=== PATIENT | female | born 1990 | race Caucasian/White ===

== ENCOUNTER 2021-02-25 18:24 | Emergency (ER) | payer SELFPAY ==
[2021-02-25 18:25] VITALS: BP 121/81; PULSE 97; RESP 16; TEMP 36.6; O2SAT 100; BMI 20.5
[2021-02-25 18:26] VITALS: BP 121/81; PULSE 97; RESP 16; TEMP 36.6; O2SAT 100
--- NOTE | 2021-02-25 18:31 | EX.ED.VIS.UR ---
HPI HPI - URI History of Present Illness Chief Complaint: Chest Other Detail of Chief Complaint: Left pleuritic chest pain. Informant: patient Onset/Context/Timing Onset: Days Context: Gradual Onset Timing: Intermittent Current Severity: Mild Maximum Severity: Mild Associated Symptoms Associated Symptoms: Positive for Chest Pain; Negative for Nasal Congestion, Headache, Sinus Pressure, Myalgias, Nausea, Vomiting, Diarrhea, Shortness of Breath, Nonproductive cough, Hemoptysis and Productive Cough Narrative Narrative: 21-year-old female with 1 to 2-day history of pleuritic chest pain with deep breathing. She is had pneumonia twice this year. States it feels like when she had pneumonia. Went to be evaluated. She denies fever or chills. She denies shortness of breath. She is never had a DVT or PE. No hemoptysis. She does not feel short of breath. No recent travel, surgery or immobilization. Her last hospitalization was in September for her pneumonia. She denies any leg pain or swelling. Prior similar symptoms: Yes Recent Illness/Hospitalization: No ROS ROS ED ROS Narrative Or a lot of chest breathing. Review of Systems ROS Unobtainable: Denies due to encephalopathy Constitutional Constitutional ED: Denies chills or fever(s) Eyes Eyes: Denies change in vision ENT ENT ED: Denies ear pain or sore throat Cardiovascular Cardiovascular: Reports chest pain; Denies palpitations or racing heartbeat Respiratory/Chest Respiratory/Chest: Denies cough, dyspnea or sputum Gastrointestinal Gastrointestinal: Denies abdominal pain, constipation, diarrhea, nausea or vomiting Genitourinary Genitourinary ED: Denies dysuria Musculoskeletal Musculoskeletal: Denies myalgias Integumentary Denies rash Neurologic Neurologic: Denies headache(s) Psychiatric Psychiatric: Denies depression Endocrine Endocrinology: Denies polyuria Hematologic/Lymphatic Hematologic/Lymphatic: Denies easy bruising Allergic/Immunologic Allergic/Immunologic ED: Denies urticaria PFSH PFSH Medical History no medical history Home Medications NK 02/25/21 [History Last Taken Unknown] Allergy/AdvReac Type Severity Reaction Status Date / Time cefazolin Allergy Rash Verified 02/25/21 18:26 cephalexin monohydrate Allergy Rash Verified 02/25/21 18:26 [From Keflex] Penicillins [PCN] Allergy Rash Verified 02/25/21 18:26 Family History no significant family his Surgical History no surgical history no surgical history Social History Smoking Status: Current every day smoker tobacco type: cigarettes EXAM Physical Exam Narrative Exam Narrative: Well-appearing young female no acute distress. Vital signs stable afebrile. Pulse ox 9% room air no signs hypoxia. HEENT exam normal. Neck nontender no JVD. Lungs clear to auscultation. Heart regular rate and rhythm no murmur. Chest wall nontender. There is no ecchymosis or bruising no subcu air crepitance. No reproducible chest wall pain. Abdomen soft nontender. Moving all 4 extremities. Calves are nontender no edema or cords. Equal symmetrical radial pulses. Back exam normal nontender. Neurologic exam normal. Const Vital Signs: 02/25/21 18:25 02/25/21 18:26 02/25/21 18:35 Temperature 98 F 98 F Temperature Source Temporal Temporal Pulse Rate 97 97 Respiratory Rate 16 16 Respiratory Effort Normal Blood Pressure 121/81 H 121/81 H Blood Pressure Mean 94 94 Pulse Ox 100 100 General Appearance ED: Negative for pallor HEENT Reports moist mucous membranes normocephalic and atraumatic Face and Sinus: Negative for sinus tenderness External Ear: external ears normal Eyes PERRL and EOMs intact bilaterally Neck no lymphadenopathy, supple, no meningeal signs and no JVD General: Negative for anterior neck swelling Resp normal respiratory effort and clear to auscultation bilaterally Effort and Inspection: Negative for retractions or pain with movement Auscultation: Negative for rales, rhonchi, wheezes or diminished lung sounds Cardio S1 normal heart sound, S2 normal heart sound and no murmurs Rate: regular rate; Negative for tachycardic Rhythm: regular rhythm GI non-tender, non-distended and no masses Inspection: Negative for abdominal distention Auscultation: normoactive bowel sounds Palpation: soft; Negative for tender or guarding Back/Spine no CVA tenderness Extremity normal to inspection and full ROM General Extremety ED: Negative for cyanosis or tenderness General Extremity: Negative for cyanosis Neuro oriented x3 Sensorium / Orientation: alert, oriented to person, oriented to place and oriented to time Motor Exam: strength 5/5 throughout Psych mental status grossly normal Skin General Skin Exam: Negative for jaundice or pallor Lesions: no lesions Rashes: no rashes MDM MDM MDM Narrative Medical decision making narrative: Young female left-sided pleuritic chest pain. No history of DVT or PE or any significant risk factors. Chest x-ray being obtained due to her history of prior pneumonias. Repeat exam patient doing well at 6:58 PM and will be discharged home. Motrin for pain. Radiography Diagnostic Testing: Chest x-ray portable 1 view interpreted by myself shows no acute abnormality. Normal cardiac silhouette. Normal lung rosenbreg. No infiltrate. No pneumonia. No pneumothorax. I did go over the film with the patient. Discharge Plan Triage Chief Complaint: Chest Other ED Provider: Samuel Singer Dx/Rx/DC Orders Clinical Impression: Pleurisy Instructions: ED Pleurisy Prescriptions: No Action NK RF: 0 Primary Care Provider: Care Physician,No Primary Referrals: Nabor Sanchez MD [STAFF PHYSICIAN] - 1 Week if not improving Care Physician,No Primary [Primary Care Provider] - Activity Restrictions/Additional Instructions: Motrin for pain and inflammation. Follow-up if not improving. Your chest x-ray was normal today. If you are feeling a lot worse, increasing pain, fever or shortness of breath or coughing up blood return to be reevaluated. Disposition Disposition: Home, Self Care
--- NOTE | 2021-02-25 18:40 | RAD_ITS ---
HISTORY: cough EXAMINATION/TECHNIQUE: XR Chest 1 View: Portable upright AP chest x-ray COMPARISON: 02/01/16 FINDINGS: LINES/DEVICES: None. LUNGS: No consolidation, edema or effusion. No pneumothorax. MEDIASTINUM AND CARDIOVASCULAR STRUCTURES: Cardiac silhouette not enlarged. Central airways and mediastinal contour are unremarkable. BONES AND SOFT TISSUES: No acute bony abnormalities. RAD/Chest 1 View (Portable) IMPRESSION: No radiographic evidence of acute cardiopulmonary disease. at 1934 Reported and signed by: Shine Ortiz MD Electronically Signed: Shine Ortiz MD at 19:33 EDT Tel , Service support ,
[2021-02-25 19:10] VITALS: RESP 16
== END 2021-02-25 19:11 | disposition home or self-care (01) ==
LOC: ED 19:09
PROVIDERS: Emergency Provider Emergency Medicine
DX: R09.1 Pleurisy (principal); F17.210 Nicotine dependence, cigarettes, uncomplicated
CPT/HCPCS: 71045; 99282

== ENCOUNTER 2022-06-02 12:13 | Emergency (ER) | payer MEDICAID, SELFPAY ==
[2022-06-02 12:16] VITALS: BP 151/89; PULSE 110; RESP 18; TEMP 36.1; O2SAT 98; BMI 19.5
--- NOTE | 2022-06-02 12:47 | EX.ED.DYSGE1 ---
HPI History of Present Illness Chief Complaint: Anxiety Narrative Narrative: 31-year-old female presenting with anxiety and panic attack. She states this started this morning. She has been under a lot of stress at work. She recently ran out of her anxiety medication, hydroxyzine. She denies suicidal thoughts or plan. History of previous panic attack. She states she has palpitations and bilateral hand tingling. Denies other complaints. Prior similar symptoms: Yes Recent Illness/Hospitalization: No PFSH PFSH Medical History (Updated 06/02/22 @ 13:[address] Mariaelena Gaytan MD) Anxiety IBS (irritable bowel syndrome) Home Medications hydroxyzine pamoate 25 mg capsule (Vistaril) 25 mg PO BID PRN anxiety 10 days #20 caps 06/02/22 [Rx Last Taken Unknown] Allergy/AdvReac Type Severity Reaction Status Date / Time cefazolin Allergy Rash Verified 06/02/22 12:18 cephalexin monohydrate Allergy Rash Verified 06/02/22 12:18 [From Keflex] Penicillins [PCN] Allergy Rash Verified 06/02/22 12:18 Social History Smoking Status: Current every day smoker tobacco type: cigarettes ROS ROS ED Constitutional Constitutional ED: Denies fever(s) Eyes Eyes: Denies change in vision ENT ENT ED: Denies rhinorrhea or sore throat Cardiovascular Cardiovascular: Reports palpitations; Denies chest pain Respiratory/Chest Respiratory/Chest: Denies cough or dyspnea Gastrointestinal Gastrointestinal: Denies abdominal pain, diarrhea, nausea or vomiting Genitourinary Genitourinary ED: Denies dysuria Musculoskeletal Musculoskeletal: Denies myalgias Integumentary Denies rash Neurologic Neurologic: Denies headache(s) Psychiatric Psychiatric: Reports anxiety; Denies suicidal thoughts EXAM Physical Exam Const Vital Signs: 06/02/22 12:16 Temperature 96.9 F L Temperature Source Temporal Pulse Rate 110 H Respiratory Rate 18 Blood Pressure 151/89 H Blood Pressure Mean 109 Pulse Ox 98 Oxygen Delivery Method Room Air Positive well nourished and well developed General Appearance ED: well developed HEENT Reports normocephalic and head/scalp atraumatic Eyes PERRL and EOMs intact bilaterally Neck supple General: Negative for tenderness Chest Wall inspection of chest normal Resp normal respiratory effort and clear to auscultation bilaterally Cardio regular rate and regular rhythm GI non-tender and non-distended Palpation: soft; Negative for guarding or rebound tenderness present no CVA tenderness Extremity normal to inspection Neuro oriented x3 Sensorium / Orientation: alert Psych mental status grossly normal Psych Narrative: Denies suicidal thoughts or plan Mood & Affect: anxious MDM MDM MDM Narrative Medical decision making narrative: Patient was given Ativan p.o. On reevaluation she is feeling improved. She continues to deny suicidal ideation. She is given a referral to the counseling center. She is given prescription for Vistaril. Advised return to ED for worsening complaints. Discharge Plan Triage Chief Complaint: Anxiety ED Provider: Mariaelena Gaytan Dx/Rx/DC Orders Clinical Impression: Anxiety Instructions: ED Anxiety Reaction Prescriptions: New hydroxyzine pamoate [Vistaril] 25 mg capsule 25 mg PO BID PRN (Reason: anxiety) 10 Days Qty: 20 0RF Primary Care Provider: Care Physician,No Primary Referrals: Counseling,Center [Group of Physicians] - Care Physician,No Primary [Primary Care Provider] - Disposition Disposition: Home, Self Care
[2022-06-02] MEDS: LORazepam 1 MG Tablet PO (12:52)
== END 2022-06-02 13:33 | disposition home or self-care (01) ==
PROVIDERS: Emergency Provider Emergency Medicine; Visit Provider Emergency Medicine
DX: F41.9 Anxiety disorder, unspecified (principal); F17.210 Nicotine dependence, cigarettes, uncomplicated
CPT/HCPCS: 99284

== ENCOUNTER 2022-08-09 12:09 | Emergency (ER) | payer MEDICAID, SELFPAY ==
[2022-08-09 12:10] VITALS: BP 125/72; PULSE 74; RESP 14; TEMP 36.8; O2SAT 100; BMI 19.8
--- NOTE | 2022-08-09 12:32 | EDS_ITS ---
HPI <SEEMA Yang - Last Filed: 08/09/22 15:27> History of Present Illness Chief Complaint: Chest Other Narrative Narrative: 31-year-old female presents with right-sided chest pain that started yesterday. 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 She started to feel seconds of sharp pain in her right lower rib cage. Today when starting her shift about the first half an hour the pain worsened and became more constant. It has improved now that she is resting in the ED. It hurts with taking a deep breath she does not feel short of breath. No nausea, vomiting, or diaphoresis. No back or abdominal pain. She has had similar pain every couple months and states she has been seen before and told she had pneumonia or costochondritis. She has had a cough recently but no fever or chills. She smokes. She has no history of DVT/PE, leg pain or swelling, recent surgery or travel, hemoptysis, or hormone use. PFSH <SEEMA Yang - Last Filed: 08/09/22 15:27> [facility] Medical History (Updated 08/09/22 @ 13:12 by SEEMA Yang) Anxiety IBS (irritable bowel syndrome) Home Medications hydroxyzine pamoate 25 mg capsule (Vistaril) 25 mg PO BID PRN anxiety 10 days #20 caps 06/02/22 [Rx Last Taken Unknown] Allergy/AdvReac Type Severity Reaction Status Date / Time cefazolin Allergy Rash Verified 08/09/22 12:10 cephalexin monohydrate Allergy Rash Verified 08/09/22 12:10 [From Keflex] Penicillins [PCN] Allergy Rash Verified 08/09/22 12:10 Social History Smoking Status: Current every day smoker tobacco type: cigarettes ROS <SEEMA Yang - Last Filed: 08/09/22 15:27> ROS ED ROS Narrative Constitutional: Negative for fever, chills, malaise. CVS: Positive for chest pain. Negative for palpitations, syncope. Respiratory: Positive for cough. Negative for shortness of breath. GI: Negative for abdominal pain, nausea, vomiting. : Negative for dysuria. Skin: Negative for rash, abscess, or wound. Musc: Negative for joint pain, swelling, trauma. EXAM <SEEMA Yang - Last Filed: 08/09/22 15:27> Physical Exam Narrative Exam Narrative: CONST: Patient sitting in no acute distress. EYES: Normal inspection. NECK: Normal inspection. RESP: No respiratory distress, CTAB. No reproducible tenderness of the right rib cage but movement does exacerbate the pain. CVS: Regular rate and rhythm, no murmur, no gallop. ABD: Soft and nontender, no guarding or rebound, nondistended, no hepatosplenomegaly. SKIN: Color normal, no rash, warm, dry, intact. EXTREMITIES: Normal appearance, no pedal edema. NEURO: Oriented x4. PSYCH: Normal affect. Const Vital Signs: 08/09/22 12:10 08/09/22 12:31 08/09/22 13:30 Temperature 98.2 F Temperature Source Temporal Pulse Rate 74 66 Respiratory Rate 14 Respiratory Pattern Normal Blood Pressure 125/72 H 122/80 H Blood Pressure Mean 89 Pulse Ox 100 100 Oxygen Delivery Method Room Air <Dr. 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 It worsened today at work. It hurts with movement or taking a deep breath. She is not short of breath or having any other associated symptoms. She appears well and nontoxic with normal vital signs. Heart is regular rate and rhythm with no murmurs. Lungs clear. She has no tenderness when I push on her right rib cage but it does hurt with twisting motions. No abdominal tenderness. Chest x-ray and EKG were obtained. CXR shows no acute process and EKG is normal sinus rhythm with no acute ischemic changes. She is PERC negative so I do not think she needs a D-dimer. I considered lab work and troponin but pain seems more consistent with a muscular strain especially with how labor-intensive her job is. She had improvement after Toradol and I recommended taking Tylenol and Motrin [id number]. She is scheduled to be off for the next 2 days. She was given return precautions and discharged in stable condition. Radiography Diagnostic Testing: Clinical Impression(s) from Imaging Studies Chest X-Ray 08/09/22 12:38 IMPRESSION: Hyperinflation. The lungs are clear. Electronically Signed: Kar Soto MD at 12:52 EST , ED attending interpretation of 2 view chest x-ray shows normal heart size, no acute infiltrate or effusion, no evidence of displaced rib fracture or pneumothorax. EKG Initial EKG: Attestation: I personally reviewed and interpreted this EKG as follows: Interpretation: Sinus Rhythm Comments: ED attending interpretation EKG is normal sinus rhythm at 76 bpm, RBBB but no acute ischemic changes Prior EKG tracings: available for review Prior: Unchanged <Dr. 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 It worsened today at work. It hurts with movement or taking a deep breath. She is not short of breath or having any other associated symptoms. She appears well and nontoxic with normal vital signs. Heart is regular rate and rhythm with no murmurs. Lungs clear. She has no tenderness when I push on her right rib cage but it does hurt with twisting motions. No abdominal tenderness. Chest x-ray and EKG were obtained. CXR shows no acute process and EKG is normal sinus rhythm with no acute ischemic changes. She is PERC negative so I do not think she needs a D-dimer. I considered lab work and troponin but pain seems more consistent with a muscular strain especially with how labor-intensive her job is. She had improvement after Toradol and I recommended taking Tylenol and Motrin [id number]. She is scheduled to be off for the next 2 days. She was given return precautions and discharged in stable condition. Interventions / MDM: Differential diagnosis: Musculoskeletal strain Diagnosis considered but do not suspect: Acute coronary syndrome, however EKG with no ischemia. 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 I perform my own [id number] evaluation. I agree with the plan of work-up. Increasing right lower rib pain while at work yesterday. 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 No direct injuries. Her boss was aware yesterday decrease her duties, today while working increasing pain therefore left work and came here. She has been there for months. Patient status post Toradol before my evaluation. Discussed she states improving symptoms. Pain reproducible right lower anterior ribs there is no crepitus. No rash or ecchymosis. EKG chest x- ray negative she is reassured. She is declining work related injury processing at this time. She is given a work note for today she is off for the weekend she will see how she does on Friday. She will continue ibuprofen 600 mg every 6 hours. All questions were answered. Re-evaluation: stable Disposition discussed with patient/family/significant other: Case discussed with consulting clinician: N/A Radiography Diagnostic Testing: Clinical Impression(s) from Imaging Studies Chest X-Ray 08/09/22 12:38 IMPRESSION: Hyperinflation. The lungs are clear. Electronically Signed: Kar Soto MD at 12:52 EST , Discharge Plan Triage Chief Complaint: Chest Other ED Midlevel Provider: Pura Crowe ED Provider: Aries Camacho Dx/Rx/DC Orders Clinical Impression: Chest pain, Muscle strain of chest wall Instructions: ED Chest Wall Strain Prescriptions: No Action hydroxyzine pamoate [Vistaril] 25 mg capsule 25 mg PO BID PRN (Reason: anxiety) 10 Days Qty: 20 0RF Primary Care Provider: Care Physician,No Primary Referrals: Care Physician,No Primary [Primary Care Provider] - Activity Restrictions/Additional Instructions: Your chest x-ray and EKG look normal. I would treat this as a muscle strain with ibuprofen 600 mg every 6 hours. You can also add Tylenol 1000 mg every 6 hours for additional pain relief. Use heat or ice and rest. Return to ER if symptoms worsen or change. Disposition Disposition: Home, Self Care Discharge Date/Time: 08/09/22 13:33
--- NOTE | 2022-08-09 12:38 | RAD_ITS ---
STUDY: X-RAY CHEST REASON FOR EXAM: Female, 31 years old. Chest pain. TECHNIQUE: PA and lateral views of the chest. COMPARISON: Comparison is made with prior study dated February 25, 2021. FINDINGS: Hyperinflation. The lungs are clear. There is no demonstrated pleural abnormality. Normal size heart. Normal mediastinum and cele. Normal visualized pulmonary arteries. Normal visualized aortic arch and descending thoracic aorta. Normal visualized thoracic spine. Normal visualized ribs, clavicles, and shoulders. There is no demonstrated abnormality of the visualized soft tissue structures of the upper abdomen. RAD/Chest PA and Lateral IMPRESSION: Hyperinflation. The lungs are clear. Electronically Signed: Kar Soto MD at 12:52 EST ,
[2022-08-09] MEDS: Ketorolac 15 MG/ML Vial IM (12:57)
[2022-08-09 13:30] VITALS: BP 122/80; PULSE 66; O2SAT 100
== END 2022-08-09 13:33 | disposition home or self-care (01) ==
PROVIDERS: Emergency Provider Emergency Medicine; Visit Provider Emergency Medicine
DX: R07.9 Chest pain, unspecified (principal); S29.011A Strain of muscle and tendon of front wall of thorax, initial encounter; F17.210 Nicotine dependence, cigarettes, uncomplicated; F41.9 Anxiety disorder, unspecified; K58.9 Irritable bowel syndrome, unspecified; X50.0XXA Overexertion from strenuous movement or load, initial encounter
CPT/HCPCS: 71046; 93005; 99282

== ENCOUNTER 2022-11-14 16:45 | Emergency (ER) | payer MEDICAID, SELFPAY ==
[2022-11-14 16:45] VITALS: BP 137/77; PULSE 80; RESP 14; TEMP 37.2; O2SAT 98; BMI 17.6
--- NOTE | 2022-11-14 17:15 | EX.ED.VIS.HA ---
HPI History of Present Illness Chief Complaint: Headache Informant: patient Narrative Narrative: 32-year-old female states she has been having a headache that was gradual in onset progressive for the past 6 days or so, coexisting with worsening nasal congestion and sinus pressure, that she states is more in the bifrontal sinuses area than the ethmoids were maxillary. She has been having a chest cold that then started involving these sinus symptoms all of which started about 3 weeks ago, she was seen at urgent care and prescribed doxycycline which she started 4 days ago and when she went back because of the persistent headache, she was sent here for a CT of her head. [facility] Medical History Anxiety IBS (irritable bowel syndrome) Home Medications hydroxyzine pamoate 25 mg capsule (Vistaril) 25 mg PO BID PRN anxiety 10 days #20 caps 06/02/22 [Rx Last Taken Unknown] Allergy/AdvReac Type Severity Reaction Status Date / Time cefazolin Allergy Rash Verified 11/14/22 16:45 cephalexin monohydrate Allergy Rash Verified 11/14/22 16:45 [From Keflex] Penicillins [PCN] Allergy Rash Verified 11/14/22 16:45 Social History Smoking Status: Current every day smoker tobacco type: cigarettes ROS ROS ED Constitutional Constitutional ED: Denies chills or fever(s) ENT ENT ED: Reports nasal congestion, rhinorrhea, sinus pain and sinus pressure; Denies ear pain or sore throat Cardiovascular Cardiovascular: Denies chest pain or palpitations Respiratory/Chest Respiratory/Chest: Reports cough; Denies dyspnea Gastrointestinal Gastrointestinal: Denies abdominal pain, diarrhea, nausea or vomiting Genitourinary Genitourinary ED: Denies dysuria or hematuria Musculoskeletal Musculoskeletal: Reports neck pain and other Details: Neck pain is chronic and unchanged since she was 6 years old ; Denies myalgias Integumentary Denies abscess or rash Neurologic Neurologic: Reports headache(s); Denies paresthesias or weakness Psychiatric Psychiatric: Denies depression or suicidal thoughts Endocrine Endocrinology: Denies polydipsia or polyuria EXAM Physical Exam Const Vital Signs: 11/14/22 16:45 Temperature 99 F Temperature Source Temporal Pulse Rate 80 Respiratory Rate 14 Blood Pressure 137/77 H Blood Pressure Mean 97 Pulse Ox 98 Oxygen Delivery Method Room Air Positive well nourished and well developed General Appearance ED: well developed and NAD HEENT Reports moist mucous membranes HEENT Narrative: No frontal, ethmoid, maxillary sinus tenderness. Nasal turbinate edema bilaterally without purulent discharge. No erythema or abnormal swollen areas of the face. No mastoiditis/tenderness. Normal voice no stridor. normocephalic and atraumatic Throat: Negative for posterior oropharynx abnormal Eyes PERRL and EOMs intact bilaterally Eyes Narrative: Mild photophobia Neck no lymphadenopathy, supple and no meningeal signs Resp normal respiratory effort and clear to auscultation bilaterally Cardio no murmurs Rate: regular rate Rhythm: regular rhythm Neuro oriented x3, CN's II-XII intact bilaterally and no sensory deficits noted Sensorium / Orientation: alert Motor Exam: strength 5/5 throughout Psych mental status grossly normal Skin Lesions: no lesions Rashes: no rashes MDM MDM MDM Narrative Medical decision making narrative: I do not think this patient needs a CT of the head, and she states she is in agreement and thinks she is having a headache due to her sinuses which I tend to agree with. Differential does include sphenoid sinusitis but she is on an appropriate antibiotic to cover that, and she may or may not have bacterial sinusitis, she is not examining like it but she has also been on antibiotics for the past 4 days, and she states that the congestion seems to be improving since then but the headache is persistent. She is okay with symptomatic treatment with nasal congestions, I will give her a Reglan dose and Toradol here and follow-up advised, we discussed reasons to return she is comfortable with that plan. Discharge Plan Triage Chief Complaint: Headache ED Provider: Gaston Mccann Dx/Rx/DC Orders Clinical Impression: Sinus headache Instructions: ED Sinus Headache Prescriptions: No Action hydroxyzine pamoate [Vistaril] 25 mg capsule 25 mg PO BID PRN (Reason: anxiety) 10 Days Qty: 20 0RF Primary Care Provider: Corinne Jones NP Referrals: Corinne Jones NP, [employer]ER-[facility] [Primary Care Provider] - 3-5 Days if not improving Activity Restrictions/Additional Instructions: Look for [id number] decongestant nasal spray that contains oxymetazoline, use 2 sprays of each nostril up to every 12 hours for 3 days at a time, make sure you give your self time without the spray in between, so you do not get used to it. After sprain into your nostrils, 10 minutes later hold your nose and blow gently into you feel your ears gently pop without blowing too hard, and hold this for 1 breath as long as you can, sometimes this will pop your sinuses open to give you temporary or permanent relief of your sinus headache. Disposition Disposition: Home, Self Care
[2022-11-14] MEDS: Ketorolac 30 MG/ML Syringe IM (17:27)
[2022-11-14] MEDS: Metoclopramide 10 MG Tablet PO (17:43)
== END 2022-11-14 17:47 | disposition home or self-care (01) ==
PROVIDERS: Emergency Provider Emergency Medicine; PCP Nurse Practitioner Primary Care; Visit Provider Emergency Medicine
DX: R51.9 Headache, unspecified (principal); F17.210 Nicotine dependence, cigarettes, uncomplicated; F41.9 Anxiety disorder, unspecified; Z79.899 Other long term (current) drug therapy
CPT/HCPCS: 99283

== ENCOUNTER 2023-05-12 20:35 | Emergency (ER) | payer BC, MEDICAID, SELFPAY ==
--- NOTE | 2023-05-12 20:30 | EKG12_ITS ---
Test Reason : CP Blood Pressure : / mmHG Vent. Rate : 090 BPM Atrial Rate : 090 BPM P-R Int : 134 ms QRS Dur : 140 ms QT Int : 394 ms P-R-T Axes : 051 050 025 degrees QTc Int : 481 ms Normal sinus rhythm Right bundle branch block Abnormal ECG Confirmed by GOLDY CLARK, ИВАН ([id number]), editor house organ BENJAMIN REEVES ([id number]) on 05/19/2023 6:58:19 AM Referred By: Esa Greenberg Confirmed By:TORI WINSLOW MD
[2023-05-12 20:36] VITALS: BP 128/85; PULSE 81; RESP 16; TEMP 36.3; O2SAT 100; BMI 19.7
--- NOTE | 2023-05-12 22:00 | ED.VIS.CHEST ---
HPI History of Present Illness Chief Complaint: Chest Pain Narrative Narrative: 32-year-old female who denies significant past medical history presents with left-sided chest pain that began yesterday. Is very sharp and fleeting. There is no particular predictability when she gets this pain. It causes her to jump almost when it catches her. She states it is on the left side of her chest, and radiates into her breast. She denies any fever or chills, no cough. No recent trauma. No swelling of her legs. No DVT or PE risk factors. No exacerbating or alleviating factors. [facility] Medical History Anxiety IBS (irritable bowel syndrome) Home Medications hydroxyzine pamoate 25 mg capsule (Vistaril) 25 mg PO BID PRN anxiety 10 days #20 caps 06/02/22 [Rx Last Taken Unknown] Allergy/AdvReac Type Severity Reaction Status Date / Time cefazolin Allergy Rash Verified 11/14/22 16:45 cephalexin monohydrate Allergy Rash Verified 11/14/22 16:45 [From Keflex] Penicillins [PCN] Allergy Rash Verified 11/14/22 16:45 Social History Smoking Status: Current every day smoker tobacco type: cigarettes ROS ROS ED ROS Narrative Constitutional: No fever, no chills. HEENT: No sore throat. No neck pain. No loss of vision. No rhinorrhea. Cardiovascular: Positive left-sided chest pain sharp, fleeting. No palpitations. No pedal edema. Respiratory: No cough, no shortness of breath. Abdominal: No abdominal pain. No nausea. No vomiting. Genitourinary: No dysuria. No hematuria. Musculoskeletal: No myalgias. No arthralgias. Neurologic: No headaches. No dizziness. No lightheadedness. Skin: No rash. No change in color. Psychiatric: No depression. Positive anxiety. EXAM Physical Exam Narrative Exam Narrative: Afebrile. Vital signs noted. HEENT: Normocephalic. Atraumatic. PERRL, EOMI. Neck soft and supple. No point tenderness or step off. Cardiovascular: Regular rate and rhythm. No murmurs, rubs, or gallops appreciated. No tenderness to chest wall. No crepitance. Respiratory: No tachypnea. Lungs clear to auscultation bilaterally. Gastrointestinal: Abdomen soft, nontender, with normoactive bowel sounds. No rebound or guarding. Neurological: Awake. Alert. Nonfocal, nonlateralizing. Skin: No rash. Normal color. No pallor. Musculoskeletal: No pedal edema. Full range of motion extremities. Const Vital Signs: 05/12/23 20:36 05/12/23 21:37 05/12/23 21:59 Temperature 97.4 F L Temperature Source Temporal Pulse Rate 81 Respiratory Rate 16 Respiratory Effort Normal Respiratory Pattern Normal Blood Pressure 128/85 H Blood Pressure Mean 99 Pulse Ox 100 Oxygen Delivery Method Room Air Room Air 05/12/23 23:29 Temperature Temperature Source Pulse Rate 80 Respiratory Rate 13 Respiratory Effort Respiratory Pattern Blood Pressure 124/82 H Blood Pressure Mean 96 Pulse Ox 98 Oxygen Delivery Method MDM MDM MDM Narrative Medical decision making narrative: In the differential diagnosis is acute coronary syndrome versus pneumothorax versus pneumonia versus intercostal pain. The history and physical does not really support these emergency diagnosis especially pneumothorax or pneumonia. Her pulse ox is 100% on room air without evidence of hypoxia. She is not tachycardic. In the differential is also coronary artery vasospasm, but it seems to be more chest wall than internally. Comprehensive workup was pursued. I do not feel she requires serial enzymes as she has been getting this intermittent pain since yesterday. EKG was obtained and interpreted by myself independently as normal sinus rhythm at 90 bpm without ectopy or acute ST changes. No STEMI. No significant change from EKG dated August 09, 2022. I reviewed her laboratory work and she has normal white count of 8.2, hemoglobin normal at 12.5, hematocrit 39.1, platelet count normal at 389. Her initial D-dimer was hemolyzed but the repeat is normal at less than 0.27. Review of her BMP shows chloride 108 and slightly elevated which I think is nonspecific, glucose normal at 94 with a normal anion gap/low at 4. Her high-sensitivity troponin is 6. I feel she may have more of a neuropathic type of pain. She has not had it at all since her stay in the emergency department. At this point in time, as she has a chest x-ray that was interpreted by myself and 1 view as no acute process, I reviewed the radiology report which confirms my independent interpretation, I feel she be discharged to follow-up with her primary care provider. She was offered analgesics here but declined. Disposition is discharged home in stable condition. History & Record Review Discussion w/independent historian: Patient Additional record(s) reviewed:: Prior ED visit Lab Data Attestation: I reviewed the patient's lab results. Labs: Laboratory Results - last 24 hr 05/12/23 05/12/23 22:08 22:40 WBC 8.2 RBC 4.30 Hgb 12.5 Hct 39.1 MCV 90.9 MCH 29.1 MCHC 32.0 RDW Std Deviation 43.5 RDW Coeff of Jordan 13.2 Plt Count 389 MPV 10.3 Immature Gran % (Auto) 0.400 Neut % (Auto) 59.7 Lymph % (Auto) 31.3 Dolores % (Auto) 7.1 Eos % (Auto) 1.0 Baso % (Auto) 0.5 Absolute Neuts (auto) 4.9 Absolute Lymphs (auto) 2.56 Nucleated RBC % 0 D-Dimer Quant (PE/DVT) Cancelled < 0.27 L Sodium 140 Potassium 4.1 Chloride 108 H Carbon Dioxide 28.0 Anion Gap 4 L BUN 14 Creatinine 0.76 Estim Creat Clear Calc 88.32 Est GFR (MDRD) Af Amer 113 Est GFR (MDRD) Non-Af 93 BUN/Creatinine Ratio 18.3 Glucose 94 Calcium 9.1 Troponin I High Sens 6 Radiography Diagnostic Testing: Clinical Impression(s) from Imaging Studies Chest X-Ray 05/12/23 22:10 IMPRESSION: No radiographic evidence of acute cardiopulmonary disease. Electronically Signed: Shine Ortiz MD at 22:37 EST Reading Location ID and State: [facility] / [place] Tel , Service support , Discharge Plan Triage Chief Complaint: Chest Pain ED Provider: Esa Greenberg Dx/Rx/DC Orders Clinical Impression: Chest pain Instructions: ED Chest Pain, Uncertain Cause Prescriptions: No Action hydroxyzine pamoate [Vistaril] 25 mg capsule 25 mg PO BID PRN (Reason: anxiety) 10 Days Qty: 20 0RF Stand Alone Forms: Work / School Excuse Primary Care Provider: Corinne Jones NP Referrals: Corinne Jones NP, [employer] PROGRAM DIRECTOR-C [Primary Care Provider] - 3-5 Days if not improving Disposition Disposition: Home, Self Care
--- NOTE | 2023-05-12 22:10 | RAD_ITS ---
INDICATION: chest pain EXAMINATION/TECHNIQUE: X-RAY - portable upright AP chest x-ray COMPARISON: 08/09/2022 FINDINGS: LINES/DEVICES: None. LUNGS: No consolidation, edema or effusion. No pneumothorax. MEDIASTINUM AND CARDIOVASCULAR STRUCTURES: Cardiac silhouette not enlarged. Central airways and mediastinal contour are unremarkable. BONES AND SOFT TISSUES: Unremarkable. RAD/Chest 1 View (Portable) IMPRESSION: No radiographic evidence of acute cardiopulmonary disease. Electronically Signed: Shine Ortiz MD at 22:37 EST ,
[2023-05-12 22:16] LABS: Absolute Lymphocyte Count 2.56 X10^3/uL (0.83-4.51); Absolute Neutrophil Count 4.9 X10^3/uL (2.0-7.7); Basophil# 0.04 X10^3/uL; Basophil% 0.5 % (0-1); Eosinophil# 0.08 X10^3/uL; Hematocrit 39.1 % (37-47); Hemoglobin 12.5 g/dL (12.0-15.0); Lymphocyte # 2.56 X10^3/ul (0.83-4.51); Lymphocyte % 31.3 % (19-41); Mean Corpuscular Hgb 29.1 pg (27.0-32.0); Mean Corpuscular Volume 90.9 fL (81-99); Mean Platelet Vol. 10.3 fl (6.2-12.0); Monocyte# 0.58 X10^3/uL; Monocyte% 7.1 % (0-10); NRBC Flagged by Analyzer 0 % (0-5); Neutrophil # 4.88 X10^3/uL (2.7-7.7); Neutrophil % 59.7 % (47-70); Platelet Count 389 K/mm3 (150-450); RBC Distribution Width CV 13.2 % (11.6-14.6); RBC Distribution Width SD 43.5 fl (35.1-43.9); White Blood Count 8.2 K/mm3 (4.4-11.0)
[2023-05-12 22:37] LABS: Anion Gap 4 (5-15); BUN 14 mg/dL (7-18); BUN/Creat Ratio 18.3 RATIO (10-20); Calcium,Total 9.1 mg/dL (8.5-10.1); Chloride 108 mmol/L (98-107); Creatinine, Serum 0.76 mg/dL (0.55-1.02); EST Glomerular Filtration Rate 93 mL/min (>60); Est Glom Filt Rate - Afr Amer 113 mL/min (>60); Estimated Creatinine Clearance 88.32 ml/min; Glucose 94 mg/dL (74-106); Potassium 4.1 mmol/L (3.5-5.1); Sodium Level 140 mmol/L (136-145); Troponin-I HS 6 pg/mL (3.0-54.0)
[2023-05-12] MEDS: 0.9% Normal Saline (1000mL) 1,000 ML 1000 ML IV (22:39)
[2023-05-12 23:22] LABS: D-Dimer Quantitative (DVT/PE) < 0.27 FEU/ug/m (0.27-0.49)
[2023-05-12 23:29] VITALS: BP 124/82; PULSE 80; RESP 13; O2SAT 98
== END 2023-05-12 23:42 | disposition home or self-care (01) ==
PROVIDERS: Emergency Provider Emergency Medicine; PCP Nurse Practitioner Primary Care; Referring Provider Emergency Medicine; Visit Provider Emergency Medicine
DX: R07.9 Chest pain, unspecified (principal); F17.210 Nicotine dependence, cigarettes, uncomplicated; F41.9 Anxiety disorder, unspecified; Z79.899 Other long term (current) drug therapy
CPT/HCPCS: 71045; 80048; 84484; 85025; 85379; 93005; 96360; 99284; J7030; A4216

== ENCOUNTER → 2023-11-28 | Outpatient (CLI) | payer MEDICAID, SELFPAY ==
--- NOTE | 2023-11-28 09:56 | STE_ITS ---
Reason For Study: Chest Pain Stress Results Protocol: Nic Protocol Maximum Predicted HR: 188 bpm Target HR: 160 bpm % Maximum Predicted HR: 85 % DurationHeart Rate Stage (mm:ss) (bpm) BP Comment Baseline 86 108/70No Chest Pain Nic Protocol Stage I 3:00 105 112/64No Chest Pain Nic Protocol Stage II 3:00 122 120/68No Chest Pain Nic Protocol Stage III 3:00 139 142/60Mild Dull Chest Ache; Mild Dyspnea Nic Protocol Stage IV 1:15 160 / Mild Dull Chest Ache; Mod Dyspnea Recovery 86 104/66No Chest Pain Stress Duration: 10:15 mm:ss Maximum Stress HR: 160 bpm METS: 13 Baseline Echocardiogram Findings Stress Echo Wall motion Data Resting WM Intermediate WM Stress WM ECHO/Stress Test Echo w/o Contrast Interpretation Summary Exercise stress echo. 33-year-old lady with a history of right bundle branch block and chest pain. Stress EKG. Resting EKG demonstrates sinus rhythm with a rate of 68 bpm, right bundle branc h block and a blood pressure of 108/70 mmHg. The patient exercised according to regular Nic clemente col for 10 minutes and 15 seconds. Patient completed 1 minute and 15 seconds to stage IV of the Br uce protocol the maximum heart rate attained was 171 bpm which was 90% of max impacted heart rat e the maximum workload was 13.4 metabolic equivalents. At rest there were no ST or T wave angely nges noted suggest ischemia at peak exercise upsloping ST changes were noted which did not meet th e criteria for ischemia. No clinical angina was noted the test was terminated due to the targe t heart rate being achieved. Stress echocardiogram. The resting echocardiographic images demonstrated preserved left ventricular sy stolic function estimated EF was 55%. No wall motion abnormalities were noted. The patient exer cised according to the Nic protocol and there was thickening of all hidalgo and reduction of left ventricular cavity size with peaking of ejection fraction of 70%. No new wall motion abnormalities were noted. Conclusion: Stress echo with no EKG or echocardiographic criteria for ischemia at a high wo rkload. Preserved ejection fraction. Ordering Physician: Arturo Bush Referring Physician: Arturo Bush Performed By: Maru Brush RCS
== END | disposition home or self-care (01) ==
LOC: CVS 09:55
PROVIDERS: PCP Nurse Practitioner Primary Care; Referring Provider Internal Medicine Cardiovascular Disease; Visit Provider Internal Medicine Cardiovascular Disease
DX: R07.9 Chest pain, unspecified (principal)
CPT/HCPCS: 93017; 93350

== ENCOUNTER 2024-01-10 11:28 | Emergency (ER) | payer MEDICAID, SELFPAY ==
[2024-01-10 11:28] VITALS: BP 117/84; PULSE 95; RESP 16; TEMP 36.5; O2SAT 100; BMI 19.3
[2024-01-10 11:31] VITALS: BP 122/76; PULSE 86; RESP 16; TEMP 36.9; O2SAT 100
--- NOTE | 2024-01-10 12:12 | EDS_ITS ---
HPI History of Present Illness Chief Complaint: Cough Informant: patient Narrative Narrative: Patient is a 33-year-old female with history of anxiety, IBS, depression and PTSD presenting with cough and generalized malaise. Patient states she started feel bad couple days ago but attributed to starting her menstrual cycle. She felt overheated and just had bodyaches all over. Initially she had nausea the first day but that is since resolved. No vomiting reported. However she has developed a cough that is productive and she will intermittently get some lung pains. Denies any urinary symptoms. 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. States a couple years ago she had pneumonia and had to be hospitalized for it. She was to make sure she does not have pneumonia again. Notes some mild sinus drainage and associated sore throat. Has not had an objective fever. Denies any urinary symptoms. No other complaints or concerns at this time [facility] Medical History PTSD (post-traumatic stress disorder) Depression Abnormal EKG IBS (irritable bowel syndrome) Anxiety Home Medications ?Medication ?Instructions ?Recorded ?Last Taken ?Type escitalopram oxalate 10 mg tablet 10 mg PO QDAY 10/14/23 Unknown History lorazepam 0.5 mg tablet 0.5 mg PO QDAY 10/14/23 Unknown History Allergy/AdvReac Type Severity Reaction Status Date / Time cefazolin Allergy Rash Verified 01/10/24 11:28 cephalexin monohydrate (From Allergy Rash Verified 01/10/24 11:28 Keflex) Penicillins (PCN) Allergy Rash Verified 01/10/24 11:28 sertraline (From Zoloft) AdvReac Other Verified 01/10/24 11:28 Family History Father COPD (chronic obstructive pulmonary disease) Drug abuse Alcohol abuse Pancreatitis Grandmother Colon cancer Cancer Grandfather Asthma COPD (chronic obstructive pulmonary disease) Social History Smoking Status: Current every day smoker tobacco type: cigarettes alcohol intake: current alcohol intake frequency: holidays/special occasions only substance use type: former 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, has been sober for 10 years caffeine: Yes ROS ROS ED Constitutional Constitutional ED: Reports other Details: Feels hot ; Denies chills ENT ENT ED: Reports sore throat and other Details: Mild sinus drainage, denies significant congestion ; Denies ear pain Cardiovascular Cardiovascular: Denies chest pain Respiratory/Chest Respiratory/Chest: Reports cough and sputum; Denies dyspnea Gastrointestinal Gastrointestinal: Reports nausea; Denies abdominal pain or vomiting Genitourinary Genitourinary ED: Denies dysuria or hematuria Musculoskeletal Musculoskeletal: Reports myalgias Integumentary Denies rash Neurologic Neurologic: Denies headache(s) EXAM Physical Exam Const Vital Signs: 01/10/24 11:28 01/10/24 11:31 01/10/24 11:33 Temperature 97.7 F L 98.4 F Temperature Source Temporal Oral Pulse Rate 95 86 Respiratory Rate 16 16 Respiratory Effort Normal Respiratory Depth Normal Respiratory Pattern Normal Blood Pressure 117/84 H 122/76 H Blood Pressure Mean 95 91 Pulse Ox 100 100 Oxygen Delivery Method Room Air Room Air Room Air Positive well nourished and well developed General Appearance ED: well developed and NAD HEENT Reports TM's clear and moist mucous membranes HEENT Narrative: Boggy nasal mucosa with drainage appreciated. Normal oropharynx. Normal tonsils. Tympanic Membrane ED: Yes TM's clear Eyes PERRL and EOMs intact bilaterally Neck no lymphadenopathy and supple Chest Wall inspection of chest normal Resp normal respiratory effort and clear to auscultation bilaterally Cardio regular rate and regular rhythm GI non-distended Extremity normal to inspection General Extremety ED: Negative for edema General Extremity: Negative for edema Neuro oriented x3 Sensorium / Orientation: alert Motor Exam: Negative for general weakness Psych mental status grossly normal Skin no rashes or lesions noted MDM MDM MDM Narrative Medical decision making narrative: Patient is evaluated for 3 to 4 days of cough. Is well-appearing. Vital signs are normal. She is afebrile. She is concerned for pneumonia because of history of similar symptoms with pneumonia. Will obtain a chest x-ray. Did discuss vir al testing for COVID-19 however given that we would not do anything with the information if she is positive versus negative she is comfortable with deferring for testing. 2 view chest x-ray reviewed by myself and radiology does not show any acute infiltrate. We discharged home with symptomatic treatment including [id number] ibuprofen, Tylenol and Tylenol Cold and flu. She also take Mucinex. Counseled return precautions as well as signs of developing pneumonia. Counseled this is a viral illness the cough can last 2 to 3 weeks. Is given a work note for discussion. Discharged home in stable condition Radiography Diagnostic Testing: Clinical Impression(s) from Imaging Studies Chest X-Ray 01/10/24 12:20 IMPRESSION: No acute findings in the chest and unchanged when compared to 05/12/2023. Electronically Signed: Esa Andres MD at 13:02 EDT , Discharge Plan Triage Chief Complaint: Cough ED Provider: Edwige Salter Dx/Rx/DC Orders Clinical Impression: Acute viral syndrome, Cough Instructions: ED URI, Viral, No Abx (Adult) Prescriptions: No Action escitalopram oxalate 10 mg tablet 10 mg PO QDAY lorazepam 0.5 mg tablet 0.5 mg PO QDAY Stand Alone Forms: ED Work / School Excuse Primary Care Provider: Corinne Jones NP Referrals: Corinne Jones NP, [employer] FOREMAN-C [Primary Care Provider] - Activity Restrictions/Additional Instructions: Your chest x-ray definitively does not show any pneumonia. As we discussed please take [id number] medication such as Tylenol Cold and flu, ibuprofen and or Mucinex to help with your symptoms. Return if you have impression worsening of your symptoms. I suspect this is a viral syndrome Print Language: Yoruba
--- NOTE | 2024-01-10 12:20 | RAD_ITS ---
EXAM: XR CHEST, 2 VIEWS CLINICAL INDICATION: cough TECHNIQUE: Frontal and lateral views of the chest. COMPARISON: 05/12/2023. FINDINGS: LUNGS AND PLEURAL SPACES: Mild pulmonary hyperinflation. The lungs are clear. No pneumothorax. No effusion. HEART: Unremarkable. Cardiac silhouette not enlarged. MEDIASTINUM: Central airways and mediastinal contour are unremarkable. BONES/JOINTS: Unremarkable. No acute fracture. SOFT TISSUES: Metallic nipple bars are unchanged. RAD/Chest PA and Lateral IMPRESSION: No acute findings in the chest and unchanged when compared to 05/12/2023. Electronically Signed: Esa Andres MD at 13:02 EDT ,
[2024-01-10 13:05] VITALS: BP 114/76; PULSE 86; RESP 16; TEMP 36.5; O2SAT 100
== END 2024-01-10 13:14 | disposition home or self-care (01) ==
PROVIDERS: Emergency Provider Emergency Medicine; PCP Nurse Practitioner Primary Care; Visit Provider Emergency Medicine
DX: B34.9 Viral infection, unspecified (principal); F41.9 Anxiety disorder, unspecified; F17.210 Nicotine dependence, cigarettes, uncomplicated; R05.9 Cough, unspecified
CPT/HCPCS: 71046; 99282

== ENCOUNTER 2024-01-21 14:24 | Emergency (ER) | payer MEDICAID, SELFPAY ==
[2024-01-21 14:25] VITALS: BP 121/85; PULSE 100; RESP 18; TEMP 36.6; O2SAT 100; BMI 17.5
[2024-01-21] MEDS: Lidocaine/Epi/Tetracaine 50 ML 1 APPLIC TOPICAL (15:15)
--- NOTE | 2024-01-21 16:48 | EDS_ITS ---
HPI History of Present Illness Chief Complaint: Abscess Informant: patient Narrative Narrative: Facial abscess with dental infection worsening over 6 days similar symptoms 6 months ago improved with antibiotics. She follow-up with a dentist states cost was too high due to wanting multiple extractions. [facility] 2 days. On clindamycin states feels facial swelling is improving however gum swelling is increased. No fevers or chills. She is on clindamycin due to allergy to penicillin. Prior similar symptoms: Yes PFSH PFSH Medical History PTSD (post-traumatic stress disorder) Depression Abnormal EKG IBS (irritable bowel syndrome) Anxiety Home Medications ?Medication ?Instructions ?Recorded ?Last Taken ?Type escitalopram oxalate 10 mg tablet 10 mg PO QDAY 10/14/23 Unknown History lorazepam 0.5 mg tablet 0.5 mg PO QDAY 10/14/23 Unknown History Allergy/AdvReac Type Severity Reaction Status Date / Time cefazolin Allergy Rash Verified 01/21/24 14:25 cephalexin monohydrate (From Allergy Rash Verified 01/21/24 14:25 Keflex) Penicillins (PCN) Allergy Rash Verified 01/21/24 14:25 sertraline (From Zoloft) AdvReac Other Verified 01/21/24 14:25 Family History Father COPD (chronic obstructive pulmonary disease) Drug abuse Alcohol abuse Pancreatitis Grandmother Colon cancer Cancer Grandfather Asthma COPD (chronic obstructive pulmonary disease) Social History Smoking Status: Current every day smoker tobacco type: cigarettes alcohol intake: current alcohol intake frequency: holidays/special occasions only substance use type: former 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, has been sober for 10 years caffeine: Yes ROS ROS ED Constitutional Constitutional ED: Denies chills, fever(s) or sweats Eyes Eyes: Denies change in vision ENT ENT ED: Reports other Details: Dental infection ; Denies dysphagia or sore throat Cardiovascular Cardiovascular: Denies chest pain, leg edema, palpitations or racing heartbeat Respiratory/Chest Respiratory/Chest: Denies cough, dyspnea or dyspnea on exertion Gastrointestinal Gastrointestinal: Denies abdominal pain, diarrhea, nausea or vomiting Genitourinary Genitourinary ED: Denies dysuria, hematuria or urinary frequency Musculoskeletal Musculoskeletal: Denies back pain, extremity pain or neck pain Integumentary Denies rash or wounds Neurologic Neurologic: Denies headache(s), paresthesias or weakness EXAM Physical Exam Const Vital Signs: 01/21/24 14:25 Temperature 97.8 F Temperature Source Temporal Pulse Rate 100 Respiratory Rate 18 Blood Pressure 121/85 H Blood Pressure Mean 97 Pulse Ox 100 Oxygen Delivery Method Room Air Positive well nourished and well developed General Appearance ED: well developed and NAD HEENT Reports moist mucous membranes HEENT Narrative: Generalized dental decay, focal decay tooth #19 with gum fluctuance and tenderness. No active drainage. There is mild swelling at the mandibular region. No sublingual edema. Airway patent. No trismus. normocephalic and atraumatic Eyes EOMs intact bilaterally and conjunctivae normal General Eye ED: Yes normal appearance of both eyes Neck no lymphadenopathy and supple General: Negative for tenderness Chest Wall Chest: Negative for tenderness Resp normal respiratory effort and normal air movement Effort and Inspection: symmetric chest movement; Negative for respiratory distress Cardio regular rate, regular rhythm and no murmurs Peripheral Pulses: pulses 2+ throughout GI normal to inspection, nondistended, normoactive bowel sounds and non-tender Palpation: Negative for guarding or rebound tenderness present Back/Spine no CVA tenderness and no thoracic nor lumbar tenderness Extremity normal to inspection General Extremety ED: Negative for edema or tenderness General Extremity: Negative for edema Neuro oriented x3 and no sensory deficits noted Sensorium / Orientation: awake and alert Skin no rashes or lesions noted and no wounds MDM MDM MDM Narrative Medical decision making narrative: Interventions / MDM: Differential diagnosis: Dental abscess, dental caries Diagnosis considered but do not suspect: No clinical Martin angina My EKG interpretation: N/A Imaging independently reviewed and interpreted by myself: N/A External documents reviewed: N/A Test considered but not ordered:N/A ED course: Patient with a dental abscess on exam. She is on 2 days of antibiotics reporting slight improvement however it still there. Discussed I&D would be the treatment in the ER. She was hesitant at first. She agreed with topical analgesia none with needles. Therefore let cream was placed, 11 blade incised with copious exudative drainage noted. Discussed to finish her antibiotics and use Tylenol or Motrin as needed. Discussed still follow-up with dental list as definitive treatment is likely extraction of the tooth. She understands this. Procedure note: Verbal consent. Normal sterile conditions. Initial let cream was placed to the abscess region x 2. 4 x 4 gauze to assist with visualization of the buccal mucosa. 11 blade used straight dario incision and immediate copious drainage. Patient allowed to rinse with water, 4 x 4 gauze sent with the patient. Patient tolerated procedure well. Re-evaluation: stable Disposition discussed with patient/family/significant other: Patient Case discussed with consulting clinician: N/A This note was generated with [employer] dictation software. It may contain incorrect words, spelling, and punctuation that were not noted in checking the note before signing. Discharge Plan Triage Chief Complaint: Abscess ED Provider: Aries Camacho Dx/Rx/DC Orders Clinical Impression: Abscess, dental, Dental caries Instructions: ED Abscess Incision And Drainage, ED Dental Abscess Prescriptions: No Action escitalopram oxalate 10 mg tablet 10 mg PO QDAY lorazepam 0.5 mg tablet 0.5 mg PO QDAY Primary Care Provider: Corinne Jones NP Referrals: Corinne Jones NP, TOP INSTALLER-C [Primary Care Provider] - Activity Restrictions/Additional Instructions: Your abscess was drained in the emergency department. Finish your antibiotic that was written for you. Following up with dental clinic for definitive treatment otherwise symptoms can return. Tylenol or ibuprofen every 6 hours as needed. Print Language: Maltese Disposition Disposition: Home, Self Care
[2024-01-21 16:50] VITALS: BP 121/88; PULSE 78; RESP 19; TEMP 36.6; O2SAT 97
== END 2024-01-21 16:52 | disposition home or self-care (01) ==
PROVIDERS: Emergency Provider Emergency Medicine; PCP Nurse Practitioner Primary Care; Visit Provider Emergency Medicine
DX: K04.7 Periapical abscess without sinus (principal); K02.9 Dental caries, unspecified; F17.200 Nicotine dependence, unspecified, uncomplicated
CPT/HCPCS: 41800; 99282

== ENCOUNTER 2024-01-30 13:49 | Emergency (ER) | payer MEDICAID, SELFPAY ==
[2024-01-30 13:50] VITALS: BP 112/79; PULSE 86; RESP 18; TEMP 36.6; O2SAT 98; BMI 17.6
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
--- NOTE | 2024-01-30 14:33 | EDS_ITS ---
HPI History of Present Illness
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
== END 2024-01-30 15:33 | disposition home or self-care (01) ==
PROVIDERS: Emergency Provider Emergency Medicine; PCP Nurse Practitioner Primary Care; Visit Provider Emergency Medicine
DX: S16.1XXA Strain of muscle, fascia and tendon at neck level, initial encounter (principal); S63.502A Unspecified sprain of left wrist, initial encounter; V49.40XA Driver injured in collision with unspecified motor vehicles in traffic accident, initial encounter; Y93.89 Activity, other specified; Y99.8 Other external cause status; Y92.481 Parking lot as the place of occurrence of the external cause; F17.210 Nicotine dependence, cigarettes, uncomplicated
CPT/HCPCS: 72040; 73110; 99282

== ENCOUNTER 2024-04-15 12:48 | Emergency (ER) | payer MEDICAID, SELFPAY ==
[2024-04-15 12:50] VITALS: BP 124/83; PULSE 86; RESP 16; TEMP 36.4; O2SAT 100; BMI 19.2
== END 2024-04-15 16:16 | disposition left against medical advice (07) ==
LOC: ED 16:23
PROVIDERS: PCP Nurse Practitioner Primary Care
DX: Z53.21 Procedure and treatment not carried out due to patient leaving prior to being seen by health care provider (principal)

== ENCOUNTER 2024-04-21 10:18 | Emergency (ER) | payer MEDICAID, SELFPAY ==
[2024-04-21 10:19] VITALS: BP 125/91; PULSE 125; RESP 16; TEMP 36.3; O2SAT 100; BMI 18.3
--- NOTE | 2024-04-21 10:38 | EKG12_ITS ---
Test Reason : Blood Pressure : */* mmHG Vent. Rate : 87 BPM Atrial Rate : 87 BPM P-R Int : 124 ms QRS Dur : 136 ms QT Int : 396 ms P-R-T Axes : 65 68 35 degrees QTcB Int : 476 ms Normal sinus rhythm Right bundle branch block Abnormal ECG Confirmed by COBY ORTIZ ([id number]), supervising editor trailer BENJAMIN REEVES ([id number]) on 04/23/2024 12:03:41 PM Referred By: Confirmed By: COBY ORTIZ
--- NOTE | 2024-04-21 11:03 | EX.ED.UPPERE ---
HPI History of Present Illness Chief Complaint: Upper Extremity Injury Informant: patient Narrative Narrative: 33-year-old female presenting to the emergency room with left arm pain. Patient states that yesterday she had pain in her right lateral forearm musculature. Today it is in the left. She notes tender to palpation. She states she was recently on antibiotics (clindamycin) due to dental infection. She states she completed the medication but still believes that there is infection as it still painful and swollen. She states at 1 point there was a abscess that was draining. She notes subjective fever. She is worried that the infection has spread to her heart and that is why her arm is hurting. She is currently unemployed. She states she does not have a way to see a dentist due to monetary reasons. She is a smoker. [facility] Medical History PTSD (post-traumatic stress disorder) Depression Abnormal EKG IBS (irritable bowel syndrome) Anxiety Home Medications ?Medication ?Instructions ?Recorded ?Last Taken ?Type escitalopram oxalate 10 mg tablet 10 mg PO QDAY 10/14/23 Unknown History lorazepam 0.5 mg tablet 0.5 mg PO QDAY 10/14/23 Unknown History chlorhexidine gluconate 0.12 % 15 ml buccal BID 10 days #300 mL 04/21/24 Unknown Rx mouthwash clindamycin HCl 300 mg capsule 300 mg PO Q6H #28 CAPSULES 04/21/24 Unknown Rx (Cleocin HCl) Allergy/AdvReac Type Severity Reaction Status Date / Time cefazolin Allergy Rash Verified 04/21/24 10:19 cephalexin monohydrate (From Allergy Rash Verified 04/21/24 10:19 Keflex) Penicillins (PCN) Allergy Rash Verified 04/21/24 10:19 sertraline (From Zoloft) AdvReac Other Verified 04/21/24 10:19 Family History Father COPD (chronic obstructive pulmonary disease) Drug abuse Alcohol abuse Pancreatitis Grandmother Colon cancer Cancer Grandfather Asthma COPD (chronic obstructive pulmonary disease) Social History Smoking Status: Current every day smoker tobacco type: cigarettes alcohol intake: current alcohol intake frequency: holidays/special occasions only substance use type: former 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, has been sober for 10 years caffeine: Yes ROS ROS ED Constitutional Constitutional ED: Reports subjective; Denies chills or weight loss Eyes Eyes: Denies change in vision or diplopia ENT ENT ED: Reports other Details: Dental pain gum swelling ; Denies ear pain, rhinorrhea or sore throat Cardiovascular Cardiovascular: Denies chest pain, orthopnea, palpitations or racing heartbeat Respiratory/Chest Respiratory/Chest: Denies cough, dyspnea or orthopnea Gastrointestinal Gastrointestinal: Denies abdominal pain, diarrhea, nausea or vomiting Genitourinary Genitourinary ED: Denies dysuria, hematuria or urinary frequency Musculoskeletal Musculoskeletal: Reports other Details: Bilateral forearm pain ; Denies arthralgias or myalgias Integumentary Denies abscess or rash Neurologic Neurologic: Denies headache(s) or weakness Psychiatric Psychiatric: Denies anxiety, depression, suicidal ideation or suicidal thoughts Endocrine Endocrinology: Denies polydipsia, polyphagia or polyuria Allergic/Immunologic Allergic/Immunologic ED: Denies mouth swelling, tongue swelling or urticaria EXAM Physical Exam Const Vital Signs: 04/21/24 10:19 Temperature 97.3 F L Temperature Source Temporal Pulse Rate 125 H Respiratory Rate 16 Blood Pressure 125/91 H Blood Pressure Mean 102 Pulse Ox 100 Oxygen Delivery Method Room Air Positive well nourished and well developed General Appearance ED: well developed and NAD HEENT Reports normocephalic, head/scalp atraumatic and moist mucous membranes HEENT Narrative: Widespread dental decay. There is some mild gum erythema and swelling on the left lower posterior teeth. Small amount of what appears to be blood along the gumline of the posterior left molar these teeth are decayed down to the gumline. There is no trismus. Floor the mouth is soft. There is no significant overlying facial swelling or erythema. Eyes PERRL and EOMs intact bilaterally Neck full ROM, no lymphadenopathy, supple and no JVD Resp normal respiratory effort and clear to auscultation bilaterally Cardio regular rate, regular rhythm and no murmurs GI normal to inspection, nondistended, normoactive bowel sounds and non-tender Palpation: soft Back/Spine no CVA tenderness and normal ROM Extremity Extremity Narrative: Patient reports some tenderness to palpation over the left forearm musculature laterally. I do not appreciate any swelling or erythema. There is no splinter hemorrhages Jan[place]ay lesions. General Extremety ED: Negative for edema General Extremity: Negative for edema Neuro oriented x3 and CN's II-XII intact bilaterally Sensorium / Orientation: alert Motor Exam: strength 5/5 throughout Psych mental status grossly normal Mood & Affect: anxious; Negative for depressed or tearful Skin no rashes or lesions noted and no wounds MDM MDM MDM Narrative Medical decision making narrative: Differential diagnosis includes golf/tennis elbow muscular strain myocarditis pericarditis endocarditis dental abscess dental infection anxiety about health care Patient's EKG is in normal sinus rhythm. She is without fever. I do not see any other symptomology/sequela of cardiac infection. Given that the left forearm lateral musculature is tender think is most likely a primary muscle issue. She does have significant anxiety about this. She has a penicillin allergy. I can write for some chlorhexidine mouth rinse. Dental resources will be given. I can write for some additional clindamycin. History & Record Review Discussion w/independent historian: Patient EKG Initial EKG: Attestation: I personally reviewed and interpreted this EKG as follows: Comments: Normal sinus rhythm ventricular rate of 87 bpm. Right bundle branch block noted. No concerning features of pericarditis or myocarditis. Discharge Plan Triage Chief Complaint: Upper Extremity Injury ED Provider: Derek Gold Dx/Rx/DC Orders Clinical Impression: Muscle strain of forearm, Dental infection, Gingivitis Instructions: Understanding Gingivitis, ED Dental Pain, ED Muscle Strain, Extremity Prescriptions: New chlorhexidine gluconate 0.12 % mouthwash 15 ml buccal BID 10 Days Qty: 300 0RF clindamycin HCl [Cleocin HCl] 300 mg capsule 300 mg PO Q6H Qty: 28 0RF No Action escitalopram oxalate 10 mg tablet 10 mg PO QDAY lorazepam 0.5 mg tablet 0.5 mg PO QDAY Primary Care Provider: GiannilogCorinne dean NP Referrals: Cornine Jones NP, LEAD SECURITY OFFICER-C [Primary Care Provider] - As Needed Activity Restrictions/Additional Instructions: You need to see a dentist as soon as possible for definitive care Print Language: Uzbek Disposition Disposition: Home, Self Care
[2024-04-21 11:17] VITALS: BP 125/70; PULSE 89; RESP 18; TEMP 36.6; O2SAT 97
== END 2024-04-21 11:18 | disposition home or self-care (01) ==
PROVIDERS: Emergency Provider Emergency Medicine; PCP Nurse Practitioner Primary Care; Visit Provider Emergency Medicine
DX: S56.912A Strain of unspecified muscles, fascia and tendons at forearm level, left arm, initial encounter (principal); X58.XXXA Exposure to other specified factors, initial encounter; K04.7 Periapical abscess without sinus; K05.10 Chronic gingivitis, plaque induced; F17.210 Nicotine dependence, cigarettes, uncomplicated
CPT/HCPCS: 93005; 99282

== ENCOUNTER 2024-07-09 14:09 | Emergency (ER) | payer MEDICAID, SELFPAY ==
[2024-07-09] VITALS (7 sets, daily range): BP systolic 112–117; BP diastolic 74–81; PULSE 72–94; RESP 14–18; TEMP 37.2; O2SAT 96–99; BMI 18.8
--- NOTE | 2024-07-09 15:57 | CT_ITS ---
PROCEDURE: SOFT TISSUE NECK WITH CONTRAST REASON FOR EXAM: Recent antibiotics; facial swelling. TECHNIQUE: CT of the soft tissues of the neck from the orbits to the upper mediastinum with intravenous contrast. COMPARISON: None. FINDINGS: Airway: Midline and patent. Salivary glands: Unremarkable. Lymph nodes: No cervical lymphadenopathy. Thyroid: Unremarkable. Vasculature: Carotid arteries and internal jugular veins are unremarkable. Orbits: Unremarkable at visualized levels. Paranasal sinuses and mastoids: Grossly clear at visualized levels. Lung apices: Mild paraseptal emphysema. Upper mediastinum: Visualized mediastinum is unremarkable. Bones: Unremarkable. Teeth: Scattered periapical lucency of the submandibular and maxillary teeth. Hypodense region superficial to the left body of the mandible which measures 23 x 7 mm and suspicious for a soft tissue abscess. CT/Soft Tissue Neck WITH Contrast IMPRESSION: Small hypodense region superficial to the left mandibular body which may repres ent an abscess. Consider confirmation with ultrasound. Scattered periapical lucency of the submandibular and maxillary teeth. One or more dose reduction techniques were used (e.g., Automated exposure contr ol, adjustment of the mA and/or kV according to patient size, use of iterative reconstruction technique). Reading Location: [id number]
--- NOTE | 2024-07-09 15:58 | EX.ED.DYSGE1 ---
HPI History of Present Illness Chief Complaint: Dental Narrative Narrative: Patient is a 33-year-old female with a past medical history of PTSD, depression, IBS, anxiety who presented to the emergency department the chief complaint of concern for dental infection. Patient states that she had developed pain and swelling along the left lower jawline. States that on Friday this all started she started taking clindamycin 150 mg 3 times a day which she normally takes as she had some leftover at home from a previous dental infection that normally works for her. States that she has had progressively worsening swelling and pain prompting her to come here for further evaluation management. [facility] Medical History PTSD (post-traumatic stress disorder) Depression Abnormal EKG IBS (irritable bowel syndrome) Anxiety Home Medications ?Medication ?Instructions ?Recorded ?Last Taken ?Type escitalopram oxalate 10 mg tablet 10 mg PO QDAY 10/14/23 Unknown History lorazepam 0.5 mg tablet 0.5 mg PO QDAY 10/14/23 Unknown History chlorhexidine gluconate 0.12 % 15 ml buccal BID 10 days #300 mL 04/21/24 Unknown Rx mouthwash clindamycin HCl 300 mg capsule 300 mg PO Q6H #28 CAPSULES 04/21/24 Unknown Rx (Cleocin HCl) ondansetron 4 mg disintegrating 4 mg PO Q6H PRN nausea and 07/09/24 Unknown Rx tablet vomiting #20 tabs oxycodone-acetaminophen 5 mg-325 1 tab PO Q6H PRN pain 2 days #8 07/09/24 Unknown Rx mg tablet (Endocet) tabs Allergy/AdvReac Type Severity Reaction Status Date / Time cefazolin Allergy Rash Verified 04/21/24 10:19 cephalexin monohydrate (From Allergy Rash Verified 04/21/24 10:19 Keflex) Penicillins (PCN) Allergy Rash Verified 04/21/24 10:19 sertraline (From Zoloft) AdvReac Other Verified 04/21/24 10:19 Family History Father COPD (chronic obstructive pulmonary disease) Drug abuse Alcohol abuse Pancreatitis Grandmother Colon cancer Cancer Grandfather Asthma COPD (chronic obstructive pulmonary disease) Social History Smoking Status: Current every day smoker tobacco type: cigarettes alcohol intake: current alcohol intake frequency: holidays/special occasions only substance use type: former 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, has been sober for 10 years caffeine: Yes ROS ROS ED ROS Narrative Constitutional: Denies fevers, chills Eyes, ears, nose, throat: Complains of left lower jaw swelling denies difficulty swallowing Respiratory: Denies shortness of breath Neurological: Denies numbness, weakness, tingling EXAM Physical Exam Narrative Exam Narrative: General: Patient lying in bed rest comfortably did not appear to be acute distress Head: Atraumatic, normocephalic Eyes ears, nose, throat: No sublingual swelling noted, patient does have area of swelling along the left lower jawline that is fluctuant in nature patient has poor dentition noted Neck: Soft, supple, trachea midline no concern for Martin's angina Cardiovascular: Regular rate and rhythm Respiratory: Clear to auscultation bilaterally Neurological: Patient follow commands and that she was at [facility] year is 2024 Skin: Warm, dry, tact Const Vital Signs: 07/09/24 14:09 07/09/24 14:12 07/09/24 16:09 Temperature 99 F 99 F Temperature Source Temporal Temporal Pulse Rate 89 88 75 Respiratory Rate 18 16 16 Blood Pressure 115/81 H 117/76 116/74 Blood Pressure Mean 92 89 88 Pulse Ox 99 99 98 Oxygen Delivery Method Room Air Room Air Room Air 07/09/24 18:00 07/09/24 20:00 Temperature Temperature Source Pulse Rate 72 94 Respiratory Rate 16 18 Blood Pressure 112/74 Blood Pressure Mean 86 Pulse Ox 98 96 Oxygen Delivery Method Room Air Room Air MDM MDM MDM Narrative Medical decision making narrative: Patient is a 33-year-old female who presented to the emergency department chief complaint of concern for dental infection despite being on clindamycin which normally works for her. On the differential diagnose includes but not limited to periapical abscess, deep space abscess. Once workup is obtained reviewed she will be reevaluated. Patient is requesting Tylenol for pain and nothing stronger. Patient's BMP reviewed showed sodium 139, potassium was 3.8, creatinine normal at 0.70. Patient glucose normal at 88. Patient's CT soft tissue neck was reviewed and showed small hypodense region superficial to the left ventricular body which may represent an abscess. Consider confirmation with ultrasound. Scattered periapical lucency of the submandibular and maxillary teeth. Called and discussed the case with ears nose and throat physician Dr. Bergman who states that he would recommend transferring to oral maxillofacial surgeon where they can remove the tooth however states that if she is refusing transfer he would open this up and make sure she is on antibiotics. Patient was given dose of Unasyn here in the emergency department tolerated this well I discussed with the patient on reevaluation and she noted that she is taking three 150 mg tablets 3 times a day. I told her at this point in time she technically failed outpatient therapy and she should to be transferred to a facility with oral maxillofacial surgery however the patient is refusing. I told her that she will need to leave AGAINST MEDICAL ADVICE as there is likely chance that she worsens despite being on oral clindamycin already. I told her that she could have worsening abscess that could lead to causing issues with her airway such as Martin's angina and leading to . She states that she understands this however she does not want to be transferred she wants to go home at this point time. I did a incision and drainage at bedside and purulent material was expressed she tolerated the procedure well without complications. Patient states that she has plenty of clindamycin at home and once again she was advised to take the three 150 mg tablets. She is encouraged return with worsening symptoms or concerns. She is agreeable this plan she will leave AGAINST MEDICAL ADVICE. Procedure note Timeout protocol was performed prior to initiating procedure. The area was prepped and draped in the usual, sterile manner. The site was anesthetized with topical 2% percent lidocaine without epinephrine as she did not want any needles to numb her up. A linear incision along the local skin lines were made and the purulent material expressed. The abscess was explored thoroughly and sequestered pockets were opened. Bleeding was minimal. Packing none Follow-up: The patient tolerated procedure well without complications. Standard postprocedure care is explained and return precautions were given. Lab Data Labs: Laboratory Results - last 24 hr 07/09/24 16:10 Sodium 139 Potassium 3.8 Chloride 108 H Carbon Dioxide 25.0 Anion Gap 6 BUN 8 Creatinine 0.70 Estim Creat Clear Calc 87.91 Est GFR (MDRD) Af Amer 124 Est GFR (MDRD) Non-Af 102 BUN/Creatinine Ratio 11.4 Glucose 88 Calcium 9.1 Radiography Diagnostic Testing: Clinical Impression(s) from Imaging Studies Soft Tissue Neck CT 07/09/24 15:57 IMPRESSION: Small hypodense region superficial to the left mandibular body which may represent an abscess. Consider confirmation with ultrasound. Scattered periapical lucency of the submandibular and maxillary teeth. One or more dose reduction techniques were used (e.g., Automated exposure control, adjustment of the mA and/or kV according to patient size, use of iterative reconstruction technique). Reading Location: [facility] Discharge Plan Triage Chief Complaint: Dental ED Provider: Malcolm Thompson Dx/Rx/DC Orders Clinical Impression: Abscess, dental Prescriptions: New oxycodone-acetaminophen [Endocet] 5-325 mg tablet 1 tab PO Q6H PRN (Reason: pain) 2 Days Qty: 8 0RF ondansetron 4 mg tablet,disintegrating 4 mg PO Q6H PRN (Reason: nausea and vomiting) Qty: 20 0RF No Action escitalopram oxalate 10 mg tablet 10 mg PO QDAY lorazepam 0.5 mg tablet 0.5 mg PO QDAY chlorhexidine gluconate 0.12 % mouthwash 15 ml buccal BID 10 Days Qty: 300 0RF clindamycin HCl [Cleocin HCl] 300 mg capsule 300 mg PO Q6H Qty: 28 0RF Primary Care Provider: Corinne Jones NP Referrals: Corinne Jones NP, [employer] [Primary Care Provider] - Activity Restrictions/Additional Instructions: Continue take your clindamycin that you already taking three 150 mg tablets 3 times a day. Follow-up with a dentist. Return with worsening symptoms or any concerns. Use the Percocet Zofran for severe pain. Otherwise use Tylenol and ibuprofen [id number] when you do this you can take something every 3 hours do not operate anything under the influence of the Percocet. Print Language: [place] Disposition Disposition: Against Medical Advice
[2024-07-09] MEDS: Acetaminophen 500 MG Tablet 1000 MG PO (16:03)
[2024-07-09 16:34] LABS: Anion Gap 6 (5-15); BUN 8 mg/dL (7-18); BUN/Creat Ratio 11.4 RATIO (10-20); Calcium,Total 9.1 mg/dL (8.5-10.1); Chloride 108 mmol/L (98-107); EST Glomerular Filtration Rate 102 mL/min (>60); Est Glom Filt Rate - Afr Amer 124 mL/min (>60); Estimated Creatinine Clearance 87.91 ml/min; Glucose 88 mg/dL (74-106); Potassium 3.8 mmol/L (3.5-5.1); Sodium Level 139 mmol/L (136-145)
[2024-07-09] MEDS: Lidocaine 2% Jelly 1 APPLIC Tube 12 APPLIC TOPICAL (19:59)
[2024-07-09] MEDS: Ampicillin/Sulbactam 3 GM in 0.9% Normal Saline (100mL MB+) 100 ML IV (21:25)
== END 2024-07-09 22:15 | disposition left against medical advice (07) ==
PROVIDERS: Emergency Provider Emergency Medicine; PCP Nurse Practitioner Primary Care; Visit Provider Emergency Medicine
DX: K04.7 Periapical abscess without sinus (principal); F17.210 Nicotine dependence, cigarettes, uncomplicated; Z53.29 Procedure and treatment not carried out because of patient's decision for other reasons
CPT/HCPCS: 41800; 70491; 80048; 96365; 99283; Q9967; A4216; J0295

== ENCOUNTER 2024-07-19 09:12 | Emergency (ER) | payer MEDICAID, SELFPAY ==
[2024-07-19 09:13] VITALS: BP 109/79; PULSE 65; RESP 16; TEMP 36.2; O2SAT 100; BMI 18.5
[2024-07-19 09:27] VITALS: BP 109/79; PULSE 65; RESP 16; TEMP 36.2; O2SAT 100
--- NOTE | 2024-07-19 09:37 | EX.ED.DYSGE1 ---
HPI History of Present Illness Chief Complaint: Abscess Narrative Narrative: Patient is a 33-year-old female with past medical history of PTSD, depression, IBS, anxiety who presented to the Emergency Department with concern for returning of her dental abscess. Patient states that she was taking clindamycin and towards the end of the week developed a rash all of her body. She stopped taking this and saw her primary care physician today and they sent her here as concerned that the abscess is returning again. Patient states that she had fevers last week and was not feeling well. [facility] Medical History PTSD (post-traumatic stress disorder) Depression Abnormal EKG IBS (irritable bowel syndrome) Anxiety Home Medications ?Medication ?Instructions ?Recorded ?Last Taken ?Type lorazepam 0.5 mg tablet 1 mg PO QDAY 10/14/23 Unknown History chlorhexidine gluconate 0.12 % 15 ml buccal BID 10 days #300 mL 04/21/24 Unknown Rx mouthwash oxycodone-acetaminophen 5 mg-325 1 tab PO Q6H PRN pain 2 days #8 07/09/24 Unknown Rx mg tablet (Endocet) tabs amoxicillin 500 mg-potassium 1 tab PO BID 10 days #20 tabs 07/19/24 Unknown Rx clavulanate 125 mg tablet (Augmentin) venlafaxine 37.5 mg 37.5 mg PO DAILY 07/19/24 Unknown History capsule,extended release 24 hr Allergy/AdvReac Type Severity Reaction Status Date / Time cefazolin Allergy Rash Verified 07/19/24 09:13 cephalexin monohydrate (From Allergy Rash Verified 07/19/24 09:13 Keflex) Penicillins (PCN) Allergy Rash Verified 07/19/24 09:13 clindamycin AdvReac Intermediate Rash Verified 07/19/24 09:13 sertraline (From Zoloft) AdvReac Other Verified 07/19/24 09:13 Family History Father COPD (chronic obstructive pulmonary disease) Drug abuse Alcohol abuse Pancreatitis Grandmother Colon cancer Cancer Grandfather Asthma COPD (chronic obstructive pulmonary disease) Social History Smoking Status: Current every day smoker tobacco type: cigarettes alcohol intake: current alcohol intake frequency: holidays/special occasions only substance use type: former 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, has been sober for 10 years caffeine: Yes ROS ROS ED ROS Narrative Constitutional: Denies any fevers currently but complains of fever as noted above Eyes, ears, nose, throat: Denies difficulty swallowing complains of left lower jaw pain and concern for dental abscess returning Cardiovascular: Denies chest pain or palpitations Respiratory: Denies shortness of breath Neurological: Denies numbness, weakness, tingling Skin: Complains of rash from the clindamycin as noted above EXAM Physical Exam Narrative Exam Narrative: General: Patient was lying in bed rest comfortably did not appear to be in acute distress Head: Atraumatic, normocephalic Eyes, ears, nose, throat: Patient has tenderness palpation along the left lower jawline and the back of her mouth by her back teeth, no fluctuance noted at this point time, no sublingual swelling Neck: Soft, supple, trachea midline, no concern for Martin's angina Cardiovascular: Regular rate and rhythm Extremities: +5/5 strength noted in the bilateral upper and lower extremities Neurological: Patient following commands knew that she was at [facility] years 2024 Skin: Warm, dry, intact, patient has blanching rash noted over her anterior torso no petechia no purpura no sloughing of skin noted Const Vital Signs: 07/19/24 09:13 07/19/24 09:27 07/19/24 10:48 Temperature 97.2 F L 97.2 F L 98.3 F Temperature Source Temporal Temporal Oral Pulse Rate 65 65 63 Respiratory Rate 16 16 16 Blood Pressure 109/79 109/79 99/69 Blood Pressure Mean 89 89 79 Pulse Ox 100 100 99 Oxygen Delivery Method Room Air Room Air Room Air MDM MDM MDM Narrative Medical decision making narrative: Patient is a 33-year-old female who presented to the emergency department with concern for returning of a dental abscess. On the differential diagnose includes but not limited to dental pain, dental abscess, cavity. Once workup is obtained reviewed she will be reevaluated. Last time I saw this patient on 07/09/2024 I offered transfer to a facility that had oral maxillofacial to remove the teeth per recommendation of ears nose and throat physician here at [place] patient ultimately declined. I open the abscess drained and placed on clindamycin. Patient CBC was reviewed showed no evidence of leukocytosis white blood count was 6.5, hemoglobin 12.4, plate count was noted to be normal at 264. Patient sodium normal 142, potassium normal at 3.8, creatinine normal at 0.66. Patient AST and ALT were 19 and [address] soft tissue neck reviewed and showed stable examination stable 2.3 mm x 7 mm focal area of decreased attenuation of the masseter muscle overlying the left body of the mandible. Scattered periapical lucency of the submandibular maxillary teeth. I called and spoke with on-call oral surgeon Dr. Fontanez who recommends placing the patient back on antibiotics and doing Peridex mouthwash and have her call his office for an appointment coming up in the near future. I discussed this plan with the patient and she is agreeable with this plan. Patient given prescription for Augmentin. Last time the emergency department she was given Unasyn and tolerated this well without difficulty she states that she has not had any penicillins or anything like this since being a child. Patient states that she already has Peridex mouthwash at home she does not need this she was advised to continue to use this. She was encouraged return for worsening symptoms or concerns. All question concerns answered she was discharged home in stable condition. Lab Data Labs: Laboratory Results - last 24 hr 07/19/24 09:45 WBC 6.5 RBC 4.36 Hgb 12.4 Hct 39.7 MCV 91.1 MCH 28.4 MCHC 31.2 L RDW Std Deviation 44.6 H RDW Coeff of [place] 13.2 Plt Count 264 MPV 10.1 Immature Gran % (Auto) 0.300 Neut % (Auto) 58.5 Lymph % (Auto) 35.6 [place] % (Auto) 3.7 Eos % (Auto) 1.7 Baso % (Auto) 0.2 Absolute Neuts (auto) 3.8 Absolute Lymphs (auto) 2.30 Nucleated RBC % 0 Sodium 142 Potassium 3.8 Chloride 107 Carbon Dioxide 27.0 Anion Gap 8 BUN 11 Creatinine 0.66 Estim Creat Clear Calc 91.66 Est GFR (MDRD) Af Amer 134 Est GFR (MDRD) Non-Af 111 BUN/Creatinine Ratio 16.8 Glucose 92 Calcium 9.0 Total Bilirubin 0.10 L AST 19 ALT 15 Alkaline Phosphatase 62 Total Protein 7.4 Albumin 3.5 Globulin 3.9 Albumin/Globulin Ratio 0.9 Radiography Diagnostic Testing: Clinical Impression(s) from Imaging Studies Soft Tissue Neck CT 07/19/24 10:05 IMPRESSION: Stable examination. Scattered periapical lucency of the submandibular and maxillary teeth. One or more dose reduction techniques were used (e.g., Automated exposure control, adjustment of the mA and/or kV according to patient size, use of iterative reconstruction technique). Reading Location: [id number] Discharge Plan Triage Chief Complaint: Abscess ED Provider: Malcolm Thompson Dx/Rx/DC Orders Clinical Impression: Pain, dental, Dental infection Prescriptions: New amoxicillin-pot clavulanate [Augmentin] 500-125 mg tablet 1 tab PO BID 10 Days Qty: 20 0RF No Action lorazepam 0.5 mg tablet 1 mg PO QDAY Rx Instructions: 1mg in the morning 0.5 afternoon and 0.5 evening oxycodone-acetaminophen [Endocet] 5-325 mg tablet 1 tab PO Q6H PRN (Reason: pain) 2 Days Qty: 8 0RF venlafaxine 37.5 mg capsule,extended release 24hr 37.5 mg PO DAILY chlorhexidine gluconate 0.12 % mouthwash 15 ml buccal BID 10 Days Qty: 300 0RF Primary Care Provider: Corinne Jones NP Referrals: Corinne Jones NP, [employer] [Primary Care Provider] - Activity Restrictions/Additional Instructions: Take antibiotics as prescribed. Use Peridex mouthwash daily. Follow-up with Dr. Fontanez oral surgeon [phone]. Give them a call as soon as possible for an appointment. Return with worsening symptoms or concerns. Print Language: [place] Island[place] Disposition Disposition: Home, Self Care
[2024-07-19 10:00] LABS: Absolute Neutrophil Count 3.8 X10^3/uL (2.0-7.7); Basophil# 0.01 X10^3/uL; Basophil% 0.2 % (0-1); Eosinophil# 0.11 X10^3/uL; Eosinophils% 1.7 % (0-5); Hematocrit 39.7 % (37-47); Hemoglobin 12.4 g/dL (12.0-15.0); Lymphocyte % 35.6 % (19-41); Mean Corp Hgb Conc 31.2 g/dL (32-36); Mean Corpuscular Hgb 28.4 pg (27.0-32.0); Mean Corpuscular Volume 91.1 fL (81-99); Mean Platelet Vol. 10.1 fl (6.2-12.0); Monocyte# 0.24 X10^3/uL; Monocyte% 3.7 % (0-10); NRBC Flagged by Analyzer 0 % (0-5); Neutrophil # 3.78 X10^3/uL (2.7-7.7); Neutrophil % 58.5 % (47-70); Platelet Count 264 K/mm3 (150-450); RBC Distribution Width CV 13.2 % (11.6-14.6); RBC Distribution Width SD 44.6 fl (35.1-43.9); Red Blood Count 4.36 M/mm3 (4.2-5.4); White Blood Count 6.5 K/mm3 (4.4-11.0)
--- NOTE | 2024-07-19 10:05 | CT_ITS ---
PROCEDURE: SOFT TISSUE NECK WITH CONTRAST REASON FOR EXAM: Dental abscess. TECHNIQUE: CT of the soft tissues of the neck from the orbits to the upper mediastinum with intravenous contrast. CONTRAST: 100 cc of Isovue-300. COMPARISON: Comparison is made with prior study dated July 09, 2024. FINDINGS: Stable 2.3 mm x 7 mm focal area of decreased attenuation in the masseter muscle overlying the left body of the mandible. Airway: Midline and patent. Pharyngeal mucosal space: Unremarkable. Hypopharynx and larynx: Unremarkable. Parapharyngeal and retropharyngeal spaces: Unremarkable. [employer] and buccal spaces: Unremarkable. Salivary glands: Unremarkable. Lymph nodes: No cervical lymphadenopathy. Thyroid: Unremarkable. Vasculature: Carotid arteries and internal jugular veins are unremarkable. Orbits: Unremarkable at visualized levels. Paranasal sinuses and mastoids: Grossly clear at visualized levels. Lung apices: Clear. Upper mediastinum: Visualized mediastinum is unremarkable. Bones: Unremarkable. CT/Soft Tissue Neck WITH Contrast IMPRESSION: Stable examination. Scattered periapical lucency of the submandibular and maxillary teeth. One or more dose reduction techniques were used (e.g., Automated exposure contr ol, adjustment of the mA and/or kV according to patient size, use of iterative reconstruction technique). Reading Location: [facility]
[2024-07-19 10:18] LABS: ALB/GLOB Ratio 0.9 RATIO (0.9-2.4); AST(SGOT) 19 U/L (15-37); Alanine Aminotransfer ALT/SGPT 15 U/L (13-56); Albumin, Serum 3.5 g/dL (3.2-5.0); Alkaline Phosphatase 62 U/L (45-117); Anion Gap 8 (5-15); BUN 11 mg/dL (7-18); BUN/Creat Ratio 16.8 RATIO (10-20); Chloride 107 mmol/L (98-107); Creatinine, Serum 0.66 mg/dL (0.55-1.02); EST Glomerular Filtration Rate 111 mL/min (>60); Est Glom Filt Rate - Afr Amer 134 mL/min (>60); Estimated Creatinine Clearance 91.66 ml/min; Globulin 3.9 g/dL (2.2-4.2); Glucose 92 mg/dL (74-106); Potassium 3.8 mmol/L (3.5-5.1); Protein, Total 7.4 g/dL (6.4-8.2); Sodium Level 142 mmol/L (136-145)
[2024-07-19 10:48] VITALS: BP 99/69; PULSE 63; RESP 16; TEMP 36.8; O2SAT 99
[2024-07-19 11:26] VITALS: BP 99/69; PULSE 63; RESP 16; TEMP 36.8; O2SAT 99
== END 2024-07-19 11:29 | disposition home or self-care (01) ==
PROVIDERS: Emergency Provider Emergency Medicine; PCP Nurse Practitioner Primary Care; Visit Provider Emergency Medicine
DX: K04.7 Periapical abscess without sinus (principal); F17.210 Nicotine dependence, cigarettes, uncomplicated
CPT/HCPCS: 70491; 80053; 85025; 99283; Q9967; A4216

== ENCOUNTER 2024-08-25 13:11 | Emergency (ER) | payer MEDICAID, SELFPAY ==
[2024-08-25 13:12] VITALS: BP 121/77; PULSE 67; RESP 14; TEMP 36.6; O2SAT 98; BMI 17.8
--- NOTE | 2024-08-25 13:34 | EDS_ITS ---
HPI History of Present Illness Chief Complaint: Anxiety Informant: patient Narrative Narrative: 33-year-old female presenting to the emergency room chief complaint anxiety. Patient has been taking lorazepam prescribed through [facility] for the past year. She states that she is prescribed 1 mg tablets twice daily and is allowed to take it as needed once during the day. She last filled her prescription on 03 August. 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 She discussed this with her psychiatrist plan was to start her on BuSpar and have her taper off of lorazepam. Unfortunately the BuSpar prescription did not reportedly go through and she does not have enough Ativan to get her to Friday when her psychiatrist returns. She has instructions on how they want her to taper off the bed but is worried about going through withdrawal. She states that she tried to make appoint with her primary care doctor but they called and canceled it stating there is nothing that they could do for that. She presents here out of frustration and lack of options. She does openly note that she has had a history of opiate abuse in the past. [facility] Medical History PTSD (post-traumatic stress disorder) Depression Abnormal EKG IBS (irritable bowel syndrome) Anxiety Home Medications ?Medication ?Instructions ?Recorded ?Last Taken ?Type lorazepam 0.5 mg tablet 1 mg PO QDAY 10/14/23 Unknow n History chlorhexidine gluconate 0.12 % 15 ml buccal BID 10 day s #300 mL 04/21/24 Unknown Rx mouthwash oxycodone-acetaminophen 5 mg-325 1 tab PO Q6H PRN pain 2 days #8 07/09/24 Unk nown Rx mg tablet (Endocet) tabs amoxicillin 500 mg-potassium 1 tab PO BID 10 days #20 tabs 07/19/24 Unknown Rx clavulanate 125 mg tablet (Augmentin) venlafaxine 37.5 mg 37.5 mg PO DAILY 07/19/24 Un known History capsule,extended release 24 hr buspirone 5 mg tablet 5 mg PO BID #60 tabs 5 Unknown Rx lorazepam 0.5 mg tablet See Rx Instructions .Route 0 3/26/25 Unknown Rx .COMPLEX #42 tabs Allergy/AdvReac Type Severity Reaction Status Date / Time cefazolin Allergy Rash Verified 07/19/24 09:13 cephalexin monohydrate (From Allergy Rash Verified 07/19/24 09:13 Keflex) Penicillins (PCN) Allergy Rash Verified 07/19/24 09:13 clindamycin AdvReac Intermediate Rash Verified 07/19/24 09:13 sertraline (From Zoloft) AdvReac Other Verified 07/19/24 09:13 Family History Father COPD (chronic obstructive pulmonary disease) Drug abuse Alcohol abuse Pancreatitis Grandmother Colon cancer Cancer Grandfather Asthma COPD (chronic obstructive pulmonary disease) Social History Smoking Status: Current every day smoker tobacco type: cigarettes alcohol intake: current alcohol intake frequency: holidays/special occasions only substance use type: former 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, has been sober for 10 years caffeine: Yes ROS ROS ED Constitutional Constitutional ED: Denies chills or weight loss Eyes Eyes: Denies change in vision or diplopia ENT ENT ED: Denies ear pain, rhinorrhea or sore throat Cardiovascular Cardiovascular: Denies chest pain, orthopnea, palpitations or racing heartbeat Respiratory/Chest Respiratory/Chest: Denies cough, dyspnea or orthopnea Gastrointestinal Gastrointestinal: Denies abdominal pain, diarrhea, nausea or vomiting Genitourinary Genitourinary ED: Denies dysuria, hematuria or urinary frequency Musculoskeletal Musculoskeletal: Denies arthralgias or myalgias Integumentary Denies abscess or rash Neurologic Neurologic: Denies headache(s) or weakness Psychiatric Psychiatric: Reports anxiety; Denies depression, suicidal ideation or suicidal thoughts Endocrine Endocrinology: Denies polydipsia, polyphagia or polyuria Allergic/Immunologic Allergic/Immunologic ED: Denies mouth swelling, tongue swelling or urticaria EXAM Physical Exam Const Vital Signs: 08/25/24 13:12 08/25/24 13:44 Temperature 98 F Temperature Source Temporal Pulse Rate 67 Respiratory Rate 14 16 Blood Pressure 121/77 H Blood Pressure Mean 91 Pulse Ox 98 Oxygen Delivery Method Room Air Positive well nourished and well developed General Appearance ED: well developed HEENT Reports normocephalic, head/scalp atraumatic and moist mucous membranes Eyes PERRL and EOMs intact bilaterally Neck no lymphadenopathy, supple and no JVD Resp normal respiratory effort and clear to auscultation bilaterally Cardio regular rate, regular rhythm and no murmurs GI normal to inspection, nondistended, normoactive bowel sounds and non-tender Palpation: soft Back/Spine no CVA tenderness and normal ROM Extremity normal to inspection General Extremety ED: Negative for edema General Extremity: Negative for edema Neuro oriented x3 and CN's II-XII intact bilaterally Sensorium / Orientation: alert Motor Exam: strength 5/5 throughout Psych mental status grossly normal Mood & Affect: anxious and tearful; Negative for depressed Skin no rashes or lesions noted and no wounds MDM MDM MDM Narrative Medical decision making narrative: I spoke with Silvia from the counseling center and reviewed her chart together. There is documentation that the patient is to begin tapering dose but the psychiatrist is out of the office until next week. I spoke with the patient's pharmacist at [facility] who states the patient has not been getting lorazepam filled in the [facility] system however her [facility] report shows that she has been picking them up there at the [facility] here in [facility] [address]. I spoke with the patient uncomfortable writing tapering doses of lorazepam as well as some BuSpar to get her to psychiatry next week without having withdrawal. I spoke with the pharmacist here in the outpatient pharmacy and let them know that the patient will be coming to the [facility] pharmacy to tile picker the prescription and what the situation was. Patient was updated and is appreciative of care. History & Record Review Discussion w/independent historian: Patient Management Discussion w/another healthcare provider: Pharmacist Discharge Plan Triage Chief Complaint: Anxiety Other Complaint: Meds Only ED Provider: Derek Gold Dx/Rx/DC Orders Clinical Impression: Anxiety, Encounter for medication refill Prescriptions: New buspirone 5 mg tablet 5 mg PO BID Qty: 60 0RF lorazepam 0.5 mg tablet See Rx Instructions .ROUTE .COMPLEX Qty: 42 0RF Rx Instructions: 0.75 mg BID x7 Days; 0.5 mg BID x7 Days; 0.25 mg BID x7 Days No Action lorazepam 0.5 mg tablet 1 mg PO QDAY Rx Instructions: 1mg in the morning 0.5 afternoon and 0.5 evening oxycodone-acetaminophen [Endocet] 5-325 mg tablet 1 tab PO Q6H PRN (Reason: pain) 2 Days Qty: 8 0RF venlafaxine 37.5 mg capsule,extended release 24hr 37.5 mg PO DAILY amoxicillin-pot clavulanate [Augmentin] 500-125 mg tablet 1 tab PO BID 10 Days Qty: 20 0RF chlorhexidine gluconate 0.12 % mouthwash 15 ml buccal BID 10 Days Qty: 300 0RF Primary Care Provider: PodlogarCorinne NP Referrals: Counseling,Center [Group of Physicians] - As soon as possible PodCorinne mari NP, [employer]PERATOR-[facility] [Primary Care Provider] - As Needed Print Language: Syriac Disposition Disposition: Home, Self Care
[2024-08-25 13:44] VITALS: RESP 16
== END 2024-08-25 14:41 | disposition home or self-care (01) ==
PROVIDERS: Emergency Provider Emergency Medicine; PCP Nurse Practitioner Primary Care; Visit Provider Emergency Medicine
DX: Z76.0 Encounter for issue of repeat prescription (principal); F41.9 Anxiety disorder, unspecified; F17.210 Nicotine dependence, cigarettes, uncomplicated; Z79.899 Other long term (current) drug therapy
CPT/HCPCS: 99283

== ENCOUNTER 2024-11-10 21:15 | Emergency (ER) | payer MEDICAID, SELFPAY ==
[2024-11-10] VITALS (7 sets, daily range): BP systolic 120–133; BP diastolic 74–98; PULSE 78–91; RESP 12–18; TEMP 36.1; O2SAT 100; BMI 19.6
--- NOTE | 2024-11-10 21:20 | EKG12_ITS ---
Test Reason : CP Blood Pressure : */* mmHG Vent. Rate : 84 BPM Atrial Rate : 84 BPM P-R Int : 126 ms QRS Dur : 146 ms QT Int : 398 ms P-R-T Axes : 61 52 22 degrees QTcB Int : 470 ms Normal sinus rhythm with sinus arrhythmia Right bundle branch block Abnormal ECG Confirmed by Arturo Bush ([id number]), news editor SARAH HERNANDES ([id number]) on 11/11/2024 10:18:48 AM Referred By: Nabor Whitman Confirmed By: Arturo Bush
[2024-11-10 21:43] LABS: Absolute Neutrophil Count 5.8 X10^3/uL (2.0-7.7); Basophil# 0.05 X10^3/uL; Basophil% 0.5 % (0-1); Eosinophil# 0.05 X10^3/uL; Eosinophils% 0.5 % (0-5); Hematocrit 39.7 % (37-47); Lymphocyte % 33.3 % (19-41); Mean Corp Hgb Conc 32.7 g/dL (32-36); Mean Corpuscular Hgb 29.1 pg (27.0-32.0); Mean Corpuscular Volume 88.8 fL (81-99); Mean Platelet Vol. 9.4 fl (6.2-12.0); Monocyte# 0.67 X10^3/uL; Monocyte% 6.8 % (0-10); NRBC Flagged by Analyzer 0 % (0-5); Neutrophil % 58.6 % (47-70); Platelet Count 358 K/mm3 (150-450); RBC Distribution Width SD 42.4 fl (35.1-43.9); Red Blood Count 4.47 M/mm3 (4.2-5.4); White Blood Count 9.9 K/mm3 (4.4-11.0)
--- NOTE | 2024-11-10 21:55 | RAD_ITS ---
PROCEDURE: CHEST 1 VIEW (PORTABLE) 11/10/2024 REASON FOR EXAM: CHEST PAIN TECHNIQUE: Frontal view of the chest. COMPARISON: 01/10/2024. FINDINGS: The heart is normal in size. The lungs are clear. No acute osseous abnormalities. RAD/Chest 1 View (Portable) IMPRESSION: No Acute Findings. Reading Location: [place] [id number]
[2024-11-10 22:06] LABS: Anion Gap 12 (5-15); BUN 9 mg/dL (4-19); BUN/Creat Ratio 11.8 RATIO (10-20); Calcium,Total 9.3 mg/dL (7.6-11.0); Carbon Dioxide 21.4 mmol/L (21.0-32.0); Chloride 105 mmol/L (98-108); Creatinine, Serum 0.76 mg/dL (0.70-1.20); EST Glomerular Filtration Rate 106 (>60); Estimated Creatinine Clearance 85.04 ml/min (50-250); Glucose 83 mg/dL (70-99); Potassium 3.8 mmol/L (3.3-5.1); Sodium Level 138 mmol/L (133-145); Troponin T High Sensitivity < 6 ng/L (<=14)
--- NOTE | 2024-11-10 22:35 | EDS_ITS ---
HPI History of Present Illness Chief Complaint: Chest Pain Informant: patient Onset/Context/Timing Onset: Today Activity at onset: light activity Timing: Intermittent Quality: Positive for Sharp Location: Right Chest Worsened By: Nothing Relieved By: Nothing Associated Symptoms: Positive for Nausea, Cough, Fever, Lightheadedness and Palpitations; Negative for Vomiting, Diaphoresis, Dyspnea or Acid Reflux Narrative Narrative: Patient presents with chest pain that began today. Patient states it began rather suddenly. Patient states this occurred while she was at work. 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 Patient states it has been intermittent. Patient states it is mainly over the right side of her chest. Patient describes it as sharp. Patient states nothing makes it worse and nothing makes it better. Patient admits to some nausea but denies any vomiting. Patient admits to a mild cough. Patient also admits to some palpitations. Patient denies any fevers or chills. Patient denies any shortness of breath or diaphoresis. Patient states she has a history of anxiety and this is making it worse. Patient does admit to recent travel to [place]. Patient denies any history of PE or DVT. CVD Risk Factors: Positive for Smoking; Negative for Hypertension, Diabetes, Hypercholesterolemia or Family History 1' </=55 PE Risk Factors: Positive for Recent Travel/Surgery; Negative for Recent Immobilization, Prior DVT or PE or Cancer [facility] Medical History PTSD (post-traumatic stress disorder) Depression Abnormal EKG IBS (irritable bowel syndrome) Anxiety Home Medications ?Medication ?Instructions ?Recorded ?Last Taken ?Type lorazepam 0.5 mg tablet 1 mg PO QDAY 10/14/23 Unknow n History chlorhexidine gluconate 0.12 % 15 ml buccal BID 10 day s #300 mL 04/21/24 Unknown Rx mouthwash oxycodone-acetaminophen 5 mg-325 1 tab PO Q6H PRN pain 2 days #8 07/09/24 Unknown Rx mg tablet (Endocet) tabs amoxicillin 500 mg-potassium 1 tab PO BID 10 days #20 tabs 07/19/24 Unknown Rx clavulanate 125 mg tablet (Augmentin) venlafaxine 37.5 mg 37.5 mg PO DAILY 07/19/24 Un known History capsule,extended release 24 hr buspirone 5 mg tablet 5 mg PO BID #60 tabs 5 Unknown Rx lorazepam 0.5 mg tablet See Rx Instructions .Route 0 08/25/24 Unknown Rx .COMPLEX #42 tabs Allergy/AdvReac Type Severity Reaction Status Date / Time cefazolin Allergy Rash Verified 07/19/24 09:13 cephalexin monohydrate (From Allergy Rash Verified 07/19/24 09:13 Keflex) clindamycin AdvReac Intermediate Rash Verified 07/19/24 09:13 sertraline (From Zoloft) AdvReac Other Verified 07/19/24 09:13 Family History Father COPD (chronic obstructive pulmonary disease) Drug abuse Alcohol abuse Pancreatitis Grandmother Colon cancer Cancer Grandfather Asthma COPD (chronic obstructive pulmonary disease) Surgical History no surgical history no surgical history Social History Smoking Status: Current every day smoker tobacco type: cigarettes alcohol intake: current alcohol intake frequency: holidays/special occasions only substance use type: former 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, has been sober for 10 years caffeine: Yes ROS ROS ED Constitutional Constitutional ED: Denies chills or fever(s) Eyes Eyes: Denies blurry vision or change in vision ENT ENT ED: Reports rhinorrhea; Denies sore throat Cardiovascular Cardiovascular: Reports chest pain and palpitations Respiratory/Chest Respiratory/Chest: Reports cough; Denies dyspnea Gastrointestinal Gastrointestinal: Reports nausea; Denies vomiting Genitourinary Genitourinary ED: Denies dysuria or hematuria Musculoskeletal Musculoskeletal: Reports neck pain; Denies back pain Integumentary Denies abscess or rash Neurologic Neurologic: Denies headache(s) or weakness Psychiatric Psychiatric: Reports anxiety Allergic/Immunologic Allergic/Immunologic ED: Denies mouth swelling or urticaria EXAM Physical Exam Const Vital Signs: 11/10/24 21:17 11/10/24 22:20 11/10/24 22:20 Temperature 97 F L Temperature Source Temporal Pulse Rate 91 Respiratory Rate 18 Respiratory Effort Normal Non-Labored Blood Pressure 131/98 H Blood Pressure Mean 109 Pulse Ox 100 Oxygen Delivery Method Room Air Room Air Positive well nourished and well developed General Appearance ED: well developed and NAD HEENT Reports moist mucous membranes Neck supple and no JVD Chest Wall palpation of chest normal Resp normal respiratory effort and clear to auscultation bilaterally Cardio regular rate and regular rhythm GI soft to palpation, non-tender and non-distended Extremity normal to inspection General Extremety ED: Negative for edema or tenderness General Extremity: Negative for edema Neuro oriented x3, CN's II-XII intact bilaterally and no sensory deficits noted Sensorium / Orientation: awake and alert Motor Exam: strength 5/5 throughout Psych mental status grossly normal Heart Score History: Slightly/Non-Suspicious ECG: Nonspecific Repolarization Age: </= 45 years Risk Factors: 1 or 2 Risk Factors Troponin: </= Normal Limit Score: 2 MDM MDM MDM Narrative Medical decision making narrative: Differential diagnosis includes cardiac dysrhythmia, cardiac ischemia, pneumonia, pneumothorax, pulmonary embolism, musculoskeletal pain, and anxiety. EKG will be obtained to assess for cardiac dysrhythmia and cardiac ischemia. Chest x-ray will be obtained to assess for pneumonia or bronchitis. CBC will be obtained to assess for leukocytosis and anemia. Basic metabolic profile will be obtained to assess for electrolyte abnormality renal function. High-sensitivity troponin will be obtained to assess for cardiac ischemia. D-dimer will be obtained to assess for pulmonary embolism. Lab Data Attestation: I reviewed the patient's lab results. Lab results narrative: CBC was reviewed and was within normal limits. Basic metabolic profile was reviewed and was within normal limits. High-sensitivity troponin was reviewed and was less than 6. D-dimer was reviewed and was normal at 0.27. Labs: Laboratory Results - last 24 hr 11/10/24 21:32 WBC 9.9 RBC 4.47 Hgb 13.0 Hct 39.7 MCV 88.8 MCH 29.1 MCHC 32.7 RDW Std Deviation 42.4 RDW Coeff of Jordan 13.0 Plt Count 358 MPV 9.4 Immature Gran % (Auto) 0.300 Neut % (Auto) 58.6 Lymph % (Auto) 33.3 Bremer % (Auto) 6.8 Eos % (Auto) 0.5 Baso % (Auto) 0.5 Absolute Neuts (auto) 5.8 Absolute Lymphs (auto) 3.30 Nucleated RBC % 0 Sodium 138 Potassium 3.8 Chloride 105 Carbon Dioxide 21.4 Anion Gap 12 BUN 9 Creatinine 0.76 Estim Creat Clear Calc 85.04 Est GFR (MDRD) Non-Af 106 BUN/Creatinine Ratio 11.8 Glucose 83 Calcium 9.3 Troponin T High Sens < 6 Radiography Chest X-Ray - ED: 1 View, Read by ED Physician, Read by Radiologist and No Acute Disease Diagnostic Testing: Portable 1 view chest x-ray was obtained. On my independent interpretation, lung rosenberg are clear. There is normal cardiac silhouette. Bony thorax is normal. There is no acute process noted. Radiologist also interpreted the x- ray and agrees. EKG Initial EKG: Attestation: I personally reviewed and interpreted this EKG as follows: Interpretation: Sinus Rhythm (84), RBBB and Non-Specific ST Changes Comments: EKG was obtained. On my independent interpretation, it shows normal sinus rhythm with a rate of 84. NV interval was normal at 126 ms. QRS interval was slightly prolonged at 146 ms. TC intervals, was 170 ms. Rumsey was normal. There is a right bundle branch block pattern noted. There are nonspecific ST-T wave changes noted. Prior EKG tracings: available for review Prior: Unchanged (04/21/2024) Treatment and Re-Evaluation :: Patient was advised of her findings. Patient has a HEART score of 2. Patient was advised that this is low risk for acute cardiac event. Patient was instructed to follow-up with her primary care physician in 5 to 7 days. Patient was instructed to return if worse in any way. Patient understood and was agreeable with the plan. All questions were answered. Discharge Plan Triage Chief Complaint: Chest Pain ED Provider: Nabor Whitman Dx/Rx/DC Orders Clinical Impression: Chest pain, Anxiety Instructions: ED Chest Pain, Uncertain Cause Prescriptions: No Action lorazepam 0.5 mg tablet 1 mg PO QDAY Rx Instructions: 1mg in the morning 0.5 afternoon and 0.5 evening oxycodone-acetaminophen [Endocet] 5-325 mg tablet 1 tab PO Q6H PRN (Reason: pain) 2 Days Qty: 8 0RF venlafaxine 37.5 mg capsule,extended release 24hr 37.5 mg PO DAILY amoxicillin-pot clavulanate [Augmentin] 500-125 mg tablet 1 tab PO BID 10 Days Qty: 20 0RF buspirone 5 mg tablet 5 mg PO BID Qty: 60 0RF lorazepam 0.5 mg tablet See Rx Instructions .ROUTE .COMPLEX Qty: 42 0RF Rx Instructions: 0.75 mg BID x7 Days; 0.5 mg BID x7 Days; 0.25 mg BID x7 Days chlorhexidine gluconate 0.12 % mouthwash 15 ml buccal BID 10 Days Qty: 300 0RF Primary Care Provider: Corinne Jones NP Referrals: Corinne Jones NP, [employer]IGHT INSTRUCTOR-[facility] [Primary Care Provider] - 5-7 Days Print Language: Afghan Disposition Disposition: Home, Self Care
--- OUTSIDE RECORDS SUMMARY | 2024-11-10 22:47 | XMS RPT_ITS | CCD ---
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 Malcolm Thompson DO Attending Provider Dr. Malcolm Thompson DO Emergency Provider Dr. Derek Gold DO Emergency Provider [phone] [employer] DEGREASING WHEEL OPERATOR, Corinne Primary Care Unavailable Aries Camacho Attending Unavailable [employer]logar DEGREASING WHEEL OPERATOR, Corinne Primary Care Unavailable Shahana Singh Attending Unavailable Podlogar DEGREASING WHEEL OPERATOR, Corinne Primary Care Unavailable Derek Gold Attending Unavailable Podlogar DEGREASING WHEEL OPERATOR, Corinne Primary Care Unavailable Malcolm Thompson Attending Unavailable Adam Bush Attending Unavailable Adam Bush Referring Unavailable [employer]logar DEGREASING WHEEL OPERATOR, Corinne Primary Care Unavailable [employer]ar DEGREASING WHEEL OPERATOR, Corinne Primary Care Unavailable Malcolm Thompson Attending Unavailable Provider, Ed Physician Attending Unavailab le [employer]logar DEGREASING WHEEL OPERATOR, Corinne Primary Care Unavailable Adam Bush Attending Unavailable [employer] DEGREASING WHEEL OPERATOR, Corinne Referring Unavailable [employer] DEGREASING WHEEL OPERATOR, Corinne Primary Care Unavailable Seth Tian Attending Unavailable [employer] DEGREASING WHEEL OPERATOR, Corinne Primary Care Unavailable [employer] DEGREASING WHEEL OPERATOR, Corinne Primary Care Unavailable Derek Gold Attending Unavailable [employer] DEGREASING WHEEL OPERATOR, Corinne Primary Care Unavailable Edwige Salter Attending Unavailable PODLOGAR, CORINNE Attending Unavailable EMILY, ROLANDOER B Primary Care Unavailab le BURSLEY, CHRISTOPHER B Primary Care Unavailab le BURSLEY, CHRISTOPHER B Primary Care Unavailab PEGGY Rush Attending Unavailable BURSLEY, CHRISTOPHER B Primary Care Unavailab le BURSLEY, CHRISTOPHER B Primary Care Unavailab MELVIN Mcclain Attending Unavailable SELF Referring Unavailable BURSLEY, CHRISTOPHER B Primary Care Unavailab le BURSLEY, CHRISTOPHER B Primary Care Unavailab ROGE Umanzor Attending Unavailable RODYLEY, CHRISTOPHER B Primary Care Unavailab YAEL Wagoner Attending Unavailable SELF Referring Unavailable BURSLEY, CHRISTOPHER B Primary Care Unavailab le BURSLEY, CHRISTOPHER B Primary Care Unavailab le BURSLEY, CHRISTOPHER B Primary Care Unavailab LORAINE Winters Referring Unavailable BURSLEY, CHRISTOPHER B Primary Care Unavailab le BURSLEY, CHRISTOPHER B Primary Care Unavailab le Allergies Allergy Classification Reported Allergen(s) Allergy Type Date of Onset Reaction(s) Facility (20 sources) Amoxicillin; Translations: [AMOXICILLIN] Drug Allergy 1 Rash, Weal (disorder) [facility] (20 sources) cefprozil; Translations: [CEFPROZIL] Drug Allergy 6 Rash, Weal (disorder) [facility] (20 sources) Cephalexin; Translations: [CEPHALEXIN] Drug Allergy 6 Rash, Weal (disorder) [facility] (6 sources) Penicillins; Translations: [PENICILLINS] Drug Allergy 6 Rash [facility] (3 sources) Penicillin; Translations: [penicillin] Drug Allergy Weal (disorder) [facility] (5 sources) ceFAZolin Drug Allergy 3 [facility] (6 sources) Cephalexin; Translations: [cephalexin monohydrate] Drug Allergy 3 [facility] (5 sources) Penicillins Allergy to substance 3 [facility] (20 sources) Penicillins Drug Allergy 6 [facility] (20 sources) Sertraline; Translations: [sertraline] Drug Allergy 3 Intolerance [facility] Work Phone: Comment on above: increased anxiety (12 sources) Clindamycin; Translations: [CLINDAMYCIN] Drug Allergy 5 [facility] (1 source) ceFAZolin Drug Allergy 5 [facility] (1 source) Clindamycin Drug Allergy 5 [facility] (1 source) Penicillins Drug allergy (disorder) 5 [facility] (1 source) Sertraline Drug Allergy 5 [facility] (6 sources) Penicillins Drug Allergy 6 [facility] Medications Current Medications Medication Drug Class(es) Dates Sig (Normalized) Sig (Original) acetaminophen 325 mg / oxyCODONE hydrochloride 5 mg oral tablet (1 source) Opioid Agonist Start: 07-09-2024 take 1 tablet by mouth every six hours as needed for pain Oxycodone-Acetamin ophen (Endocet) 5-325 mg tablet Active 1 {tbl} PO EVERY 6 HOURS as needed for pain 8 2 July 09, 2024 amoxicillin 500 mg / clavulanate 125 mg oral tablet (1 source) Penicillin-class Antibacterial Start: 07-19-2024 Amoxicillin-Pot Clavulanate (Augmentin) 500-125 mg tablet Active 1 {tbl} PO TWICE A DAY 20 July 19, 2024 1:00am chlorhexidine gluconate 1.2 mg/ml mouthwash (2 sources) Start: 04-21-2024 Chlorhexidine Gluconate 0.12 % mouthwash Active 15 mL BUCCAL TWICE A DAY 300 10 April 21, 2024 1:00am Start: 01-20-2024 End: 01-27-2024 Chlorhexidine Gluconate (PER IDEX) 0.12 % solution Use 15 mL as instructed two times a day for 7 days. SWISH AND SPIT 240 mL 01/20/2024 01/27/2024 Active clindamycin 150 mg oral capsule (6 sources) Lincosamide Antibacterial Start: 07-14-2024 End: 07-17-2024 take 3 capsules by mouth three times daily clindamycin (CLEOCIN) 150 mg capsule Take 3 capsules by mouth three times a day for 3 days. 27 capsule 07/14/2024 07/17/2024 Active Start: 04-21-2024 End: 07-19-2024 take 1 capsule by mouth every six hours Clindamycin Hcl (Cleocin Hcl) 300 mg capsule Discontinued 300 mg PO EVERY 6 HOURS April 21, 2024 1:00am July 19, 2024 10:22am Start: 04-14-2024 End: 04-19-2024 take 3 capsules by mouth three times daily clindamycin (CLEOCIN) 150 mg capsule Indications: Dental infection Take 3 capsules by mouth three times a day for 5 days. 45 capsule 04/14/2024 04/19/2024 Active Start: 01-20-2024 End: 01-25-2024 take 3 capsules by mouth three times daily clindamycin (CLEOCIN) 150 mg capsule Take 3 capsules by mouth three times a day for 5 days. 45 capsule 01/20/2024 01/25/2024 Active Start: 10-06-2023 End: 10-13-2023 Cleocin HCl 150 mg oral caps ule Dose : 300 mg = 2 cap(s), PO, q6hr, X 7 day(s), # 56 cap(s), 0 Refill(s), 10/13/23 10:09:00 AM EDT, 47.9 Start Date: 10/06/23 Stop Date: 10/13/23 Status: Ordered Start: 10-01-2023 End: 10-11-2023 take 1 capsule by mouth three times daily clindamycin (CLEOCIN) 300 mg capsule Indications: Dental infection Take 1 capsule by mouth three times a day for 10 days. 30 capsule 0 10/01/2023 10/11/2023 Active doxycycline hyclate 100 mg oral tablet (3 sources) Tetracycline-class Drug Start: 05-06-2024 End: 05-13-2024 take 1 tablet by mouth twice daily doxycycline (VIBRA-TABS) 100 mg tablet Take 1 tablet by mouth two times a day for 7 days. 14 tablet 05/06/2024 05/13/2024 Active Start: 11-11-2022 End: 11-18-2022 take 1 tablet by mouth twice daily doxycycline monohydrate 100 mg tablet Indications: Bacterial sinusitis Take 1 tablet by mouth twice daily for 7 days. 14 tablet 0 11/11/2022 11/18/2022 Active Comment on above: Take 1 tablet by donavan th twice daily for 7 days. ibuprofen 600 mg oral tablet (13 sources) Nonsteroidal Anti-inflammatory Drug Start: 11-05-2020 ibuprofen 600 mg oral tablet Dose : 600 mg = 1 tab(s), Oral, TID, PRN as needed for pain, # 30 tab(s), 0 Refill(s), Chest wall pain Start Date: 11/05/20 Status: Ordered Start: 07-02-2020 End: 09-30-2022 take 1 tablet by mouth every six hours as needed ibuprofen (MOTRIN) 600 mg tablet Take 1 tablet by mouth every 6 hours as needed. 15 tablet 0 07/02/2020 09/30/2022 Discontinued End: 05-06-2024 take 3 tablets by mouth every six hours as needed ibuprofen (MOTRIN) 200 mg tablet Take 600 mg by mouth every 6 hours as needed for pain. 05/06/2024 Discontinued (Course of therapy completed) Comment on above: Take 1 tablet by donavan th every 6 hours as needed. Take 1 tablet by donavan th every 12 hours as needed for pain. LORazepam 0.5 mg oral tablet (20 sources) Benzodiazepine Start: 08-25-2024 take 0.5 mg by mouth three times daily, then take 0.5 mg by mouth three times daily, then take 0.5 mg by mouth twice daily, then take 0.5 mg by mouth once daily LORazepam (ATIVAN) 0.5 mg Take 0.5 mg by mouth three times a day. Currently on taper off medication. 0.5mg TID x7 days then 0.5mg BID x7 days then 0.5mg daily. 08/25/2024 Active Start: 08-25-2024 Lorazepam 0.5 mg tablet Active 0 .ROUTE .COMPLEX August 25, 2024 12:00am 0.75 mg BID x7 Days; 0.5 mg BID x7 Days; 0.25 mg BID x7 Days Start: 04-28-2024 End: 08-31-2024 take 1 tablet by mouth every twelve hours as needed LORazepam (ATIVAN) 1 mg tablet Take 1 mg by mouth two times a day as needed for anxiety. 04/28/2024 08/31/2024 Discontinued Start: 10-14-2023 Lorazepam 0.5 mg tablet Active 1 mg PO daily October 14, 2023 12:00am 1mg in the morning 0.5 afternoon and 0.5 evening Start: 06-10-2023 End: 05-06-2024 take 0.5 mg by mouth once daily as needed LORazepam (ATIVAN) 0.5 mg Take 0.5 mg by mouth once daily as needed. 06/10/2023 05/06/2024 Discontinued (Course of therapy completed) Start: 01-09-2023 End: 01-14-2023 take 1 tablet by mouth every six hours as needed for anxiety LORazepam (ATIVAN) 1 mg tablet Indications: Anxiety and depression Take 1 tablet by mouth every 6 hours as needed for anxiety for up to 5 days. 5 tablet 0 01/09/2023 01/14/2023 Start: 11-08-2022 End: 12-08-2022 take 1 tablet by mouth twice daily as needed for anxiety LORazepam (ATIVAN) 1 mg tablet Indications: Anxiety and depression Take 1 tablet by mouth twice daily as needed for anxiety for up to 30 days. 20 tablet 0 11/08/2022 12/08/2022 Active Start: 09-30-2022 End: 10-30-2022 take 1 tablet by mouth twice daily as needed for anxiety LORazepam (ATIVAN) 1 mg tablet Indications: Anxiety and depression Take 1 tablet by mouth twice daily as needed for anxiety for up to 30 days. 20 tablet 0 09/30/2022 10/30/2022 Active Comment on above: Take 1 tablet by donavan th twice daily as needed for anxiety for up to 30 days. Take 1 tablet by donavan th every 6 hours as needed for anxiety for up to 5 days. Take 0.5 mg by mouth once daily as needed. naproxen 500 mg oral tablet (1 source) Nonsteroidal Anti-inflammatory Drug Start: take 1 tablet by mouth twice daily at mealtime naproxen (NAPROSYN) 500 mg tablet Indications: Acute right-sided low back pain without sciatica Take 1 tablet by mouth two times a day with meals. Take with food. 28 tablet 10/11/2024 Active predniSONE 20 mg oral tablet (6 sources) Start: End: take 2 tablets by mouth once daily predniSONE (DELTASONE) 20 mg tablet Take 2 tablets by mouth once daily for 5 days. 10 tablet 08/16/2024 08/21/2024 Active Start: 05-06-2024 End: 08-16-2024 predniSONE (DELTASONE) 10 mg tablet Take 4 tabs daily for 3 days, then 2 tabs daily for 3 days, then 1 tab daily for 3 days with food. 21 tablet 05/06/2024 08/16/2024 Discontinued vortioxetine 10 mg oral tablet (1 source) take 1 tablet by donavan th once daily vortioxetine (TRINTELLIX) 10 mg tablet Take 10 mg by mouth once daily. Active Completed/Discontinued Medications Medication Drug Class(es) Dates Sig (Normalized) Sig (Original) acetaminophen 325 mg / HYDROcodone bitartrate 5 mg oral tablet (3 sources) Opioid Agonist Start: 11-13-2015 End: 09-30-2022 take 1 tablet by mouth every six hours as needed HYDROcodone-acetam inophen (NORCO) 5-325 mg per tablet Take 1 tablet by mouth every 6 hours as needed. 12 tablet 0 11/13/2015 09/30/2022 Discontinued Comment on above: Take 1 tablet by donavan th every 6 hours as needed. [id number] 200 actuat albuterol 0.09 mg/actuat metered dose inhaler (5 sources) beta2-Adrenergic Agonist Start: 07-09-2021 take 2 puff(s) by inhalation every four hours as needed for wheezing albuterol HFA (PROVENTIL HFA, VENTOLIN HFA) 90 mcg/actuation inhaler Inhale 2 Puffs as instructed every 4 hours as needed for wheezing/shortness of breath. 1 Inhaler 0 07/09/2021 Active Comment on above: Inhale 2 Puffs as in structed every 4 hours as needed for wheezing/shortness of breath. azithromycin 250 mg oral tablet (3 sources) Macrolide Antimicrobial Start: 02-08-2020 End: 09-30-2022 take 2 tablets by mouth once daily, then take 1 tablet by mouth once daily azithromycin (ZITHROMAX Z-BRANDY) 250 mg tablet TAKE TWO (2) PILLS BY MOUTH THE FIRST DAY AND THEN ONE (1) PILL BY MOUTH DAILY FOR FOUR (4) DAYS 6 tablet 0 02/08/2020 09/30/2022 Discontinued Comment on above: TAKE TWO (2) PILLS B Y MOUTH THE FIRST DAY AND THEN ONE (1) PILL BY MOUTH DAILY FOR FOUR (4) DAYS benoxinate hydrochloride 4 mg/ml / fluorescein sodium 2.5 mg/ml ophthalmic solution (2 sources) Diagnostic Dye Start: 02-26-2024 End: 02-26-2024 fluorescein-benoxi elba 0.25-0.4 % 1 Drop (FLURESS) Start: 02-26-2024 End: 02-26-2024 1 Drop, BOTH EYES, ONCE, 1 d ose, On Diana 02/26/24 at 1530, FOR THE EYE benzonatate 100 mg oral capsule (13 sources) Non-narcotic Antitussive Start: 08-16-2024 End: 08-31-2024 take 2 capsules by mouth every eight hours as needed benzonatate (TESSALON PERLE) 100 mg capsule Take 2 capsules by mouth three times a day as needed. 30 capsule 08/16/2024 08/31/2024 Discontinued Start: 04-10-2023 End: 02-19-2024 take 2 capsules by mouth every eight hours as needed benzonatate (TESSALON PERLES) 100 mg capsule Take 2 capsules by mouth three times a day as needed. 30 capsule 04/10/2023 02/19/2024 Discontinued Start: 07-01-2016 End: 09-30-2022 take 1 capsule by mouth three times daily as needed benzonatate (TESSALON PERLE) 100 mg capsule Indications: Viral URI with cough Take 1 capsule by mouth three times daily as needed. 60 capsule 0 07/01/2016 09/30/2022 Discontinued Comment on above: Take 1 capsule by mo uth three times daily as needed. Take 2 capsules by m out three times a day as needed. busPIRone hydrochloride 5 mg oral tablet (2 sources) Start: 08-26-19 End: 09-01-19 take 1 tablet by mouth twice daily busPIRone (BUSPAR) 5 mg tablet Take 5 mg by mouth two times a day. 08/25/2024 08/31/2024 Discontinued DULoxetine 20 mg delayed release oral capsule (3 sources) Serotonin and Norepinephrine Reuptake Inhibitor Start: 09-03-19 End: 10-12-19 take 1 capsule by mouth once daily DULoxetine (CYMBALTA) 20 mg capsule Indications: Anxiety and depression Take 1 capsule by mouth once daily. 60 capsule 09/02/2024 10/11/2024 Discontinued (Course of therapy completed) escitalopram 5 mg oral tablet (20 sources) Serotonin Reuptake Inhibitor Start: 10-24-19 End: 02-19-20 take 1 tablet by mouth once daily Escitalopram Oxalate 5 mg tablet Discontinued 5 mg PO daily October 14, 2023 12:00am November 04, 2023 1:08pm Start: 10-03-2022 End: 07-19-2024 take 1 tablet by mouth once daily Escitalopram Oxalate 10 mg tablet Discontinued 10 mg PO daily October 14, 2023 12:00am July 19, 2024 10:23am Comment on above: Take 1 tablet by [facility] once daily. 12 hr guaiFENesin 600 mg extended release oral tablet (3 sources) Start: 07-01-19 End: 10-01-19 take 2 tablets by mouth twice daily guaiFENesin (MUCINEX) 600 mg 12 hr tablet Indications: Viral URI with cough Take 2 tablets by mouth twice daily. 30 tablet 0 07/01/2016 09/30/2022 Discontinued Comment on above: Take 2 tablets by mo [facility] twice daily. hydrOXYzine hydrochloride 25 mg oral tablet (20 sources) Antihistamine Start: 09-07-19 End: 10-12-19 take 0.5 tablet by mouth three times daily as needed hydrOXYzine HCl (ATARAX) 25 mg tablet Indications: Anxiety and depression Take 0.5 tablets by mouth three times a day as needed. 60 tablet 09/06/2024 10/11/2024 Discontinued (Course of therapy completed) Start: 12-30-2022 End: 02-19-2024 hydrOXYzine pamoate (VISTARI L) 25 mg capsule Indications: Anxiety and depression Take 1-2 capsules three times a day as needed for anxiety 90 capsule 01/09/2023 02/19/2024 Discontinued Start: 06-02-2022 End: 11-04-2023 take 1 capsule by mouth twice daily as needed for anxiety Hydroxyzine Pamoate (Vistaril) 25 mg capsule Discontinued 25 mg PO TWICE A DAY as needed for anxiety 21 03June 02, 2022 1:00am November 04, 2023 1:08pm Start: 02-04-2022 End: 02-10-2022 take 1 tablet by mouth every six hours hydrOXYzine hydrochloride 50 mg oral tablet ; 1 tab(s) orally every 6 hours x 7 days as needed for anxiety. Please do not take this when you are planning on driving. Quantity: 28 Refills: 0 Ordered: 04-Feb-2022 Constantino Jones Start: 04-Feb-2022 End: 10-Feb-2022 Generic Substitution Allowed Comments: May cause drowsiness. Alcohol may intensify this effect. Use care when operating dangerous machinery.Obtain medical advice before taking any non-prescription drugs as some may affect the action of this medication. Comment on above: May cause drowsiness . Alcohol may intensify this effect. Use care when operating dangerous machinery.Obtain medical advice before taking any non-prescription drugs as some may affect the action of this medication. Take 1-2 capsules th ree times a day as needed for anxiety ondansetron 4 mg disintegrating oral tablet (4 sources) Serotonin-3 Receptor Antagonist Start: End: take 1 tablet by mouth every six hours as needed for nausea and vomiting Ondansetron 4 mg tablet,disintegrati ng Discontinued 4 mg PO EVERY 6 HOURS as needed for nausea and vomiting July 09, 2024 1:00am July 19, 2024 10:24am Start: 09-23-2015 End: 09-30-2022 take 1 tablet by mouth every four hours as needed ondansetron (ZOFRAN) 4 mg tablet Take 1 tablet by mouth every 4 hours as needed for Nausea/Vomiting. 20 tablet 0 09/23/2015 09/30/2022 Discontinued Comment on above: Take 1 tablet by donavan th every 4 hours as needed for Nausea/Vomiting. sertraline 50 mg oral tablet (3 sources) Serotonin Reuptake Inhibitor Start: 10-01-19 End: 10-04-19 take 1 tablet by mouth once daily sertraline (ZOLOFT) 50 mg tablet Indications: Anxiety and depression Take 1 tablet by mouth once daily. 30 tablet 0 09/30/2022 10/03/2022 Discontinued Comment on above: Take 1 tablet by donavan th once daily. tropicamide 10 mg/ml ophthalmic solution (2 sources) Anticholinergic Start: 02-26-20 End: 02-26-20 tropicamide 1 % 1 Drop (MYDRIACYL) Start: 02-26-2024 End: 02-26-2024 1 Drop, BOTH EYES, ONCE, 1 d ose, On Diana 02/26/24 at 1530, FOR THE EYE 24 hr venlafaxine 37.5 mg extended release oral tablet (13 sources) Serotonin and Norepinephrine Reuptake Inhibitor Start: 07-19-2024 take 1 capsule by mouth once daily Venlafaxine 37.5 mg capsule,extended release 24hr Active 37.5 mg PO DAILY July 19, 2024 1:00am Start: 04-30-2024 End: 09-02-2024 take 1 tablet by mouth once daily venlafaxine XR (EFFEXOR XR) 37.5 mg tr24 Indications: Anxiety and depression Take 1 tablet by mouth once daily. Increase to 75 mg in 2 weeks 60 tablet 08/31/2024 09/02/2024 Discontinued Problems Active Problems Problem Classification Problem Date Documented Da te Episodic/Chronic Administrative/social admission (2 sources) Repeated prescription; Translations: [Encounter for issue of repeat prescription] Onset: 08-30-2024 08-25-2024 Episodic Allergic reactions (2 sources) Allergy status to penicillin; Translations: [Eruption due to drug] Onset: 02-04-2022 07-19-2024 Episodic Anxiety disorders (20 sources) Anxiety; Translations: [Anxiety attack ] Onset: 03-09-2021 02-04-2022 Chronic Comment on above: ANXIETY Blindness and vision defects (2 sources) Bilateral myopia of eyes; Translations: [Myopia, 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-2024 Episodic Cardiac dysrhythmias (3 sources) Palpitations; Translations: [Palpitations] Onset: 02-04-2022 02-04-2022 Episodic Diseases of white blood cells (3 sources) Leukocytosis; Translations: [Leukocytosis, unspecified] Onset: 02-04-2022 02-04-2022 Chronic Disorders of teeth and jaw (1 source) Gingivitis; Translations: [Chronic gingivitis, plaque induced] 04-29-2024 Chronic Disorders of teeth and jaw (15 sources) Infection of tooth; Translations: [Periapical abscess without sinus] Onset: 10-06-2023 10-01-2023 Episodic Essential hypertension (1 source) Essential (primary) hypertension; Translations: [Primary hypertension] Onset: 09-18-2021 Chronic Fluid and electrolyte disorders (3 sources) Hypokalemia; Translations: [Hypopotassemia] Onset: 02-04-2022 02-04-2022 Episodic Headache; including migraine (4 sources) Sinus headache; Translations: [Sinus headache] 11-14-2022 Episodic Mood disorders (1 source) Depressive disorder; Translations: [Depression] 11-04-2023 Chronic Mood disorders (1 source) Mood disorders; Translations: [Anxiety and depression] Onset: 08-31-2024 Nonmalignant breast conditions (1 source) Fibrocystic change of right breast; Translations: [Diffuse cystic mastopathy of right breast] 02-19-2024 Chronic Nutritional deficiencies (20 sources) Vitamin D deficiency; Translations: [Vitamin D deficiency, unspecified] Onset: 10-24-2022 10-24-2022 Chronic Other aftercare (2 sources) Patient encounter status; Translations: [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] Episodic Other eye disorders (1 source) Optic cupping; Translations: [Glaucomatous optic atrophy, 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-2024 Chronic Other gastrointestinal disorders (1 source) Irritable bowel syndrome; Translations: [Irritable bowel syndrome without diarrhea] 10-14-2023 Chronic Other lower respiratory disease (2 sources) Dyspnea; Translations: [Shortness of breath] 02-04-2022 Episodic Other lower respiratory disease (3 sources) Cough; Translations: [Acute cough] Onset: 07-09-2021 04-10-2023 Episodic Other lower respiratory disease (2 sources) Cough; Translations: [Acute cough] 05-06-2024 Episodic Other nervous system disorders (1 source) Anesthesia of skin; Translations: [Anesthesia of skin] Onset: 02-04-2022 Episodic Other upper respiratory infections (2 sources) Bacterial sinusitis; Translations: [Chronic sinusitis, unspecified] Chronic Other upper respiratory infections (1 source) Acute upper respiratory infection; Translations: [Acute upper respiratory infection, unspecified] 04-14-2024 Episodic Pleurisy; pneumothorax; pulmonary collapse (5 sources) Pleurisy; Translations: [Pleurisy] 03-05-2021 Episodic Residual codes; unclassified (1 source) Tobacco user; Translations: [Tobacco use] 05-06-2024 Episodic Residual codes; unclassified (1 source) Viral syndrome; Translations: [Other general symptoms and signs] 08-16-2024 Episodic Spondylosis; intervertebral disc disorders; other back problems (2 sources) Neck pain; Translations: [Cervicalgia] Episodic Sprains and strains (7 sources) Strain of muscle of chest wall; Translations: [Strain of muscle and tendon of front wall of thorax, initial encounter] 08-09-2022 Episodic Substance-related disorders (1 source) Nicotine dependence, unspecified, uncomplicated; Translations: [Smoker] Onset: 07-09-2021 Chronic Superficial injury; contusion (7 sources) Contusion of unspecified front wall of thorax, subsequent encounter; Translations: [Contusion of knee] Onset: 09-18-2021 05-01-2015 Episodic Unclassified (1 source) Suspected COVID-19 virus infection; Translations: [Suspected COVID-19 virus infection] Onset: 04-02-2021 Unclassified (1 source) Contact with and (suspected) exposure to COVID-19; Translations: [Contact with and (suspected) exposure to COVID-19] Onset: 02-04-2022 Unclassified (1 source) Cough, unspecified; Translations: [Cough, unspecified] Onset: 01-23-2024 Unclassified (1 source) Acute right-sided low back pain without sciatica; Translations: [Acute right-sided low back pain without sciatica] Onset: 10-11-2024 Unclassified (1 source) Acute cough; Translations: [Acute cough] Onset: 05-06-2024 Urinary tract infections (5 sources) Pyelonephritis; Translations: [Tubulo-interstiti al nephritis, not specified as acute or chronic] 04-26-2016 Episodic Viral infection (4 sources) Viral disease; Translations: [Viral infection,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 cigarettes alcohol intake: current alcohol intake frequency: holidays/special occasions only substance use type: former 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, has been sober for 10 years caffeine: Yes ROS ROS ED Constitutional Constitutional ED: Denies chills or weight loss Eyes Eyes: Denies change in vision or diplopia ENT ENT ED: Denies ear pain, rhinorrhea or sore throat Cardiovascular Cardiovascular: Denies chest pain, orthopnea, palpitations or racing heartbeat Respiratory/Chest Respiratory/Chest: Denies cough, dyspnea or orthopnea Gastrointestinal Gastrointestinal: Denies abdominal pain, diarrhea, nausea or vomiting Genitourinary Genitourinary ED: Denies dysuria, hematuria or urinary frequency Musculoskeletal Musculoskeletal: Denies arthralgias or myalgias Integumentary Denies abscess or rash Neurologic Neurologic: Denies headache(s) or weakness Psychiatric Psychiatric: Reports anxiety; Denies depression, suicidal ideation or suicidal thoughts Endocrine Endocrinology: Denies polydipsia, polyphagia or polyuria Allergic/Immunologic Allergic/Immunologic ED: Denies mouth swelling, tongue swelling or urticaria EXAM Physical Exam Const Vital Signs: 08/25/24 13:12 08/25/24 13:44 Temperature 98 F Temperature Source Temporal Pulse Rate 67 Respiratory Rate 14 16 Blood Pressure 121/77 H Blood Pressure Mean 91 Pulse Ox 98 Oxygen Delivery Method Room Air Positive well nourished and well developed General Appearance ED: well de (more content not included)... Normal [facility] CNOVon 08-16-2024 [facility] Office Visit (UCWSTR ) JAROD ALDRIDGE ([id number]) 1990 F Date Time Provider Department 08/16/24 7:15 AM ARANZA GOINS WSTR During your visit today, we recorded the following information about you: Temperature Pulse Respiration Blood pressure 98.5 degrees 114/minute 16/minute 106/68 Weight 47.6 kg Aranza Goins APRN.WAITER/WAITRESS FIRST CLASS 08/16/2024 8:14 AM Signed [facility] Subjective Jarod Aldridge is a 33 year old female. HPI Jarod Aldridge is a 33 year old female who presents today for CC of fever, chills, body aches, cough since Friday, she states it feels like her lungs are burning. She denies any known exposure to flu. She is also having diarrhea. She has used ibuprofen. BP 106/68 Pulse 114 Temp 36.9 ?C (98.5 ?F) Resp 16 Wt 47.6 kg (104 lb 15 oz) LMP 07/01/2024 (Within Days) SpO2 97% BMI 18.07 kg/m? 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 No washroom operator was used. Review of Systems Constitutional: Positive for chills and fever. Negative for fatigue. HENT: Negative for congestion, ear pain, rhinorrhea and sore throat. Respiratory: Negative for cough. Gastrointestinal: Positive for diarrhea. Musculoskeletal: Positive for arthralgias. Objective BP 106/68 Pulse 114 Temp 36.9 ?C (98.5 ?F) Resp 16 Wt 47.6 kg (104 lb 15 oz) LMP 07/01/2024 (Within Days) SpO2 97% BMI 18.07 kg/m? Physical Exam Vitals and nursing note reviewed. Constitutional: General: She is not in acute distress. HENT: Head: Normocephalic and atraumatic. Right Ear: Tympanic membrane, ear canal and external ear normal. Left Ear: Tympanic membrane, ear canal and external ear normal. Nose: Rhinorrhea present. No mucosal edema or congestion. Mouth/Throat: Mouth: Mucous membranes are moist. Pharynx: No posterior oropharyngeal erythema. Eyes: Conjunctiva/sclera: Conjunctivae normal. Pupils: Pupils are equal, round, and reactive to light. Pulmonary: Effort: Pulmonary effort is normal. Musculoskeletal: Cervical back: Normal range of motion and neck supple. Skin: General: Skin is warm and dry. Neurological: Mental Status: She is alert and oriented to person, place, and time. {ASSESSMENT/PLAN: 1. Flu-like symptoms - ICD9: 780.99, ICD10: R68.89 (primary diagnosis) Rapid flu - - INFLUENZA AANDB MOLECULAR (POC) 2. Viral illness - ICD9: 079.99, ICD10: B34.9 - Discussed viral etiology and rationale for treatment. - Symptomatic treatment with prn analgesia - Supportive care with fluids and rest - The patient may also use OTC cough and cold meds as needed. - Follow up in one week if symptoms persist or sooner if worsening of symptoms - Prednisone 40 mg (2-20mg tablets) po QD for 5 days - Kelly Padgett History and Record Review External record(s) reviewed: prior outpatient record. Systemic symptoms present included: Management Management of the patient was discussed with:other (see comment) Discussion with other healthcare resource(s) included: medications ordered Disposition The patient was discharged. Diagnosis and treatment plan were discussed and questions were answered to the patient's satisfaction. Pt acknowledged understanding of concepts and follow up plan. Specific signs and symptoms that would indicate the need for higher level of care were discussed in detail warranting prompt ER evaluation. EJ Goodman Tonya, APRN.CNP 08/16/2024 8:08 AM Signed Influenza A and B are negative Probable other viral illness Rest, increase water intake Tylenol as needed for fever or pain. Salt water gargles, chloraseptic spray or lozenges as needed for sore throat. Warm beverages, honey. Nasal saline spray as needed Cool mist humidifier at night A cold normally lasts 7-10 days. If your symptoms are lasting longer, develop fever, or worsening by that time instead of improving then return to clinic or follow up with PCP for re-evaluation. * Prednisone 40 mg (2 tablets) per day for 5 days, take in morning or early in day * Do not NSAIDs during this 5 day course (ibuprofen, naproxen, Motrin, Aleve, Advil) Tylenol only during prednisone use * Follow up with primary care provider if no improvem (more content not included)... Normal [facility] INFLUENZA A&B MOLECULAR (POC )on 08-16-2024 Flu A (POCT) Negative Negative [facility] Flu B (POCT) Negative Negative [facility] Procedural Control Valid [facility] Location:[facility], [address] [place] [address], [place], [place], [id number] [place] [address] POINT OF CARE [facility] CNOVon 07-29-2024 CNOV Office Visit (UCTR ) JAROD ALDRIDGE ([id number]) 1990 F Date Time Provider Department 07/29/24 3:15 PM GREGORIO VILLARREAL UCWSTR During your visit today, we recorded the following information about you: Temperature Pulse Respiration Blood pressure 98.8 degrees 77/minute 20/minute 145/79 Weight Last Period 49 kg 07/01/24 Gregorio Villarreal APRN.CNP 07/29/2024 3:35 PM Signed Subjective HPI Nontoxic-appearing 33-year-old female presents urgent care chief plaint nausea vomiting loose stools. Duration of symptoms today. Associated symptoms listed above. Presents for evaluation. No episodes of loose stools or vomiting recently. Earlier this morning she had a few episodes of loose stool. Went to work and was unable to finish her shift. OTC medications none. No current abdominal pain. No blood in vomit or stool. Denies chance of . Son sick earlier this week similar signs symptoms. Denies any fevers. Past medical history prescription medications allergies reviewed. .Patient presents with: Nausea AND Vomiting: Diarrhea x this am, PAST MEDICAL HISTORY Diagnosis Date IBS (irritable bowel syndrome) Panic anxiety syndrome Pneumonia x2 in 2020 Vitamin D insufficiency No past surgical history on file. ALLERGIES Amoxicillin, Cefzil [Cefprozil], Clindamycin, Keflex [Cephalexin], Penicillins, and Zoloft [Sertraline] MEDICATIONS LORazepam (ATIVAN) 1 mg tablet Take 1 mg by mouth two times a day as needed for anxiety. venlafaxine XR (EFFEXOR XR) 37.5 mg tr24 Take 37.5 mg by mouth once daily. Increase to 75 mg in 2 weeks predniSONE (DELTASONE) 10 mg tablet Take 4 tabs daily for 3 days, then 2 tabs daily for 3 days, then 1 tab daily for 3 days with food. (Patient not taking: Reported on 07/14/2024) FAMILY HISTORY Problem Relation Age of Onset Alcohol/Drug Father Pancreatitis Father COPD Father Lung Cancer Maternal Grandmother Colon Cancer Maternal Grandmother Asthma Maternal Grandfather COPD Paternal Grandfather Human Immunodeficiency Virus Half-brother Accidental Half-sister Breast Cancer Maternal Aunt 42 Social History Tobacco Use Smoking status: Every Day Current packs/day: 0.50 Average packs/day: 0.5 packs/day for 9.0 years (4.5 ttl pk-yrs) Types: Cigarettes Smokeless tobacco: Never Vaping Use Vaping status: Never Used Substance Use Topics Alcohol use: Not Currently Drug use: Not Currently Types: Marijuana, 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 Review of Systems Constitutional: Negative for chills, fever and malaise/fatigue. HENT: Negative for congestion, ear discharge, ear pain, sinus pain and sore throat. Eyes: Negative for blurred vision, pain, discharge and redness. Respiratory: Negative for cough, hemoptysis, sputum production, shortness of breath, wheezing and stridor. Cardiovascular: Negative for chest pain. Gastrointestinal: Positive for abdominal pain, diarrhea, nausea and vomiting. Musculoskeletal: Negative for myalgias. Skin: Negative for itching and rash. Neurological: Negative for dizziness and headaches. Objective Physical Exam Constitutional: General: She is not in acute distress. Appearance: She is not diaphoretic. HENT: Head: Normocephalic. Jaw: No trismus, tenderness, swelling or pain on movement. Mouth/Throat: Mouth: Mucous membranes are moist. Pharynx: Oropharynx is clear. Uvula midline. No pharyngeal swelling, oropharyngeal exudate, posterior oropharyngeal erythema or uvula swelling. Eyes: Conjunctiva/sclera: Conjunctivae normal. Pupils: Pupils are equal, round, and reactive to light. Cardiovascular: Rate and Rhythm: Normal rate and regular rhythm. Heart sounds: Normal heart sounds. Pulmonary: Effort: Pulmonary effort is normal. No tachypnea, accessory muscle usage or respiratory distress. Breath sounds: Normal breath sounds. No stridor. No wheezing, rhonchi or rales. Abdominal: General: There is no distension. Palpations: Abdomen is soft. Tenderness: There is no abdominal tenderness. There is no guarding or rebound. Musculoskeletal: Cervical back: Normal range of motion and neck supple. No edema, erythema, rigidity or tenderness. No pain with movement. Normal range of motion. Lymphadenopathy: Cervical: No cervical adenopathy. Skin: General: Skin is warm and dry. Neurological: Mental Status: She is alert and oriented to person, place, and time. ASSESSMENT/PLAN: 1. Viral illness - ICD9: 079.99, ICD10: B34.9 No evidence of acute abdomen. Son sick similar signs symptoms. Treat as viral etiology Patient was educated on supportive therapies. Patient will follow up with primary care provider as needed. Patient was inst (more content not included)... Normal [facility] Absolute neutrophil countOrd ered By: Malcolm Jay on 07-19-2024 Neutrophils (Bld) [#/Vol] 3.8 10*3/uL 2.0-7.7 [facility] Albumin to globulin ratioOrd ered By: Malcolm Thompson on 07-19-2024 Albumin/Globulin [Mass ratio] 0.9 {ratio} 0.9-2.4 [facility] Automated blood erythrocyte countOrdered By: Malcolm Thompson on 07-19-2024 RBC (Bld) [#/Vol] 4.36 10*6/uL Normal 4.2-5.4 [facility] Comment on above: Performed By: #### L 100.0100, L500.4050 ####[facility] [address] [place], [address] Automated blood hematocrit ( percentage)Ordered By: Malcolm Thompson on 07-19-2024 Hematocrit (Bld) [Volume fraction] 39.7 % Normal 37-47 [facility] Comment on above: Performed By: #### L 100.0100, L500.4050 ####[facility] [address] [place], [address] Automated lymphocyte count a s percentage of total leukocytesOrdered By: Malcolm Thompson on 07-19-2024 Lymphocytes/100 WBC (Bld) 35.6 % Normal 19-41 [facility] Comment on above: Performed By: #### L 100.0100, L500.4050 ####[facility] [address] [place], [address] Basophil percentageOrdered B y: Malcolm Thompson on 07-19-2024 Basophils/100 WBC (Bld) 0.2 % Normal 0-1 [facility] Comment on above: Performed By: #### L 100.0100, L500.4050 ####[facility] [address] [place], [address] Bilirubin, totalOrdered By: Malcolm Thompson on 07-19-2024 Bilirubin [Mass/Vol] 0.10 mg/dL Low 0.20-1.00 [facility] Comment on above: For patients on eltr ombopag therapy, use of Dimension [place] TBIL is not recommended. Blood urea nitrogen (BUN)/cr eatinine ratioOrdered By: Malcolm Thompson on 07-19-2024 Urea nitrogen/Creatinine [Mass ratio] 16.8 mg/mg - [facility] CBC W/Diff, Automatedon 07-03 Absolute Lymph 2.30 X10 3/uL Normal 0.83-4.51 [facility] Comment on above: Performed By: #### L 100.0100, L500.4050 ####[facility] [address] [place], [address] Absolute Neut 3.8 X10 3/uL Normal 2.0-7.7 [facility] Comment on above: Performed By: #### L 100.0100, L500.4050 ####[facility] [address] [place], [address] IG% 0.300 Normal 0.0-0.9 [facility] Comment on above: Result Comment: IG% - Immature Granulocytes (promyelocytes, myelocytes and metamyelocytes) > 1% indicates that a LEFT SHIFT is Present. Performed By: #### L 100.0100, L500.4050 ####[facility] [address] [place], [address] Nucleated RBC (Bld) [#/Vol] 0 10*3/uL Normal 0-5 [facility] Comment on above: Performed By: #### L 100.0100, [id number] ####[facility] [address] [place], [address] RDW SD 44.6 fl High 35.1-43.9 [facility] Comment on above: Performed By: #### L 100.0100, L500.4050 ####[facility] [address] [place], [address] CNOVon 07-19-2024 CNOV Office Visit (LOREEWS ) JAROD ALDRIDGE ([id number]) 1990 F Date Time Provider Department 07/19/24 8:20 AM CORINNE JONES During your visit today, we recorded the following information about you: Temperature Pulse Respiration Blood pressure 98.4 degrees 73/minute 16/minute 106/74 Weight 47.2 kg Corinne Jones APRN.WAITER/WAITRESS FIRST CLASS 07/19/2024 8:53 AM Signed 07/19/2024 Patient presents with: Allergic Reaction: Started Clindamycin Jun 28 for tooth abscess. Stopped on 07/17 SUBJECTIVE: This is a 33 year old that is here today for Above Complaints.. Started on Clindamycin on June 28 for toot abscess. Noticed rash to arms then spread to abdomen and legs. Stopped Clindamycin when she noticed it. Has not taken anything OTC for rash. Did get IV antibiotic (Unasyn) last week in ER- did not develop any symptoms after completing. Patient reports still having pain where she had drainage of abscess last week in ER. Denies fever, tongue swelling, drooling, SOB or dyspnea. PAST MEDICAL HISTORY Diagnosis Date IBS (irritable bowel syndrome) Panic anxiety syndrome Pneumonia x2 in 2020 Vitamin D insufficiency ALLERGIES Amoxicillin, Cefzil [Cefprozil], Keflex [Cephalexin], Penicillins, and Zoloft [Sertraline] MEDICATIONS Current Outpatient Medications Medication Sig LORazepam (ATIVAN) 1 mg tablet Take 1 mg by mouth two times a day as needed for anxiety. venlafaxine XR (EFFEXOR XR) 37.5 mg tr24 Take 37.5 mg by mouth once daily. Increase to 75 mg in 2 weeks predniSONE (DELTASONE) 10 mg tablet Take 4 tabs daily for 3 days, then 2 tabs daily for 3 days, then 1 tab daily for 3 days with food. (Patient not taking: Reported on 07/14/2024) No current facility-administered medications for this visit. Medications and allergies reviewed by this provider. 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 OBJECTIVE: BP 106/74 Pulse 73 Temp 36.9 ?C (98.4 ?F) Resp 16 Wt 47.2 kg (104 lb 0.9 oz) LMP 04/22/2024 (Within Days) SpO2 97% BMI 17.92 kg/m? . Vital signs reviewed by this provider. PHYSICAL EXAMINATION: General appearance: Well appearing, alert, in no acute distress, well-hydrated, well nourished. Skin: Skin color, texture, turgor normal, no suspicious rashes or lesions Head: No facial swelling observed Eyes: Ears: Nose/Sinuses: Oropharynx: left lower back molars broke below gum line. TTP gum line with swelling observed to last molar. No active drainage. Multiple broken teeth below gum line back left along with various dental caries to other teeth Neck: Supple, no adenopathy Heart: regular rate and rhythm, without murmur Lungs: Lungs clear to auscultation, No wheezing, rales or rhonchi SKIN: fine maculopapular rash to abdomen/back, and legs Depression Screening Never done Anxiety Screening Never done DTaP,Tdap,Td Vaccine(1 - Tdap) Never done Pneumococcal Vaccine(1 of 2 - PCV) Never done Cervical Cancer Screening Never done Influenza Vaccine(1) Never done Covid-19 Vaccine() Never done Hepatitis C Screening Completed HIV Screening Completed Hepatitis B Vaccine Discontinued ASSESSMENT/PLAN: 1. Drug rash - ICD9: 693.0, ICD10: L27.0 (primary diagnosis) - continue to stay off of the Clindamycin - will add to medication allergy list - may take OTC benadryl as directed on packaging - no red flag symptoms or exam findings - red flag symptoms discussed 2. Dental abscess - ICD9: 522.5, ICD10: K04.7 - from reviewing her ER report from 07/09 it looks like they had wanted to transfer her for her abscess by she signed out AMA after and incision - with continued pain would recommend she go back to ER especially since I have limited antibiotics she can take for abscess. Patient agreeable to go to ER Corinne Podlogar, ELECTRONICS ASSEMBLER.WAITER/WAITRESS FIRST CLASS Prescription instructions reviewed with patient as applicable. Patient advised if symptoms do not improve or if symptoms worsen sooner, to contact their primary care physician. Potential red flag symptoms discussed with the patient. Reviewed appropriate action plan to take if red flag symptoms occur. Patient agreeable to treatment plan. I spent a total of 30 minutes on the date of the service which included preparing to see the patient, [id number] patient care, completing clinical documentation, obtaining and/or reviewing separately obtained history, performing a medically appropriate examination, and counseling and educatin (more content not included)... Normal [facility] Carbon dioxide measurementOr dered By: Malcolm Thompson on 07-19-2024 CO2 [Moles/Vol] 27.0 mmol/L 21.0-32.0 [facility] Chloride measurementOrdered By: Malcolm Thompson on 07-19-2024 Chloride [Moles/Vol] 107 mmol/L 98-107 [facility] Comprehensive Metabolic Prof ilon 07-19-2024 Albumin [Mass/Vol] 3.5 g/dL Normal 3.2-5.0 [facility] Comment on above: Performed By: #### L 100.0100, L500.4050 ####[facility] [address] [place], [place], [id number] Albumin/Globulin [Mass ratio] 0.9 {ratio} Normal 0.9-2.4 [facility] Comment on above: Performed By: #### L 100.0100, L500.4050 ####[facility] [address] [place], [address] ALK P 62 U/L Normal 45-117 [facility] Comment on above: Performed By: #### L 100.0100, L500.4050 ####[facility] [address] [place], [address] ALT [Catalytic activity/Vol] 15 U/L Normal 13-56 [facility] Comment on above: Performed By: #### L 100.0100, L500.4050 ####[facility] [address] [place], [address] AST [Catalytic activity/Vol] 19 U/L Normal 15-37 [facility] Comment on above: Performed By: #### L 100.0100, L500.4050 ####[facility] [address] [place], [address] Bilirubin [Mass/Vol] 0.10 mg/dL Low 0.20-1.00 [facility] Comment on above: Result Comment: For patients on eltrombopag therapy, use of Dimension [place] TBIL is not recommended. Performed By: #### L 100.0100, L500.4050 ####[facility] [address] [place], [address] BUN/CRE 16.8 RATIO Normal 10-20 [facility] Comment on above: Performed By: #### L 100.0100, L500.4050 ####[facility] [address] [place], [address] CA,Total 9.0 mg/dL Normal 8.5-10.1 [facility] Comment on above: Performed By: #### L 100.0100, L500.4050 ####[facility] [address] [place], [address] Chloride [Moles/Vol] 107 mmol/L Normal 98-107 [facility] Comment on above: Performed By: #### L 100.0100, L500.4050 ####[facility] [address] [place], [address] CO2 [Moles/Vol] 27.0 mmol/L Normal 21.0-32.0 [facility] Comment on above: Performed By: #### L 100.0100, L500.4050 ####[facility] [address] [place], [address] Creatinine [Mass/Vol] 0.66 mg/dL Normal 0.55-1.02 [facility] Comment on above: Result Comment: The validity of the calculated GFR GFRAA in patients over 70 years has not been determined. Clinical correlation is essential. Performed By: #### L 100.0100, L500.4050 ####[facility] [address] [place], [address] ECRCL 91.66 ml/min Normal [facility] Comment on above: Performed By: #### L 100.0100, L500.4050 ####[facility] [address] [place], [address] EST GFR - AA 134 mL/min Normal >60 [facility] Comment on above: Result Comment: Afri can [place] GFR Calc Performed By: #### L 100.0100, L500.4050 ####[facility] [address] [place], [address] GAP 8 Normal 5-15 [facility] Comment on above: Performed By: #### L 100.0100, L500.4050 ####[facility] [address] [place], [address] GFR/1.73 sq M.predicted among non-blacks MDRD (S/P/Bld) [Vol rate/Area] 111 mL/min/{1.73_m2} Normal >60 [facility] Comment on above: Result Comment: Non- GFR Calc Performed By: #### L 100.0100, L500.4050 ####[facility] [address] [place], [address] Globulin (S) [Mass/Vol] 3.9 g/dL Normal 2.2-4.2 [facility] Comment on above: Performed By: #### L 100.0100, L500.4050 ####[facility] [address] [place], [address] Glucose [Mass/Vol] 92 mg/dL Normal 74-106 [facility] Comment on above: Performed By: #### L 100.0100, L500.4050 ####[facility] [address] [place], [address] Potassium [Moles/Vol] 3.8 mmol/L Normal 3.5-5.1 [facility] Comment on above: Performed By: #### L 100.0100, L500.4050 ####[facility] [address] [place], [address] Sodium [Moles/Vol] 142 mmol/L Normal 136-145 [facility] Comment on above: Performed By: #### L 100.0100, L500.4050 ####[facility] [address] [place], [address] T PROT 7.4 g/dL Normal 6.4-8.2 [facility] Comment on above: Performed By: #### L 100.0100, L500.4050 ####[facility] [address] [place], [address] Urea nitrogen [Mass/Vol] 11 mg/dL Normal 7-18 [facility] Comment on above: Performed By: #### L 100.0100, L500.4050 ####[facility] [address] [place], [address] Emergency Department Summary on 07-19-2024 Emergency Department Summary [facility] Medical Records Department [address] [place] [address] Emergency Department Summary 07/19/24 MR#: [id number] Acct: [id number] Name: JAROD ALDRIDGE Rep #: [id number] : 1990 33 From: Malcolm Thompson DO PCP: Corinne Jones DEGREASING WHEEL OPERATOR-Roman Status:REG ER Location: ED HPI History of Present Illness Chief Complaint: Abscess Narrative Narrative: Patient is a 33-year-old female with past medical history of PTSD, depression, IBS, anxiety who presented to the Emergency Department with concern for returning of her dental abscess. Patient states that she was taking clindamycin and towards the end of the week developed a rash all of her body. She stopped taking this and saw her primary care physician today and they sent her here as concerned that the abscess is returning again. Patient states that she had fevers last week and was not feeling well. [facility] Medical History PTSD (post-traumatic stress disorder) Depression Abnormal EKG IBS (irritable bowel syndrome) Anxiety Home Medications ???Medication ???Instructions ???Recorded ???Last Taken ???Type lorazepam 0.5 mg tablet 1 mg PO QDAY 10/14/23 Unknown Hist ory chlorhexidine gluconate 0.12 % 15 ml buccal BID 10 days #300 mL 1 06/21/23 Unknown Rx mouthwash oxycodone-acetaminophen 5 mg-325 1 tab PO Q6H PRN pain 2 days #8 Unknown Rx mg tablet (Endocet) tabs amoxicillin 500 mg-potassium 1 tab PO BID 10 days #20 tabs 07/03 12/24 Unknown Rx clavulanate 125 mg tablet (Augmentin) venlafaxine 37.5 mg 37.5 mg PO DAILY 07/19/24 Unknown History capsule,extended release 24 hr Allergy/AdvReac Type Severity Reaction Status Date / Time cefazolin Allergy Rash Verified 07/19/24 09:13 cephalexin monohydrate (From Allergy Rash Verified 07/19/24 09:13 Keflex) Penicillins (PCN) Allergy Rash Verified 07/19/24 09:13 clindamycin AdvReac Intermediate Rash Verified 07/19/24 09:13 sertraline (From Zoloft) AdvReac Other Verified 07/19/24 09:13 Family History Father COPD (chronic obstructive pulmonary disease) Drug abuse Alcohol abuse Pancreatitis Grandmother Colon cancer Cancer Grandfather Asthma COPD (chronic obstructive pulmonary disease) Social History Smoking Status: Current every day smoker tobacco type: cigarettes alcohol intake: current alcohol intake frequency: holidays/special occasions only substance use type: former 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, has been sober for 10 years caffeine: Yes ROS ROS ED ROS Narrative Constitutional: Denies any fevers currently but complains of fever as noted above Eyes, ears, nose, throat: Denies difficulty swallowing complains of left lower jaw pain and concern for dental abscess returning Cardiovascular: Denies chest pain or palpitations Respiratory: Denies shortness of breath Neurological: Denies numbness, weakness, tingling Skin: Complains of rash from the clindamycin as noted above EXAM Physical Exam Narrative Exam Narrative: General: Patient was lying in bed rest comfortably did not appear to be in acute distress Head: Atraumatic, normocephalic Eyes, ears, nose, throat: Patient has tenderness palpation along the left lower jawline and the back of her mouth by her back teeth, no fluctuance noted at this point time, no sublingual swelling Neck: Soft, supple, trachea midline, no concern for Martin's angina Cardiovascular: Regular rate and rhythm Extremities: +5/5 strength noted in the bilateral upper and lower extremities Neurological: Patient following commands knew that she was at [facility] years 2024 Skin: Warm, dry, intact, patient has blanching rash noted over her anterior torso no petechia no purpura no sloughing of skin noted Const Vital Signs: 07/19/24 09:13 07/19/24 09:27 07/19/24 10:48 Temperature 97.2 F L 97.2 F L 98.3 F Temperature Source Temporal Temporal Oral Pulse Rate 65 65 63 Respiratory Rate 16 16 16 Blood Pressure 109/79 109/79 99/69 Blood Pressure Mean 89 89 79 Pulse Ox 100 100 99 Oxygen Delivery Method Room Air Room Air Room Air MDM MDM MDM Narrative Medical decision making narrative: Patient is a 33-year-old female who presented to the emergency department with concern for returning of a dental abscess. On the differential diagnose includes but not limited to dental pain, dental abscess, cavity. Once workup is obtained reviewed she will be reevaluated. Last time I saw this patient on 07/09/2024 I offered transfer to a facility that had oral maxillofacial to remove the teeth per recommendation of ears nose and throat physician here at [facility] (more content not included)... Normal [facility] Eosinophil percentageOrdered By: Malcolm Thompson on 07-19-2024 Eosinophils/100 WBC (Bld) 1.7 % Normal 0-5 [facility] Comment on above: Performed By: #### L 100.0100, L500.4050 ####[facility] [address] [place], [address] Erythrocyte distribution wid th ratioOrdered By: Malcolm Thompson on 07-19-2024 Erythrocyte distribution width (RBC) [Ratio] 13.2 % Normal 11.6-14.6 [facility] Comment on above: Performed By: #### L 100.0100, L500.4050 ####[facility] [address] [place], [address] Erythrocyte distribution wid th standard deviationOrdered By: Malcolm Thompson on 07-19-2024 Erythrocyte distribution width (RBC) [Entitic vol] 44.6 fL High 35.1-43.9 [facility] Estimated glomerular filtrat ion rate (GFR) AmericanOrdered By: Malcolm Thompson on 07-19-2024 Estimated GFR (MDRD) Amer 134 mL/min >60 [facility] Comment on above: GFR Calc Estimation of creatinine carmen aranceOrdered By: Malcolm Thompson on 07-19-2024 Estimated Creatinine Clearance Calc 91.66 ml/min [facility] Glomerular filtration rate ( GFR) estimationOrdered By: Malcolm Thompson on 07-19-2024 Estimated GFR (MDRD) Non-Af Amer 111 mL/min >60 [facility] Comment on above: Non- GFR Calc Glucose measurementOrdered B y: Malcolm Thompson on 07-19-2024 Glucose [Mass/Vol] 92 mg/dL 74-106 [facility] Hemoglobin measurementOrdere d By: Malcolm Thompson on 07-19-2024 Hemoglobin (Bld) [Mass/Vol] 12.4 g/dL Normal 12.0-15.0 [facility] Comment on above: Performed By: #### L 100.0100, L500.4050 ####[facility] [address] [place], [address] Immature granulocytes/100 WB C Auto (Bld)Ordered By: Malcolm Thompson on 07-19-2024 Immature granulocytes/100 WBC (Bld) 0.300 % 0.0-0.9 [facility] Comment on above: IG% - Immature Granu locytes (promyelocytes, myelocytes and metamyelocytes) > 1% indicates that a LEFT SHIFT is Present. Laboratory - Chemistry and C hemistry - challengeOrdered By: Malcolm Thompson on 07-19-2024 AST [Catalytic activity/Vol] 19 U/L 15-37 [facility] Lymphocytes Auto (Unsp spec) [#/Vol]Ordered By: Malcolm Thompson on 07-19-2024 Lymphocytes (Bld) [#/Vol] 2.30 10*3/uL 0.83-4.51 [facility] MCV (mean corpuscular volume ) determinationOrdered By: Malcolm Thompson on 07-19-2024 MCV (RBC) [Entitic vol] 91.1 fL Normal 81-99 [facility] Comment on above: Performed By: #### L 100.0100, L500.4050 ####[facility] [address] [place], [address] Mean corpuscular hemoglobin (MCH) determinationOrdered By: Malcolm Thompson on 07-19-2024 MCH (RBC) [Entitic mass] 28.4 pg Normal 27.0-32.0 [facility] Comment on above: Performed By: #### L 100.0100, L500.4050 ####[facility] [address] [place], [address] Mean corpuscular hemoglobin concentration (MCHC) determinationOrdered By: Malcolm Thompson on 07-19-2024 MCHC (RBC) [Mass/Vol] 31.2 g/dL Low 32-36 [facility] Comment on above: Performed By: #### L 100.0100, L500.4050 ####[facility] [address] [place], [address] Mean platelet volume determi nationOrdered By: Malcolm Thompson on 07-19-2024 Platelet mean volume (Bld) [Entitic vol] 10.1 fL Normal 6.2-12.0 [facility] Comment on above: Performed By: #### L 100.0100, L500.4050 ####[facility] [address] [place], [address] Monocyte percentageOrdered B y: Malcolm Thompson on 07-19-2024 Monocytes/100 WBC (Bld) 3.7 % Normal 0-10 [facility] Comment on above: Performed By: #### L 100.0100, L500.4050 ####[facility] [address] [place], [address] Neutrophil percentageOrdered By: Malcolm Thompson on 07-19-2024 Neutrophils/100 WBC (Bld) 58.5 % Normal 47-70 [facility] Comment on above: Performed By: #### L 100.0100, L500.4050 ####[facility] [address] [place], [address] Nucleated red blood cell per centageOrdered By: Malcolm Thompson on 07-19-2024 Nucleated RBC/100 WBC (Bld) [Ratio] 0 % 0-5 [facility] Platelet countOrdered By: Amari Thompson on 07-19-2024 Platelets (Bld) [#/Vol] 264 10*3/uL Normal 150-450 [facility] Comment on above: Performed By: #### L 100.0100, L500.4050 ####[facility] [address] [place], [address] Potassium measurementOrdered By: Malcolm Thompson on 07-19-2024 Potassium [Moles/Vol] 3.8 mmol/L 3.5-5.1 [facility] Serum anion gap measurementO rdered By: Malcolm Thompson on 07-19-2024 Anion gap [Moles/Vol] 8 mmol/L 5-15 [facility] Serum globulin measurementOr dered By: Malcolm Thompson on 07-19-2024 Globulin (S) [Mass/Vol] 3.9 g/dL 2.2-4.2 [facility] Serum or plasma alanine hardy otransferase (ALT) measurementOrdered By: Malcolm Thompson on 07-19-2024 ALT [Catalytic activity/Vol] 15 U/L 13-56 [facility] Serum or plasma albumin kelly urement (mass/volume)Ordered By: Malcolm Thompson on 07-19-2024 Albumin [Mass/Vol] 3.5 g/dL 3.2-5.0 [facility] Serum or plasma alkaline shanita sphatase measurementOrdered By: Malcolm Thompson on 07-19-2024 ALP [Catalytic activity/Vol] 62 U/L 45-117 [facility] Serum or plasma calcium kelly urement (mass/volume)Ordered By: Malcolm Thompson on 07-19-2024 Calcium [Mass/Vol] 9.0 mg/dL 8.5-10.1 [facility] Serum or plasma creatinine m easurement (mass/volume)Ordered By: Malcolm Thompson on 07-19-2024 Creatinine [Mass/Vol] 0.66 mg/dL 0.55-1.02 [facility] Comment on above: The validity of the calculated GFR & GFRAA in patients over 70 years has not been determined. Clinical correlation is essential. Serum or plasma urea nitroge n measurement (mass/volume)Ordered By: Malcolm Thompson on 07-19-2024 Urea nitrogen [Mass/Vol] 11 mg/dL 7-18 [facility] Sodium levelOrdered By: Earl Thompson on 07-19-2024 Sodium [Moles/Vol] 142 mmol/L 136-145 [facility] Soft Tissue Neck WITH Contra ston 07-19-2024 Soft Tissue Neck WITH Contrast [facility] Imaging Services [address] [place], [place] [address] Soft Tissue Neck WITH Contrast MR#: [id number] Acct: [id number] Name: JAROD ALDRIDGE Rep #: [id number] : 1990 F 33 From: Kar levine MD PCP: Corinne Jones, DEGREASING WHEEL OPERATOR-C Status: REG ER Study: Soft Tissue Neck WITH Contrast Date of Exam: 0 07/19/24 Exam# [id number] Ordering Dr: Malcolm Thompson DO PROCEDURE: SOFT TISSUE NECK WITH CONTRAST REASON FOR EXAM: Dental abscess. TECHNIQUE: CT of the soft tissues of the neck from the orbits to the upper mediastinum with intravenous contrast. CONTRAST: 100 cc of Isovue-300. COMPARISON: Comparison is made with prior study dated July 09, 2024. FINDINGS: Stable 2.3 mm x 7 mm focal area of decreased attenuation in the masseter muscle overlying the left body of the mandible. Airway: Midline and patent. Pharyngeal mucosal space: Unremarkable. Hypopharynx and larynx: Unremarkable. Parapharyngeal and retropharyngeal spaces: Unremarkable. Manager Latin and buccal spaces: Unremarkable. Salivary glands: Unremarkable. Lymph nodes: No cervical lymphadenopathy. Thyroid: Unremarkable. Vasculature: Carotid arteries and internal jugular veins are unremarkable. Orbits: Unremarkable at visualized levels. Paranasal sinuses and mastoids: Grossly clear at visualized levels. Lung apices: Clear. Upper mediastinum: Visualized mediastinum is unremarkable. Bones: Unremarkable. CT/Soft Tissue Neck WITH Contrast IMPRESSION: Stable examination. Scattered periapical lucency of the submandibular and maxillary teeth. One or more dose reduction techniques were used (e.g., Automated exposure control, adjustment of the mA and/or kV according to patient size, use of iterative reconstruction technique). Reading Location: [facility] CC: DEGREASING WHEEL OPERATOR-C Corinne Jones; Dr. Malcolm Thompson, DO [place]odeo Clown: Signed Normal [facility] Total proteinOrdered By: Hernan Thompson on 07-19-2024 Protein [Mass/Vol] 7.4 g/dL 6.4-8.2 [facility] White blood cell (WBC) count Ordered By: Malcolm Thompson on 07-19-2024 WBC (Bld) [#/Vol] 6.5 10*3/uL Normal 4.4-11.0 [facility] Comment on above: Performed By: #### L 100.0100, L500.4050 ####[facility] [address] [place], [address] CNOVon 07-14-2024 [facility] JAROD ALDRIDGE ([id number]) 1990 F Date Time Provider Department 07/14/24 5:00 PM CORNELIUS ODONNELL [facility] During your visit today, we recorded the following information about you: Temperature Pulse Respiration Blood pressure 98.3 degrees 83/minute 18/minute 110/72 Weight 47.6 kg Cornelius Odonnell PA 07/14/2024 5:32 PM Signed This note was created using Huddlerriter. Subjective Jarod Aldridge is a 33 year old female. HPI 33-year-old female presents for dental pain. Patient states she has had dental pain and abscess for the past 10 days. She was seen at the ER about a week ago and had the abscess cut open per patient. Patient states that she replaced on clindamycin. She is on her last dose of antibiotic today. She states she still has a small white area which is concerning her for an abscess. She denies any fevers. No difficulty swallowing or breathing. States that she is trying to find a dentist that is free or will take a payment plan because she does not have dental insurance. No other complaint PAST MEDICAL HISTORY Diagnosis Date IBS (irritable bowel syndrome) Panic anxiety syndrome Pneumonia x2 in 2020 Vitamin D insufficiency No past surgical history on file. ALLERGIES Amoxicillin, Cefzil [Cefprozil], Keflex [Cephalexin], Penicillins, and Zoloft [Sertraline] MEDICATIONS LORazepam (ATIVAN) 1 mg tablet Take 1 mg by mouth two times a day as needed for anxiety. venlafaxine XR (EFFEXOR XR) 37.5 mg tr24 Take 37.5 mg by mouth once daily. Increase to 75 mg in 2 weeks clindamycin (CLEOCIN) 150 mg capsule Take 3 capsules by mouth three times a day for 3 days. predniSONE (DELTASONE) 10 mg tablet Take 4 tabs daily for 3 days, then 2 tabs daily for 3 days, then 1 tab daily for 3 days with food. (Patient not taking: Reported on 07/14/2024) FAMILY HISTORY Problem Relation Age of Onset Alcohol/Drug Father Pancreatitis Father COPD Father Lung Cancer Maternal Grandmother Colon Cancer Maternal Grandmother Asthma Maternal Grandfather COPD Paternal Grandfather Human Immunodeficiency Virus Half-brother Accidental Half-sister Breast Cancer Maternal Aunt 42 Social History Tobacco Use Smoking status: Every Day Current packs/day: 0.50 Average packs/day: 0.5 packs/day for 9.0 years (4.5 ttl pk-yrs) Types: Cigarettes Smokeless tobacco: Never Vaping Use Vaping status: Never Used Substance Use Topics Alcohol use: Not Currently 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 HENT: Positive for dental problem. Negative for congestion, ear pain and sore throat. Respiratory: Negative for cough and shortness of breath. Cardiovascular: Negative for chest pain. Gastrointestinal: Negative for diarrhea and vomiting. Objective BP 110/72 Pulse 83 Temp 36.8 ?C (98.3 ?F) (Tympanic) Resp 18 Wt 47.6 kg (104 lb 15 oz) LMP 04/22/2024 (Within Days) SpO2 98% BMI 18.07 kg/m? Physical Exam Vitals and nursing note reviewed. Constitutional: General: She is not in acute distress. Appearance: Normal appearance. She is not toxic-appearing. HENT: Nose: Nose normal. Mouth/Throat: Mouth: Mucous membranes are moist. Dentition: Abnormal dentition. Dental tenderness, dental caries and dental abscesses present. Comments: Patient has dental decay noted. She has tenderness over left lower molars with diffuse dental decay down to the gumline. Mild swelling noted along the gumline with a small linear white area which may be from previous abscess incision.. No drainage fluctuance or large abscess. No tongue or floor mouth swelling. Handling secretions. Airway intact. Eyes: Conjunctiva/sclera: Conjunctivae normal. Cardiovascular: Rate and Rhythm: Normal rate and regular rhythm. Pulmonary: Effort: Pulmonary effort is normal. Breath sounds: Normal breath sounds. Skin: General: Skin is warm and dry. Neurological: Mental Status: She is alert. Assessment and Plan ASSESSMENT/PLAN: 1. Dental infection - ICD9: 522.4, ICD10: K04.7 -Currently on clindamycin, on last dose. Still has very small amount of gum swelling on the left side and tenderness. -Will extend antibiotic x 3 days. Did discuss with patient there is risk of C. difficile with this medication, so it is not ideal for her to continue getting clindamycin for her dental infections. She needs to follow-up with a dentist. -Patient given a list of free dental clinics to follow-up with. Diagnosis and treatment plan were discussed and questions were answered to the patient's satisfaction. Pt acknowledged understanding of concepts and follow up plan. Specific signs and symptoms that would indicate the need for higher level of care were discussed in detail warranting (more content not included)... Normal [facility] Basic Metabolic Profile (BMP )on 07-09-2024 BUN/CRE 11.4 RATIO Normal 10-20 [facility] Comment on above: Performed By: #### L 500.2500 ####[facility] [address] [place], [address] CA,Total 9.1 mg/dL Normal 8.5-10.1 [facility] Comment on above: Performed By: #### L 500.2500 ####[facility] [address] [place], [address] Chloride [Moles/Vol] 108 mmol/L High 98-107 [facility] Comment on above: Performed By: #### L 500.2500 ####[facility] [address] [place], [address] CO2 [Moles/Vol] 25.0 mmol/L Normal 21.0-32.0 [facility] Comment on above: Performed By: #### L 500.2500 ####[facility] [address] [place], [address] Creatinine [Mass/Vol] 0.70 mg/dL Normal 0.55-1.02 [facility] Comment on above: Result Comment: The validity of the calculated GFR GFRAA in patients over 70 years has not been determined. Clinical correlation is essential. Performed By: #### L 500.2500 ####[facility] [address] [place], [address] ECRCL 87.91 ml/min Normal [facility] Comment on above: Performed By: #### L 500.2500 ####[facility] [address] [place], [address] EST GFR - AA 124 mL/min Normal >60 [facility] Comment on above: Result Comment: Afri can [place] GFR Calc Performed By: #### L 500.2500 ####[facility] [address] [place], [address] GAP 6 Normal 5-15 [facility] Comment on above: Performed By: #### L 500.2500 ####[facility] [address] [place], [address] GFR/1.73 sq M.predicted among non-blacks MDRD (S/P/Bld) [Vol rate/Area] 102 mL/min/{1.73_m2} Normal >60 [facility] Comment on above: Result Comment: Non- GFR Calc Performed By: #### L 500.2500 ####[facility] [address] [place], [address] Glucose [Mass/Vol] 88 mg/dL Normal 74-106 [facility] Comment on above: Performed By: #### L 500.2500 ####[facility] [address] [place], [address] Potassium [Moles/Vol] 3.8 mmol/L Normal 3.5-5.1 [facility] Comment on above: Performed By: #### L 500.2500 ####[facility] [address] [place], [address] Sodium [Moles/Vol] 139 mmol/L Normal 136-145 [facility] Comment on above: Performed By: #### L 500.2500 ####[facility] [address] [place], [address] Urea nitrogen [Mass/Vol] 8 mg/dL Normal 7-18 [facility] Comment on above: Performed By: #### L 500.2500 ####[facility] [address] [place], [address] Blood urea nitrogen (BUN)/cr eatinine ratioOrdered By: Malcolm Thompson on 07-09-2024 Urea nitrogen/Creatinine [Mass ratio] 11.4 mg/mg 10-20 [facility] Carbon dioxide measurementOr dered By: Malcolm Thompson on 07-09-2024 CO2 [Moles/Vol] 25.0 mmol/L 21.0-32.0 [facility] Chloride measurementOrdered By: Malcolm Thompson on 07-09-2024 Chloride [Moles/Vol] 108 mmol/L High 98-107 [facility] Emergency Department Summary on 07-09-2024 Emergency Department Summary [facility] Medical Records Department [address] [place] [address] Emergency Department Summary 07/09/24 MR#: [id number] Acct: [id number] Name: JAROD ALDRIDGE Rep #: [id number] : 1990 33 From: Malcolm Thompson DO PCP: Corinne Jones DEGREASING WHEEL OPERATOR-C Status:REG ER Location: ED HPI History of Present Illness Chief Complaint: Dental Narrative Narrative: Patient is a 33-year-old female with a past medical history of PTSD, depression, IBS, anxiety who presented to the emergency department the chief complaint of concern for dental infection. Patient states that she had developed pain and swelling along the left lower jawline. States that on Friday this all started she started taking clindamycin 150 mg 3 times a day which she normally takes as she had some leftover at home from a previous dental infection that normally works for her. States that she has had progressively worsening swelling and pain prompting her to come here for further evaluation management. [facility] Medical History PTSD (post-traumatic stress disorder) Depression Abnormal EKG IBS (irritable bowel syndrome) Anxiety Home Medications ???Medication ???Instructions ???Recorded ???Last Taken ???Type escitalopram oxalate 10 mg tablet 10 mg PO QDAY 10/14/23 Unknown Hi story lorazepam 0.5 mg tablet 0.5 mg PO QDAY 10/14/23 Unknown Hi story chlorhexidine gluconate 0.12 % 15 ml buccal BID 10 days #300 mL 1 06/21/23 Unknown Rx mouthwash clindamycin HCl 300 mg capsule 300 mg PO Q6H #28 CAPSULES 4 Unknown Rx (Cleocin HCl) ondansetron 4 mg disintegrating 4 mg PO Q6H PRN nausea and 5 Unknown Rx tablet vomiting #20 tabs oxycodone-acetaminophen 5 mg-325 1 tab PO Q6H PRN pain 2 days #8 Unknown Rx mg tablet (Endocet) tabs Allergy/AdvReac Type Severity Reaction Status Date / Time cefazolin Allergy Rash Verified 04/21/24 10:19 cephalexin monohydrate (From Allergy Rash Verified 04/21/24 10:19 Keflex) Penicillins (PCN) Allergy Rash Verified 04/21/24 10:19 sertraline (From Zoloft) AdvReac Other Verified 04/21/24 10:19 Family History Father COPD (chronic obstructive pulmonary disease) Drug abuse Alcohol abuse Pancreatitis Grandmother Colon cancer Cancer Grandfather Asthma COPD (chronic obstructive pulmonary disease) Social History Smoking Status: Current every day smoker tobacco type: cigarettes alcohol intake: current alcohol intake frequency: holidays/special occasions only substance use type: former 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, has been sober for 10 years caffeine: Yes ROS ROS ED ROS Narrative Constitutional: Denies fevers, chills Eyes, ears, nose, throat: Complains of left lower jaw swelling denies difficulty swallowing Respiratory: Denies shortness of breath Neurological: Denies numbness, weakness, tingling EXAM Physical Exam Narrative Exam Narrative: General: Patient lying in bed rest comfortably did not appear to be acute distress Head: Atraumatic, normocephalic Eyes ears, nose, throat: No sublingual swelling noted, patient does have area of swelling along the left lower jawline that is fluctuant in nature patient has poor dentition noted Neck: Soft, supple, trachea midline no concern for Martin's angina Cardiovascular: Regular rate and rhythm Respiratory: Clear to auscultation bilaterally Neurological: Patient follow commands and that she was at [facility] year is 2024 Skin: Warm, dry, tact Const Vital Signs: 07/09/24 14:09 07/09/24 14:12 07/09/24 16:09 Temperature 99 F 99 F Temperature Source Temporal Temporal Pulse Rate 89 88 75 Respiratory Rate 18 16 16 Blood Pressure 115/81 H 117/76 116/74 Blood Pressure Mean 92 89 88 Pulse Ox 99 99 98 Oxygen Delivery Method Room Air Room Air Room Air 07/09/24 18:00 07/09/24 20:00 Temperature Temperature Source Pulse Rate 72 94 Respiratory Rate 16 18 Blood Pressure 112/74 Blood Pressure Mean 86 Pulse Ox 98 96 Oxygen Delivery Method Room Air Room Air MDM MDM MDM Narrative Medical decision making narrative: Patient is a 33-year-old female who presented to the emergency department chief complaint of concern for dental infection despite being on clindamycin which normally works for her. On the differential diagnose includes but not limited to periapical abscess, deep space abscess. Once workup is obtained reviewed she will be reevaluated. Patient is requesting Tylenol for pain and nothing stronger. Patient's BMP reviewed showed sodium 139, potassium was 3.8, creatinine normal at 0.70. Patient g (more content not included)... Normal [facility] Estimated glomerular filtrat ion rate (GFR) AmericanOrdered By: Malcolm Thompson on 07-09-2024 Estimated GFR (MDRD) Amer 124 mL/min >60 [facility] Comment on above: GFR Calc Estimation of creatinine carmen aranceOrdered By: Malcolm Thompson on 07-09-2024 Estimated Creatinine Clearance Calc 87.91 ml/min [facility] Glomerular filtration rate ( GFR) estimationOrdered By: Malcolm Thompson on 07-09-2024 Estimated GFR (MDRD) Non-Af Amer 102 mL/min >60 [facility] Comment on above: Non- GFR Calc Glucose measurementOrdered B y: Malcolm Thompson on 07-09-2024 Glucose [Mass/Vol] 88 mg/dL 74-106 [facility] Potassium measurementOrdered By: Malcolm Thompson on 07-09-2024 Potassium [Moles/Vol] 3.8 mmol/L 3.5-5.1 [facility] Serum anion gap measurementO rdered By: Malcolm Thompson on 07-09-2024 Anion gap [Moles/Vol] 6 mmol/L 5-15 [facility] Serum or plasma calcium kelly urement (mass/volume)Ordered By: Malcolm Thompson on 07-09-2024 Calcium [Mass/Vol] 9.1 mg/dL 8.5-10.1 [facility] Serum or plasma creatinine m easurement (mass/volume)Ordered By: Malcolm Thompson on 07-09-2024 Creatinine [Mass/Vol] 0.70 mg/dL 0.55-1.02 [facility] Comment on above: The validity of the calculated GFR & GFRAA in patients over 70 years has not been determined. Clinical correlation is essential. Serum or plasma urea nitroge n measurement (mass/volume)Ordered By: Malcolm Thompson on 07-09-2024 Urea nitrogen [Mass/Vol] 8 mg/dL 7-18 [facility] Sodium levelOrdered By: Earl Thompson on 07-09-2024 Sodium [Moles/Vol] 139 mmol/L 136-145 [facility] Soft Tissue Neck WITH Contra ston 02-07-2025 Soft Tissue Neck WITH Contrast [facility] Imaging Services [address] [place], [place] [id number] Soft Tissue Neck WITH Contrast MR#: [id number] Acct: [id number] Name: JAROD ALDRIDGE Rep #: [id number] : 1990 F 33 From: Nguyen Mcclendon MD PCP: MAYRA FranklinC Status: REG ER Study: Soft Tissue Neck WITH Contrast Date of Exam: 0 07/09/24 Exam# [id number] Ordering Dr: Malcolm Thompson DO PROCEDURE: SOFT TISSUE NECK WITH CONTRAST REASON FOR EXAM: Recent antibiotics; facial swelling. TECHNIQUE: CT of the soft tissues of the neck from the orbits to the upper mediastinum with intravenous contrast. COMPARISON: None. FINDINGS: Airway: Midline and patent. Salivary glands: Unremarkable. Lymph nodes: No cervical lymphadenopathy. Thyroid: Unremarkable. Vasculature: Carotid arteries and internal jugular veins are unremarkable. Orbits: Unremarkable at visualized levels. Paranasal sinuses and mastoids: Grossly clear at visualized levels. Lung apices: Mild paraseptal emphysema. Upper mediastinum: Visualized mediastinum is unremarkable. Bones: Unremarkable. Teeth: Scattered periapical lucency of the submandibular and maxillary teeth. Hypodense region superficial to the left body of the mandible which measures 23 x 7 mm and suspicious for a soft tissue abscess. CT/Soft Tissue Neck WITH Contrast IMPRESSION: Small hypodense region superficial to the left mandibular body which may represent an abscess. Consider confirmation with ultrasound. Scattered periapical lucency of the submandibular and maxillary teeth. One or more dose reduction techniques were used (e.g., Automated exposure control, adjustment of the mA and/or kV according to patient size, use of iterative reconstruction technique). Reading Location: [id number] CC: DEGREASING WHEEL OPERATORShaniqua Jones; Dr. Malcolm Thompson DO Rodeo Clown: Signed Normal [facility] CNOVon 05-06-2024 CNOV Office Visit ([facility] ) JAROD ALDRIDGE ([id number]) 1990 F Date Time Provider Department 05/06/24 10:00 AM LORAINE REED [facility] During your visit today, we recorded the following information about you: Temperature Pulse Respiration Blood pressure 99.1 degrees 82/minute 20/minute 116/76 Weight Last Period 48.9 kg 04/22/24 Loraine Reed, MELVA.WAITER/WAITRESS FIRST CLASS 05/06/2024 10:48 AM Signed This note was created using Huddlerriter. Subjective Jarod Aldridge is a 33 year old female. 33 year old female with PMH IBS Presents for illness. Acute onset 3 to 4 weeks ago +sinus pressure + cough +productive +chest congestion Lung pain Endorses feeling winded X 1 emesis yesterday evening with eating Denies CP Denies hemoptysis Denies dyspnea Denies abdominal pain Denies fever or chills Of note, seen on 04/18/24 for dental pain and placed on Clindamycin +tobacco usage, but has cut back The history is provided by the patient. No washroom operator was used. Cough This is a new problem. The current episode started more than 1 week ago. The problem occurs constantly. The problem has been gradually worsening. The cough is Productive of sputum. There has been no fever. Associated symptoms include ear congestion, headaches, rhinorrhea and shortness of breath. Pertinent negatives include no chest pain, no chills, no sweats, no weight loss, no ear pain, no sore throat, no myalgias, no wheezing and no eye redness. She has tried nothing for the symptoms. The treatment provided no relief. She is a smoker. Her past medical history does not include bronchitis, pneumonia, bronchiectasis, COPD, emphysema or asthma. PAST MEDICAL HISTORY Diagnosis Date IBS (irritable bowel syndrome) Panic anxiety syndrome Pneumonia x2 in 2020 Vitamin D insufficiency No past surgical history on file. ALLERGIES Amoxicillin, Cefzil [Cefprozil], Keflex [Cephalexin], Penicillins, and Zoloft [Sertraline] MEDICATIONS LORazepam (ATIVAN) 1 mg tablet Take 1 mg by mouth two times a day as needed for anxiety. venlafaxine XR (EFFEXOR XR) 37.5 mg tr24 Take 37.5 mg by mouth once daily. Increase to 75 mg in 2 weeks doxycycline (VIBRA-TABS) 100 mg tablet Take 1 tablet by mouth two times a day for 7 days. predniSONE (DELTASONE) 10 mg tablet Take 4 tabs daily for 3 days, then 2 tabs daily for 3 days, then 1 tab daily for 3 days with food. FAMILY HISTORY Problem Relation Age of Onset Alcohol/Drug Father Pancreatitis Father COPD Father Lung Cancer Maternal Grandmother Colon Cancer Maternal Grandmother Asthma Maternal Grandfather COPD Paternal Grandfather Human Immunodeficiency Virus Half-brother Accidental Half-sister Breast Cancer Maternal Aunt 42 Social History Tobacco Use Smoking status: Every Day Current packs/day: 0.50 Average packs/day: 0.5 packs/day for 9.0 years (4.5 ttl pk-yrs) Types: Cigarettes Smokeless tobacco: Never Vaping Use Vaping status: Never Used Substance Use Topics Alcohol use: Not Currently Drug use: Not Currently Types: Marijuana, 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 HENT: Positive for congestion, postnasal drip, rhinorrhea, sinus pressure and sinus pain. Negative for ear pain and sore throat. Eyes: Negative for pain, discharge, redness and itching. Respiratory: Positive for cough and shortness of breath. Negative for wheezing. Cardiovascular: Negative for chest pain. Gastrointestinal: Negative for abdominal pain, diarrhea, nausea and vomiting. Musculoskeletal: Negative for arthralgias, back pain and myalgias. Skin: Negative for color change, pallor, rash and wound. Allergic/Immunologic: Negative for environmental allergies, food allergies and immunocompromised state. Neurological: Positive for headaches. Negative for dizziness and facial asymmetry. Hematological: Negative for adenopathy. Does not bruise/bleed easily. Psychiatric/Behavioral: Negative for agitation and behavioral problems. Objective BP 116/76 Pulse 82 Temp 37.3 ?C (99.1 ?F) Resp 20 Wt 48.9 kg (107 lb 12.9 oz) LMP 04/22/2024 (Within Days) SpO2 100% BMI 18.56 kg/m? Physical Exam Vitals and nursing note reviewed. Constitutional: General: She is not in acute distress. Appearance: Normal appearance. She is normal weight. She is not ill-appearing, toxic-appearing or diaphoretic. HENT: Head: Normocephalic and atraumatic. Comments: +frontal sinus pressure +maxillary sinus pressure Right Ear: Ear canal and external ear normal. Left Ear: Ear canal and external ear normal. Nose: Congestion present. No rhinorrhea. Mouth/Throat: Mouth: Mucous membranes are moist. Pharynx: Posterior oropharyngeal erythema present. No oropharyngeal exudate. Eyes: General: Right eye: No discharge. Left ey (more content not included)... Normal [facility] XR CHEST 2V FRONTAL/LATon XR CHEST 2V FRONTAL/LAT * * *Final Repor t* * * DATE OF EXAM: May 06 2024 10:33AM WOX [id number] - XR CHEST 2V FRONTAL/LAT / PROCEDURE REASON: Acute cough * * * * Physician Interpretation * * * * EXAMINATION: CHEST RADIOGRAPH (2 VIEW FRONTAL and LATERAL) CLINICAL HISTORY: Acute cough MQ: XC2_6 EXAM DATE/TIME: 05/06/2024 10:33 AM COMPARISON: Chest x-ray on 04/10/2023 RESULT: Lines, tubes, and devices: None. Lungs and pleura: No consolidation. No lung mass. No pleural effusion. No pneumothorax. Cardiomediastinal silhouette: Normal cardiomediastinal silhouette. Bones and soft tissues: Unremarkable. IMPRESSION: No acute radiographic abnormality. Rodeo Clown: ABBEY Transcribe Date/Time: May 06 2024 10:33A Dictated by : ANGEL PRATER MD This examination was interpreted and the report reviewed and electronically signed by: ANGEL PRATER MD on May 06 2024 10:34AM EST [id number] Normal [facility] XR Chest PA and Lateralon IMPRESSION: No acute radiographic abnormality. Rodeo Clown: ABBEY Transcribe Date/Time: May 06 2024 10:33A Dictated by : ANGEL PRATER MD This examination was interpreted and the report reviewed and electronically signed by: ANGEL PRATER MD on May 06 2024 10:34AM EST DIVISION OF RADIOLOGY * * *Final Report* * * DATE OF EXAM: May 06 2024 10:33AM WOX [id number] - XR CHEST 2V FRONTAL/LAT / PROCEDURE REASON: Acute cough * * * * Physician Interpretation * * * * EXAMINATION: CHEST RADIOGRAPH (2 VIEW FRONTAL & LATERAL) CLINICAL HISTORY: Acute cough MQ: XC2_6 EXAM DATE/TIME: 05/06/2024 10:33 AM COMPARISON: Chest x-ray on 04/10/2023 RESULT: Lines, tubes, and devices: None. Lungs and pleura: No consolidation. No lung mass. No pleural effusion. No pneumothorax. Cardiomediastinal silhouette: Normal cardiomediastinal silhouette. Bones and soft tissues: Unremarkable. DIVISION OF RADIOLOGY Provider, [facility] - 05/06/2024 * * *Final Report* * * DATE OF EXAM: May 06 2024 10:33AM WOX [id number] - XR CHEST 2V FRONTAL/LAT / PROCEDURE REASON: Acute cough * * * * Physician Interpretation * * * * EXAMINATION: CHEST RADIOGRAPH (2 VIEW FRONTAL & LATERAL) CLINICAL HISTORY: Acute cough MQ: XC2_6 EXAM DATE/TIME: 05/06/2024 10:33 AM COMPARISON: Chest x-ray on 04/10/2023 RESULT: Lines, tubes, and devices: None. Lungs and pleura: No consolidation. No lung mass. No pleural effusion. No pneumothorax. Cardiomediastinal silhouette: Normal cardiomediastinal silhouette. Bones and soft tissues: Unremarkable. IMPRESSION IMPRESSION: No acute radiographic abnormality. Rodeo Clown: PSCB Transcribe Date/Time: May 06 2024 10:33A Dictated by : ANGEL PRATER MD This examination was interpreted and the report reviewed and electronically signed by: ANGEL PRATER MD on May 06 2024 10:34AM EST [facility] Radiology Study observation (narrative) [facility] XR Chest PA and LateralOrder ed By: Ccf Provider on 05-06-2024 [facility] 12 Lead EKGon 04-21-2024 12 Lead EKG [facility] Cardiovascular Services [address] [place] [address] 12 Lead EKG 04/21/24 1046 MR#: [id number] Acct: [id number] Name: JAROD ALDRIDGE Rep #: [id number] : 1990 33 From: Coby Horne MD Attending Dr: Status: DEP ER Ordering Dr: Derek Gold DO Date: 04/21/24 Location: ED Sex: F C Admitted: Test Reason : Blood Pressure : */* mmHG Vent. Rate : 87 BPM Atrial Rate : 87 BPM P-R Int : 124 ms QRS Dur : 136 ms QT Int : 396 ms P-R-T Axes : 65 68 35 degrees QTcB Int : 476 ms Normal sinus rhythm Right bundle branch block Abnormal ECG Confirmed by COBY HORNE ([id number]), newspaper managing editor BENJAMIN REEVES ([id number]) on 04/23/2024 12:03:41 PM Referred By: Confirmed By: COBY HORNE 04/23/24 1203 Date Coby Horne MD CC: DEGREASING WHEEL OPERATOR-C Corinne Jones; Dr. Derek Gold DO Signed Normal [facility] Emergency Department Summary on 04-21-2024 Emergency Department Summary [facility] Medical Records Department [address] [place] [id number] Emergency Department Summary 04/21/24 MR#: [id number] Acct: [id number] Name: JAROD ALDRIDGE Rep #: [id number] : 1990 33 From: Derek Gold DO PCP: MAGUE Franklin Status:DEP ER Location: ED HPI History of Present Illness Chief Complaint: Upper Extremity Injury Informant: patient Narrative Narrative: 33-year-old female presenting to the emergency room with left arm pain. Patient states that yesterday she had pain in her right lateral forearm musculature. Today it is in the left. She notes tender to palpation. She states she was recently on antibiotics (clindamycin) due to dental infection. She states she completed the medication but still believes that there is infection as it still painful and swollen. She states at 1 point there was a abscess that was draining. She notes subjective fever. She is worried that the infection has spread to her heart and that is why her arm is hurting. She is currently unemployed. She states she does not have a way to see a dentist due to monetary reasons. She is a smoker. [facility] Medical History PTSD (post-traumatic stress disorder) Depression Abnormal EKG IBS (irritable bowel syndrome) Anxiety Home Medications ???Medication ???Instructions ???Recorded ???Last Taken ???Type escitalopram oxalate 10 mg tablet 10 mg PO QDAY 10/14/23 Unknown History lorazepam 0.5 mg tablet 0.5 mg PO QDAY 10/14/23 Unknown History chlorhexidine gluconate 0.12 % 15 ml buccal BID 10 days #300 mL 04/21/24 Unknown Rx mouthwash clindamycin HCl 300 mg capsule 300 mg PO Q6H #28 CAPSULES 04/21/24 Unknown Rx (Cleocin HCl) Allergy/AdvReac Type Severity Reaction Status Date / Time cefazolin Allergy Rash Verified 04/21/24 10:19 cephalexin monohydrate (From Allergy Rash Verified 04/21/24 10:19 Keflex) Penicillins (PCN) Allergy Rash Verified 04/21/24 10:19 sertraline (From Zoloft) AdvReac Other Verified 04/21/24 10:19 Family History Father COPD (chronic obstructive pulmonary disease) Drug abuse Alcohol abuse Pancreatitis Grandmother Colon cancer Cancer Grandfather Asthma COPD (chronic obstructive pulmonary disease) Social History Smoking Status: Current every day smoker tobacco type: cigarettes alcohol intake: current alcohol intake frequency: holidays/special occasions only substance use type: former 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, has been sober for 10 years caffeine: Yes ROS ROS ED Constitutional Constitutional ED: Reports subjective; Denies chills or weight loss Eyes Eyes: Denies change in vision or diplopia ENT ENT ED: Reports other Details: Dental pain gum swelling ; Denies ear pain, rhinorrhea or sore throat Cardiovascular Cardiovascular: Denies chest pain, orthopnea, palpitations or racing heartbeat Respiratory/Chest Respiratory/Chest: Denies cough, dyspnea or orthopnea Gastrointestinal Gastrointestinal: Denies abdominal pain, diarrhea, nausea or vomiting Genitourinary Genitourinary ED: Denies dysuria, hematuria or urinary frequency Musculoskeletal Musculoskeletal: Reports other Details: Bilateral forearm pain ; Denies arthralgias or myalgias Integumentary Denies abscess or rash Neurologic Neurologic: Denies headache(s) or weakness Psychiatric Psychiatric: Denies anxiety, depression, suicidal ideation or suicidal thoughts Endocrine Endocrinology: Denies polydipsia, polyphagia or polyuria Allergic/Immunologic Allergic/Immunologic ED: Denies mouth swelling, tongue swelling or urticaria EXAM Physical Exam Const Vital Signs: 04/21/24 10:19 Temperature 97.3 F L Temperature Source Temporal Pulse Rate 125 H Respiratory Rate 16 Blood Pressure 125/91 H Blood Pressure Mean 102 Pulse Ox 100 Oxygen Delivery Method Room Air Positive well nourished and well developed General Appearance ED: well developed and NAD HEENT Reports normocephalic, head/scalp atraumatic and moist mucous membranes HEENT Narrative: Widespread dental decay. There is some mild gum erythema and swelling on the left lower posterior teeth. Small amount of what appears to be blood along the gumline of the posterior left molar these teeth are decayed down to the gumline. There is no trismus. Floor the mouth is soft. There is no significant overlying facial swelling or erythema. Eyes PERRL and EOMs intact bilaterally Neck full ROM, no lymphadenopathy, supple and no JVD Resp normal respiratory effort and clear to auscultation bilaterally Cardio regular rate, regular rhythm and no murmurs GI normal to ins (more content not included)... Normal [facility] CNOVon 04-14-2024 CN Office Visit ([facility] ) JAROD ALDRIDGE ([id number]) 1990 F Date Time Provider Department 04/14/24 11:30 AM SANYA SAAVEDRA [facility] During your visit today, we recorded the following information about you: Temperature Pulse Respiration Blood pressure 99.2 degrees 90/minute 16/minute 94/66 Weight 48.5 kg Sanya Saavedra MD 04/14/2024 12:00 PM Signed Patient presents with: Sinus Problem: sinus pressure, drainage x few days, left side bottom tooth abscess x 1 day HPI: Feeling sick for a few days with URI. Toothache and swelling in the left lower jaw started yesterday. Positive symptoms: Cough, Nasal Congestion, Rhinorrhea, Feverish, jaw swelling, Negative symptoms: Shortness of breath, Wheezing, Chest pain, Nausea, Vomiting, Diarrhea, OTC: none MEDICATIONS: Current Outpatient Medications Medication Sig ibuprofen (MOTRIN) 200 mg tablet Take 600 mg by mouth every 6 hours as needed for pain. LORazepam (ATIVAN) 0.5 mg Take 0.5 mg by mouth once daily as needed. escitalopram oxalate (LEXAPRO) 10 mg tablet Take 1 tablet by mouth once daily. No current facility-administered medications for this visit. ALLERGIES: ALLERGIES Allergen Reactions Amoxicillin Rash Cefzil [Cefprozil] Rash Keflex [Cephalexin] Rash Penicillins Rash Zoloft [Sertraline] Intolerance Increased anxiety and patient felt numb VITALS: BP 94/66 Pulse 90 Temp 37.3 ?C (99.2 ?F) Resp 16 Wt 48.5 kg (106 lb 14.8 oz) LMP 01/28/2024 (Within Days) SpO2 99% BMI 18.41 kg/m? PHYSICAL EXAM: GEN: mildly ill appearing HEENT: PERRL, EOMI, conjunctiva clear Ears: canals clear. TMs without erythema, bulge, or effusion Sinuses: non-tender frontal sinus, non-tender maxillary sinuses Throat: moist mucous membranes, no erythema, no exudate Mouth: Left lower molars are eroded near the gumline and tender, no visible oral abscess. Palpable tender swelling of the maxilla below the left molars. Neck: supple, no thyromegaly, no lymphadenopathy HEART: regular rate and rhythm, no murmurs LUNGS: clear to auscultation, no wheezes or crackles, no increased WOB; raspy cough ASSESSMENT/PLAN: 1. Dental infection - ICD9: 522.4, ICD10: K04.7 (primary diagnosis) - CLINDAMYCIN HCL 150 MG CAPSULE Dentist follow-up recommended. She does not intend to follow-up at this time due to cost and anxiety. 2. URI, acute - ICD9: 465.9, ICD10: J06.9 - Discussed viral etiology and rationale for treatment. - Symptomatic treatment with prn analgesia (avoids meds) - Supportive care with fluids and rest - Son has pneumonia. Follow up with persistent or worsening symptoms. Sanya Saavedra MD Allergies As of Date: 04/14/2024 Noted Allergy Reaction AMOXICILLIN 06/21/2020 2 - Rash CEFZIL (CEFPROZIL) 09/23/2015 2 - Rash KEFLEX (CEPHALEXIN) 09/23/2015 2 - Rash PENICILLINS 09/23/2015 2 - Rash ZOLOFT (SERTRALINE) 10/03/2022 5 - Intolerance Comments: Increased anxiety and patient felt numb Date Reviewed: 04/14/2024 Reviewed by: Rebecca Taylor MA - Fully Assessed Reason for Visit: Sinus Problem [99] Cmt: sinus pressure, drainage x few days, left side bottom tooth abscess x 1 day Primary Visit Diagnosis:Dental infection [K04.7] Other Visit Diagnosis:URI, acute [J06.9] Order(s):clindamycin (CLEOCIN) 150 mg capsuleTake 3 capsules by mouth three times a day for 5 days.Disp: 45 capsuleRfl: 0 Prescriptions as of 04/14/2024 - clindamycin (CLEOCIN) 150 mg capsule Take 3 capsules by mouth three times a day for 5 days. - ibuprofen (MOTRIN) 200 mg tablet Take 600 mg by mouth every 6 hours as needed for pain. - LORazepam (ATIVAN) 0.5 mg Take 0.5 mg by mouth once daily as needed. - escitalopram oxalate (LEXAPRO) 10 mg tablet Take 1 tablet by mouth once daily. Problem List As Of Date 04/14/2024 Noted Resolved Vitamin D insufficiency [E55.9] 10/24/2022 Prescriptions ordered this encounter Disp Refills Start End CLINDAMYCIN HCL 150 MG CAPSULE 45 c* 0 04/14/2024 04/19/2024 Route: ORAL Sig: Take 3 capsules by mouth three times a day for 5 days. Level of Service: OFFICE/OUTPATIENT ESTABLISHED MOD MDM 30 MIN [38254] Encounter Status:Closed by SANYA SAAVEDRA on 04/14/24 Normal [facility] OCT OPTIC NERVE CIRRUS OU (B OTH EYES)on 02-26-2024 [facility] Radiology Study observation (narrative) [facility] CNOVon 02-19-2024 CNOV Office Visit (OBGYWM ) JAROD ALDRIDGE ([id number]) 1990 F Date Time Provider Department 02/19/24 9:30 AM ROGE RAMIREZ OBGYWM During your visit today, we recorded the following information about you: Pulse Respiration Blood pressure Weight 86/minute 12/minute 104/78 47.2 kg Roge Ramirez APRN.WAITER/WAITRESS FIRST CLASS 02/19/2024 10:13 AM Signed Service Order Taker offered: Patient declines. Jarod Aldridge is a 33 year old female who presents for problem visit of breast pain for 2 days. HPI: Jarod noticed a sharp pain 2 nights ago to right breast. Partner examined and felt a palpable lump to right breast. No nipple discharge. No skin changes. Drinks a half cup of coffee in morning, 2 Pepsis per day, a Pepsi at bedtime. Wears a loose sports bra daily. Has never had breast imaging. OB History No obstetric history on file. 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 LORazepam (ATIVAN) 0.5 mg Take 0.5 mg by mouth once daily as needed. escitalopram oxalate (LEXAPRO) 10 mg tablet Take 1 tablet by mouth once daily. No current facility-administered medications for this visit. Allergies As of Date: 02/19/2024 Allergen Noted Reaction AMOXICILLIN 06/21/2020 Rash CEFZIL [CEFPROZIL] 09/23/2015 Rash KEFLEX [CEPHALEXIN] 09/23/2015 Rash PENICILLINS 09/23/2015 Rash ZOLOFT [SERTRALINE] 10/03/2022 Intolerance Fully Assessed 02/18/2024 REVIEW OF SYSTEMS Breast: No nipple d/c, overlying skin changes, redness or skin retraction. + breast pain and lump to right breast Expanded ROS: N/A Allergies and current medication updated:Yes SENSITIVE EXAM: The sensitive examination was discussed with the Patient or Patient's Authorized Secure Software Assessor. As applicable, any other physician, advance practice provider, medical student, or other health professional student that will be observing or involved in the sensitive examination for educational or training purposes was discussed with the Patient or Authorized Secure Software Assessor. The Patient or Authorized Secure Software Assessor has agreed to proceed with the sensitive examination. (Sensitive examination includes inspection and/or palpation of the breasts, pelvis, prostate and anorectal regions). EXAM: BP 104/78 Pulse 86 Resp 12 Wt 104 lb (47.2kg) SpO2 98% LMP 01/28/2024 GENERAL: pleasant, female in no apparent distress HEENT: Normocephalic, atraumatic, mucus membranes moist, and no lesions BREAST: soft, symmetric, normal nipple-areolar complex, no lymphadenopathy, and no nipple discharge + tenderness to right breast, palpitation consistent with fibrocystic breast to upper outer quadrant of right breast CHEST: Normal inspiratory effort NEURO: alert and oriented x3,exam grossly non-focal EXTREMITIES: normal ASSESSMENT AND PLAN: 1. Breast pain - ICD9: 611.71, ICD10: N64.4 (primary diagnosis) - YAMILET DIAGNOSTIC BILATERAL - US BREAST LTD RIGHT 2. Fibrocystic breast changes, right - ICD9: 610.1, ICD10: N60.11 - Recommend decreasing caffeine - Reviewed other aggravating factors: periods, alcohol, chocolate, smoking - Tylenol and warm compresses as needed. Wear supportive bra Roge Ramirez APRN.CNP Medical Decision Making: Problems: Low: Acute, uncomplicated illness or injury Data: Unique test(s) ordered: 2 Risk: Minimal: Minimal risk from testing/treatment Medical Decision Making Level: 3 - Low Referring Provider: CORNELIUS ODONNELL [[id number]] Allergies As of Date: 02/19/2024 Noted Allergy Reaction AMOXICILLIN 06/21/2020 2 - Rash CEFZIL (CEFPROZIL) 09/23/2015 2 - Rash KEFLEX (CEPHALEXIN) 09/23/2015 2 - Rash PENICILLINS 09/23/2015 2 - Rash ZOLOFT (SERTRALINE) 10/03/2022 5 - Int (more content not included)... Normal [facility] CNOVon 02-18-2024 CNOV Office Visit (UCWSTR ) JAROD ALDRIDGE ([id number]) 1990 F Date Time Provider Department 02/18/24 10:15 AM CORNELIUS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 day smoker tobacco type: cigarettes alcohol intake: current alcohol intake frequency: holidays/special occasions only substance use type: former 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, has been sober for 10 years caffeine: Yes ROS ROS ED Constitutional Constitutional ED: Reports other Details: Feels hot ; Denies chills ENT ENT ED: Reports sore throat and other Details: Mild sinus drainage, denies significant congestion ; Denies ear pain Cardiovascular Cardiovascular: Denies chest pain Respiratory/Chest Respiratory/Chest: Reports cough and sputum; Denies dyspnea Gastrointestinal Gastrointestinal: Reports nausea; Denies abdominal pain or vomiting Genitourinary Genitourinary ED: Denies dysuria or hematuria Musculoskeletal Musculoskeletal: Reports myalgias Integumentary Denies rash Neurologic Neurologic: Denies headache(s) EXAM Physical Exam Const Vital Signs: 01/10/24 11:28 01/10/24 11:31 01/10/24 11:33 Temperature 97.7 F L 98.4 F Temperature Source Temporal Oral Pulse Rate 95 86 Respiratory Rate 16 16 Respiratory Effort Normal Respiratory Depth Normal Respiratory Pattern Normal Blood Pressure 117/84 H 122/76 H Blood Pressure Mean 95 91 Pulse Ox 100 100 Oxygen Delivery Method Room Air Room Air Room Air Positive well nourished and well developed General Appearance ED: well developed and NAD HEENT Reports TM's clear and moist mucous membranes HEENT Narrative: Boggy nasal mucosa with drainage appreciated. Normal oropharynx. Normal tonsils. Tympanic Membrane ED: Yes TM's clear Eyes PERRL and EOMs intact bilaterally Neck no lymphadenopathy and supple Chest Wall inspection of chest normal Resp normal respiratory effort and clear to auscultation bilaterally Cardio regular rate and regular rhythm GI non-distended Extremity normal to inspection General Extremety ED: Negative for edema General Extremity: Negative for edema Neuro oriented x3 Sensorium / Orientation: alert Motor Exam: Negative for general weakness Psych mental status grossly normal Skin no rashes or lesions noted MDM MDM MDM Narrative Medical decision making narrative: Patient is evaluated for 3 to 4 days of cough. Is well-appearing. Vital signs are normal. She is afebrile. She is concerned for pneumonia because of history of similar symptoms with pneumonia. Will obtai (more content not included)... Normal [facility] Stress Test Echo w/o Contras ton 11-28-2023 Stress Test Echo w/o Contrast [facility] Cardiovascular Services [address] [place] [address] Stress Test Echo w/o Contrast MR#: [id number] Acct: [id number] Name: JAROD ALDRIDGE Rep #: [id number] : 1990 33 From: Seth Tian MD Primary Care: Corinne Archerlogjermaine, DEGREASING WHEEL OPERATOR-C Status: REG CLI Ordering Dr: Adam Bush MD Sex: F C Reason For Study: Chest Pain Stress Results Protocol: Nic Protocol Maximum Predicted HR: 188 bpm Target HR: 160 bpm % Maximum Predicted HR: 85 % DurationHeart Rate Stage (mm:ss) (bpm) BP Comment Baseline 86 108/70No Chest Pain Nic Protocol Stage I 3:00 105 112/64No Chest Pain Nic Protocol Stage II 3:00 122 120/68No Chest Pain Nic Protocol Stage III 3:00 139 142/60Mild Dull Chest Ache; Mild Dyspnea Nic Protocol Stage IV 1:15 160 / Mild Dull Chest Ache; Mod Dyspnea Recovery 86 104/66No Chest Pain Stress Duration: 10:15 mm:ss Maximum Stress HR: 160 bpm METS: 13 Baseline Echocardiogram Findings Stress Echo Wall motion Data Resting WM Intermediate WM Stress WM ECHO/Stress Test Echo w/o Contrast Interpretation Summary Exercise stress echo. 33-year-old lady with a history of right bundle branch block and chest pain. Stress EKG. Resting EKG demonstrates sinus rhythm with a rate of 68 bpm, right bundle branch block and a blood pressure of 108/70 mmHg. The patient exercised according to regular Nic protocol for 10 minutes and 15 seconds. Patient completed 1 minute and 15 seconds to stage IV of the Nic protocol the maximum heart rate attained was 171 bpm which was 90% of max impacted heart rate the maximum workload was 13.4 metabolic equivalents. At rest there were no ST or T wave changes noted suggest ischemia at peak exercise upsloping ST changes were noted which did not meet the criteria for ischemia. No clinical angina was noted the test was terminated due to the target heart rate being achieved. Stress echocardiogram. The resting echocardiographic images demonstrated preserved left ventricular systolic function estimated EF was 55%. No wall motion abnormalities were noted. The patient exercised according to the Nic protocol and there was thickening of all hidalgo and reduction of left ventricular cavity size with peaking of ejection fraction of 70%. No new wall motion abnormalities were noted. Conclusion: Stress echo with no EKG or echocardiographic criteria for ischemia at a high workload. Preserved ejection fraction. Ordering Physician: Adam Bush Referring Physician: Adam Bush Performed By: Maru Brush RCS 11/28/23 1135 Date Seth Tian MD CC: MAGUE Sun Podlogar; Dr. Adam Bush MD Date Dictated: 11/28/23 1021 Date Transcribed: 11/28/23 1135 Rodeo Clown: Signed Normal [facility] 12 Lead EKG performed by [facility] on 11-04-2023 12 Lead EKG performed by [place] [place] [address] 12 Lead EKG performed by [facility] 11/04/23 0810 MR#: [id number] Acct: [id number] Name: JAROD ALDRIDGE Rep #: [id number] : 1990 33 From: Adam Bush MD Attending Dr: Dr. Adam Bush MD Status: DE P AMB Ordering Dr: Adam Bush MD Date: 11/04/23 [place] [facility] [place] F C Admitted: BMS/12 Lead EKG performed by [facility] ECG Report Interpretation ---Sinus Rhythm -Right bundle branch block. ABNORMAL Electronically signed on 11/05/2023 at 08:[address] Adam Bush [employer] Version [id number] 11/05/2342 Date Adam Bush MD CC: DEGREASING WHEEL OPERATOR-C Corinne Podlogar Date Dictated: 11/04/23809 Date Transcribed: 11/04/23809 Rodeo Clown: Signed Normal [facility] Cardiology Visit Reporton Cardiology Visit Report [facility] [address] [facility] [address] [place] [address] OFFICE VISIT Date of Service: 11/04/23 MR#: [id number] Acct: [id number] Name: JAROD ALDRIDGE Rep #: [id number] : 1990 Provider: Dr. Adam wolf MD Age/Sex: 33/F [place] [facility] [place]: Signed HPI HPI History of Present Illness Details: Patient comes in today for new patient visit. She is very pleasant 33-year-old white female. She has a history of a chronic right bundle branch block originally diagnosed in February 2016 she had a normal echo done after that was diagnosed. She has been seen for atypical chest pain and has a history of anxiety and irritable bowel syndrome. The patient was last evaluated in May 2023 in the emergency department at [facility] was negative for cardiovascular workup. The patient does not know the details of her family history but she does not think there is any early sudden cardiac . She is not diabetic she does not believe she is hypercholesterolemic she is not hypertensive she does smoke cigarettes. She denies any illicit drug use. She does report that she had been sober for 10 years. Blood pressure in office today is 123/83 heart rate 76 respiratory rate 18 her weight is 103 pounds. The patient reports that she went camping with her stepson and was noticed that she developed chest pain and had easy fatigability earlier this summer. She has since curtailed her activities because of the chest discomfort and fatigability she experienced. She acknowledges that she is anxious about doing any activities. Intake Vital Signs 05/12/23 20:36 11/04/23 13:07 Height 5 ft 4 in 5 ft 4 in Weight: 103 lb BMI 17.6 BP 123/83 H Blood Pressure Location Lt brachial Position Sitting Respiration 18 Pulse 76 Pulse Source Monitor Pulse Oximetry (%) 98 Oxygen Delivery Method room air Intake Visit Reasons: ABN EKG (SELF) Market Superintendent Required: No Accompanied by: Self Is patient in pain?: No Allergies cefazolin Allergy (Verified 11/04/23 13:07) Rash cephalexin monohydrate (From Keflex) Allergy (Verified 11/04/23 13:07) Rash Penicillins (PCN) Allergy (Verified 11/04/23 13:07) Rash sertraline (From Zoloft) Adverse Reaction (Verified 11/04/23 13:07) Other Medications ???Medication ???Instructions ???Recorded ???Confirmed ???Type escitalopram oxalate 10 mg tablet 10 mg PO QDAY 10/14/23 10/14/23 History lorazepam 0.5 mg tablet 0.5 mg PO QDAY 10/14/23 10/14/23 History PFSH Medical History PTSD (post-traumatic stress disorder) Depression Abnormal EKG IBS (irritable bowel syndrome) Anxiety Family History Father COPD (chronic obstructive pulmonary disease) Drug abuse Alcohol abuse Pancreatitis Grandmother Colon cancer Cancer Grandfather Asthma COPD (chronic obstructive pulmonary disease) Social History Smoking Status: Current every day smoker tobacco type: cigarettes alcohol intake: current alcohol intake frequency: holidays/special occasions only substance use type: former 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, has been sober for 10 years caffeine: Yes ROS Const Const: Positive for fatigue (occasional per pt); Negative for weakness ENT ENT: Negative for dizziness or balance problems Cardio Chest Pain: Yes Palpitations: Yes Edema: None Muscle aches with walking: None Resp Respiratory: Positive for other (SOB when anxiety is high per pt); Negative for SOB with activity, SOB at rest or SOB orthopnea SOB lying down GI GI: Negative nausea, vomiting or heartburn Musc Musc: Negative for muscle weakness or balance problems Neuro Neuro: Positive for lightheadedness; Negative for dizziness, near syncope, syncope or weakness Endo Endo: Positive for fatigue (occasional per pt) Cardiology Exam Const Appearance: cooperative, comfortable and no acute distress Nutritional Appearance: thin Head Head: normal to inspection Eyes General: appearance normal, both eyes and all related structures Neck Neck: no JVD Carotids: Negative bruit Chest Chest inspection: normal inspection of the chest Auscultation: Bilateral: Clear to Auscultation Cardio Rate: regular rate Rhythm: regular rhythm Heart sounds: S1 normal and S2 normal; Negative rub, gallop or murmur GI GI: normal to inspection, bowel sounds present and scaphoid Neuro General: patient alert and patient oriented x3 Skin Skin: no rashes or lesions noted and other (Multiple tattoos) Extremities Lower Extremity Edema: None: Bilateral Psych Psychological: normal affect Supplemental In (more content not included)... Normal [facility] Absolute lymphocyte countOrd ered By: Esa Yari on 05-12-2023 Lymphocytes Auto (Unsp spec) [#/Vol] 2.56 10*3/uL 0.83-4.51 [facility] Basophil percentageOrdered B y: Esa Natachatonny on 05-12-2023 Basophils/100 WBC (Bld) 0.5 % 0-1 [facility] Chloride [Moles/Vol] 108 mmol/L 98-107 [facility] Eosinophils/100 WBC (Bld) 1.0 % 0-5 [facility] Glucose [Mass/Vol] 94 mg/dL 74-106 [facility] Neutrophils (Bld) [#/Vol] 4.9 10*3/uL 2.0-7.7 [facility] Neutrophils/100 WBC (Bld) 59.7 % 47-70 [facility] Potassium [Moles/Vol] 4.1 mmol/L 3.5-5.1 [facility] Comment on above: Moderate Hemolysis, Result may be falsely increased. Sodium [Moles/Vol] 140 mmol/L 136-145 [facility] WBC (Bld) [#/Vol] 8.2 10*3/uL 4.4-11.0 [facility] Blood erythrocytes count (nu mber/volume)Ordered By: Esa Greenberg on 05-12-2023 RBC (Bld) [#/Vol] 4.30 10*6/uL 4.2-5.4 [facility] Blood hemoglobin measurement (mass/volume)Ordered By: Esa Greenberg on 05-12-2023 Hemoglobin (Bld) [Mass/Vol] 12.5 g/dL 12.0-15.0 [facility] Blood lymphocytes/100 leukoc ytesOrdered By: Esa Greenberg on 05-12-2023 Lymphocytes/100 WBC (Bld) 31.3 % 19-41 [facility] Blood monocytes/100 leukocyt esOrdered By: Esa Greenberg on 05-12-2023 Monocytes/100 WBC (Bld) 7.1 % 0-10 [facility] Blood platelet mean volumeOr dered By: Esa Greenberg on 05-12-2023 Platelet mean volume (Bld) [Entitic vol] 10.3 fL 6.2-12.0 [facility] Determination of erythrocyte mean corpuscular volume (MCV)Ordered By: Esa Greenberg on 05-12-2023 MCV (RBC) [Entitic vol] 90.9 fL 81-99 [facility] Hematocrit Auto (Bld) [Volum e fraction]Ordered By: Esa Greenberg on 05-12-2023 Hematocrit (Bld) [Volume fraction] 39.1 % 37-47 [facility] Laboratory - Chemistry and C hemistry - challengeOrdered By: Esa Greenberg on 05-12-2023 CO2 [Moles/Vol] 28.0 mmol/L 21.0-32.0 [facility] Urea nitrogen/Creatinine [Mass ratio] 18.3 mg/mg 10-20 [facility] Laboratory - Hematology and Cell countsOrdered By: Esa Greenberg on 05-12-2023 Erythrocyte distribution width (RBC) [Entitic vol] 43.5 fL 35.1-43.9 [facility] Erythrocyte distribution width (RBC) [Ratio] 13.2 % 11.6-14.6 [facility] Immature granulocytes/100 WBC (Bld) 0.400 % 0.0-0.9 [facility] Comment on above: IG% - Immature Granu locytes (promyelocytes, myelocytes and metamyelocytes) > 1% indicates that a LEFT SHIFT is Present. MCH (RBC) [Entitic mass] 29.1 pg 27.0-32.0 [facility] Nucleated RBC/100 WBC (Bld) [Ratio] 0 % 0-5 [facility] MCHC Auto (RBC) [Mass/Vol]Or dered By: Esa Greenberg on 05-12-2023 MCHC (RBC) [Mass/Vol] 32.0 g/dL 32-36 [facility] No Panel InformationOrdered By: Esa Greenberg on 05-12-2023 D-Dimer Quantitative (PE/DVT) < 0.27 FEU/ug/m 0.27-0.49 [facility] Comment on above: NORMAL D-Dimer level (<0.50) indicates no DVT or PE. Estimated Creatinine Clearance Calc 88.32 ml/min [facility] Estimated GFR (MDRD) Amer 113 mL/min >60 [facility] Comment on above: GFR Calc Estimated GFR (MDRD) Non-Af Amer 93 mL/min >60 [facility] Comment on above: Non- GFR Calc Troponin I High Sensitivity 6 pg/mL 3.0-54.0 [facility] Comment on above: Please Note: New Sylvia t Units and Gender Specific Reference Ranges. For more information see Policy Stat Procedure [place] High Sensitivity Troponin (TNIH) and attachments. Platelets bldOrdered By: Jihan Greenberg on 05-12-2023 Platelets (Bld) [#/Vol] 389 10*3/uL 150-450 [facility] Serum or plasma calcium kelly urement (mass/volume)Ordered By: Esa Greenberg on 05-12-2023 Calcium [Mass/Vol] 9.1 mg/dL 8.5-10.1 [facility] Serum or plasma creatinine m easurement (mass/volume)Ordered By: Esa Greenberg on 05-12-2023 Creatinine [Mass/Vol] 0.76 mg/dL 0.55-1.02 [facility] Comment on above: The validity of the calculated GFR & GFRAA in patients over 70 years has not been determined. Clinical correlation is essential. Serum or plasma urea nitroge n measurement (mass/volume)Ordered By: Esa Greenberg on 05-12-2023 Urea nitrogen [Mass/Vol] 14 mg/dL 7-18 [facility] Thin prep Papanicolaou smear with manual screeningOrdered By: Esa Greenberg on 05-12-2023 Thin prep Papanicolaou smear with manual screening 4 5-15 [facility] XR CHEST 2V FRONTAL/LATon [facility] XR Chest PA and Lateralon IMPRESSION: No acute radiographic abnormality. Rodeo Clown: ABBEY Transcribe Date/Time: Apr 10 2023 10:12A Dictated by : WHITNEY DAVEY DO This examination was interpreted and the report reviewed and electronically signed by: WHITNEY DAVEY DO on Apr 10 2023 10:14AM [facility] DIVISION OF RADIOLOGY * * *Final Report* * * DATE OF EXAM: Apr 10 2023 10:08AM WOX [id number] - XR CHEST 2V FRONTAL/LAT / PROCEDURE REASON: Acute cough * * * * Physician Interpretation * * * * EXAMINATION: CHEST RADIOGRAPH (2 VIEW FRONTAL & LATERAL) PATIENT/TECHNOLOGIST PROVIDED HISTORY: Cough x 9 days Unable to remove piercings CLINICAL HISTORY: 32 years old Female with Acute cough MQ: XC2_6 EXAM DATE/TIME: 04/10/2023 10:08 AM COMPARISON: Radiographs 09/11/2021, CT chest 09/18/2021 RESULT: Lines, tubes, and devices: None. Lungs and pleura: No consolidation. No pleural effusion. No pneumothorax. Cardiomediastinal silhouette: Normal cardiomediastinal silhouette. Bones and soft tissues: Unremarkable. DIVISION OF RADIOLOGY Provider, [facility] Imani [facility] - 04/10/2023 * * *Final Report* * * DATE OF EXAM: Apr 10 2023 10:08AM WOX [id number] - XR CHEST 2V FRONTAL/LAT / PROCEDURE REASON: Acute cough * * * * Physician Interpretation * * * * EXAMINATION: CHEST RADIOGRAPH (2 VIEW FRONTAL & LATERAL) PATIENT/TECHNOLOGIST PROVIDED HISTORY: Cough x 9 days Unable to remove piercings CLINICAL HISTORY: 32 years old Female with Acute cough MQ: XC2_6 EXAM DATE/TIME: 04/10/2023 10:08 AM COMPARISON: Radiographs 09/11/2021, CT chest 09/18/2021 RESULT: Lines, tubes, and devices: None. Lungs and pleura: No consolidation. No pleural effusion. No pneumothorax. Cardiomediastinal silhouette: Normal cardiomediastinal silhouette. Bones and soft tissues: Unremarkable. IMPRESSION IMPRESSION: No acute radiographic abnormality. Rodeo Clown: PSCB Transcribe Date/Time: Apr 10 2023 10:12A Dictated by : WHITNEY DAVEY DO This examination was interpreted and the report reviewed and electronically signed by: WHITNEY DAVEY DO on Apr 10 2023 10:14AM EST [facility] Radiology Study observation (narrative) [facility] tio [facility] XR Chest PA and LateralOrder ed By: Ccf Provider on 04-10-2023 [facility] CBC W Auto Differential pane l (Bld)on 09-30-2022 Basophils (Bld) [#/Vol] 0.05 10*3/uL <0.11 k/uL [facility] Basophils/100 WBC (Bld) 0.7 % [facility] Differential cell count method Nom (Bld) Auto [facility] Eosinophils (Bld) [#/Vol] 0.07 10*3/uL <0.46 k/uL [facility] Eosinophils/100 WBC (Bld) 0.9 % [facility] Erythrocyte distribution width (RBC) [Ratio] 13.4 % 11.5 - 15.0 % [facility] Hematocrit (Bld) [Volume fraction] 43.2 % 36.0 - 46.0 % [facility] Hemoglobin (Bld) [Mass/Vol] 13.6 g/dL 11.5 - 15.5 g/dL [facility] Immature granulocytes (Bld) [#/Vol] <0.10 k/uL [facility] Immature granulocytes/100 WBC (Bld) 0.3 % [facility] Lymphocytes (Bld) [#/Vol] 2.19 10*3/uL 1.00 - 4.00 k/uL [facility] Lymphocytes/100 WBC (Bld) 29.7 % [facility] MCH (RBC) [Entitic mass] 29.0 pg 26.0 - 34.0 pg [facility] MCHC (RBC) [Mass/Vol] 31.5 g/dL 30.5 - 36.0 g/dL [facility] MCV (RBC) [Entitic vol] 92.1 fL 80.0 - 100.0 fL [facility] Monocytes (Bld) [#/Vol] 0.41 10*3/uL <0.87 k/uL [facility] Monocytes/100 WBC (Bld) 5.6 % [facility] Neutrophils (Bld) [#/Vol] 4.63 10*3/uL 1.45 - 7.50 k/uL [facility] Neutrophils/100 WBC (Bld) 62.8 % [facility] Nucleated RBC (Bld) [#/Vol] <0.01 k/uL [facility] Nucleated RBC/100 WBC (Bld) [Ratio] 0.0 /100 WBC [facility] Platelet mean volume (Bld) [Entitic vol] 10.0 fL 9.0 - 12.7 fL [facility] Platelets (Bld) [#/Vol] 350 10*3/uL 150 - 400 k/uL [facility] RBC (Bld) [#/Vol] 4.69 10*6/uL 3.90 - 5.2 0 m/uL [facility] WBC (Bld) [#/Vol] 7.37 10*3/uL 3.70 - 11. 00 k/uL [facility] ED NOTEon 02-15-2022 ED NOTE HNO ID: [id number] Author: Carrie Chirinos RN Service: Nursing Author Type: Registered Nurse Type: ED Notes Filed: 02/15/2022 12:46 AM Note Text: Pt now able to lay down on bed in room, prior to first dose pt was hyperventilating and pacing room. Normal [facility] ED NOTE HNO ID: [id number] Author: Paige Tiwari RN Service: Nursing Author Type: Registered Nurse Type: ED Notes Filed: 02/14/2022 11:27 PM Note Text: Anxiety x6 hours with hyperventilation, numbness to fingers and toes, face. Normal [facility] ED PROV NOTEon 02-15-2022 ED PROV NOTE HNO ID: [id number] Author: Jennifer العلي PA-C Service: ? Author Type: Physician Demand Inspector Type: ED Provider Notes Filed: 02/15/2022 12:47 AM Note Text: ED Provider Note Patient Name: Jarod Blandon : 1990 SERVICE DATE: 02/14/22 History Patient presents with: Anxiety HPI-patient is a 31-year-old white female who complains of a severe panic attack this evening. She states it started a few hours ago and is unsure why. She said she started breathing heavy and her arms and fingers felt tingly. She took 1 dose of hydroxyzine without relief of symptoms. She denies any chest pain or recent illness. She is mildly short of breath because she is hyperventilating . PAST MEDICAL HISTORY Diagnosis Date IBS (irritable bowel syndrome) Panic anxiety syndrome Pneumonia x2 in 2020 History reviewed. No pertinent surgical history. No family history on file. Social History Tobacco Use Smoking status: Every Day Packs/day: 0.50 Years: 9.00 Pack years: 4.50 Types: Cigarettes Smokeless tobacco: Never Vaping Use Vaping Use: Never used Substance and Sexual Activity Alcohol use: Yes Comment: socially Drug use: Not Currently Types: Marijuana Sexual activity: Not Currently ALLERGIES Allergen Reactions Amoxicillin Rash Cefzil [Cefprozil] Rash Keflex [Cephalexin] Rash Penicillins Rash Review of Systems Constitutional: Negative for activity change, chills, fatigue, fever and unexpected weight change. HENT: Negative for congestion, sneezing and sore throat. Eyes: Negative for photophobia and visual disturbance. Respiratory: Positive for shortness of breath. Negative for apnea, cough and chest tightness. Cardiovascular: Negative for chest pain, palpitations and leg swelling. Gastrointestinal: Negative for abdominal pain, nausea and vomiting. Endocrine: Negative for polyuria. Genitourinary: Negative for dysuria. Musculoskeletal: Negative for arthralgias, neck pain and neck stiffness. Skin: Negative for rash and wound. Allergic/Immunologic: Negative for immunocompromised state. Neurological: Positive for light-headedness. Negative for dizziness, tremors, weakness and headaches. Hematological: Negative for adenopathy. Psychiatric/Behavioral: Negative for agitation, confusion, self-injury, sleep disturbance and suicidal ideas. The patient is nervous/anxious and is hyperactive. All other systems reviewed and are negative. Physical Exam Vitals BP Pulse Temp Temp src Resp SpO2 Weight Height 02/14/22232202/14/22232202/14/22232402/14/22232402/14/22232402/14/22232202/14/222324 -- 128/80 (!) 116 36.7 ?C (98 ?F) Axillary (!) 35 97 % 52.2 kg (115 lb) Physical Exam Vitals and nursing note reviewed. Constitutional: General: She is not in acute distress. Appearance: Normal appearance. She is normal weight. She is not ill-appearing, toxic-appearing or diaphoretic. HENT: Head: Normocephalic and atraumatic. Nose: Nose normal. Mouth/Throat: Mouth: Mucous membranes are moist. Pharynx: Oropharynx is clear. Eyes: Extraocular Movements: Extraocular movements intact. Conjunctiva/sclera: Conjunctivae normal. Pupils: Pupils are equal, round, and reactive to light. Cardiovascular: Rate and Rhythm: Regular rhythm. Tachycardia present. Pulses: Normal pulses. Heart sounds: Normal heart sounds. Pulmonary: Effort: Pulmonary effort is normal. Breath sounds: Normal breath sounds. Abdominal: General: Abdomen is flat. Bowel sounds are normal. Palpations: Abdomen is soft. Musculoskeletal: General: Normal range of motion. Cervical back: Normal range of motion. Skin: General: Skin is warm and dry. Neurological: General: No focal deficit present. Mental Status: She is alert and oriented to person, place, and time. Mental status is at baseline. Psychiatric: Mood and Affect: Mood normal. Comments: Appears very anxious and is hyperventilating Diagnostic Testing ED Labs Ordered and Reviewed - No data to display Procedures ED Course / Clinical Impression Clinical Impressions as of 02/15/22 0047 Panic attack Anxiety reaction MDM / Disposition / Plan Patient is a 31-year-old white female with a past medical history of anxiety disorder with panic attacks who said she was in the [employer] today and got extremely anxious. She took her hydroxyzine which did not help her symptoms. Here in the emergency department she was initially given a milligram Ativan which did help her symptoms however she was still anxious and unable to rest. She was then given a second milligram of Ativan which helped. She will be advised to continue her current medications and follow-up with her psychiatrist as well as her PCP for further medication. On discharge she will be discharged home in the care of her cousin who will be driving and comfortable proved condition MDM The patient was DISCHARGED: Counseled patie (more content not included)... Normal [facility] ALCOHOL SERUMon 02-08-2022 Alcohol, Serum <[address] [facility] Comment on above: Result Comment: Note : Alcohol values performed at [facility] are performed on Serum and reported in mg/dl, which is different then the state reporting units of g/dl which is performed on whole blood. Result reporting units are based on test methodology and are not interchangable. Performed By: #### 1 [id number] ####[facility] [address] [place] [address] Medical Director: Cheo Mcdonald MD COMPMETAon 02-08-2022 GFR Estimated [address] [facility] Comment on above: Result Comment: The GFR is calculated and is Age, Sex, and Race adjusted. Performed By: #### 9 [id number], [id number], 352519 ####[facility] [address] [place] [address] Medical Director: Cheo Mcdonald MD Albumin [Mass/Vol] 4.0 g/dL Normal 3.4-5.0 [facility] Comment on above: Performed By: #### 9 713126, 611399, 797195 ####[facility] [address] [place] [address] Medical Director: Cheo Mcdonald MD Albumin/Globulin [Mass ratio] 1.1 {ratio} Normal [facility] Comment on above: Performed By: #### 9 [id number], 953389, 449133 ####[facility] [address] [place] [address] Medical Director: Cheo Mcdonald MD Alk Phos 75 unit/L Normal 45-117 [facility] Comment on above: Performed By: #### 9 234062, 781421, 460121 ####[facility] [address] [place] [address] Medical Director: Cheo Mcdonald MD Bilirubin [Mass/Vol] 0.10 mg/dL Low 0.20-1.00 [facility] Comment on above: Result Comment: Use of this assay is not recommended for patients undergoing treatment with eltrombopag due to the potential for falsely elevated results. Performed By: #### 9 [id number], 201151, 537870 ####[facility] [address] [place] [address] Medical Director: Cheo Mcdonald MD Calcium [Mass/Vol] 8.7 mg/dL Normal 8.5-10.5 [facility] Comment on above: Performed By: #### 9 036032, 295712, 856838 ####[facility] [address] [place] [address] [id number]) [phone] Director: Cheo Mcdonald MD Chloride [Moles/Vol] 105 mmol/L Normal 100-109 [facility] Comment on above: Performed By: #### 9 281160, 221682, 893659 ####[facility] [address] [place] [address] Medical Director: Cheo Mcdonald MD CO2 [Moles/Vol] 26.4 mmol/L Normal 21.0-32.0 [facility] Comment on above: Performed By: #### 9 910192, 673316, 327760 ####[facility] [address] [place], [place] [id number]) [phone] Director: Cheo Mcdonald MD Creatinine [Mass/Vol] 0.8 mg/dL Normal 0.6-1.0 [facility] Comment on above: Performed By: #### 9 115627, 436456, 328043 ####[facility] [address] [place] [address] Medical Director: Cheo Mcdonald MD Globulin (S) [Mass/Vol] 3.5 g/dL Normal [facility] Comment on above: Performed By: #### 9 389158, 135345, 514244 ####[facility] [address] [place], [place] [id number]) [phone] Director: Cheo Mcdonald MD Glucose [Mass/Vol] 82 mg/dL Normal 72-100 [facility] Comment on above: Result Comment: Itzel puncture should occur prior to sulfasalazine administration due to the potential for falsely depressed results. Venipuncture should occur prior to sulfapyridine administration due to the potential falsely elevated results. Baseline assay values before administration of sulfasalazine and sulfapyridine therapy would not be affected. Performed By: #### 9 690797, 441534, 531824 ####[facility] [address] [place], [place] [id number]) [phone] Director: Cheo Mcdonald MD GOT 15 unit/L Normal 15-37 [facility] Comment on above: Result Comment: Itzel puncture should occur prior to sulfasalazine administration due to the potential for falsely depressed results. Baseline assay values before administration of sulfasalazine and sulfapyridine therapy would not be affected. Performed By: #### 9 605219, 403618, 407198 ####[facility] [address] [place], [place] [id number]) [phone] Director: Cheo Mcdonald MD GPT 19 unit/L Normal 14-59 [facility] Comment on above: Result Comment: Itzel puncture should occur prior to sulfasalazine administration due to the potential for falsely depressed results. Baseline assay values before administration of sulfasalazine and sulfapyridine therapy would not be affected. Performed By: #### 9 761012, 397644, 261636 ####[facility] [address] [place], [place] [id number]) [phone] Director: Cheo Mcdonald MD Osmolality [Osmolality] 283 mosm/kg Normal 275-295 [facility] Comment on above: Performed By: #### 9 397414, 894307, 529189 ####[facility] [address] [place] [address] Medical Director: Cheo Mcdonald MD Potassium [Moles/Vol] 4.0 mmol/L Normal 3.5-5.1 [facility] Comment on above: Performed By: #### 9 336815, 854675, 851326 ####[facility] [address] [place] [address] Medical Director: Cheo Mcdonald MD Protein [Mass/Vol] 7.5 g/dL Normal 6.0-8.5 [facility] Comment on above: Performed By: #### 9 147586, 462116, 531103 ####[facility] [address] [place] [address] Medical Director: Cheo Mcdonald MD Sodium [Moles/Vol] 142 mmol/L Normal 135-145 [facility] Comment on above: Performed By: #### 9 589162, 957830, 652086 ####[facility] [address] [place] [address] Medical Director: Cheo Mcdonald MD Urea nitrogen [Mass/Vol] 15 mg/dL Normal 10-20 [facility] Comment on above: Performed By: #### 9 875237, 861127, 332952 ####[facility] [address] [place] [address] Medical Director: Cheo Mcdonald MD Urea nitrogen/Creatinine [Mass ratio] 18.8 mg/mg Normal [facility] Comment on above: Performed By: #### 9 447498, 197213, 973055 ####[facility] [address] [place] [address] Medical Director: Cheo Mcdonald MD COVID-19 Molecular BREDon SARS-CoV-2 (COVID-19) RNA PANFILO+probe Ql (Unsp spec) Negative Normal [facility] Comment on above: Result Comment: This assay is designed to detect the RdRp target of SARS-CoV-2 using rapid molecular isothermal amplification technology. A Negative result does not preclude the possibility of COVID 19 infection since the adequacy of sample collection and/or low viral burden may result in the presence of viral nucleic acids below the analytical sensitivity of this test method. Test results should be used along with other clinical and laboratory data in making the diagnosis. This test has received FDA Emergency Use Authorization and has been verified by [facility] laboratory. This test is only authorized for the duration of the declaration and circumstances that exist to justify the authorization of the emergency use of the in vitro diagnostic tests for the detection of SARS-CoV-2 virus and/or diagnosis of COVID-19 infection under section 564(b)(1) of the Act. 21 U.S.C. 360bbb-3(b)(1), unless the authorization is terminated or revoked sooner. This testing was performed in the [facility] laboratory located at [[place] [address]] Performed By: #### C [id number] #### [facility] [address] [place] [address] Reconciliation Manager: Cheo Mcdonald MD ED Discharge Educationon ED Discharge Education Mental Health and Psychology Anxiety and Panic Feeling worried at times is a normal part of life. Most people have some fear or anxiety about their problems. But if your worries interfere with your life, you may have a medical condition. Anxiety disorders cause you to feel worried or fearful about daily activities and events. You may feel worried much of the time, which makes it hard to function in your daily life. Your anxiety may not always have an obvious cause. Symptoms Anxiety can cause physical and emotional symptoms. You may: ? Feel restless, irritable, or on edge. ? Worry much of the time. ? Tremble, shake, or sweat. ? Feel tightness in your throat or chest. ? Feel tired or have sleep problems. ? Have a headache or upset stomach. ? Be lightheaded. ? Find it hard to concentrate. ? Have a pounding or fast heartbeat. Depression and anxiety disorders Depression can occur along with anxiety disorders, and it is often confused with these other conditions. Anxiety or panic disorder also may be mistaken for depression. It is important to get medical help if you think you may have any of these conditions. Your doctor can make the right diagnosis and help you with the right treatment. You may need different treatments for anxiety or panic disorders than you will for depression. Types of anxiety Anxiety with depression Depression and anxiety are different conditions that can sometimes occur together. These conditions often have similar symptoms, but you may need separate treatments if you have both. Symptoms of depression include feeling sad or hopeless. You also may have fatigue, sleep problems, and difficulty concentrating. Generalized anxiety disorder With generalized anxiety disorder, you feel worried or stressed about many daily events. This worrying interferes with your life and makes it hard to function. You also may have physical symptoms such as headaches or fatigue. Social anxiety disorder With social anxiety disorder, you feel very nervous about what you will say or do in front of others. This can make it hard to function in everyday life. You may have physical symptoms such as a fast heartbeat, sweating, or feeling shaky. Panic attacks and panic disorder A panic attack is a sudden, intense feeling of fear or anxiety. This scary feeling may be caused by a stressful situation, or it may happen without any obvious reason. Some common symptoms of panic attacks include a pounding or fast heartbeat, a tight throat or choking feeling, nausea, sweating, or trembling. People who have had a panic attack often worry about having another one. If you have had more than one panic attack or if you worry about the next time you will have an attack, then you may have panic disorder. Treatment Different types of medicines and counseling are used to treat anxiety disorders and depression. If you have more than one of these conditions, you may need separate treatments. In general, anxiety is treated with medicines, counseling, or both. Medicines include antidepressants and benzodiazepines. Cognitive-behavioral therapy, a type of counseling, may be used to treat depression or anxiety. This therapy helps you change certain thoughts and actions that cause you stress. Exposure therapy is a type of counseling used to treat anxiety. In this therapy, you learn to cope with stressful memories or situations. How can I reduce anxiety? Along with medicines and counseling, you can do things every day to lower your anxiety. For example: ? Walk or get other exercise. ? Meditate. ? Do yoga or deep breathing. ? Limit caffeine, nicotine, alcohol, and drugs. ? Get plenty of rest. Resources Anxiety Disorders Association of [place]: www.adaa.org or National Jean of Mental Health ([facility]): www.[facility].nih.gov or toll-free Current as of: February 23, 2020 Content Version: 12.7 ? [employer]. Care instructions adapted under license by your healthcare professional. If you have questions about a medical condition or this instruction, always ask your healthcare professional. [employer] disclaims any warranty or liability for your use of this information. ADDITIONAL INSTRUCTIONS rest avoid drugs or alcohol and follow-up with alternative pathways tomorrow Document Released: 05/19/2006 Document Revised: 01/29/2012 Document Reviewed: 05/19/2006 ExitCare? Patient Information ?[address] [facility] ED Patient Summaryon 022 ED Patient Summary [facility] Emergency Department Discharge Instructions [address] [place] [address] \.br\(Patient Copy)\.br\ \.br\Name: JAROD BLANDON : 1990 \.br\Allergies: penicillins; Keflex; Cefzil\.br\Diagnosis: Anxiety and depression\.br\ \.br\ Visit Date: 02/07/2022 20:57:39 \.br\ Current Date Time: 02/08/2022 02:15:45 \.br\Address: [address] [place] [address] [place] [address] \.br\ \.br\ \.br\Primary Care Provider: \.br\ Name: NO FAMILY PHYSICIAN, 837\.br\ Phone: \.br\ \.br\Emergency Department Care Providers: \.br\ Primary Physician: JORDON ALVAREZ MD \.br\ \.br\ \.br\\.br\Thank you for choosing [facility] for your emergency care. You are very important to us. Our goal is to demonstrate our high quality medical care, and provide you with a very good patient experience.\.br\\.br\Yo u may receive a survey about our service. Please take the time to complete the survey and return it so we can continue to enhance our service.\.br\\.br\Thank you again for allowing the [facility] Emergency Department to care for your medical needs. If you have questions about your care or follow up information please contact us at [phone].\.br\\.br\ Follow-Up Instructions\.br\ \.br\JAROD FOSS has been given these follow-up instructions:\.br\\.br\ \.br\With: Address: When: \.br\Alternative pathways tomorrow In 1 day 02/09/2022 \.br\\.br\\.br\With: Address: When: \.br\[facility] [address] [place], [place]\.br\ Business (1) Within 3 to 5 days \.br\\.br\\.br\\.br\\.b r\ Patient Education Materials\.br\ \.br\JAROD BLANDON has been given the following patient education materials:\.br\ADDITION AL INSTRUCTIONS rest avoid drugs or alcohol and follow-up with alternative pathways tomorrow\.br\\.br\\.br\ \.br\\.br\\.br\\.br\\.b r\\.br\\.br\\.br\\.br\D ocument Released: 05/19/2006 Document Revised: 01/29/2012 Document Reviewed: 05/19/2006\.br\ExitCare ? Patient Information ?2011 [employer].br\\.br\\.br\\.br \Anxiety and Panic\.br\\.br\Feeling worried at times is a normal part of life. Most people have some fear or anxiety about their problems. But if your worries interfere with your life, you may have a medical condition.\.br\Anxiety disorders cause you to feel worried or fearful about daily activities and events. You may feel worried much of the time, which makes it hard to function in your daily life. Your anxiety may not always have an obvious cause.\.br\Symptoms\.br \Anxiety can cause physical and emotional symptoms. You may:\.br\? Feel restless, irritable, or on edge.\.br\? Worry much of the time.\.br\? Tremble, shake, or sweat.\.br\? Feel tightness in your throat or chest.\.br\? Feel tired or have sleep problems.\.br\? Have a headache or upset stomach.\.br\? Be lightheaded.\.br\? Find it hard to concentrate.\.br\? Have a pounding or fast heartbeat.\.br\Depressi on and anxiety disorders\.br\Depressio n can occur along with anxiety disorders, and it is often confused with these other conditions. Anxiety or panic disorder also may be mistaken for depression.\.br\It is important to get medical help if you think you may have any of these conditions. Your doctor can make the right diagnosis and help you with the right treatment. You may need different treatments for anxiety or panic disorders than you will for depression.\.br\Types of anxiety\.br\Anxiety with depression\.br\Depressi on and anxiety are different conditions that can sometimes occur together. These conditions often have similar symptoms, but you may need separate treatments if you have both.\.br\Symptoms of depression include feeling sad or hopeless. You also may have fatigue, sleep problems, and difficulty concentrating.\.br\Gene ralized anxiety disorder\.br\With generalized anxiety disorder, you feel worried or stressed about many daily events. This worrying interferes with your life and makes it hard to function. You also may have physical symptoms such as headaches or fatigue.\.br\Social anxiety disorder\.br\With social anxiety disorder, you feel very nervous about what you will say or do in front of others. This can make it hard to function in everyday life. You may have physical symptoms such as a fast heartbeat, sweating, or feeling shaky.\.br\Panic attacks and panic disorder\.br\A panic attack is a sudden, intense feeling of fear or anxiety. This scary feeling may be caused by a stressful situation, or it may happen without any obvious reason.\.br\Some common symptoms of panic attacks include a pounding or fast heartbeat, a tight throat or choking feeling, nausea, sweating, or trembling.\.br\People who have had a panic attack often worry about having another one. If you have had more than one panic attack or if you worry about the next time you will have an attack, then (more content not included)... Normal [facility] ED Physician Reporton 2021 ED Physician Report Patient: VANNESA BLANDON CCA Age: 31 years Sex: Female : 1990 Associated Diagnoses: Anxiety and depression Author: Jarocho TRINIDAD MD Basic Information Time seen: Date & time 02/07/2022 21:12:00. History source: Patient. Arrival mode: Private vehicle. History limitation: None. History of Present Illness The patient presents with Anxiety. The onset was 1 weeks ago. The course/duration of symptoms is fluctuating in intensity. Location: generalized. The character of symptoms is unknown. The degree at onset was severe. The degree at present is moderate. Patient is a 31-year-old female with a history of anxiety who says that she has been going through some issues recently, including a break-up with her boyfriend. She was having severe anxiety last week with panic attacks and was started on medication which she says is helping some. She is still feeling very anxious and having thoughts of suicide. She has no plan currently. She says she has attempted in the distant past by overdosing on her medications. She denies recent drug or alcohol use. No other complaints. Review of Systems Constitutional symptoms: Negative except as documented in HPI. Skin symptoms: Negative except as documented in HPI. Eye symptoms: Negative except as documented in HPI. ENMT symptoms: Negative except as documented in HPI. Respiratory symptoms: Negative except as documented in HPI. Cardiovascular symptoms: Negative except as documented in HPI. Gastrointestinal symptoms: Negative except as documented in HPI. Genitourinary symptoms: Negative except as documented in HPI. Musculoskeletal symptoms: Negative except as documented in HPI. Psychiatric symptoms: Negative except as documented in HPI. Endocrine symptoms: Negative except as documented in HPI. Hematologic/Lymphatic symptoms: Negative except as documented in HPI. Allergy/immunologic symptoms: Negative except as documented in HPI. Neurologic symptoms Negative except as documented in HPI. Additional review of systems information: All other systems reviewed and otherwise negative. Health Status Allergies: Allergic Reactions (Selected) Severity Not Documented Cefzil- No reactions were documented. Keflex- No reactions were documented. Penicillins- No reactions were documented.. Past Medical/ Family/ Social History Medical history: No active or resolved past medical history items have been selected or recorded.. Surgical history: No active procedure history items have been selected or recorded.. Family history: No family history items have been selected or recorded.. Problem list: Active Problems (3) At risk for falls Irritable bowel Knowledge deficit . Physical Examination Vital Signs Per nurse's notes. General: Alert, no acute distress. Skin: Warm, dry, pink. Head: Normocephalic, atraumatic. Neck: Supple, trachea midline. Eye: Pupils are equal, round and reactive to light, extraocular movements are intact, normal conjunctiva, vision grossly normal. Ears, nose, mouth and throat: Oral mucosa moist, no pharyngeal erythema or exudate. Cardiovascular: Regular rate and rhythm, No murmur. Respiratory: Lungs are clear to auscultation, respirations are non-labored, breath sounds are equal. Gastrointestinal: Soft, Nontender, Non distended, Normal bowel sounds. Musculoskeletal: Normal ROM, normal strength, no tenderness, no swelling. Psychiatric: Cooperative, appropriate mood & affect. Neurological No focal neurological deficit observed, normal sensory observed, normal motor observed, normal speech observed. Medical Decision Making Electrocardiogram: Time 02/07/2022 21:45:00, rate 83, normal sinus rhythm, No ST-T changes, no ectopy, EP Interp, Right bundle branch block. Results review: Lab results : Laboratory 02/07/2022 22:01 EDT Estimated Creatinine Clearance 85.06 mL/min 02/07/2022 21:30 EDT BUN 15 mg/dL NORMAL Na 142 mmol/L NORMAL K 4.0 mmol/L NORMAL Chloride 105 mmol/L NORMAL CO2, venous 26.4 mmol/L NORMAL Glucose 82 mg/dL NORMAL Creatinine 0.8 mg/dL NORMAL Total Protein 7.5 g/dL NORMAL Calcium 8.7 mg/dL NORMAL Bilirubin, Total 0.10 mg/dL LOW Alk Phos 75 unit/L NORMAL GOT 15 unit/L NORMAL GPT 19 unit/L NORMAL BUN/Creat Ratio 18.8 NA Calculated Osmolality 283 mOsm/kg NORMAL Globulin 3.5 g/dL NA A/G Ratio 1.1 NA ALB 4.0 g/dL NORMAL Alcohol, Serum <3 mg/dL NA GFR Estimated 84 NA WBC 8.2 x106/uL LOW \.br\ HGB 12.7 g/dL NORMAL \.br\ HCT 38.3 % NORMAL \.br\ MCV 92.4 fL NORMAL \.br\ MCH 30.6 pg NORMAL \.br\ MCHC 33.1 g/dL NORMAL \.br\ RDW 13.5 % NORMAL \.br\ Platelet 306 x103/uL NORMAL \.br\ MPV 7.7 fL NORMAL \.br\ Nucleated RBC 0 /100WBC NA \.br\ Lymph % 27.8 % NA \.br\ [place] % 7.7 % NA \.br\ Neutrophil % 62.2 % NA \.br\ Eosin % 1.1 % NA \.br\ Basos % 1.2 % NA \.br\ Lymph Count 2.30 x1000 NORMAL \.br\ [place] Count 0.60 x1000 NORMAL \.br\ Neutrophil Count (ANC) 5.10 x1000 NORMAL (more content not included)... Normal [facility] ED Physician Report Patient: VANNESA BLANDON CCA Age: 31 years Sex: Female : 1990 Associated Diagnoses: Anxiety and depression Author: JORDON ALVAREZ MD Basic Information Time seen: Date & time 02/07/2022 21:12:00. History source: Patient. Arrival mode: Private vehicle. History limitation: None. History of Present Illness The patient presents with Anxiety. The onset was 1 weeks ago. The course/duration of symptoms is fluctuating in intensity. Location: generalized. The character of symptoms is unknown. The degree at onset was severe. The degree at present is moderate. Patient is a 31-year-old female with a history of anxiety who says that she has been going through some issues recently, including a break-up with her boyfriend. She was having severe anxiety last week with panic attacks and was started on medication which she says is helping some. She is still feeling very anxious and having thoughts of suicide. She has no plan currently. She says she has attempted in the distant past by overdosing on her medications. She denies recent drug or alcohol use. No other complaints. Review of Systems Constitutional symptoms: Negative except as documented in HPI. Skin symptoms: Negative except as documented in HPI. Eye symptoms: Negative except as documented in HPI. ENMT symptoms: Negative except as documented in HPI. Respiratory symptoms: Negative except as documented in HPI. Cardiovascular symptoms: Negative except as documented in HPI. Gastrointestinal symptoms: Negative except as documented in HPI. Genitourinary symptoms: Negative except as documented in HPI. Musculoskeletal symptoms: Negative except as documented in HPI. Psychiatric symptoms: Negative except as documented in HPI. Endocrine symptoms: Negative except as documented in HPI. Hematologic/Lymphatic symptoms: Negative except as documented in HPI. Allergy/immunologic symptoms: Negative except as documented in HPI. Neurologic symptoms Negative except as documented in HPI. Additional review of systems information: All other systems reviewed and otherwise negative. Health Status Allergies: Allergic Reactions (Selected) Severity Not Documented Cefzil- No reactions were documented. Keflex- No reactions were documented. Penicillins- No reactions were documented.. Past Medical/ Family/ Social History Medical history: No active or resolved past medical history items have been selected or recorded.. Surgical history: No active procedure history items have been selected or recorded.. Family history: No family history items have been selected or recorded.. Problem list: Active Problems (3) At risk for falls Irritable bowel Knowledge deficit . Physical Examination Vital Signs Per nurse's notes. General: Alert, no acute distress. Skin: Warm, dry, pink. Head: Normocephalic, atraumatic. Neck: Supple, trachea midline. Eye: Pupils are equal, round and reactive to light, extraocular movements are intact, normal conjunctiva, vision grossly normal. Ears, nose, mouth and throat: Oral mucosa moist, no pharyngeal erythema or exudate. Cardiovascular: Regular rate and rhythm, No murmur. Respiratory: Lungs are clear to auscultation, respirations are non-labored, breath sounds are equal. Gastrointestinal: Soft, Nontender, Non distended, Normal bowel sounds. Musculoskeletal: Normal ROM, normal strength, no tenderness, no swelling. Psychiatric: Cooperative, appropriate mood & affect. Neurological No focal neurological deficit observed, normal sensory observed, normal motor observed, normal speech observed. Medical Decision Making Electrocardiogram: Time 02/07/2022 21:45:00, rate 83, normal sinus rhythm, No ST-T changes, no ectopy, EP Interp, Right bundle branch block. Results review: Lab results : Laboratory 02/07/2022 22:01 EDT Estimated Creatinine Clearance 85.06 mL/min 02/07/2022 21:30 EDT BUN 15 mg/dL NORMAL Na 142 mmol/L NORMAL K 4.0 mmol/L NORMAL Chloride 105 mmol/L NORMAL CO2, venous 26.4 mmol/L NORMAL Glucose 82 mg/dL NORMAL Creatinine 0.8 mg/dL NORMAL Total Protein 7.5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 Nasopharyngeal Normal [facility] Comment on above: Performed By: #### L ACT #### [address] [id number] SARS-CoV-2 (COVID-19) RNA PANFILO+probe Ql (Unsp spec) Not detected Normal Not Detected [facility] Comment on above: Result Comment: . This test has received FDA Emergency Use Authorization (EUA) and has been verified by [facility]. This test is only authorized for the duration of time that circumstances exist to justify the authorization of the emergency use of in vitro diagnostic tests for the detection of SARS-CoV-2 virus and/or diagnosis of COVID-19 infection under section 564(b)(1) of the Act, 21 U.S.C. 360bbb-3(b)(1), unless the authorization is terminated or revoked sooner. [facility] is certified under CLIA-88 as qualified to perform high complexity testing. Testing is performed in the [facility] laboratory located at [address] [place] [address] [id number]. SARS-CoV-2/Flu/RSV Multiplex Test: Fact sheet for providers: https://www.fda.gov/media/437610/download Fact sheet for patients: https://www.fda.gov/media/880905/download Performed By: #### L ACT #### [address] [id number] Covid 19 Resultson 2 SARS-CoV-2 (COVID-19) RNA PANFILO+probe Ql (Unsp spec) NEGATIVE COVID-19 Test Coronaviruses are common world-wide and are the cause of many common colds. SARS-COV2 is a new coronavirus that began circulating worldwide in 2019 so we are calling it COVID-19. It has been estimated that four out of five patients with COVID-19 will recover at home without the need for medical attention. Symptoms of COVID-19 may include cough, fever, shortness of breath, loss of taste or smell and other flu-like symptoms including chills, sore muscles, sore throat, and headache. Severe illness is more common in older people and people with other health problems such as high blood pressure, obesity, and immune system problems. If the test is positive, you have COVID-19. You will be contacted by the ordering physicians office and instructed to remain on home isolation, in accordance with CDC guidelines. You may also be contacted by the [facility] to see if any of your close contacts may have been exposed to the virus and need to quarantine. If the test is negative, you likely do not have COVID-19 at this time, but you still may have a different illness that can spread to other people (like Influenza, or the Flu) and could still be at risk for getting COVID-19. We recommend that you stay away from other people to limit the spread of illness until your symptoms are improving and you are fever-free for 24 hours without the use of fever lowering medications such as acetaminophen or ibuprofen. No test is 100% accurate so if you are still concerned you may have COVID-19, talk to your doctor about the need to continue to stay away from others. Medicines Unless your provider told you not to use the following: Acetaminophen (Tylenol and others) is generally safe. Anti-inflammatory medications, such as Ibuprofen (Advil or Motrin) or Naproxen (Aleve) can also be used. Wtbb-rho-yzddmbm cough and cold medicines can be used according to the instructions on the package. Some xgci-lgw-saytnrk medicines also contain acetaminophen. Make sure you are not taking more than your recommended dose. For those not hospitalized, there is no specific treatment available for this illness. Antibiotics do not treat Coronaviruses. Follow-Up Follow up with your doctor by scheduling a virtual visit or consider follow-up at one of our urgent care fever clinics. If you are having difficulty breathing, or are very weak and having difficulty standing, this is a medical emergency. Call 911 or have someone take you to the nearest emergency room immediately. If possible, wear a facemask. Additional guidance from the CDC for patients who tested POSITIVE for COVID-19 How to isolate: Isolate yourself in a specific room at home and limit your contact with others. Use a separate bathroom from other members of the household, when possible. Leave home only to get essential medical care. Do not go to work, school or public areas. Avoid using public transportation, ride-sharing, or taxis. Restrict contact with pets and other animals. If you must care for your pet or be around animals while you are sick, wash your hands before and after your interaction and wear a facemask. Make sure that shared spaces in the home have good airflow, such as by an air conditioner or an opened window, weather permitting. Personal Hygiene Procedures: Wear a face mask when in the same room as other people or pets. If a face mask interferes with your breathing, others should wear a mask when sharing space with you. Frequent hand-washing: wash your hands with soap and water for at least 20 seconds. If soap and water are not available, use alcohol-based hand cost analyst. Avoid touching your eyes, nose, and mouth with unwashed hands. Household Hygiene Procedures: Avoid sharing personal household items such as dishes, glassware, cups, eating utensils, towels or bedding with other people or pets in your home. After use, these items should be washed with soap and hot water. Disinfect all high-touch surfaces every day with antibacterial cleaning solutions such as Lysol wipes, bleach, cleansers, etc. High-touch surfaces include tabletops, doorknobs, bathroom fixtures, toilets, phones, keyboards, tablets and bedside tables. Immediately clean any surfaces that may have blood, poop or body fluids on them, using antibacterial cleaning solutions such as Lysol wipes, bleach, cleansers, etc. If clothing or bedding come into contact with blood, poop or body fluids, they should be washed immediately. Follow the directions on the laundry detergent and clothing labels but hot water is recommended when possible. Stopping home isolation precautions: If possible, consult your doctor before stopping home isolation precautions. According to the CDC, you can discontinue home isolation precautions when you have met both of these criteria: Your fever and respiratory symptoms have been gone for 24 nadya (more content not included)... Normal [facility] D-DIMER, VTE EXCLUSIONon D-DIMER, VTE EXCLUSION 234 ng/mL FEU Normal < or = 500 [facility] Comment on above: Result Comment: The VTE Exclusion D-Dimer assay is reported in ng/mL Fibrinogen Equivalent Units (FEU). Per manufacturers instructions for use, a value of less than 500 ng/mL (FEU) may help to exclude DVT or PE in outpatients when the assay is used with a clinical pretest probability assessment. ([facility] must utilize and document eCalc Wells Score Deep Vein Thrombosis Risk for DVT exclusion only; Emergency Department should utilize Guidelines for Emergency Department Use of the VTE Exclusion D-Dimer and Clinical Pretest probability assessment model for DVT or PE exclusion.) Performed By: #### D IMEX #### [address] [id number] DRUG SCREEN,URINEon 02-05-20 22 AMPHETAMINE SCREEN,U Canceled Normal [facility] Comment on above: Order Comment: TEST DRUG SCREEN,URINE WAS CANCELLED, 02/04/2022 11:04 PATIENT DISCHARGED NO SPECIMEN RECEIVED IN LAB. Result Comment: CUTO FF LEVEL: 500 NG/ML Cross-reactivity has been reported with high concentrations of the following drugs: buproprion, chloroquine, chlorpromazine, ephedrine, mephentermine, fenfluramine, phentermine, phenylpropanolamine, pseudoephedrine, and propranolol. Performed By: #### D RUG3 #### [address] [id number] BARBITURATES SCREEN,U Canceled Normal [facility] Comment on above: Order Comment: TEST DRUG SCREEN,URINE WAS CANCELLED, 02/04/2022 11:04 PATIENT DISCHARGED NO SPECIMEN RECEIVED IN LAB. Result Comment: CUTO FF LEVEL: 200 NG/ML Performed By: #### D RUG3 #### [address] [id number] BENZODIAZEPINES SCREEN,U Canceled Normal [facility] Comment on above: Order Comment: TEST DRUG SCREEN,URINE WAS CANCELLED, 02/04/2022 11:04 PATIENT DISCHARGED NO SPECIMEN RECEIVED IN LAB. Result Comment: CUTO FF LEVEL: 200 NG/ML Performed By: #### D RUG3 #### [address] [id number] CANNABINOIDS SCREEN,U Canceled Normal [facility] Comment on above: Order Comment: TEST DRUG SCREEN,URINE WAS CANCELLED, 02/04/2022 11:04 PATIENT DISCHARGED NO SPECIMEN RECEIVED IN LAB. Result Comment: CUTO FF LEVEL: 50 NG/ML Performed By: #### D RUG3 #### [address] [id number] COCAINE METABOLITE SCREEN,U Canceled Normal [facility] Comment on above: Order Comment: TEST DRUG SCREEN,URINE WAS CANCELLED, 02/04/2022 11:04 PATIENT DISCHARGED NO SPECIMEN RECEIVED IN LAB. Result Comment: CUTO FF LEVEL: 150 NG/ML Performed By: #### D RUG3 #### [address] [id number] DRUG SCREEN COMMENT Canceled Normal [facility] Comment on above: Order Comment: TEST DRUG SCREEN,URINE WAS CANCELLED, 02/04/2022 11:04 PATIENT DISCHARGED NO SPECIMEN RECEIVED IN LAB. Result Comment: Drug screen results are presumptive and should not be used to assess compliance with prescribed medication. Contact the performing [facility] laboratory to add-on definitive confirmatory testing if clinically indicated. . Toxicology screening results are reported qualitatively. The concentration must be greater than or equal to the cutoff to be reported as positive. The concentration at which the screening test can detect an individual drug or metabolite varies. The absence of expected drug(s) and/or drug metabolite(s) may indicate non-compliance, inappropriate timing of specimen collection relative to drug administration, poor drug absorption, diluted/adulterated urine, or limitations of testing. For medical purposes only; not valid for forensic use. . Interpretive questions should be directed to the laboratory medical directors. Performed By: #### D RUG3 #### [address] [id number] FENTANYL SCREEN,URINE Canceled Normal [facility] Comment on above: Order Comment: TEST DRUG SCREEN,URINE WAS CANCELLED, 02/04/2022 11:04 PATIENT DISCHARGED NO SPECIMEN RECEIVED IN LAB. Result Comment: CUTO FF LEVEL: 5 NG/ML Performed By: #### D RUG3 #### [address] [id number] METHADONE SCREEN,U Canceled Normal [facility] Comment on above: Order Comment: TEST DRUG SCREEN,URINE WAS CANCELLED, 02/04/2022 11:04 PATIENT DISCHARGED NO SPECIMEN RECEIVED IN LAB. Result Comment: CUTO FF LEVEL: 150 NG/ML The metabolite Z-egzdu-ebmluzeilybpvn (LAAM) is not detected by this method in concentrations that would be found in the urine of patients on LAAM therapy. Performed By: #### D RUG3 #### [address] [id number] OPIATES SCREEN,U Canceled Normal [facility] Comment on above: Order Comment: TEST DRUG SCREEN,URINE WAS CANCELLED, 02/04/2022 11:04 PATIENT DISCHARGED NO SPECIMEN RECEIVED IN LAB. Result Comment: CUTO FF LEVEL: 300 NG/ML The opiate screen does not detect fentanyl, meperidine, or tramadol. Oxycodone is not consistently detected (refer to Oxycodone Screen, Urine result). Performed By: #### D RUG3 #### [address] [id number] OXYCODONE SCREEN,U Canceled Normal [facility] Comment on above: Order Comment: TEST DRUG SCREEN,URINE WAS CANCELLED, 02/04/2022 11:04 PATIENT DISCHARGED NO SPECIMEN RECEIVED IN LAB. Result Comment: CUTO FF LEVEL: 100 NG/ML This test will accurately detect both oxycodone and oxymorphone. Performed By: #### D RUG3 #### [address] [id number] PCP SCREEN,U Canceled Normal [facility] Comment on above: Order Comment: TEST DRUG SCREEN,URINE WAS CANCELLED, 02/04/2022 11:04 PATIENT DISCHARGED NO SPECIMEN RECEIVED IN LAB. Result Comment: CUTO FF LEVEL: 25 NG/ML Cross-reactivity has been reported with dextromethorphan. Performed By: #### D RUG3 #### [address] [id number] HCG,BETA-QUANTITATIVEon 0 HCG,BETA-QUANTITATIVE <2 Normal [facility] Comment on above: Result Comment: Low- level positive HCG results can be seen in early , in j[place]- or post-menopausal females due to normal pituitary HCG production, or with analytic interference. Repeat testing in 48-72 hours can aid in assessing for as results should double in this time period. FSH measurement is recommended in jordan- or post-menopausal females as concurrent elevation of FSH can support pituitary production as the source of the HCG elevation. . Total HCG measurement is performed using the [employer] Access Immunoassay which detects intact HCG and free beta HCG subunit. This test is not indicated for use as a tumor marker. HCG testing is performed using a different test methodology at [facility] than other [facility]. Direct result comparison should only be made within the same method. REF VALUES NON FEMALE <5 MALES <5 Performed By: #### H CGQU #### [address] [id number] LACTATEon 02-04-2022 LACTATE Canceled Normal [facility] Comment on above: Order Comment: TEST LACTATE WAS CANCELLED, 02/04/2022 11:05 PATIENT DISCHARGED NO SPECIMEN RECEIVED IN LAB. Result Comment: Itzel puncture immediately after or during the administration of Metamizole may lead to falsely low results. Testing should be performed immediately prior to Metamizole dosing. Performed By: #### L ACT #### [address] [id number] Lactate [Moles/Vol] 2.2 mmol/L High 0.4 - 2.0 [facility] Comment on above: Result Comment: Itzel puncture immediately after or during the administration of Metamizole may lead to falsely low results. Testing should be performed immediately prior to Metamizole dosing. Performed By: #### L ACT #### [address] [id number] Provider Note - ED v3on Provider Note - ED v3 Provider Note: Chart Review: ED NOTES ED NOTES: CC: Anxiety, palpitations, shortness of breath, and substance abuse HPI: 31-year-old female presents the emergency department via EMS for anxiety, palpitations, bilateral hand numbness, and shortness of breath. Patient states that her symptoms started approximately 2 to 3 hours ago. Patient believes that she may be having an anxiety or panic attack. Patient does have a history of anxiety, she states I am anxious every day, all day . She denies following up with anyone for this or being on any medications for anxiety. She states that she has been going through a lot lately, states that her and her girlfriend just recently broke up. Patient states that she decided to take methamphetamines yesterday for the first time to cope with the break-up, she believes that her symptoms may also be from the methamphetamine use. She denies taking the methamphetamines in order to harm herself. Denies HI, SI, and hallucinations. She says that she got these off the street and from an unreliable source. 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 She denies alcohol or tobacco use. She denies any known use of any other substances. She denies any personal family history of acute coronary syndrome. She denies any history of heart failure or blood clots, denies use of anticoagulants or diuretics. She denies any pain or swelling in the extremities. She denies any recent periods of prolonged mobilization including surgeries and flights. Denies taking any medications for her symptoms prior to arrival. Patient appears to be very anxious during my exam, anxiety is mildly improved when she talks to me and becomes distracted. Denies all other symptoms including fever, chills, headache, vision changes, tinnitus, neck pain, back pain, sore throat, cough, chest pain, hemoptysis, abdominal pain, nausea, vomiting, diarrhea, constipation, hematuria, dysuria, hematochezia, melena, weakness. Social Hx: Patient admits to using methamphetamines, has a history of substance abuse. Denies tobacco and alcohol use. Medical Hx: Denies history of chronic medical conditions or medication use. Allergy amoxicillin and penicillin. Immunizations are up-to-date. Patient states that she is currently on her menstrual cycle. Surgical HX: Denies ROS Constitutional: Negative for lightheadedness, fatigue, anorexia, chills, diaphoresis, fever, weakness Eyes: Negative for lid swelling, pain, photophobia, redness, vision changes Ears: Negative for discharge, itching, hearing loss, pain, tinnitus Nose: Negative for congestion, discharge, nosebleeds, obstruction Mouth/teeth: Negative for mouth lesions, tooth trauma, toothache Throat/neck: Negative for sore throat, dysphagia, hoarseness, neck pain, neck stiffness Cardiovascular: Positive for palpitations. Negative for chest pain, diaphoresis, peripheral edema, PND, orthopnea Respiratory: Positive for shortness of breath. Negative for cough, hemoptysis, pleuritic chest pain, wheezing Gastrointestinal: Negative for abdominal pain, constipation, diarrhea, nausea, vomiting, bowel habit change, hematochezia, melena, or rectal pain. Genitourinary: Negative for dysuria, flank pain, frequency, hematuria, urgency, urine output changes Musculoskeletal: Negative for pain, sensory deficits, stiffness, weakness. Endocrine: Negative for weight changes, heat/cold intolerance, hot flashes, polydipsia, polyuria Integumentary: Negative for abrasions, dryness, hives, itching, jaundice, lesions, lumps, petechiae, pruritus, rash Neurological: Positive for bilateral hand numbness. Negative for headaches, altered mental status, dizziness, gait changes, LOC, vertigo Psychiatric: Positive for anxiety. Negative for depression, hallucinations, insomnia, mood changes, Heme/lymph: Negative for anemia, easy bleeding, easy bruising, jaundice, night sweats, swollen lymph glands Review of systems is otherwise negative unless stated above or in history of present illness. Physical exam: Constitutional: Patient is well-nourished and well-developed. Patient appears to be incredibly anxious, she is pacing around the room and cannot sit still. Oriented to person, place, time, and situation. HEENT: Head is normocephalic, atraumatic. Patient's airway is patent. Tympanic membranes are clear bilaterally. Nasal mucosa clear. Mouth with normal mucosa. Throat is not erythematous and there are no oropharyngeal exudates, uvula is midline. No obvious facial deformities. No drooling or tripoding. Eyes: Clear bilaterally. Pupils are equal round and reactive to light and accommodation. Extraocular movements intact. Cardiac: Tachycardic, regular rhythm. Heart sounds S1, S2. No murmurs, rubs, or gallops. PMI nondisplaced. No JVD. Respiratory: 98% on room air. Regular respiratory rate (more content not included)... Normal [facility] TROPONIN I, HIGH SENSITIVITY on 02-04-2022 TROPONIN I, HIGH SENSITIVITY 4 ng/L Normal 0 - 13 [facility] Comment on above: Result Comment: . Less than 99th percentile of normal range cutoff- Female and children under 18 years old <14 ng/L; Male <21 ng/L: Negative Repeat testing should be performed if clinically indicated. . Female and children under 18 years old 14-50 ng/L; Male 21-50 ng/L: Consistent with possible cardiac damage and possible increased clinical risk. Serial measurements may help to assess extent of myocardial damage. . >50 ng/L: Consistent with cardiac damage, increased clinical risk and myocardial infarction. Serial measurements may help assess extent of myocardial damage. . NOTE: Children less than 1 year old may have higher baseline troponin levels and results should be interpreted in conjunction with the overall clinical context. . NOTE: Troponin I testing is performed using a different testing methodology at [facility] than at [facility]. Direct result comparisons should only be made within the same method. Performed By: #### T [facility] #### [address] [phone] TROPONIN I, HIGH SENSITIVITY 3 ng/L Normal 0 - 13 [facility] Comment on above: Result Comment: . Less than 99th percentile of normal range cutoff- Female and children under 18 years old <14 ng/L; Male <21 ng/L: Negative Repeat testing should be performed if clinically indicated. . Female and children under 18 years old 14-50 ng/L; Male 21-50 ng/L: Consistent with possible cardiac damage and possible increased clinical risk. Serial measurements may help to assess extent of myocardial damage. . >50 ng/L: Consistent with cardiac damage, increased clinical risk and myocardial infarction. Serial measurements may help assess extent of myocardial damage. . NOTE: Children less than 1 year old may have higher baseline troponin levels and results should be interpreted in conjunction with the overall clinical context. . NOTE: Troponin I testing is performed using a different testing methodology at [facility] than at [facility]. Direct result comparisons should only be made within the same method. Performed By: #### T [facility] #### [address] [id number] TSHon 02-04-2022 TSH Qn 5.14 m[IU]/L High 0.44 - 3.98 [facility] Comment on above: Result Comment: TSH testing is performed using different testing methodology at [facility] than at other [facility]. Direct result comparisons should only be made within the same method. Performed By: #### T [facility] #### [address] [id number] Triage - EDon 02-04-2022 Triage - ED Quick Triage: Are You no Have You Given In The Last 6 Weeksno Are You Currently Breastfeedingno Chart Review: ARRIVAL INFORMATION Mode of Arrival: private vehicle CHIEF COMPLAINT JAROD ALDRIDGE is a Female patient with a chief complaint of anxiety (pt reports meth use yesterday and has not been able to calm down since. pt jittery upon triage). Triage Date/Time: 04-Feb-2022 07:52 SHIRLEY: 3 Vital Signs: Temperature: 98.2F ( 36.8C) Blood Pressure: 133/78 Mean: Heart Rate: 109 Respiratory Rate: 22 Pulse Oximetry: 98% Nick Coma Scale: Best Eye Response: (E4) spontaneous Best Motor Response: (M6) obeys commands Best Verbal Response: (V5) oriented Nick Score: 15 Allergies: yes Patient has homicidal thoughts: no Risk Screens Suicide Risk Screen In the Past Month: Have you wished you were or wished you could go to sleep and not wake up no In the Past Month: Have you had any actual thoughts of killing yourself no In Your Lifetime: Have you ever done anything, started to do anything, or prepared to do anything to end your life no Sams Fall Scale Screening Has the patient fallen before (or is the patient in the ED as a result of a fall) has not had a fall Does the patient have an impaired gait does not have impaired gait Is the patient cognitively impaired not cognitively impaired Interventions: Sams Fall Interventions: LOW INTERVENTIONS: *patient oriented to surroundings and call system, * patient/family falls education completed and documented, *patients fall status communicated during bedside handoff, *whiteboard updated, *mode of toileting discussed with patient, *bed in low position with brakes locked, *call light in reach, * non-skid footwear TRAVEL HISTORY Travel History Coronavirus Screening: no exposure or symptoms Travel Exposure History: NO travel to International locations in the past 30 days PAIN Pain Scale Used: TITUS Past Medical History: Past Medical History Reviewedyes Electronic Signatures: Kenn Mercedes (DANNA) (Signed 04-Feb-2022 07:54) Entered: Risk Screens, Pain, Travel History, Chart Review, Scores, Past Medical History Authored: Quick Triage, Risk Screens, Pain, Travel History, Chart Review, Scores, Past Medical History Last Updated: 04-Feb-2022 07:54 by Kenn Mercedes (DANNA) [facility] ALLIED HEALTHon 09-18-2021 ALLIED HEALTH HNO ID: [id number] Author: PENNY Mccarthy Service: Radiology Author Type: Technologist Type: Allied Health Filed: 09/18/2021 9:29 AM Note Text: Radiology Service Progress Note DATE OF SERVICE: September 18, 2021 TIME: 9:28 AM PATIENT IDENTITY VERIFICATION COMPLETED USING TWO (2) STANDARD IDENTIFIERS: Name and Date of confirmed by patient verbally and Name and Date of confirmed by identification band. FALL SCREENING: Has the patient had 2 falls in the last year or 1 fall with injury or currently using an Ambulatory Assistive Device (Walker, Cane, Wheelchair, Crutches, etc.)? Emergency Room Patient: Screened in ED PATIENT GENDER DATA: Female. status: : No status: NO. PATIENT RELEVANT IMPLANT DATA REVIEWED: Not Applicable ALLERGIES: Reviewed and unchanged CONTRAST ALLERGY: NO. EXAM: CT -CONTRAST INDUCED NEPHROPATHY RISK FACTORS: Not applicable CREATININE: Creatinine Date Value Ref Range Status 09/18/2021 0.69 0.58 - 0.96 mg/dL Final 07/08/2021 0.74 0.58 - 0.96 mg/dL Final 06/02/2021 0.59 0.58 - 0.96 mg/dL Final Estimated Glomerular Filtration Rate Date Value Ref Range Status 09/18/2021 121 >=60 mL/min/1.73m? Final Comment: Estimated Glomerular Filtration Rate (eGFR) is calculated using the 2020 CKD-EPI creatinine equation. This equation utilizes serum creatinine, sex, and age as parameters. The creatinine assay has traceable calibration to isotope dilution-mass spectrometry. Refer to KDIGO guidelines for clinical interpretation. In patients with unstable renal function, e.g. those with acute kidney injury, the eGFR may not accurately reflect actual GFR. eGFR- Date Value Ref Range Status 07/08/2021 >60 Final P.O.C.T. RESULTS: POC done: Yes, See Lab Tab September 18, 2021 TREATMENT: N/A PERIPHERAL IV DATA: Inpatient - refer to [facility] documentation RADIOLOGY DEPARTMENT: CT; Exam(s) Completed: Chest SIGNATURE: PENNY Mccarthy PATIENT NAME: Jarod Blandon DATE: September 18, 2021 TIME: 9:28 AM Normal [facility] BETA HCG, QUANTITATIVE FOR Kiara Bowman 09-18-2021 HCG.beta subunit Qn m[IU]/mL Normal <5.0 [facility] Comment on above: Order Comment: Speci men Type: BLOOD SPECIMENOrdering Facility: [facility] Address: [address] [place] [phone] Result Comment: Chirag sampson Performed By: #### T NT #### [facility] Laboratory [address] [facility] [phone] CBC W Auto Differential pane l (Bld)on 09-18-2021 Basophils (Bld) [#/Vol] 0.03 10*3/uL Normal <0.[address] [facility] Comment on above: Order Comment: Speci men Type: BLOOD SPECIMENOrdering Facility: [facility] Address: [address] [place] [address] Performed By: #### 5 7021-8 ####[facility]ATORYCLIA [id number] [place] [address] [place] Basophils/100 WBC (Bld) 0.4 % Normal [facility] Comment on above: Order Comment: Speci men Type: BLOOD SPECIMENOrdering Facility: [facility] Address: [address] [place] [address] Performed By: #### 5 7021-8 ####[facility]ORATORYCLIA [id number] [place] [address] [place] Differential cell count method Nom (Bld) Auto Normal [facility] Comment on above: Order Comment: Speci men Type: BLOOD SPECIMENOrdering Facility: [facility] Address: [address] [place] [address] Performed By: #### 5 7021-8 ####[facility] LABORATORYCLIA [id number] [place] [address] [place] Eosinophils (Bld) [#/Vol] 0.03 10*3/uL Normal <0.[address] [facility] Comment on above: Order Comment: Speci men Type: BLOOD SPECIMENOrdering Facility: [facility] Address: [address] [place] [address] Performed By: #### 5 7021-8 ####[facility] LABORATORYCLIA [id number] [place] [address] [place] Eosinophils/100 WBC (Bld) 0.4 % Normal [facility] Comment on above: Order Comment: Speci men Type: BLOOD SPECIMENOrdering Facility: [facility] Address: [address] [place] [address] Performed By: #### 5 7021-8 ####[facility] LABORATORYCLIA [id number] [address] [place] Erythrocyte distribution width (RBC) [Ratio] 13.1 % Normal 11.5-15.[address] [facility] Comment on above: Order Comment: Speci men Type: BLOOD SPECIMENOrdering Facility: [facility] Address: [address] [place] [address] Performed By: #### 5 7021-8 ####[facility] LABORATORYCLIA [id number] [address] Hematocrit (Bld) [Volume fraction] 47.1 % High 36.0-46.[address] [facility] Comment on above: Order Comment: Speci men Type: BLOOD SPECIMENOrdering Facility: [facility] Address: [address] [place] [address] Performed By: #### 5 7021-8 ####[facility] LABORATORYCLIA [id number] [address] Hemoglobin (Bld) [Mass/Vol] 15.5 g/dL Normal 11.5-15.[address] [facility] Comment on above: Order Comment: Speci men Type: BLOOD SPECIMENOrdering Facility: [facility] Address: [address] [place] [address] Performed By: #### 5 7021-8 ####[facility] LABORATORYCLIA [id number] [address] IMMATURE GRAN % 0.2 % Normal [facility] Comment on above: Order Comment: Speci men Type: BLOOD SPECIMENOrdering Facility: [facility] Address: [address] [place] [address] Performed By: #### 5 7021-8 ####[facility] LABORATORYCLIA [id number] [address] IMMATURE GRAN ABS <0.03 Normal <0.[address] [facility] Comment on above: Order Comment: Speci men Type: BLOOD SPECIMENOrdering Facility: [facility] Address: [address] [place] [address] Performed By: #### 5 7021-8 ####[facility] LABORATORYCLIA [id number] [place] [address] [place] Lymphocytes (Bld) [#/Vol] 2.06 10*3/uL Normal 1.00-4.[address] [facility] Comment on above: Order Comment: Speci men Type: BLOOD SPECIMENOrdering Facility: [facility] Address: [address] [place] [address] Performed By: #### 5 7021-8 ####[facility] LABORATORYCLIA [id number] [address] [place] [facility] Lymphocytes/100 WBC (Bld) 25.4 % Normal [facility] Comment on above: Order Comment: Speci men Type: BLOOD SPECIMENOrdering Facility: [facility] Address: [address] [place] [address] Performed By: #### 5 7021-8 ####[facility] LABORATORYCLIA [id number] [address] [place] MCH (RBC) [Entitic mass] 29.7 pg Normal 26.0-34.[address] [facility] Comment on above: Order Comment: Speci men Type: BLOOD SPECIMENOrdering Facility: [facility] Address: [address] [place] [address] Performed By: #### 5 7021-8 ####[facility] LABORATORYCLIA [id number] [address] [place] MCHC (RBC) [Mass/Vol] 32.9 g/dL Normal 30.5-36.0 [facility] Comment on above: Order Comment: Speci men Type: BLOOD SPECIMENOrdering Facility: [facility] Address: [address] [place] [address] Performed By: #### 5 7021-8 ####[facility] LABORATORYCLIA [id number] [address] MCV (RBC) [Entitic vol] 90.2 fL Normal 80.0-100.0 [facility] Comment on above: Order Comment: Speci men Type: BLOOD SPECIMENOrdering Facility: [facility] Address: [address] [address] Performed By: #### 5 7021-8 ####[facility] LABORATORYCLIA [id number] [place] [address] [place] Monocytes (Bld) [#/Vol] 0.49 10*3/uL Normal <0.[address] [facility] Comment on above: Order Comment: Speci men Type: BLOOD SPECIMENOrdering Facility: [facility] Address: [address] [place] [address] Performed By: #### 5 7021-8 ####[facility] LABORATORYCLIA [id number] [place] [address] [place] Monocytes/100 WBC (Bld) 6.0 % Normal [facility] Comment on above: Order Comment: Speci men Type: BLOOD SPECIMENOrdering Facility: [facility] Address: [address] [place] [address] Performed By: #### 5 7021-8 ####[facility] LABORATORYCLIA [id number] [place] [address] [place] Neutrophils (Bld) [#/Vol] 5.49 10*3/uL Normal 1.45-7.[address] [facility] Comment on above: Order Comment: Speci men Type: BLOOD SPECIMENOrdering Facility: [facility] Address: [address] [place] [address] Performed By: #### 5 7021-8 ####[facility] LABORATORYCLIA [id number] [place] [address] [place] Neutrophils/100 WBC (Bld) 67.6 % Normal [facility] Comment on above: Order Comment: Speci men Type: BLOOD SPECIMENOrdering Facility: [facility] Address: [address] [place] [address] Performed By: #### 5 7021-8 ####[facility] LABORATORYCLIA [id number] [place] [address] [place] Nucleated RBC (Bld) [#/Vol] 10*3/uL Normal <0.[address] [facility] Comment on above: Order Comment: Speci men Type: BLOOD SPECIMENOrdering Facility: [facility] Address: [address] [place] [address] Performed By: #### 5 7021-8 ####[facility] LABORATORYCLIA [id number] [address] [place] Nucleated RBC/100 WBC (Bld) [Ratio] 0.0 /100 WBC Normal [facility] Comment on above: Order Comment: Speci men Type: BLOOD SPECIMENOrdering Facility: [facility] Address: [address] [place] [address] Performed By: #### 5 7021-8 ####[facility] LABORATORYCLIA [id number] [place] [address] [place] Platelet mean volume (Bld) [Entitic vol] 9.0 fL Normal 9.0-12.[address] [facility] Comment on above: Order Comment: Speci men Type: BLOOD SPECIMENOrdering Facility: [facility] Address: [address] [place] [address] Performed By: #### 5 7021-8 ####[facility] LABORATORYCLIA [id number] [address] [place] Platelets (Bld) [#/Vol] 356 10*3/uL Normal 150-[address] [facility] Comment on above: Order Comment: Speci men Type: BLOOD SPECIMENOrdering Facility: [facility] Address: [address] [place] [address] Performed By: #### 5 7021-8 ####[facility] LABORATORYCLIA [id number] [place] [address] [place] RBC (Bld) [#/Vol] 5.22 10*6/uL High 3.90-5.20 [facility] Comment on above: Order Comment: Speci men Type: BLOOD SPECIMENOrdering Facility: [facility] Address: [address] [place] [address] Performed By: #### 5 7021-8 ####[facility] LABORATORYCLIA [id number] [address] [place] WBC (Bld) [#/Vol] 8.12 10*3/uL Normal 3.70-11.00 [facility] Comment on above: Order Comment: Specmaryam guerrero Type: BLOOD SPECIMENOrdering Facility: [facility] Address: [address] [id number] Performed By: #### 5 7021-8 ####[facility] LABORATORYCLIA [id number] [place], [place] [id number] [place] [address] [place] [facility] CK CREATINE KINASEon 022 CK [Catalytic activity/Vol] 73 U/L Normal 42-[address] [facility] Comment on above: Order Comment: Speci men Type: BLOOD SPECIMENOrdering Facility: [facility] Address: [address] [facility] [place] [address] Performed By: #### T NT #### [facility] [address] [facility] [phone] CT CHEST W IVCONon 2 CT CHEST W IVCON * * *Final Report* * * DATE OF EXAM: Sep 18 2021 9:29AM [facility] CHEST W IVCON / PROCEDURE REASON: Chest trauma, blunt * * * * Physician Interpretation * * * * EXAMINATION: CHEST CT WITH CONTRAST CLINICAL HISTORY: Chest trauma, blunt Technique: Spiral CT acquisition of the chest from the thoracic inlet to the upper abdomen following IV contrast. MQ: [id number]_6 Contrast: 50 mL Omnipaque [address] Radiation dose: Integrated Dose-length product (DLP) for this visit = 85 mGy*cm CT Dose Reduction Employed: mAs-kVp adjusted based on patient size-age Comparison: None RESULT: Study is limited by motion artifact. Limitations: None. Lines, tubes, and devices: None. Lung parenchyma and airways: No consolidation. No suspicious pulmonary nodule. The central airways are patent. Pleural space: No pleural effusion. No pleural thickening. Lower neck, lymph nodes, and mediastinum: The imaged thyroid gland is normal. No lymphadenopathy in the supraclavicular, axillary, mediastinal, or hilar regions. Heart, pericardium, and thoracic vessels: The thoracic aorta and main pulmonary artery are normal in caliber. The cardiac chambers are normal in size. No coronary artery atherosclerotic calcifications are noted, although the study is not optimized for coronary assessment. No pericardial effusion or thickening. Bones and soft tissues: No destructive bone lesion. No fracture. Chest wall is unremarkable. Upper abdomen: No abnormality in the imaged upper abdomen. Barrel Drum Cutter (topogram) images: Unremarkable. IMPRESSION: No CT evidence of acute abnormality. Rodeo Clown: ABBEY Transcribe Date/Time: Sep 18 2021 10:05A Dictated by : SONYA MAYORGA MD This examination was interpreted and the report reviewed and electronically signed by: SONYA MAYORGA MD on Sep 18 2021 10:13AM EST [id number] Normal [facility] Comprehensive metabolic 2000 panelon 09-18-2021 Albumin [Mass/Vol] 5.3 g/dL High 3.9-4.[address] [facility] Comment on above: Order Comment: Speci men Type: BLOOD SPECIMENOrdering Facility: [facility] Address: [address] [place] [address] Performed By: #### T NT #### [facility] Laboratory [address] [facility] [phone] ALP [Catalytic activity/Vol] 92 U/L Normal 34-[address] [facility] Comment on above: Order Comment: Speci men Type: BLOOD SPECIMENOrdering Facility: [facility] Address: [address] [place] [address] Performed By: #### T NT #### [facility] Laboratory [address] [phone] ALT [Catalytic activity/Vol] 9 U/L Normal 7-[address] [facility] Comment on above: Order Comment: Speci men Type: BLOOD SPECIMENOrdering Facility: [facility] Address: [address] [place] [address] Performed By: #### T NT #### [facility] Laboratory [address] [facility] [phone] Anion gap [Moles/Vol] 12 mmol/L Normal 9-18 [facility] Comment on above: Order Comment: Speci men Type: BLOOD SPECIMENOrdering Facility: [facility] Address: [address] [place] [address] Performed By: #### T NT #### [facility] [address] [facility] [phone] AST [Catalytic activity/Vol] 18 U/L Normal 13-[address] [facility] Comment on above: Order Comment: Speci men Type: BLOOD SPECIMENOrdering Facility: [facility] Address: [address] Performed By: #### T NT #### [facility] [address] [facility] [phone] Bilirubin [Mass/Vol] 0.4 mg/dL Normal 0.2-1.3 [facility] Comment on above: Order Comment: Speci men Type: BLOOD SPECIMENOrdering Facility: [facility] Address: [address] [place], [place] [id number] Performed By: #### T NT #### [facility] [address] [facility] [phone] Calcium [Mass/Vol] 10.3 mg/dL High 8.5-10.[address] [facility] Comment on above: Order Comment: Speci men Type: BLOOD SPECIMENOrdering Facility: [facility] Address: [address] [place], [place] [id number] Performed By: #### T NT #### [facility] [address] [phone] Chloride [Moles/Vol] 99 mmol/L Normal 97-105 [facility] Comment on above: Order Comment: Speci men Type: BLOOD SPECIMENOrdering Facility: [facility] Address: [address] [place], [place] [id number] Performed By: #### T NT #### [facility] [address] [phone] CO2 [Moles/Vol] 24 mmol/L Normal 22-[address] [facility] Comment on above: Order Comment: Speci men Type: BLOOD SPECIMENOrdering Facility: [facility] Address: [address] [place], [place] [id number] Performed By: #### T NT #### [facility] [address] [facility] [phone] Creatinine [Mass/Vol] 0.69 mg/dL Normal 0.58-0.96 [facility] Comment on above: Order Comment: Speci men Type: BLOOD SPECIMENOrdering Facility: [facility] Address: [address] [place], [place] [id number] Performed By: #### T NT #### [facility] [address] [facility] [phone] ESTIMATED GLOMERULAR FILTRATION RATE 121 mL/min/1.73m??? Normal >=[address] [facility] Comment on above: Order Comment: Alexis guerrero Type: BLOOD SPECIMENOrdering Facility: [facility] Address: [address] [place] [address] Result Comment: Clemencia mated Glomerular Filtration Rate (eGFR) is calculated using the 2020 CKD-EPI creatinine equation. This equation utilizes serum creatinine, sex, and age as parameters. The creatinine assay has traceable calibration to isotope dilution-mass spectrometry. Refer to KDIGO guidelines for clinical interpretation. In patients with unstable renal function, e.g. those with acute kidney injury, the eGFR may not accurately reflect actual GFR. Performed By: #### T NT #### [facility] Laboratory [address] [place] [address] Glucose [Mass/Vol] 69 mg/dL Low 74-[address] [facility] Comment on above: Order Comment: Alexis guerrero Type: BLOOD SPECIMENOrdering Facility: [facility] Address: [address] [place], [place] [address] Result Comment: The [place] Diabetes Association (ADA) provides guidance for cutoff values for fasting glucose and random glucose. The ADA defines fasting as no caloric intake for at least 8 hours. Fasting plasma glucose results between 100 to 125 mg/dL indicate increased risk for diabetes (prediabetes). Fasting plasma glucose results greater than or equal to 126 mg/dL meet the criteria for diagnosis of diabetes. In the absence of unequivocal hyperglycemia, results should be confirmed by repeat testing. In a patient with classic symptoms of hyperglycemia or hyperglycemic crisis, random plasma glucose results greater than or equal to 200 mg/dL meet the criteria for diagnosis of diabetes. Reference: Standards of Medical Care in Diabetes 2016, [place] [employer] Association. Diabetes Care. 2016.39(Suppl 1). Performed By: #### T NT #### [facility] [address] [facility] [phone] Potassium [Moles/Vol] 4.2 mmol/L Normal 3.7-5.1 [facility] Comment on above: Order Comment: Alexis guerrero Type: BLOOD SPECIMENOrdering Facility: [facility] Address: [address] [place] [address] Performed By: #### T NT #### [facility] [address] [phone] Protein [Mass/Vol] 8.8 g/dL High 6.3-8.[address] [facility] Comment on above: Order Comment: Speci men Type: BLOOD SPECIMENOrdering Facility: [facility] Address: [address] [place] [address] Performed By: #### T NT #### [facility] [address] [phone] Sodium [Moles/Vol] 135 mmol/L Low 136-[address] [facility] Comment on above: Order Comment: Speci men Type: BLOOD SPECIMENOrdering Facility: [facility] Address: [address] [place] [address] Performed By: #### T NT #### [facility] [address] [phone] Urea nitrogen [Mass/Vol] 10 mg/dL Normal 7-[address] [facility] Comment on above: Order Comment: Speci men Type: BLOOD SPECIMENOrdering Facility: [facility] Address: [address] [place] [address] Performed By: #### T NT #### [facility] [address] [phone] ED NOTEon 09-18-2021 ED NOTE HNO ID: [id number] Author: Destiny Ding Service: ? Author Type: ? Type: ED Notes Filed: 09/18/2021 10:49 AM Note Text: VSS. IV removed. Patient aware of discharge instructions, follow up care, and when to seek medical attention. Patient ambulated in stable condition out of ED. [facility] ED NOTE HNO ID: [id number] Author: Ofelia Zarate RN Service: Nursing Author Type: Registered Nurse Type: ED Notes Filed: 09/18/2021 7:31 AM Note Text: Patient had a sternal injury 2 weeks ago. Was told to take off one week of work. Last night she stretched and felt a burning sensation in her chest. She endorses discomfort in her chest with sneezing, coughing, laughing. [facility] ED PROV NOTEon 09-18-2021 ED PROV NOTE HNO ID: [id number] Author: Mauro Seamna DO Service: Emergency Medicine Author Type: Physician Type: ED Provider Notes Filed: 09/18/2021 10:38 AM Note Text: ED Provider Note Patient Name: Jarod Blandon : 1990 SERVICE DATE: 09/18/21 History Patient presents with: pain in sternum continues 30-year-old female patient presents to ED with persistent chest discomfort. She notes she was seen about a week ago at [facility] emergency department after she fell and had the arm of a chair hit her in the low sternum. She notes that an x-ray but nothing else. She denies having followed up as she states they did not give her follow-up. She presents to ED with persistent discomfort. Worse with deep breaths and movement. No cough. No mopped assist. No fever or chills. No headache. No thoracic or lumbar back pain. No cervical pain. No red flag symptoms of neck or back injury. She denies abdominal pain. No extremity pain or weakness. Patient otherwise without specific complaints. PAST MEDICAL HISTORY Diagnosis Date - IBS (irritable bowel syndrome) - Panic anxiety syndrome - Pneumonia x2 in 2020 History reviewed. No pertinent surgical history. No family history on file. Social History Tobacco Use - Smoking status: Current Every Day Smoker Packs/day: 0.50 Years: 9.00 Pack years: 4.50 - Smokeless tobacco: Never Used Vaping Use - Vaping Use: Never used Substance and Sexual Activity - Alcohol use: Yes Comment: socially - Drug use: Not Currently Types: Marijuana - Sexual activity: Not Currently ALLERGIES Allergen Reactions - Amoxicillin Rash - Cefzil [Cefprozil] Rash - Keflex [Cephalexin] Rash - Penicillins Rash Review of Systems Constitutional: Negative for activity change and appetite change. HENT: Negative for congestion, drooling, rhinorrhea, sore throat, trouble swallowing and voice change. Eyes: Negative for photophobia, pain and visual disturbance. Respiratory: Negative for cough, chest tightness and shortness of breath. Cardiovascular: Positive for chest pain. Negative for leg swelling. Gastrointestinal: Negative for abdominal pain, blood in stool, constipation, diarrhea, nausea and vomiting. Genitourinary: Negative for decreased urine volume, dysuria, flank pain, frequency, hematuria and urgency. Musculoskeletal: Negative for back pain, joint swelling and neck pain. Skin: Negative for rash. Neurological: Negative for dizziness, weakness, light-headedness and headaches. Hematological: Negative for adenopathy. Psychiatric/Behavioral: The patient is not nervous/anxious. Physical Exam Vitals [09/18/21 0728] BP Pulse Temp Temp src Resp SpO2 Weight Height 153/97 (!) 99 36.8 ?C (98.3 ?F) Oral 14 100 % 53.5 kg (118 lb) -- Physical Exam Vitals and nursing note reviewed. Constitutional: General: She is not in acute distress. Appearance: She is well-developed. HENT: Head: Normocephalic. Nose: Nose normal. Eyes: General: No scleral icterus. Right eye: No discharge. Left eye: No discharge. Conjunctiva/sclera: Conjunctivae normal. Pupils: Pupils are equal, round, and reactive to light. Neck: Trachea: No tracheal deviation. Cardiovascular: Rate and Rhythm: Normal rate and regular rhythm. Heart sounds: Normal heart sounds. No murmur heard. Pulmonary: Effort: Pulmonary effort is normal. No respiratory distress. Breath sounds: Normal breath sounds. No wheezing. Chest: Chest wall: No tenderness. Abdominal: General: Bowel sounds are normal. There is no distension. Palpations: Abdomen is soft. There is no mass. Tenderness: There is no abdominal tenderness. There is no guarding or rebound. Musculoskeletal: General: No tenderness. Normal range of motion. Cervical back: Normal range of motion and neck supple. Lymphadenopathy: Cervical: No cervical adenopathy. Skin: General: Skin is warm and dry. Findings: No rash. Neurological: Mental Status: She is alert and oriented to person, place, and time. Cranial Nerves: Cranial nerves are intact. Motor: Motor function is intact. Coordination: Coordination is intact. Deep Tendon Reflexes: Reflexes are normal and symmetric. Diagnostic Testing ED Labs Ordered and Reviewed - No data to display Procedures ED Course / Clinical Impression Clinical Impressions as of 09/18/21 1037 Contusion of chest wall, unspecified laterality, subsequent encounter Primary hypertension MDM / Disposition / Plan This is a 30-year-old woman who presents ED as above. She does not appear in distress. She is not hypoxic or tachypneic. CT of the chest, EKG laboratory studies ordered. IV hydration and Toradol ordered. Work-up: EKG: Sinus rhythm 94 bpm. OR interval 118 ms. QRS in 236 ms. [place] is normal. ST segments isoelectric. T wave inversion lead III. Nonspecific ST and T wave changes noted. Right bundle branch block noted on old EKG from 07/08/2021. (more content not included)... Normal [facility] Lipase SerPl-cCncon 09-19-19 22 Lipase [Catalytic activity/Vol] 43 U/L Normal 16-[address] [facility] Comment on above: Order Comment: Speci yolanda Type: BLOOD SPECIMENOrdering Facility: [facility] Address: [address] [place] [address] Performed By: #### T NT #### [facility] Laboratory [address] [facility] [phone] PT panel Coag (PPP)on 2021 INR Coag (PPP) [Relative time] 1.0 {INR} Normal 0.9-1.[address] [facility] Comment on above: Order Comment: Specmaryam guerrero Type: BLOOD SPECIMENOrdering Facility: [facility] Address: [address] [place] [address] Result Comment: Savana min K Antagonist (VKA) Therapeutic Range: INR 2 to 3 (Target INR of 2.5) Note: For patients treated with VKA drugs, such as warfarin, the [place] [employer] 2012 Guideline recommends a therapeutic INR range of 2 to 3 (target INR of 2.5). This recommendation includes high-risk patients with antiphospholipid syndrome with previous arterial or venous thromboembolism, current-generation mechanical or bioprosthetic aortic heart valve replacement. Note: Patients with mechanical aortic valve replacement and additional risk factors for thromboembolic events (atrial fibrillation, previous thromboembolism, LV dysfunction, hypercoagulable conditions) or an older generation mechanical AVR (i.e., ball in-Cage) or any mechanical MVR should have a INR therapeutic range of 2.5 to 3.5 (target INR of 3). Fran GH, et al. Chest 2012, 141:7S-47S Bronson RA, et al. [facility] 2017, 70: 252-289 Performed By: #### T NT #### [facility] [address] [facility] [phone] PT Coag (PPP) [Time] 10.9 s Normal 9.7-13.0 [facility] Comment on above: Order Comment: Alexis guerrero Type: BLOOD SPECIMENOrdering Facility: [facility] Address: [address] [place] [address] Performed By: #### T NT #### [facility] [address] [facility] [phone] TROPONIN Ton 09-18-2021 Troponin T.cardiac [Mass/Vol] ug/L Normal 0.000-0.[address] [facility] Comment on above: Order Comment: Alexis guerrero Type: BLOOD SPECIMENOrdering Facility: [facility] Address: [address] [place] [address] Performed By: #### T NT #### [facility] [address] [facility] [phone] ED Discharge Educationon ED Discharge Education Pulmonology Pleurisy: Care Instructions Your Care Instructions Pleurisy is inflammation of the tissue that lines the inside of the chest and covers the lungs (pleura). Pleurisy is often caused by an infection, usually a virus. It also can be caused by other health problems, such as pneumonia or lupus. Pleurisy can cause sharp chest pain that gets worse when you cough or take a deep breath. You may need more tests to find out what is causing your pleurisy. Treatment depends on the cause. Pleurisy may come and go for a few days, or it may continue if the cause has not been treated. Home treatment can help ease symptoms. Follow-up care is a oh part of your treatment and safety. Be sure to make and go to all appointments, and call your doctor if you are having problems. It's also a good idea to know your test results and keep a list of the medicines you take. How can you care for yourself at home? ? Take an dtai-vuf-dhzinft pain medicine, such as acetaminophen (Tylenol), ibuprofen (Advil, Motrin), or naproxen (Aleve). Read and follow all instructions on the label. ? Do not take two or more pain medicines at the same time unless the doctor told you to. Many pain medicines have acetaminophen, which is Tylenol. Too much acetaminophen (Tylenol) can be harmful. ? If your doctor prescribed antibiotics, take them as directed. Do not stop taking them just because you feel better. You need to take the full course of antibiotics. ? Take cough medicine as directed if your doctor recommends it. ? Avoid activities that make the pain worse. When should you call for help? Call 911 anytime you think you may need emergency care. For example, call if: ? You have severe trouble breathing. ? You have severe chest pain. ? You passed out (lost consciousness). Call your doctor now or seek immediate medical care if: ? You have a new or higher fever. Watch closely for changes in your health, and be sure to contact your doctor if: ? You begin to cough up yellow or green mucus. ? You cough up blood. ? Your symptoms are not better in 3 or 4 days. Where can you learn more? Go to https://www.[employer]. GetAutoBids/patientEd Enter F346 in the search box to learn more about Pleurisy: Care Instructions. Current as of: July 26, 2019 Content Version: 12.7 ? [employer]. Care instructions adapted under license by your healthcare professional. If you have questions about a medical condition or this instruction, always ask your healthcare professional. [employer] disclaims any warranty or liability for your use of this information. Normal [facility] ED Patient Summaryon 022 ED Patient Summary [facility] Emergency Department Discharge Instructions [address] [place] [address] \.br\(Patient Copy)\.br\ \.br\Name: JAROD BLANDON : 1990 \.br\Allergies: penicillins; Keflex; Cefzil\.br\Diagnosis: Diagnoses This Visit\.br\ Pleurisy (R09.1)\.br\\.br\\.br\ \.br\ Visit Date: 07/18/2021 12:53:59 \.br\ Current Date Time: 07/18/2021 13:19:40 \.br\Address: [address] [place] [address] [place] [address] \.br\ \.br\ \.br\Primary Care Provider: \.br\ Name: NO FAMILY PHYSICIAN, 837\.br\ Phone: \.br\ \.br\Emergency Department Care Providers: \.br\ Primary Physician: SONYA HOWELL MD \.br\ \.br\ \.br\\.br\Thank you for choosing [facility] for your emergency care. You are very important to us. Our goal is to demonstrate our high quality medical care, and provide you with a very good patient experience.\.br\\.br\Yo u may receive a survey about our service. Please take the time to complete the survey and return it so we can continue to enhance our service.\.br\\.br\Thank you again for allowing the [facility] Emergency Department to care for your medical needs. If you have questions about your care or follow up information please contact us at [phone].\.br\\.br\ Follow-Up Instructions\.br\ \.br\JAROD FOSS has been given these follow-up instructions:\.br\\.br\ \.br\With: Address: When: \.br\VLADIMIR MELGAR, Cardiology [address] [facility], [address] [place] [address]\.br\ Business (2) Within 5 to 7 days \.br\Comments: \.br\ABSOLUTELY NO SMOKING \.br\HEATING PAD \.br\PREDNISONE TAPER \.br\CARDIOLOGY FOLLOW UP IF NOT IMPROVED \.br\\.br\\.br\With: Address: When: \.br\[address] NO FAMILY PHYSICIAN Within 3 to 5 days \.br\\.br\\.br\\.br\\.b r\ Patient Education Materials\.br\ \.br\JAROD BLANDON has been given the following patient education materials:\.br\\.br\Ple urisy: Care Instructions\.br\Your Care Instructions\.br\Pleuri sy is inflammation of the tissue that lines the inside of the chest and covers the lungs (pleura). Pleurisy is often caused by an infection, usually a virus. It also can be caused by other health problems, such as pneumonia or lupus. Pleurisy can cause sharp chest pain that gets worse when you cough or take a deep breath.\.br\You may need more tests to find out what is causing your pleurisy. Treatment depends on the cause. Pleurisy may come and go for a few days, or it may continue if the cause has not been treated. Home treatment can help ease symptoms.\.br\Follow-up care is a ho part of your treatment and safety. Be sure to make and go to all appointments, and call your doctor if you are having problems. It's also a good idea to know your test results and keep a list of the medicines you take.\.br\How can you care for yourself at home?\.br\? Take an uazn-omz-prwsuvk pain medicine, such as acetaminophen (Tylenol), ibuprofen (Advil, Motrin), or naproxen (Aleve). Read and follow all instructions on the label.\.br\? Do not take two or more pain medicines at the same time unless the doctor told you to. Many pain medicines have acetaminophen, which is Tylenol. Too much acetaminophen (Tylenol) can be harmful.\.br\? If your doctor prescribed antibiotics, take them as directed. Do not stop taking them just because you feel better. You need to take the full course of antibiotics.\.br\? Take cough medicine as directed if your doctor recommends it.\.br\? Avoid activities that make the pain worse.\.br\When should you call for help?\.br\ Call 911 anytime you think you may need emergency care. For example, call if: \.br\ ? You have severe trouble breathing. \.br\ ? You have severe chest pain. \.br\ ? You passed out (lost consciousness). \.br\Call your doctor now or seek immediate medical care if:\.br\ ? You have a new or higher fever. \.br\Watch closely for changes in your health, and be sure to contact your doctor if:\.br\ ? You begin to cough up yellow or green mucus. \.br\ ? You cough up blood. \.br\ ? Your symptoms are not better in 3 or 4 days. \.br\Where can you learn more?\.br\Go to https://www.[employer]kan[employer]. net/patientEd\.br\Enter F346 in the search box to learn more about Pleurisy: Care Instructions.\.br\Curre nt as of: July 26, 2019 Content Version: 12.7\.br\? [employer]. \.br\Care instructions adapted under license by your healthcare professional. If you have questions about a medical condition or this instruction, always ask your healthcare professional. [employer] disclaims any warranty or liability for your use of this information.\.br\\.br\ \.br\BEFORE YOU LEAVE\.br\\.br\Set up your [facility] [employer] account!\.br\ \.br\[employer] is a secure, online health management tool that connects you to portions of your hospital-based electronic medical record, allowing you to see (more content not included)... Normal [facility] ED Physician Reporton 2021 ED Physician Report Patient: VANNESA BLANDON CCA Age: 30 years Sex: Female : 1990 Associated Diagnoses: Pleurisy Author: SONYA HOWELL MD Basic Information Time seen: Date 07/18/2021. History source: Patient. Arrival mode: Private vehicle. History limitation: None. Additional information: Patient's physician(s): RIB PAIN. History of Present Illness The patient presents with chest pain and Is a patient who was seen in the emergency department approximately 6 days ago with bronchitis and pleurisy who was started on antibiotics and ibuprofen and an inhaler. He states she finished antibiotics and still has some bilateral rib pain with deep inspiration. She had previously been seen at the [facility] and had a complete cardial pulmonary work-up including D-dimers that were negative at that time. Chest x-ray and Covid testing were negative also. She is continue to smoke despite her condition and presents now for evaluation.. The onset was 10 hours ago. The course/duration of symptoms is constant. Location: Bilateral lateral. Radiating pain: none. The character of symptoms is pleuritic. The degree at present is minimal. The relieving factor is none. Risk factors consist of smoking. Prior episodes: none. Therapy today Motrin albuterol and Zithromax. Associated symptoms: denies shortness of breath, denies nausea, denies vomiting, denies diaphoresis and denies palpitations. Review of Systems Constitutional symptoms: No fever, no chills. Skin symptoms: No rash, Eye symptoms: Vision unchanged. ENMT symptoms: No ear pain, no sore throat, no nasal congestion. Respiratory symptoms: No shortness of breath, no orthopnea. Cardiovascular symptoms: Chest pain, pleuritic, No palpitations, Gastrointestinal symptoms: No abdominal pain, no nausea, no vomiting. Neurologic symptoms No headache, no dizziness. Additional review of systems information: All other systems reviewed and otherwise negative. Health Status Allergies: Allergic Reactions (Selected) Severity Not Documented Cefzil- No reactions were documented. Keflex- No reactions were documented. Penicillins- No reactions were documented.. Past Medical/ Family/ Social History Medical history: No active or resolved past medical history items have been selected or recorded.. Surgical history: No active procedure history items have been selected or recorded.. Family history: No family history items have been selected or recorded.. Problem list: Active Problems (3) At risk for falls Irritable bowel Knowledge deficit . Physical Examination Vital Signs Vital Signs 07/18/2021 12:55 EST Systolic Blood Pressure 130 mmHg NORMAL Diastolic Blood Pressure 83 mmHg NORMAL Temperature Oral 36.7 degC NORMAL Respiratory Rate 20 br/min NORMAL SpO2 98 % NORMAL Oxygen Therapy Room air Peripheral Pulse Rate 86 bpm NORMAL Weight Measured Type of Scale Patient Stated Weight Height/Length Dosing 160 cm Patient Stated Weight 52 kg . Measurements 07/18/2021 12:55 EST Weight Measured Type of Scale Patient Stated Weight Height/Length Dosing 160 cm Patient Stated Weight 52 kg . SpO2 07/18/2021 12:55 EST SpO2 98 % NORMAL 07/12/2021 13:40 EST SpO2 99 % NORMAL 07/12/2021 11:40 EST SpO2 100 % NORMAL 05/17/2021 16:09 EST SpO2 95 % NORMAL 11/17/2020 14:27 EDT SpO2 100 % NORMAL 08/27/2020 7:26 EDT SpO2 97 % NORMAL 08/27/2020 0:00 EDT SpO2 97 % NORMAL 08/26/2020 19:00 EDT SpO2 96 % NORMAL 08/26/2020 13:10 EDT SpO2 97 % NORMAL 08/26/2020 7:15 EDT SpO2 98 % NORMAL 08/26/2020 4:00 EDT SpO2 97 % NORMAL 08/26/2020 3:00 EDT SpO2 97 % NORMAL 08/26/2020 2:00 EDT SpO2 97 % NORMAL 08/26/2020 1:00 EDT SpO2 98 % NORMAL 08/26/2020 0:15 EDT SpO2 97 % NORMAL SpO2 97 % NORMAL 08/25/2020 23:36 EDT SpO2 96 % NORMAL 08/25/2020 18:00 EDT SpO2 100 % NORMAL 08/25/2020 17:00 EDT SpO2 99 % NORMAL 08/25/2020 16:30 EDT SpO2 96 % NORMAL 08/25/2020 15:55 EDT SpO2 97 % NORMAL . General: Alert, no acute distress. Skin: Warm, dry, no rash. Head: Normocephalic, atraumatic. Neck: Trachea midline, no tenderness. Eye: Pupils are equal, round and reactive to light, extraocular movements are intact, normal conjunctiva. Ears, nose, mouth and throat: Oral mucosa moist, no pharyngeal erythema or exudate. Cardiovascular: Regular rate and rhythm, No murmur, Normal peripheral perfusion, No edema. Respiratory: Lungs are clear to auscultation, respirations are non-labored, breath sounds are equal, Symmetrical chest wall expansion. Chest wall: No deformity, BILateral lateral rib tenderness but no crepitus or deformity. Back: Nontender, Normal range of motion, Normal alignment. Musculoskeletal: Normal ROM, normal strength, no tenderness. Gastrointestinal: Soft, Nontender. Lymphatics: No lymphadenopathy. Psychiatric: Cooperative, appropriate mood & affect. Neurological Alert and oriented to person, place, time, and situation, No fo (more content not included)... Normal [facility] ED Progress Noteon 2 ED Progress Note 1300 Patient arrives ambulatory with complaints of bilateral rib pain. Was seen in our ED on 07/12 and discharged home with Zithromax and Motrin. Pt states she completed the antibiotic, but feels her pain is still there and she needs other medication. Pt has a strong odor of cigarette smoke, has no respiratory distress. Occasional nonproductive cough. Pt examined by Dr Howell. 1315 Patient discharged to home with instructions. Verbalizes understanding. RX x1 given. [facility] COVID-19 Molecular BREDon SARS-CoV-2 (COVID-19) RNA PANFILO+probe Ql (Unsp spec) Negative Normal [facility] Comment on above: Result Comment: This assay is designed to detect the RdRp target of SARS-CoV-2 using rapid molecular isothermal amplification technology. A Negative result does not preclude the possibility of COVID 19 infection since the adequacy of sample collection and/or low viral burden may result in the presence of viral nucleic acids below the analytical sensitivity of this test method. Test results should be used along with other clinical and laboratory data in making the diagnosis. This test has received FDA Emergency Use Authorization and has been verified by [facility]. This test is only authorized for the duration of the declaration and circumstances that exist to justify the authorization of the emergency use of the in vitro diagnostic tests for the detection of SARS-CoV-2 virus and/or diagnosis of COVID-19 infection under section 564(b)(1) of the Act. 21 U.S.C. 360bbb-3(b)(1), unless the authorization is terminated or revoked sooner. This testing was performed in the [facility] laboratory located at [[place] [id number]] Performed By: #### C [id number] ####[facility] [id number] [place] [address] Medical Director: Cheo Mcdonald MD ED Discharge Educationon ED Discharge Education Chest Pain - Unce rtain Cause Your exam and tests have not identified a specific cause for your chest pain. Based on all of the information we have at this time, there does not appear to be any immediately dangerous cause. There is no indication at this time for hospitalization. However, if your symptoms worsen in any way, you will need immediate re-evaluation in the ER. Most often chest pain of this nature is caused by minor injuries, muscle strains, coughing, irritation of the chest wall tissues, or indigestion. Alcohol, recreational drugs, and emotional upsets can also make this kind of pain worse. Additional lab tests or other studies such as x-rays, an electrocardiogram, stress testing, or cardiac imaging may be needed to determine the cause of your pain if it does not get better. Most of the time nonspecific chest pain will be much improved within 2-3 days of rest and mild pain medicine. Avoid any exertion until reassessed by your physician and are instructed otherwise. Do not smoke or drink alcohol until all your symptoms are gone. Smoking cessation is the most important measure you can take to reduce your risk for heart and lung disease. Call your caregiver for routine follow-up as advised. SEEK IMMEDIATE MEDICAL CARE IF YOU DEVELOP: Increased chest pain, or pain that radiates to the arm, neck, jaw, back, or abdomen. Shortness of breath, increasing cough, or coughing up blood. Severe back or abdominal pain, nausea, or vomiting. Severe weakness, fainting, fever, or chills. If exerting yourself (for example, walking up stairs), brings on pain or makes it worse. You faint, or feel like you might. Feel your heart beating fast and/or irregular. BE CERTAIN TO FOLLOW-UP DISCUSSED; YOU MAY NEED FURTHER TESTING. Document Released: 05/19/2006 [facility] Patient Information ?2007 [employer]. Pulmonology Bronchitis: Care Instructions Your Care Instructions Bronchitis is inflammation of the bronchial tubes, which carry air to the lungs. The tubes swell and produce mucus, or phlegm. The mucus and inflamed bronchial tubes make you cough. You may have trouble breathing. Most cases of bronchitis are caused by viruses like those that cause colds. Antibiotics usually do not help and they may be harmful. Bronchitis usually develops rapidly and lasts about 2 to 3 weeks in otherwise healthy people. Follow-up care is a oh part of your treatment and safety. Be sure to make and go to all appointments, and call your doctor if you are having problems. It's also a good idea to know your test results and keep a list of the medicines you take. How can you care for yourself at home? ? Take all medicines exactly as prescribed. Call your doctor if you think you are having a problem with your medicine. ? Get some extra rest. ? Take an uudm-wca-xqdujgi pain medicine, such as acetaminophen (Tylenol), ibuprofen (Advil, Motrin), or naproxen (Aleve) to reduce fever and relieve body aches. Read and follow all instructions on the label. ? Do not take two or more pain medicines at the same time unless the doctor told you to. Many pain medicines have acetaminophen, which is Tylenol. Too much acetaminophen (Tylenol) can be harmful. ? Take an mqwc-dlh-wuncjrw cough medicine that contains dextromethorphan to help quiet a dry, hacking cough so that you can sleep. Avoid cough medicines that have more than one active ingredient. Read and follow all instructions on the label. ? Breathe moist air from a humidifier, hot shower, or sink filled with hot water. The heat and moisture will thin mucus so you can cough it out. ? Do not smoke. Smoking can make bronchitis worse. If you need help quitting, talk to your doctor about stop-smoking programs and medicines. These can increase your chances of quitting for good. When should you call for help? Call 911 anytime you think you may need emergency care. For example, call if: ? You have severe trouble breathing. Call your doctor now or seek immediate medical care if: ? You have new or worse trouble breathing. ? You cough up dark brown or bloody mucus (sputum). ? You have a new or higher fever. ? You have a new rash. Watch closely for changes in your health, and be sure to contact your doctor if: ? You cough more deeply or more often, especially if you notice more mucus or a change in the color of your mucus. ? You are not getting better as expected. Where can you learn more? Go to https://www.[employer]. net/patientEd Enter H333 in the search box to learn more about Bronchitis: Care Instructions. Current as of: July 26, 2019 Content Version: 12.7 ? [employer]. Care instructions adapted under license by your healthcare professional. If you have questions about a medical condition or this in (more content not included)... [facility] ED Patient Summaryon 022 ED Patient Summary [facility] Emergency Department Discharge Instructions [address] [place] [address] \.br\(Patient Copy)\.br\ \.br\Name: JAROD BLANDON : 1990 \.br\Allergies: penicillins; Keflex; Cefzil\.br\Diagnosis: Diagnoses This Visit\.br\ Bronchitis (J40)\.br\ Chest wall muscle strain (S29.011A)\.br\ Cough (R05.9)\.br\ Rib/trunk pain-swelling ([id number])\.br\\.b r\\.br\ \.br\ Visit Date: 07/12/2021 11:37:04 \.br\ Current Date Time: 07/12/2021 13:48:56 \.br\Address: [address] [place] [address] [place] [address] \.br\ \.br\ \.br\Primary Care Provider: \.br\ Name: NO FAMILY PHYSICIAN, 837\.br\ Phone: \.br\ \.br\Emergency Department Care Providers: \.br\ Primary Physician: SONYA HOWELL MD \.br\ \.br\ \.br\\.br\Thank you for choosing [facility] for your emergency care. You are very important to us. Our goal is to demonstrate our high quality medical care, and provide you with a very good patient experience.\.br\\.br\Yo u may receive a survey about our service. Please take the time to complete the survey and return it so we can continue to enhance our service.\.br\\.br\Thank you again for allowing the [facility] Department to care for your medical needs. If you have questions about your care or follow up information please contact us at [phone].\.br\\.br\ Follow-Up Instructions\.br\ \.br\CL JAROD ROHTMAN has been given these follow-up instructions:\.br\\.br\ \.br\With: Address: When: \.br\MARIE CELIS, Internal Medicine [address] [place] [address]\.br\ Business (1) Within 5 to 7 days \.br\Comments: \.br\HEAT TO CHEST \.br\NO SMOKING \.br\Z PACK FOR BRONCHITIS \.br\MOTRIN FOR PAIN AND INFLAMMATION \.br\\.br\\.br\With: Address: When: \.br\[address] NO FAMILY PHYSICIAN Within 3 to 5 days \.br\\.br\\.br\\.br\\.b r\ Patient Education Materials\.br\ \.br\JAROD BLANDON has been given the following patient education materials:\.br\ Chest Pain - Uncertain Cause\.br\\.br\Your exam and tests have not identified a specific cause for your chest pain. Based on all of the information we have at this time, there does not appear to be any immediately dangerous cause. There is no indication at this time for hospitalization. However, if your symptoms worsen in any way, you will need immediate re-evaluation in the ER. \.br\\.br\Most often chest pain of this nature is caused by minor injuries, muscle strains, coughing, irritation of the chest wall tissues, or indigestion. Alcohol, recreational drugs, and emotional upsets can also make this kind of pain worse. Additional lab tests or other studies such as x-rays, an electrocardiogram, stress testing, or cardiac imaging may be needed to determine the cause of your pain if it does not get better.\.br\\.br\Most of the time nonspecific chest pain will be much improved within 2-3 days of rest and mild pain medicine. Avoid any exertion until reassessed by your physician and are instructed otherwise. Do not smoke or drink alcohol until all your symptoms are gone. Smoking cessation is the most important measure you can take to reduce your risk for heart and lung disease. Call your caregiver for routine follow-up as advised. \.br\\.br\ \.br\\.br\SEEK IMMEDIATE MEDICAL CARE IF YOU DEVELOP:\.br\Increased chest pain, or pain that radiates to the arm, neck, jaw, back, or abdomen.\.br\Shortness of breath, increasing cough, or coughing up blood.\.br\Severe back or abdominal pain, nausea, or vomiting.\.br\Severe weakness, fainting, fever, or chills.\.br\If exerting yourself (for example, walking up stairs), brings on pain or makes it worse.\.br\You faint, or feel like you might.\.br\Feel your heart beating fast and/or irregular.\.br\\.br\BE CERTAIN TO FOLLOW-UP DISCUSSED; YOU MAY NEED FURTHER TESTING.\.br\ \.br\\.br\\.br\ \.br\Document Released: 05/19/2006 \.br\[employer]? Patient Information ?2007 [employer].\.br\\.br\\.br\\.br \Bronchitis: Care Instructions\.br\Your Care Instructions\.br\\.br\B ronchitis is inflammation of the bronchial tubes, which carry air to the lungs. The tubes swell and produce mucus, or phlegm. The mucus and inflamed bronchial tubes make you cough. You may have trouble breathing.\.br\Most cases of bronchitis are caused by viruses like those that cause colds. Antibiotics usually do not help and they may be harmful.\.br\Bronchitis usually develops rapidly and lasts about 2 to 3 weeks in otherwise healthy people.\.br\Follow-up care is a oh part of your treatment and safety. Be sure to make and go to all appointments, and call your doctor if you are having problems. It's (more content not included)... Normal [facility] ED Physician Reporton 2021 ED Physician Report Patient: VANNESA BLANDON CCA Age: 30 years Sex: Female : 1990 Associated Diagnoses: Chest wall muscle strain; Cough; Bronchitis Author: SONYA HOWELL MD Basic Information Time seen: Date 07/12/2021. History source: Patient. Arrival mode: Private vehicle. History limitation: None. Additional information: Patient's physician(s): CHEST PAIN. History of Present Illness The patient presents with chest pain and 10-year-old female has had intermittent chest pain off and on for at least 2 weeks. 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 She complains of migrating pains that go from the left to right side of her chest to the upper scapula. She states the pain seemed to be worse only when she is in her car driving. Was seen at [facility] 3 days ago with a complete cardiac work-up including a D-dimer testing EKG blood work and x-rays that were all negative. An albuterol inhaler at that time but states the pain still continued been intermittent. She also has a cough but states she is had no fever and has had negative Covid test at home.. The onset was 2 weeks ago. The course/duration of symptoms is episodic. Location: generalized. Radiating pain: none. The character of symptoms is achy. The degree at onset was minimal. The degree at maximum was minimal. The degree at present is minimal. The exacerbating factor is movement. The relieving factor is none. Risk factors consist of none. Prior episodes: none. Therapy today None. Associated symptoms: denies shortness of breath, denies nausea and denies vomiting. Review of Systems Constitutional symptoms: No fever, no chills. Skin symptoms: No rash, Eye symptoms: Vision unchanged. ENMT symptoms: No ear pain, no sore throat. Respiratory symptoms: Cough, no shortness of breath, no orthopnea, no hemoptysis, no wheezing. Cardiovascular symptoms: Chest pain, no palpitations, no tachycardia, no diaphoresis, no peripheral edema. Gastrointestinal symptoms: No abdominal pain, no nausea, no vomiting. Genitourinary symptoms: No dysuria, Musculoskeletal symptoms: No back pain, Neurologic symptoms No headache, Additional review of systems information: All other systems reviewed and otherwise negative. Health Status Allergies: Allergic Reactions (Selected) Severity Not Documented Cefzil- No reactions were documented. Keflex- No reactions were documented. Penicillins- No reactions were documented.. Past Medical/ Family/ Social History Medical history: No active or resolved past medical history items have been selected or recorded.. Surgical history: No active procedure history items have been selected or recorded.. Family history: No family history items have been selected or recorded.. Problem list: Active Problems (3) At risk for falls Irritable bowel Knowledge deficit . Physical Examination Vital Signs Vital Signs 07/12/2021 11:40 EST Systolic Blood Pressure 139 mmHg NORMAL Diastolic Blood Pressure 83 mmHg NORMAL Temperature Oral 37.2 degC NORMAL Respiratory Rate 18 br/min NORMAL SpO2 100 % NORMAL Oxygen Therapy Room air Peripheral Pulse Rate 81 bpm NORMAL Weight Measured Type of Scale Patient Stated Weight Height/Length Dosing 162.5 cm Patient Stated Weight 53 kg . Measurements 07/12/2021 11:40 EST Weight Measured Type of Scale Patient Stated Weight Height/Length Dosing 162.5 cm Patient Stated Weight 53 kg . SpO2 07/12/2021 11:40 EST SpO2 100 % NORMAL 05/17/2021 16:09 EST SpO2 95 % NORMAL 11/17/2020 14:27 EDT SpO2 100 % NORMAL 08/27/2020 7:26 EDT SpO2 97 % NORMAL 08/27/2020 0:00 EDT SpO2 97 % NORMAL 08/26/2020 19:00 EDT SpO2 96 % NORMAL 08/26/2020 13:10 EDT SpO2 97 % NORMAL 08/26/2020 7:15 EDT SpO2 98 % NORMAL 08/26/2020 4:00 EDT SpO2 97 % NORMAL 08/26/2020 3:00 EDT SpO2 97 % NORMAL 08/26/2020 2:00 EDT SpO2 97 % NORMAL 08/26/2020 1:00 EDT SpO2 98 % NORMAL 08/26/2020 0:15 EDT SpO2 97 % NORMAL SpO2 97 % NORMAL 08/25/2020 23:36 EDT SpO2 96 % NORMAL 08/25/2020 18:00 EDT SpO2 100 % NORMAL 08/25/2020 17:00 EDT SpO2 99 % NORMAL 08/25/2020 16:30 EDT SpO2 96 % NORMAL 08/25/2020 15:55 EDT SpO2 97 % NORMAL . General: Alert, no acute distress. Skin: Warm, dry, pink, no pallor, no rash. Head: Normocephalic, atraumatic. Neck: Supple, trachea midline. Eye: Pupils are equal, round and reactive to light, extraocular movements are intact. Ears, nose, mouth and throat: Tympanic membranes clear, oral mucosa moist. Cardiovascular: Regular rate and rhythm, No murmur, Normal peripheral perfusion. Respiratory: Lungs are clear to auscultation, respirations are non-labored, breath sounds are equal, Symmetrical chest wall expansion. Chest wall: No deformity, Minimal chest wall tenderness in the lateral mid axillary lines but no obvious deformity. Back: Nonten (more content not included)... Normal [facility] ED Progress Noteon ED Progress Note pt to bred ra1 c/o ongoing lower b/l rib pain pt was seen 2 days ago at [facility], and they did a workup pt was told that her lungs were inflamed tried inhaler and ibuprofen without much relief 1348 Rx(s) given, verbalized understanding discharged pt in NAD, instructions given, verbalized understanding encouraged close f/u with dr or return for worsening 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 - BILATERAL LOWER RIB PAIN, SOB, COUGH, CHEST PAIN, AP SEMI ERECT PORT DONE Findings: There is no definite acute infiltrate by plain film. The lateral costophrenic angles are not blunted. There is no pneumothorax. The heart size and mediastinal width are within gross limits of normal and stable. Impression: No definite acute pulmonary findings by plain film Electronically signed by: Meghan Delgadillo MD 07/12/2021 12:12 PM FINISHED STOCK INSPECTOR Technologist: SCOTTY Dictated By: MEGHAN DELGADILLO MD Signed By: MEGHAN DELGADILLO MD Signed Out: 07/12/21 13:12:[address] [facility] ALLIED HEALTHon 07-09-2021 ALLIED HEALTH HNO ID: [id number] Author: RT Edilson(R) Service: Radiology Author Type: Technologist Type: Allied Health Filed: 07/08/2021 11:49 PM Note Text: Radiology Service Progress Note PATIENT NAME: Jarod Blandon DATE OF SERVICE: July 08, 2021 TIME: 11:49 PM PATIENT IDENTITY VERIFICATION COMPLETED USING TWO (2) IDENTIFIERS: Name and Date of confirmed by patient verbally. FALL SCREENING: Has the patient had 2 falls in the last year or 1 fall with injury or currently using an Ambulatory Assistive Device (Walker, Cane, Wheelchair, Crutches, etc.)? Emergency Room Patient: Screened in ED PATIENT GENDER DATA: Female. status: : No status: NO. PATIENT RELEVANT IMPLANT DATA REVIEWED: Not Applicable RADIOLOGY DEPARTMENT: General X-ray: Exam(s) Completed: Chest X-Ray PERIPHERAL IV DATA: Not applicable SIGNED BY: Tisha Rasmussen RT(R) July 08, 2021 11:[address] PM [address] [facility] CBC and Differentialon 07-09 Abs Baso 0.04 k/uL Normal <0.11 [facility] [facility] Comment on above: Performed By: #### C MP, CBCDIF, MG1, DDMER ####[facility] [address] [place] [address] Abs [place] 0.49 k/uL Normal <0.[address] [facility] Comment on above: Performed By: #### C MP, CBCDIF, MG1, DDMER ####[facility] [address] [place] [address] Abs Neut 6.14 k/uL Normal 1.45-7.[address] [facility] Comment on above: Performed By: #### C MP, CBCDIF, MG1, DDMER ####[facility] [address] [place] [address] Absolute nRBC <0.01 Normal <0.[address] [facility] Comment on above: Performed By: #### C MP, CBCDIF, MG1, DDMER ####[facility] [address] [place] [address] Basophils/100 WBC (Bld) 0.4 % Normal [facility] Comment on above: Performed By: #### C MP, CBCDIF, MG1, DDMER ####[facility] [address] [place] [address] DTYPE Auto Diff Normal [facility] Comment on above: Performed By: #### C MP, CBCDIF, MG1, DDMER ####[facility] [address] [place] [address] Eosinophils (Bld) [#/Vol] 0.09 10*3/uL Normal <0.[address] [facility] Comment on above: Performed By: #### C MP, CBCDIF, MG1, DDMER ####[place] [address] Eosinophils/100 WBC (Bld) 0.9 % Normal [facility] Comment on above: Performed By: #### C MP, CBCDIF, MG1, DDMER ####[place] [address] Erythrocyte distribution width (RBC) [Ratio] 13.0 % Normal 11.5-15.[address] [facility] Comment on above: Performed By: #### C MP, CBCDIF, MG1, DDMER ####[place] [address] Hematocrit (Bld) [Volume fraction] 40.7 % Normal 36.0-46.[address] [facility] Comment on above: Performed By: #### C MP, CBCDIF, MG1, DDMER ####[place] [address] Hemoglobin (Bld) [Mass/Vol] 13.3 g/dL Normal 11.5-15.[address] [facility] Comment on above: Performed By: #### C MP, CBCDIF, MG1, DDMER ####[place] [address] Lymphocytes (Bld) [#/Vol] 3.04 10*3/uL Normal 1.00-4.[address] [facility] Comment on above: Performed By: #### C MP, CBCDIF, MG1, DDMER ####[place] [address] Lymphocytes/100 WBC (Bld) 31.0 % Normal [facility] Comment on above: Performed By: #### C MP, CBCDIF, MG1, DDMER ####[place] [address] MCH 29.6 pG Normal 26.0-34.[address] [facility] Comment on above: Performed By: #### C MP, CBCDIF, MG1, DDMER ####[facility] Xpmwtmsvbz1844 [address]721[address] MCHC (RBC) [Mass/Vol] 32.7 g/dL Normal 30.5-36.0 [facility] Comment on above: Performed By: #### C MP, CBCDIF, MG1, DDMER ####[facility] [address] [place] [address] MCV (RBC) [Entitic vol] 90.6 fL Normal 80.0-100.0 [facility] Comment on above: Performed By: #### C MP, CBCDIF, MG1, DDMER ####[facility] Kxhywxhuld0376 [address] Monocytes/100 WBC (Bld) 5.0 % Normal [facility] Comment on above: Performed By: #### C MP, CBCDIF, MG1, DDMER ####[facility] Cgqislypxz4080 [address]5[address] Neutrophils/100 WBC (Bld) 62.7 % Normal [facility] Comment on above: Performed By: #### C MP, CBCDIF, MG1, DDMER ####[facility] Vhhxkonywh1557 [address] NRBCs 0.0 /100 WBC Normal [address] [facility] Comment on above: Performed By: #### C MP, CBCDIF, MG1, DDMER ####[facility] [address] [place] [address] Platelet mean volume (Bld) [Entitic vol] 9.6 fL Normal 9.0-12.[address] [facility] Comment on above: Performed By: #### C MP, CBCDIF, MG1, DDMER ####[facility] [address] [place] [address] Platelets (Bld) [#/Vol] 360 10*3/uL Normal 150-[address] [facility] Comment on above: Performed By: #### C MP, CBCDIF, MG1, DDMER ####[facility] Becdvxvqqg4116 [address]721[address] RBC (Bld) [#/Vol] 4.49 10*6/uL Normal 3.90-5.20 [facility] Comment on above: Performed By: #### C MP, CBCDIF, MG1, DDMER ####[facility] [address] [place] [address] WBC (Bld) [#/Vol] 9.82 10*3/uL Normal 3.70-11.00 [facility] Comment on above: Performed By: #### C MP, CBCDIF, MG1, DDMER ####[facility] [address] [place] [address] Comp Metabolic Panelon 07-09 Albumin [Mass/Vol] 4.9 g/dL Normal 3.9-4.[address] [facility] Comment on above: Performed By: #### C MP, CBCDIF, MG1, DDMER ####[facility] [address] [place] [address] ALP [Catalytic activity/Vol] 70 U/L Normal 34-[address] [facility] Comment on above: Performed By: #### C MP, CBCDIF, MG1, DDMER ####[facility] [address] [place] [address] ALT [Catalytic activity/Vol] 9 U/L Normal 7-[address] [facility] Comment on above: Performed By: #### C MP, CBCDIF, MG1, DDMER ####[facility] [address] [place] [address] Anion gap [Moles/Vol] 11 mmol/L Normal 9-18 [facility] Comment on above: Performed By: #### C MP, CBCDIF, MG1, DDMER ####[facility] [address] [place] [address] AST [Catalytic activity/Vol] 16 U/L Normal 13-[address] [facility] Comment on above: Performed By: #### C MP, CBCDIF, MG1, DDMER ####[facility] [address] [place] [address] Bilirubin [Mass/Vol] mg/dL Low 0.2-1.3 [facility] Comment on above: Performed By: #### C MP, CBCDIF, MG1, DDMER ####[facility] L[address] [place] [address] Calcium [Mass/Vol] 9.8 mg/dL Normal 8.5-10.[address] [facility] Comment on above: Performed By: #### C MP, CBCDIF, MG1, DDMER ####[facility] [address] [place] [address] Chloride [Moles/Vol] 101 mmol/L Normal 97-105 [facility] Comment on above: Performed By: #### C MP, CBCDIF, MG1, DDMER ####[facility] [address] [place] [address] CO2 [Moles/Vol] 27 mmol/L Normal 22-[address] [facility] Comment on above: Performed By: #### C MP, CBCDIF, MG1, DDMER ####[facility] [address] [place] [address] Creatinine [Mass/Vol] 0.74 mg/dL Normal 0.58-0.96 [facility] Comment on above: Performed By: #### C MP, CBCDIF, MG1, DDMER ####[facility] [address] [place] [address] eGFR- Amer. >[address] [facility] Comment on above: Performed By: #### C MP, CBCDIF, MG1, DDMER ####[facility] [address] [place] [address] eGFR-All Other Races >60 Normal [facility] Comment on above: Result Comment: eGFR (Estimated GFR) Units of measure: mL/min/1.73 meters squared eGFR is derived from the reexpressed MDRD Study equation using the following parameters: serum creatinine, age, gender and race. The creatinine assay has been calibrated to be traceable to IDMS. An eGFR <60 mL/min/1.73m2 for >3 months is consistent with chronic kidney disease. Refer to KDOQI guidelines for clinical interpretation. In patients with unstable renal function, e.g. those with acute kidney injury, the eGFR may not accurately reflect actual GFR. Note: On 07/28/2021, the eGFR calculation will be updated to the NKF-ASN Task Force recommended 2020 CKD-EPI creatinine equation which does not include a race variable. For more information or to access a 2020 CKD-EPI calculator, visit the National Kidney Foundation website at kidney.org/professionals/kdoqi/gfr_calculator. Performed By: #### C TREVOR, CBCDIF, MG1, DDMER ####[facility] Ezalfdnnch0493 [address] Glucose [Mass/Vol] 109 mg/dL High 74-[address] [facility] Comment on above: Result Comment: The [place] Diabetes Association (ADA) provides guidance for cutoff values for fasting glucose and random glucose. The ADA defines fasting as no caloric intake for at least 8 hours. Fasting plasma glucose results between 100 to 125 mg/dL indicate increased risk for diabetes (prediabetes). Fasting plasma glucose results greater than or equal to 126 mg/dL meet the criteria for diagnosis of diabetes. In the absence of unequivocal hyperglycemia, results should be confirmed by repeat testing. In a patient with classic symptoms of hyperglycemia or hyperglycemic crisis, random plasma glucose results greater than or equal to 200 mg/dL meet the criteria for diagnosis of diabetes. Reference: Standards of Medical Care in Diabetes 2016, [place] [employer] Association. Diabetes Care. 2016.39(Suppl 1). Performed By: #### C MP, CBCDIF, MG1, DDMER ####[facility] [address] [place], [place] [id number] Potassium [Moles/Vol] 3.5 mmol/L Low 3.7-5.1 [facility] Comment on above: Performed By: #### C MP, CBCDIF, MG1, DDMER ####[facility] [address] [place], [place] [phone] Protein [Mass/Vol] 7.6 g/dL Normal 6.3-8.[address] [facility] Comment on above: Performed By: #### C MP, CBCDIF, MG1, DDMER ####[facility] Npgehjzerd6122 [address]5[address] Sodium [Moles/Vol] 139 mmol/L Normal 136-[address] [facility] Comment on above: Performed By: #### C MP, CBCDIF, MG1, DDMER ####[facility] Swmvtlooth8156 [address] Urea nitrogen [Mass/Vol] 13 mg/dL Normal 7-[address] [facility] Comment on above: Performed By: #### C MP, CBCDIF, MG1, DDMER ####[facility] [address] [place] [phone] D dimeron 07-09-2021 D dimer <190 Normal <[address] [facility] Comment on above: Result Comment: 500 ng/mL FEU is the D Dimer cutoff to exclude DVT (deep vein thrombosis) and PE (pulmonary embolism) in patients with a low pre test probability. Supplemental Comment: In patients over 50 years with a low pre test probability for DVT and/or PE, an age adjusted D dimer cutoff can be calculated as [age x 10] ng/mL FEU. For example, a patient of 88 years would have an age adjusted D dimer cutoff of 880 ng/mL FEU. For patients with a suspected DVT, a D dimer level below 500 ng/mL FEU has a negative predictive value of >98.9%, a sensitivity of >96.9% and a specificity of >35.7%. For patients with a suspected PE, a D dimer level below 500 ng/mL FEU has a negative predictive value of >98.5%, and a sensitivity of >96.5% and a specificity of >38.8%. Reference: Don M, et al. SANTIAGO 2014 311:1117 and Van Liset N, et al. Jyotsna Int Med 2016 165:253. Performed By: #### C TREVOR, KENDRA, MG1, DDMER ####[facility] [address] [place] [phone] ED NOTEon 07-09-2021 ED NOTE HNO ID: [id number] Author: Alba Savage RN Service: ? Author Type: Registered Nurse Type: ED Notes Filed: 07/09/2021 1:09 AM Note Text: Patient discharged, given verbal and written discharge instructions. Patient verbalized understanding. Nurse discussed medication (inhaler) that were prescribed and follow up appointments (pcp) and signs/symptoms of worsening conditions, and reasons why to come back to the emergency department. Normal [facility] ED NOTE HNO ID: [id number] Author: Alba Savage RN Service: ? Author Type: Registered Nurse Type: ED Notes Filed: 07/08/2021 11:08 PM Note Text: Patient arrived via private car with complaints of chest pain, under left breast, sharp and stabbing., started 30 mins ago. Has never had this pain before. Took at home covid test which was negative Normal [facility] ED PROV NOTEon 07-09-2021 ED PROV NOTE HNO ID: [id number] Author: Holli Mccann PA-C Service: Emergency Medicine Author Type: Physician Demand Inspector Type: ED Provider Notes Filed: 07/09/2021 12:35 AM Note Text: ED Provider Note Patient Name: Jarod Blandon SERVICE DATE: 07/08/21 History Patient presents with: Chest Pain: started 30mins ago under left breast, sharp and stabbing 30 year old female presents to ED c/o pain under left ribs. Pt states pain started shortly before arrival, an intermittent stabbing pain under left breast. Pain worse with movement and laying backwards. 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 Denies dizziness, lightheadedness. History provided by: Medical records and patient PAST MEDICAL HISTORY Diagnosis Date - IBS (irritable bowel syndrome) - Panic anxiety syndrome - Pneumonia x2 in 2020 No past surgical history on file. No family history on file. Social History Tobacco Use - Smoking status: Current Every Day Smoker Packs/day: 0.50 Years: 9.00 Pack years: 4.50 - Smokeless tobacco: Never Used Vaping Use - Vaping Use: Never used Substance and Sexual Activity - Alcohol use: Yes Comment: socially - Drug use: Not Currently Types: Marijuana Comment: last used last night - Sexual activity: Not Currently ALLERGIES Allergen Reactions - Amoxicillin Rash - Cefzil [Cefprozil] Rash - Keflex [Cephalexin] Rash - Penicillins Rash Review of Systems Constitutional: Negative for chills and fever. HENT: Negative. Respiratory: Negative. Cardiovascular: Positive for chest pain. Gastrointestinal: Negative. Musculoskeletal: Negative. Skin: Negative. Neurological: Negative. Hematological: Negative. Psychiatric/Behavioral: Negative. Physical Exam Vitals [07/08/21 2306] BP Pulse Temp Temp src Resp SpO2 Weight Height 133/88 88 36.7 ?C (98 ?F) Oral 18 98 % 52.6 kg (116 lb) -- Physical Exam Vitals and nursing note reviewed. Constitutional: Appearance: Normal appearance. HENT: Head: Normocephalic and atraumatic. Mouth/Throat: Mouth: Mucous membranes are moist. Eyes: Extraocular Movements: Extraocular movements intact. Conjunctiva/sclera: Conjunctivae normal. Pupils: Pupils are equal, round, and reactive to light. Cardiovascular: Rate and Rhythm: Normal rate and regular rhythm. Pulses: Normal pulses. Heart sounds: Normal heart sounds. Pulmonary: Effort: Pulmonary effort is normal. Breath sounds: Normal breath sounds. Chest: Chest wall: No tenderness. Abdominal: Palpations: Abdomen is soft. Tenderness: There is no abdominal tenderness. Musculoskeletal: General: Normal range of motion. Cervical back: Normal range of motion. Skin: General: Skin is warm and dry. Capillary Refill: Capillary refill takes less than 2 seconds. Neurological: Mental Status: She is alert and oriented to person, place, and time. Sensory: No sensory deficit. Motor: No weakness. Gait: Gait normal. Diagnostic Testing ED Labs Ordered and Reviewed COMP METABOLIC PANEL - Abnormal; Notable for the following components: Result Value Ref Range Bilirubin, Total <0.1 (*) 0.2 - 1.3 mg/dL Glucose 109 (*) 74 - 99 mg/dL Potassium 3.5 (*) 3.7 - 5.1 mmol/L All other components within normal limits CBC + DIFF MAGNESIUM BLD D-DIMER HIGH SENSITIVITY TROPONIN T XR CHEST 2V FRONTAL/LAT Final Result IMPRESSION: Peribronchial cuffing is nonspecific but may be seen in the setting of infection/inflammation, edema or reactive airway disease. Rodeo Clown: ABBEY Transcribe Date/Time: Jul 08 2021 11:51P Dictated by : ADAM ALCARAZ MD This examination was interpreted and the report reviewed and electronically signed by: ADAM ALCARAZ MD on Jul 08 2021 11:52PM EST Procedures ED Course / Clinical Impression Clinical Impressions as of 07/09/21 0035 Chest pain, unspecified type Cough Smoker MDM / Disposition / Plan Course: 30 year old female presents c/o chest pain. Vital signs were reviewed. Triage records were reviewed. Medical records were reviewed. Nursing notes were reviewed and incorporated. Sharp stabbing pain under left rib cage. Nontender on exam. Pain worse with movement. Breath sounds clear on exam. However pt is a smoker, has chronic cough which is slightly worse. No pain with inspiration. ECG shows NSR at 93 bpm, RBBB, no acute ST changes. Compared to prior 06/02/21. No leukocytosis or anemia. Hypokalemia, oral repletion given. Normal renal function. High sensitivity troponin negative. D dimer negative. CXR shows peribronchial cuffing, nonspecific. Pt is a smoker. Discussed with pt. Possible reactive airway disease. Prescription for albuterol inhaler given. Safe for discharge home. Follow up with PCP. Strict return precautions discussed. Pt understands and is in agreement with the plan. The patient was DISCHARGED: Counseled patient reg (more content not included)... Normal [facility] High Sens Troponin Ton 07-09 High Sensitivity CLAIRE <6 Normal <12 [facility] Comment on above: Performed By: #### H STNT ####[facility] Gzzfbgmgxl8886 [address] Magnesiumon 07-09-2021 Magnesium [Mass/Vol] 2.1 mg/dL Normal 1.7-2.3 [facility] Comment on above: Performed By: #### C MP, CBCDIF, MG1, DDMER ####[facility] [address] [place] [phone] XR CHEST 2V FRONTAL/LATon XR CHEST 2V FRONTAL/LAT * * *Final Repor t* * * DATE OF EXAM: Jul 08 2021 11:40PM MDX [id number] - XR CHEST 2V FRONTAL/LAT / PROCEDURE REASON: Chest pain * * * * Physician Interpretation * * * * EXAMINATION: 2 VIEW CHEST RADIOGRAPH (PA/AP AND LATERAL) Clinical History: Chest pain Comparison: 06/02/2021 RESULT: Lines, tubes, and devices: None. Lungs and pleura: No confluent infiltrate, large pleural effusion or pneumothorax. Peribronchial cuffing is nonspecific but may be seen in the setting of infection/inflammation, edema or reactive airway disease. Cardiomediastinal silhouette: Within normal limits. Other: No acute bony abnormality identified. IMPRESSION: Peribronchial cuffing is nonspecific but may be seen in the setting of infection/inflammation, edema or reactive airway disease. Rodeo Clown: ABBEY Transcribe Date/Time: Jul 08 2021 11:51P Dictated by : ADAM ALCARAZ MD This examination was interpreted and the report reviewed and electronically signed by: ADAM ALCARAZ MD on Jul 08 2021 11:52PM EST [id number] Normal [facility] ALLIED HEALTHon 06-02-2021 ALLIED HEALTH HNO ID: [id number] Author: RT Marlo(R) Service: ? Author Type: Technologist Type: Allied Health Filed: 06/02/2021 3:42 PM Note Text: Radiology Service Progress Note PATIENT NAME: Jarod Blandon DATE OF SERVICE: June 02, 2021 TIME: 3:41 PM PATIENT IDENTITY VERIFICATION COMPLETED USING TWO (2) IDENTIFIERS: Name and Date of confirmed by patient verbally. FALL SCREENING: Has the patient had 2 falls in the last year or 1 fall with injury or currently using an Ambulatory Assistive Device (Walker, Cane, Wheelchair, Crutches, etc.)? Emergency Room Patient: Screened in ED PATIENT GENDER DATA: Female. status: : No status: NO. PATIENT RELEVANT IMPLANT DATA REVIEWED: Not Applicable RADIOLOGY DEPARTMENT: General X-ray: Exam(s) Completed: Chest X-Ray PERIPHERAL IV DATA: Not applicable SIGNED BY: RT Marlo(R) June 02, 2021 3:41 PM Normal [facility] CBC and Differentialon 06-02 Abs Baso 0.05 k/uL Normal <0.[address] [facility] Comment on above: Performed By: #### C BCJOSESITO CMP ####[facility] [address] [place] [address] Abs [place] 0.74 k/uL Normal <0.[address] [facility] Comment on above: Performed By: #### C BCDIF CMP ####[facility] [address]xwdc27[address] [place] [address] Abs Neut 7.98 k/uL High 1.45-7.[address] [facility] Comment on above: Performed By: #### C BCJOSESITO CMP ####[facility] [address] [place] [address] Absolute nRBC <0.01 Normal <0.[address] [facility] Comment on above: Performed By: #### C BCDIF CMP ####[facility] [address] [place] [address] Basophils/100 WBC (Bld) 0.4 % Normal [facility] Comment on above: Performed By: #### C BCDIF, CMP ####[facility] [address] [place] [address] DTYPE Auto Diff Normal [facility] Comment on above: Performed By: #### C BCDIF, CMP ####[facility] [address] [place] [address] Eosinophils (Bld) [#/Vol] 0.05 10*3/uL Normal <0.[address] [facility] Comment on above: Performed By: #### C BCDIF, CMP ####[place] [address] Eosinophils/100 WBC (Bld) 0.4 % Normal [facility] Comment on above: Performed By: #### C BCPADMINIF, CMP ####[place] [address] Erythrocyte distribution width (RBC) [Ratio] 12.7 % Normal 11.5-15.[address] [facility] Comment on above: Performed By: #### C BCDIF, CMP ####[place] [address] Hematocrit (Bld) [Volume fraction] 36.0 % Normal 36.0-46.[address] [facility] Comment on above: Performed By: #### C BCDIF, CMP ####[place] [address] Hemoglobin (Bld) [Mass/Vol] 11.8 g/dL Normal 11.5-15.[address] [facility] Comment on above: Performed By: #### C BCDIF, CMP ####[facility] [address] [place] [address] Lymphocytes (Bld) [#/Vol] 2.71 10*3/uL Normal 1.00-4.[address] [facility] Comment on above: Performed By: #### C BCDIF, CMP ####[place] [id number] Lymphocytes/100 WBC (Bld) 23.5 % Normal [facility] Comment on above: Performed By: #### C BCDIF, CMP ####[address] MCH 29.8 pG Normal 26.0-34.[address] [facility] Comment on above: Performed By: #### C BCDIF, CMP ####[facility] [address] [place] [address] MCHC (RBC) [Mass/Vol] 32.8 g/dL Normal 30.5-36.0 [facility] Comment on above: Performed By: #### C BCDIF, CMP ####[facility] [address] [place] [address] MCV (RBC) [Entitic vol] 90.9 fL Normal 80.0-100.0 [facility] Comment on above: Performed By: #### C BCDIF, CMP ####[facility] [address] [place] [address] Monocytes/100 WBC (Bld) 6.4 % Normal [facility] Comment on above: Performed By: #### C BCDIF, CMP ####[facility] [address]an[address] [place] [address] Neutrophils/100 WBC (Bld) 69.3 % Normal [facility] Comment on above: Performed By: #### C BCDIF, CMP ####[facility] [address] [place] [address] NRBCs 0.0 /100 WBC Normal [address] [facility] Comment on above: Performed By: #### C BCDIF, CMP ####[facility] [facility] [address] [place] [address] Platelet mean volume (Bld) [Entitic vol] 9.4 fL Normal 9.0-12.[address] [facility] Comment on above: Performed By: #### C BCDIF, CMP ####[facility] [address] [place] [address] Platelets (Bld) [#/Vol] 343 10*3/uL Normal 150-[address] [facility] Comment on above: Performed By: #### C BCDIF, CMP ####[facility] [address] [place] [address] RBC (Bld) [#/Vol] 3.96 10*6/uL Normal 3.90-5.20 [facility] Comment on above: Performed By: #### C BCDIF, CMP ####[facility] [address] [place] [address] WBC (Bld) [#/Vol] 11.53 10*3/uL High 3.70-11.00 [facility] Comment on above: Performed By: #### C BCDIF, CMP ####[facility] [address] [place] [address] Comp Metabolic Panelon 06-02 Albumin [Mass/Vol] 4.3 g/dL Normal 3.9-4.[address] [facility] Comment on above: Performed By: #### C BCDIF, CMP ####[facility] [address] [place] [address] ALP [Catalytic activity/Vol] 60 U/L Normal 34-[address] [facility] Comment on above: Performed By: #### C BCDIF, CMP ####[facility] [address] [place] [address] ALT [Catalytic activity/Vol] 8 U/L Normal 7-[address] [facility] Comment on above: Performed By: #### C BCDIF, CMP ####[facility] [address] [place] [address] Anion gap [Moles/Vol] 11 mmol/L Normal 9-18 [facility] Comment on above: Performed By: #### C BCDIF, CMP ####[facility] [address] [place] [address] AST [Catalytic activity/Vol] 16 U/L Normal 13-[address] [facility] Comment on above: Performed By: #### C BCDIF, CMP ####[facility] [address] [place] [address] Bilirubin [Mass/Vol] 0.3 mg/dL Normal 0.2-1.3 [facility] Comment on above: Performed By: #### C BCDIF, CMP ####[facility] [address] [place] [address] Calcium [Mass/Vol] 9.1 mg/dL Normal 8.5-10.[address] [facility] Comment on above: Performed By: #### C BCDIF, CMP ####[facility] [address] [place] [address] Chloride [Moles/Vol] 105 mmol/L Normal 97-105 [facility] Comment on above: Performed By: #### C DEBORAH GREY ####[facility] [address] [place] [address] CO2 [Moles/Vol] 23 mmol/L Normal 22-[address] [facility] Comment on above: Performed By: #### C BCDIF, CMP ####[facility] [address] [place] [address] Creatinine [Mass/Vol] 0.59 mg/dL Normal 0.58-0.96 [facility] Comment on above: Performed By: #### C DEBORAH GREY ####[facility] [address] [place] [address] eGFR- Amer. >[address] [facility] Comment on above: Performed By: #### C BCDIF, CMP ####[facility] [address] [place] [address] eGFR-All Other Races >60 Normal [facility] Comment on above: Result Comment: eGFR (Estimated GFR) Units of measure: mL/min/1.73 meters squared eGFR is derived from the reexpressed MDRD Study equation using the following parameters: serum creatinine, age, gender and race. The creatinine assay has been calibrated to be traceable to IDMS. An eGFR <60 mL/min/1.73m2 for >3 months is consistent with chronic kidney disease. Refer to KDOQI guidelines for clinical interpretation. In patients with unstable renal function, e.g. those with acute kidney injury, the eGFR may not accurately reflect actual GFR. Note: On 07/28/2021, the eGFR calculation will be updated to the NKF-ASN Task Force recommended 2020 CKD-EPI creatinine equation which does not include a race variable. For more information or to access a 2020 CKD-EPI calculator, visit the National Kidney Foundation website at kidney.org/professionals/kdoqi/gfr_calculator. Performed By: #### C BCDIF, CMP ####[facility] [address] [place] [id number] Glucose [Mass/Vol] 94 mg/dL Normal 74-[address] [facility] Comment on above: Result Comment: The [place] Diabetes Association (ADA) provides guidance for cutoff values for fasting glucose and random glucose. The ADA defines fasting as no caloric intake for at least 8 hours. Fasting plasma glucose results between 100 to 125 mg/dL indicate increased risk for diabetes (prediabetes). Fasting plasma glucose results greater than or equal to 126 mg/dL meet the criteria for diagnosis of diabetes. In the absence of unequivocal hyperglycemia, results should be confirmed by repeat testing. In a patient with classic symptoms of hyperglycemia or hyperglycemic crisis, random plasma glucose results greater than or equal to 200 mg/dL meet the criteria for diagnosis of diabetes. Reference: Standards of Medical Care in Diabetes 2016, [place] [employer]. Diabetes Care. 2016.39(Suppl 1). Performed By: #### C BCDIF, CMP ####[facility] [address] [place] [address] Potassium [Moles/Vol] 4.0 mmol/L Normal 3.7-5.1 [facility] Comment on above: Performed By: #### C BCDIF, CMP ####[facility] [address] [place] [address] Protein [Mass/Vol] 7.0 g/dL Normal 6.3-8.[address] [facility] Comment on above: Performed By: #### C BCDIF, CMP ####[facility] [address] [place] [address] Sodium [Moles/Vol] 139 mmol/L Normal 136-[address] [facility] Comment on above: Performed By: #### C BCDIF, CMP ####[facility] [address] [place] [address] Urea nitrogen [Mass/Vol] 16 mg/dL Normal 7-[address] [facility] Comment on above: Performed By: #### C BCDIF, CMP ####[facility] [address] [place] [address] ED NOTEon 06-02-2021 ED NOTE HNO ID: [id number] Author: Duong Sabillon RN Service: ? Author Type: Registered Nurse Type: ED Notes Filed: 06/02/2021 4:54 PM Note Text: Pt given discharge instructions, pt verbalized understanding and importance of follow up care, pt ambulatory at bedside, pt discharged without incident. Normal [facility] ED NOTE HNO ID: [id number] Author: Ofelia Zarate RN Service: Nursing Author Type: Registered Nurse Type: ED Notes Filed: 06/02/2021 3:02 PM Note Text: Patient woke with bilat lung pain. She has had pneumonia twice this past year and was not related to covid. Patient would like to be examined for pneumonia due to it causing her to be hospitalized last year. Normal [facility] ED PROV NOTEon 06-02-2021 ED PROV NOTE HNO ID: [id number] Author: Cornelius Bassett PA-C Service: ? Author Type: Physician Demand Inspector Type: ED Provider Notes Filed: 06/02/2021 4:50 PM Note Text: ED Provider Note Patient Name: Jarod Blandon SERVICE DATE: 06/02/21 History Patient presents with: Pain: bilat lung pain when she woke this morning 30-year-old female with PMH of IBS, anxiety, pneumonia presents for bilateral flank/lower chest wall pain. Patient states that she got up this morning was having some chest wall pain/flank pain. She states it is on both sides. Nothing is making the pain better or worse. Movement sometimes makes it a little bit worse. Deep inspiration does not exacerbate the pain. She states she has a history of costochondritis and also pneumonia. She wants to make sure that she does not have pneumonia since she has had to be hospitalized for this in the past. Patient reports cough, but this is chronic. She is a smoker. She denies any chest pain, but does point to her lower mid sternum and lateral chest wall as the site of her pain currently. States yesterday she had some epigastric pain with some indigestion, but does not really describe chest pain. Denies any chest tightness or chest pressure. She denies any shortness of breath. She denies any leg swelling or calf pain. No abdominal pain, vomiting, diarrhea. No sick contacts. No recent travel. No recent surgery or hospitalization. No other complaints. PAST MEDICAL HISTORY Diagnosis Date - IBS (irritable bowel syndrome) - Panic anxiety syndrome - Pneumonia x2 in 2020 History reviewed. No pertinent surgical history. No family history on file. Social History Tobacco Use - Smoking status: Current Every Day Smoker Packs/day: 0.50 Years: 9.00 Pack years: 4.50 - Smokeless tobacco: Never Used Vaping Use - Vaping Use: Never used Substance and Sexual Activity - Alcohol use: Yes Comment: socially - Drug use: Not Currently Types: Marijuana Comment: last used last night - Sexual activity: Not Currently ALLERGIES Allergen Reactions - Amoxicillin Rash - Cefzil [Cefprozil] Rash - Keflex [Cephalexin] Rash - Penicillins Rash Review of Systems Constitutional: Negative for chills and fever. HENT: Negative for congestion. Eyes: Negative for visual disturbance. Respiratory: Positive for cough. Negative for shortness of breath. Cardiovascular: Negative for chest pain (chest wall pain). Gastrointestinal: Negative for abdominal pain, diarrhea, nausea and vomiting. Endocrine: Negative for cold intolerance and heat intolerance. Genitourinary: Negative for dysuria, flank pain and hematuria. Musculoskeletal: Negative for arthralgias. Skin: Negative for rash. Neurological: Negative for dizziness and headaches. Psychiatric/Behavioral: Negative for confusion. Physical Exam Vitals [06/02/21 1458] BP Pulse Temp Temp src Resp SpO2 Weight Height 118/70 88 36.8 ?C (98.3 ?F) Oral 16 98 % 52.6 kg (116 lb) -- Physical Exam Vitals and nursing note reviewed. Constitutional: General: She is not in acute distress. Appearance: Normal appearance. She is not toxic-appearing. HENT: Head: Normocephalic and atraumatic. Nose: Nose normal. Mouth/Throat: Mouth: Mucous membranes are moist. Eyes: Conjunctiva/sclera: Conjunctivae normal. Cardiovascular: Rate and Rhythm: Normal rate and regular rhythm. Pulses: Normal pulses. Heart sounds: Normal heart sounds. Pulmonary: Effort: Pulmonary effort is normal. No respiratory distress. Breath sounds: Normal breath sounds. Chest: Chest wall: Tenderness present. No deformity or swelling. Comments: Patient has mild tenderness over lower mid sternum and bilateral anterior/lateral chest wall. No bruising or deformities. Abdominal: General: Bowel sounds are normal. Palpations: Abdomen is soft. Tenderness: There is no abdominal tenderness. There is no right CVA tenderness or left CVA tenderness. Musculoskeletal: General: Normal range of motion. Cervical back: Normal range of motion. Skin: General: Skin is warm and dry. Capillary Refill: Capillary refill takes less than 2 seconds. Neurological: Mental Status: She is alert and oriented to person, place, and time. Psychiatric: Mood and Affect: Mood normal. Behavior: Behavior normal. DECISION SUPPORT - ED (all recorded) Pulmonary Embolism Row Name 06/02/21 1519 PERC Is pretest probability for PE > than 15% 0 Age > 50 0 HR >= 100 0 spO2 on room air < 95% 0 History of prior PE or DVT 0 Recent Trauma or Surgery 0 Hemoptysis? 0 Exogenous Estrogen? 0 Unilateral leg swelling 0 PERC Score = 0 If PERC Score > 0 - The PERC rule is not satisfied and cannot be used to rule out Pulmonary Embolism for this patient No need for further workup, as < 2% chance of PE Wells' Clinical signs and symptoms of DVT ? PE is #1 Diagnosis, or equally likely ? Heart Rate is > 100 ? Immobilizat (more content not included)... Normal [facility] Troponin Ton 06-02-2021 Troponin T <0.010 Normal 0.000-0.[address] [facility] Comment on above: Performed By: #### T NT #### [facility] [address] [place] [address] Urinalysison 06-02-2021 Bilirubin, Urine Negative Normal Negative [facility] Comment on above: Performed By: #### U A #### [facility] [address] [place] [address] Clarity (U) Clear Normal Clear [facility] Comment on above: Performed By: #### U A #### [facility] [address] [place] [address] Color (U) Yellow Normal Yellow [facility] Comment on above: Performed By: #### U A #### [facility] [address] [place] [address] Glucose Ql (U) Negative Normal Negative [facility] Comment on above: Performed By: #### U A #### [facility] [address] [place], [place] [id number] Hemoglobin/Blood,Ur Negative Normal Negative [facility] Comment on above: Performed By: #### U A #### [facility] [address] [place], [place] [id number] Ketones Ql (U) Negative Normal Negative [facility] Comment on above: Performed By: #### U A #### [facility] [address] [place], [place] [id number] Leukest Negative Normal Negative [facility] Comment on above: Performed By: #### U A #### [facility] [address] Nitrite Ql (U) Negative Normal Negative [facility] Comment on above: Performed By: #### U A #### [facility] [address] pH (U) 6.0 [pH] Normal 5.0-8.[address] [facility] Comment on above: Performed By: #### U A #### [facility] [address] Protein, Urine Negative Normal Negative [facility] Comment on above: Performed By: #### U A #### [facility] [address] [place] [address] Specific [place], Ur 1.025 Normal 1.005-1.030 [facility] Comment on above: Performed By: #### U A #### [facility] [address] [place] [address] Urobilinogen Qn (U) 0.2 {Brenda'U}/dL Normal 0.2-1.[address] [facility] Comment on above: Performed By: #### U A #### [facility] [address] XR CHEST 2V FRONTAL/LATon XR CHEST 2V FRONTAL/LAT * * *Final Repor t* * * DATE OF EXAM: Jun 02 2021 3:41PM MDX [id number] - XR CHEST 2V FRONTAL/LAT / PROCEDURE REASON: Acute respiratory illness * * * * Physician Interpretation * * * * XR CHEST 2V FRONTAL/LAT CLINICAL HISTORY: Acute respiratory illness COMPARISON: April 02, 2021 RESULT: Lungs are clear. No cardiomegaly. No pulmonary edema. IMPRESSION: No acute pulmonary process. Rodeo Clown: PSCB Transcribe Date/Time: Jun 02 2021 3:41P Dictated by : NGUYEN GRANADOS MD This examination was interpreted and the report reviewed and electronically signed by: NGUYEN GRANADOS MD on Jun 02 2021 3:42PM EST [id number] Normal [facility] COVID-19 Molecular BREDon SARS-CoV-2 (COVID-19) RNA PANFILO+probe Ql (Unsp spec) Negative Normal [facility] Comment on above: Result Comment: This assay is designed to detect the RdRp target of SARS-CoV-2 using rapid molecular isothermal amplification technology. A Negative result does not preclude the possibility of COVID 19 infection since the adequacy of sample collection and/or low viral burden may result in the presence of viral nucleic acids below the analytical sensitivity of this test method. Test results should be used along with other clinical and laboratory data in making the diagnosis. This test has received FDA Emergency Use Authorization and has been verified by [facility] laboratory. This test is only authorized for the duration of the declaration and circumstances that exist to justify the authorization of the emergency use of the in vitro diagnostic tests for the detection of SARS-CoV-2 virus and/or diagnosis of COVID-19 infection under section 564(b)(1) of the Act. 21 U.S.C. 360bbb-3(b)(1), unless the authorization is terminated or revoked sooner. This testing was performed in the [facility] laboratory located at [[place] [address]] Performed By: #### C [id number] #### [facility] [address] [place] [address] Reconciliation Manager: Cheo Mcdonald MD ED Discharge Educationon ED Discharge Education Ear, Nose and Thr oat Sore Throat: Care Instructions Your Care Instructions Infection by bacteria or a virus causes most sore throats. Cigarette smoke, dry air, air pollution, allergies, and yelling can also cause a sore throat. Sore throats can be painful and annoying. Fortunately, most sore throats go away on their own. If you have a bacterial infection, your doctor may prescribe antibiotics. Follow-up care is a oh part of your treatment and safety. Be sure to make and go to all appointments, and call your doctor if you are having problems. It's also a good idea to know your test results and keep a list of the medicines you take. How can you care for yourself at home? ? If your doctor prescribed antibiotics, take them as directed. Do not stop taking them just because you feel better. You need to take the full course of antibiotics. ? Gargle with warm salt water once an hour to help reduce swelling and relieve discomfort. Use 1 teaspoon of salt mixed in 1 cup of warm water. ? Take an mzsm-mlp-gmsibjg pain medicine, such as acetaminophen (Tylenol), ibuprofen (Advil, Motrin), or naproxen (Aleve). Read and follow all instructions on the label. ? Be careful when taking nqxq-feq-plzadem cold or flu medicines and Tylenol at the same time. Many of these medicines have acetaminophen, which is Tylenol. Read the labels to make sure that you are not taking more than the recommended dose. Too much acetaminophen (Tylenol) can be harmful. ? Drink plenty of fluids. Fluids may help soothe an irritated throat. Hot fluids, such as tea or soup, may help decrease throat pain. ? Use gxzw-kdf-oinbqqv throat lozenges to soothe pain. Regular cough drops or hard candy may also help. These should not be given to young children because of the risk of choking. ? Do not smoke or allow others to smoke around you. If you need help quitting, talk to your doctor about stop-smoking programs and medicines. These can increase your chances of quitting for good. ? Use a vaporizer or humidifier to add moisture to your bedroom. Follow the directions for cleaning the machine. When should you call for help? Call your doctor now or seek immediate medical care if: ? You have new or worse trouble swallowing. ? Your sore throat gets much worse on one side. Watch closely for changes in your health, and be sure to contact your doctor if you do not get better as expected. Where can you learn more? Go to https://www.[employer]. net/patientEd Enter U420 in the search box to learn more about Sore Throat: Care Instructions. Current as of: September 15, 2019 Content Version: 12.7 ? [employer]. Care instructions adapted under license by your healthcare professional. If you have questions about a medical condition or this instruction, always ask your healthcare professional. [employer] disclaims any warranty or liability for your use of this information. Normal [facility] ED Patient Summaryon 021 ED Patient Summary [facility] Emergency Department Discharge Instructions [address] [id number] \.br\(Patient Copy)\.br\ \.br\Name: JAROD BLANDON : 1990 \.br\Allergies: penicillins; Keflex; Cefzil\.br\Diagnosis: Diagnoses This Visit\.br\ Medical problem - minor ([id number])\.br\ Person under investigation for COVID-19 (Z20.822)\.br\ Pharyngitis (J02.9)\.br\\.br\\.br\ \.br\ Visit Date: 05/17/2021 15:23:06 \.br\ Current Date Time: 05/17/2021 17:43:58 \.br\Address: [address] [place] [address] [place] [address] \.br\ \.br\ \.br\Primary Care Provider: \.br\ Name: NO FAMILY PHYSICIAN, 837\.br\ Phone: \.br\ \.br\Emergency Department Care Providers: \.br\ Primary Physician: SONYA HOWELL MD \.br\ \.br\ \.br\\.br\Thank you for choosing [facility] for your emergency care. You are very important to us. Our goal is to demonstrate our high quality medical care, and provide you with a very good patient experience.\.br\\.br\Yo u may receive a survey about our service. Please take the time to complete the survey and return it so we can continue to enhance our service.\.br\\.br\Thank you again for allowing the [facility] Emergency Department to care for your medical needs. If you have questions about your care or follow up information please contact us at [phone].\.br\\.br\ Follow-Up Instructions\.br\ \.br\CL JAROD ROTHMAN has been given these follow-up instructions:\.br\\.br\ \.br\With: Address: When: \.br\[address] NOT ON STAFF [address] [place] [address]\.br\[id number] Business (1) Within 3 to 5 days \.br\Comments: \.br\SALT WATER GARGLE \.br\CHLORASEPTIC SPRAY \.br\TYLENOL OR ADVIL \.br\\.br\\.br\With: Address: When: \.br\[address] NO FAMILY PHYSICIAN Within 3 to 5 days \.br\\.br\\.br\\.br\\.b r\ Patient Education Materials\.br\ \.br\JAROD BLANDON has been given the following patient education materials:\.br\\.br\Sor e Throat: Care Instructions\.br\Your Care Instructions\.br\\.br\I nfection by bacteria or a virus causes most sore throats. Cigarette smoke, dry air, air pollution, allergies, and yelling can also cause a sore throat. Sore throats can be painful and annoying. Fortunately, most sore throats go away on their own. If you have a bacterial infection, your doctor may prescribe antibiotics.\.br\Follow -up care is a oh part of your treatment and safety. Be sure to make and go to all appointments, and call your doctor if you are having problems. It's also a good idea to know your test results and keep a list of the medicines you take.\.br\How can you care for yourself at home?\.br\? If your doctor prescribed antibiotics, take them as directed. Do not stop taking them just because you feel better. You need to take the full course of antibiotics.\.br\? Gargle with warm salt water once an hour to help reduce swelling and relieve discomfort. Use 1 teaspoon of salt mixed in 1 cup of warm water.\.br\? Take an xvht-adj-egyxijh pain medicine, such as acetaminophen (Tylenol), ibuprofen (Advil, Motrin), or naproxen (Aleve). Read and follow all instructions on the label.\.br\? Be careful when taking tfbp-cas-iyteela cold or flu medicines and Tylenol at the same time. Many of these medicines have acetaminophen, which is Tylenol. Read the labels to make sure that you are not taking more than the recommended dose. Too much acetaminophen (Tylenol) can be harmful.\.br\? Drink plenty of fluids. Fluids may help soothe an irritated throat. Hot fluids, such as tea or soup, may help decrease throat pain.\.br\? Use cxbz-npv-wksdmqz throat lozenges to soothe pain. Regular cough drops or hard candy may also help. These should not be given to young children because of the risk of choking.\.br\? Do not smoke or allow others to smoke around you. If you need help quitting, talk to your doctor about stop-smoking programs and medicines. These can increase your chances of quitting for good.\.br\? Use a vaporizer or humidifier to add moisture to your bedroom. Follow the directions for cleaning the machine.\.br\When should you call for help?\.br\ Call your doctor now or seek immediate medical care if: \.br\ ? You have new or worse trouble swallowing. \.br\ ? Your sore throat gets much worse on one side. \.br\Watch closely for changes in your health, and be sure to contact your doctor if you do not get better as expected.\.br\Where can you learn more?\.br\Go to [email or web address]\.br\Enter U420 in the search box to learn more about Sore Throat: Care Instructions.\.br\Liu retnaa as of: September 15, 2019 Content Version: 12.7\.br\? [employer]. \.br\Care instructions adapted under license by your healthcare professional. If you have questions about a medical condition or this instruction, always ask your healthcare p (more content not included)... Normal [facility] ED Physician Reporton 2020 ED Physician Report Patient: VANNESA BLANDON CCA Age: 30 years Sex: Female : 1990 Associated Diagnoses: Pharyngitis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 mm[Hg] Martin Moomaw ELECTRONICS ASSEMBLER.WAITER/WAITRESS [employer] CLASS Work Phone: [facility] 08-19-2023 15:00-0400 Body temperature 97.81 [degF] Loraine Reed ELECTRONICS ASSEMBLER.WAITER/WAITRESS FIRST CLASS Work Phone: [facility] 08-19-2023 15:00-0400 Body weight 49.9 kg Loraine Reed ELECTRONICS ASSEMBLER.WAITER/WAITRESS [employer] CLASS Work Phone: [facility] 08-19-2023 15:00-0400 Diastolic blood pressure 64 mm[Hg] Loraine Reed ELECTRONICS ASSEMBLER.WAITER/WAITRESS FIRST CLASS Work Phone: [facility] 08-19-2023 15:00-0400 Heart rate 78 /min Loraine Reed ELECTRONICS ASSEMBLER.WAITER/WAITRESS [employer] CLASS Work Phone: [facility] 08-19-2023 15:00-0400 Respiratory rate 16 /min Loraine Reed ELECTRONICS ASSEMBLER.WAITER/WAITRESS FIRST CLASS Work Phone: [facility] 08-19-2023 15:00-0400 SaO2% (BldA) [Mass fraction] 98 % Loraine Reed ELECTRONICS ASSEMBLER.WAITER/WAITRESS FIRST CLASS Work Phone: [facility] 08-19-2023 15:00-0400 Systolic blood pressure 92 mm[Hg] Loraine Reed ELECTRONICS ASSEMBLER.WAITER/WAITRESS [employer] CLASS Work Phone: [facility] 05-12-2023 23:29-0500 Diastolic blood pressure 82 mm[Hg] [facility] 05-12-2023 23:29-0500 Heart rate 80 /min [facility] 05-12-2023 23:29-0500 Respiratory rate 13 /min [facility] 05-12-2023 23:29-0500 SaO2% (BldA) [Mass fraction] 98 % [facility] 05-12-2023 23:29-0500 Systolic blood pressure 124 mm[Hg] [facility] 05-12-2023 20:36-0500 Body height 162.56 cm [facility] 05-12-2023 20:36-0500 Body mass index (BMI) [Ratio] 19.7 kg/m2 [facility] 05-12-2023 20:36-0500 Body temperature 97.4 [degF] [facility] 05-12-2023 20:36-0500 Body weight 52.16 kg [facility] 04-10-2023 09:42-0500 Body temperature 97.5 [degF] Dipti Athy PA-C Work Phone: [facility] 04-10-2023 09:42-0500 Body weight 52.16 kg Dipti Athy PA-C Work Phone: [facility] 04-10-2023 09:42-0500 Diastolic blood pressure 62 mm[Hg] Dipti Athy PA-C Work Phone: [facility] 04-10-2023 09:42-0500 Heart rate 99 /min Dipti Athy PA-C Work Phone: [facility] 04-10-2023 09:42-0500 Respiratory rate 16 /min Dipti Athy PA-C Work Phone: [facility] 04-10-2023 09:42-0500 SaO2% (BldA) [Mass fraction] 97 % Dipti Athy PA-C Work Phone: [facility] 04-10-2023 09:42-0500 Systolic blood pressure 110 mm[Hg] Dipti Athy PA-C Work Phone: [facility] 01-09-2023 18:30-0400 Body weight 50.35 kg Peggy Mcbride ELECTRONICS ASSEMBLER.WAITER/WAITRESS [employer] CLASS Work Phone: [facility] 01-09-2023 18:30-0400 Diastolic blood pressure 60 mm[Hg] Peggy Mcbride ELECTRONICS ASSEMBLER.WAITER/WAITRESS FIRST CLASS Work Phone: [facility] 01-09-2023 18:30-0400 Heart rate 82 /min Peggy Mcbride ELECTRONICS ASSEMBLER.WAITER/WAITRESS [employer] CLASS Work Phone: [facility] 01-09-2023 18:30-0400 Respiratory rate 14 /min Peggy Mcbride ELECTRONICS ASSEMBLER.WAITER/WAITRESS [employer] CLASS Work Phone: [facility] 01-09-2023 18:30-0400 Systolic blood pressure 112 mm[Hg] Peggy Mcbride ELECTRONICS ASSEMBLER.WAITER/WAITRESS FIRST CLASS Work Phone: [facility] 11-14-2022 16:45-0400 Body height 162.56 cm [facility] 11-14-2022 16:45-0400 Body mass index (BMI) [Ratio] 17.6 kg/m2 [facility] 11-14-2022 16:45-0400 Body temperature 99 [degF] [facility] 11-14-2022 16:45-0400 Body weight 46.6 kg [facility] 11-14-2022 16:45-0400 Diastolic blood pressure 77 mm[Hg] [facility] 11-14-2022 16:45-0400 Heart rate 80 /min [facility] 11-14-2022 16:45-0400 Respiratory rate 14 /min [facility] 11-14-2022 16:45-0400 SaO2% (BldA) [Mass fraction] 98 % [facility] 11-14-2022 16:45-0400 Systolic blood pressure 137 mm[Hg] [facility] 11-14-2022 16:21-0400 Body temperature 98.8 [degF] Loraine Reed ELECTRONICS ASSEMBLER.WAITER/WAITRESS [employer] CLASS Work Phone: [facility] 11-14-2022 16:21-0400 Body weight 46.54 kg Loraine Reed ELECTRONICS ASSEMBLER.WAITER/WAITRESS [employer] CLASS Work Phone: [facility] 11-14-2022 16:21-0400 Diastolic blood pressure 88 mm[Hg] Loraine Reed ELECTRONICS ASSEMBLER.WAITER/WAITRESS [employer] CLASS Work Phone: [facility] 11-14-2022 16:21-0400 Heart rate 105 /min Loraine Reed ELECTRONICS ASSEMBLER.WAITER/WAITRESS FIRST CLASS Work Phone: [facility] 11-14-2022 16:21-0400 Respiratory rate 21 /min Loraine Reed ELECTRONICS ASSEMBLER.WAITER/WAITRESS FIRST CLASS Work Phone: [facility] 11-14-2022 16:21-0400 SaO2% (BldA) [Mass fraction] 98 % Loraine Reed ELECTRONICS ASSEMBLER.WAITER/WAITRESS FIRST CLASS Work Phone: [facility] 11-14-2022 16:21-0400 Systolic blood pressure 122 mm[Hg] Loraine Reed ELECTRONICS ASSEMBLER.WAITER/WAITRESS FIRST CLASS Work Phone: [facility] 11-11-2022 11:11-0400 Body temperature 98.1 [degF] Keily Praisler-Wood ELECTRONICS ASSEMBLER.WAITER/WAITRESS FIRST CLASS Work Phone: [facility] 11-11-2022 11:11-0400 Body weight 49.17 kg Keily Praisler-Wood ELECTRONICS ASSEMBLER.WAITER/WAITRESS FIRST CLASS Work Phone: [facility] 11-11-2022 11:11-0400 Diastolic blood pressure 66 mm[Hg] Keily Praisler-Wood ELECTRONICS ASSEMBLER.WAITER/WAITRESS FIRST CLASS Work Phone: [facility] 11-11-2022 11:11-0400 Heart rate 75 /min Keily Praisler-Wood ELECTRONICS ASSEMBLER.WAITER/WAITRESS FIRST CLASS Work Phone: [facility] 11-11-2022 11:11-0400 Respiratory rate 18 /min Keily Praisler-Wood ELECTRONICS ASSEMBLER.WAITER/WAITRESS FIRST CLASS Work Phone: [facility] 11-11-2022 11:11-0400 SaO2% (BldA) [Mass fraction] 99 % Keily Praisler-Wood ELECTRONICS ASSEMBLER.WAITER/WAITRESS FIRST CLASS Work Phone: [facility] 11-11-2022 11:11-0400 Systolic blood pressure 108 mm[Hg] Keily Praisler-Wood ELECTRONICS ASSEMBLER.WAITER/WAITRESS FIRST CLASS Work Phone: [facility] 09-30-2022 10:19-0400 Body weight 50.35 kg Peggy Zahra ELECTRONICS ASSEMBLER.WAITER/WAITRESS FIRST CLASS Work Phone: [facility] 09-30-2022 10:19-0400 Diastolic blood pressure 80 mm[Hg] Peggy Sujataoble ELECTRONICS ASSEMBLER.WAITER/WAITRESS FIRST CLASS Work Phone: [facility] 09-30-2022 10:19-0400 Heart rate 80 /min Peggy Knoble ELECTRONICS ASSEMBLER.WAITER/WAITRESS FIRST CLASS Work Phone: [facility] 09-30-2022 10:19-0400 Respiratory rate 14 /min Peggy Sujataoble ELECTRONICS ASSEMBLER.WAITER/WAITRESS FIRST CLASS Work Phone: [facility] 09-30-2022 10:19-0400 Systolic blood pressure 120 mm[Hg] Peggy Knoble ELECTRONICS ASSEMBLER.WAITER/WAITRESS FIRST CLASS Work Phone: [facility] 08-09-2022 13:30-0500 Diastolic blood pressure 80 mm[Hg] [facility] 08-09-2022 13:30-0500 Heart rate 66 /min [facility] 08-09-2022 13:30-0500 SaO2% (BldA) [Mass fraction] 100 % [facility] 08-09-2022 13:30-0500 Systolic blood pressure 122 mm[Hg] [facility] 08-09-2022 12:10-0500 Body height 160.02 cm [facility] 08-09-2022 12:10-0500 Body mass index (BMI) [Ratio] 19.8 kg/m2 [facility] 08-09-2022 12:10-0500 Body temperature 98.2 [degF] [facility] 08-09-2022 12:10-0500 Body weight 50.93 kg [facility] 08-09-2022 12:10-0500 Respiratory rate 14 /min [facility] 06-02-2022 12:16-0500 Body height 160.02 cm [facility] Work Phone: 06-02-2022 12:16-0500 Body mass index (BMI) [Ratio] 19.5 kg/m2 [facility] 06-02-2022 12:16-0500 Body temperature 96.9 [degF] [facility] 06-02-2022 12:16-0500 Body weight 49.89 kg [facility] 06-02-2022 12:16-0500 Diastolic blood pressure 89 mm[Hg] [facility] 06-02-2022 12:16-0500 Heart rate 110 /min [facility] 06-02-2022 12:16-0500 Respiratory rate 18 /min [facility] 06-02-2022 12:16-0500 SaO2% (BldA) [Mass fraction] 98 % [facility] 06-02-2022 12:16-0500 Systolic blood pressure 151 mm[Hg] [facility] 02-04-2022 12:52-0400 Diastolic blood pressure 56 mm[Hg] No Pcp Required [facility] 02-04-2022 12:52-0400 Heart rate 69 /min No Pcp Required [facility] 02-04-2022 12:52-0400 Respiratory rate 18 /min No Pcp Required [facility] 02-04-2022 12:52-0400 SaO2% (BldA) [Mass fraction] 98 % No Pcp Required [facility] 02-04-2022 12:52-0400 Systolic blood pressure 112 mm[Hg] No Pcp Required [facility] 02-04-2022 09:52-0400 Body temperature 98.24 [degF] No Pcp Required [facility] Encounters Encounter Date Encounter Type Care Provider Facility Start: 10-11-2024 End: 10-11-2024 Patient encounter procedure Melvin Pacheco APRN.CNP Work Phone: [facility] Comment on above: Acute right-sided lo w back pain without sciatica (Primary Dx) Start: 10-11-2024 End: 10-11-2024 ambulatory ALONDRA OROZCO Facility:[facility] Start: 09-03-2024 End: 09-06-2024 ambulatory Peggy Mcbride APRN.CNP Work Phone: [facility] Comment on above: Medication Start: 09-02-2024 End: 09-02-2024 Telephone encounter Peggy Mcbride APRN.CNP Work Phone: [facility] Comment on above: Patient Question Start: 09-01-2024 End: 09-01-2024 Refill Peggy Mcbride APRN.CNP Work Phone: [facility] Comment on above: Med Change Request Start: 08-31-2024 End: 08-31-2024 Telephone encounter Alondra Orozco MD Work Phone: [facility] Comment on above: Insurance Authorizat ion Start: 08-31-2024 End: 08-31-2024 Patient encounter procedure Peggy Mcbride APRN.CNP Work Phone: [facility] Comment on above: Anxiety and depressi on (Primary Dx) Start: 08-31-2024 End: 08-31-2024 ambulatory PEGGY MCBRIDE Facility:[facility] Start: 08-25-2024 End: 08-25-2024 Emergency department patient visit Corinne NUNEZC Work Phone: -Emergency Department Work Phone: Start: 08-25-2024 End: 08-25-2024 Patient encounter procedure Ita Church ELECTRONICS ASSEMBLER.WAITER/WAITRESS FIRST CLASS Work Phone: [facility] Start: 08-16-2024 End: 08-16-2024 ambulatory [facility] Facility:[facility] Start: 08-16-2024 End: 08-16-2024 Patient encounter procedure Aranza Goins ELECTRONICS ASSEMBLER.WAITER/WAITRESS FIRST CLASS Work Phone: [facility] Comment on above: Flu-like symptoms (P rimary Dx); Viral illness Start: 07-29-2024 End: 07-29-2024 ambulatory [facility] Facility:[facility] Start: 07-29-2024 End: 07-29-2024 Office outpatient visit 15 minutes Gregorio Villarreal ELECTRONICS ASSEMBLER.WAITER/WAITRESS FIRST CLASS Work Phone: [facility] Comment on above: Viral illness (Prima ry Dx) Start: 07-19-2024 End: 07-19-2024 Emergency department patient visit Dr. Malcolm Thompson DO -Emergency Department Work Phone: Start: 07-19-2024 End: 07-19-2024 ambulatory CORINNE JONES Facility:[facility] Start: 07-19-2024 End: 07-19-2024 Patient encounter procedure Corinne Jones ELECTRONICS ASSEMBLER.WAITER/WAITRESS FIRST CLASS Work Phone: [facility] Comment on above: Drug rash (Primary D x); Dental abscess Start: 07-14-2024 End: 07-14-2024 ambulatory [facility] Facility:[facility] Start: 07-14-2024 End: 07-14-2024 Patient encounter procedure Conrelius STEPHENSON Work Phone: [facility] Comment on above: Dental infection (Pr imary Dx) Start: 07-09-2024 End: 07-09-2024 Emergency department patient visit Dr. Malcolm Thompson DO -Emergency Department Work Phone: Start: 05-06-2024 End: 05-06-2024 Subsequent hospital visit by physician X[facility] Work Phone: Radiology Comment on above: Acute cough [R05.1] Start: 05-06-2024 End: 05-06-2024 ambulatory ALONDRA OROZCO Facility:[facility] Start: 05-06-2024 End: 05-06-2024 Patient encounter procedure Loraine Reed APRN.WAITER/WAITRESS FIRST CLASS Work Phone: [facility] Comment on above: Acute cough (Primary Dx); Rhinosinusitis; Tobacco abuse Start: 04-21-2024 End: 04-21-2024 Emergency department patient visit Corinne Jones NP Facility:[facility] Start: 04-15-2024 End: 04-15-2024 Emergency department patient visit KAN SARABIA MD [facility] Start: 04-15-2024 End: 04-15-2024 Emergency department patient visit Ed Physician Provider Facility:[facility] Start: 04-14-2024 End: 04-14-2024 [facility] Facility:[facility] Start: 04-14-2024 End: 04-14-2024 Office outpatient visit 25 minutes Sanya Saavedra MD Work Phone: [facility] Comment on above: Dental infection (Pr imary Dx); URI, acute Start: 02-26-2024 End: 02-26-2024 ambulatory YAEL PHOENIX Facility:[facility] Start: 02-26-2024 End: 02-26-2024 Patient encounter procedure Yael Phoenix OD Work Phone: Ophthalmology Comment on above: Myopia, bilateral (P rimary Dx); Regular astigmatism of both eyes; Optic cupping of both eyes Start: 02-19-2024 End: 02-19-2024 ambulatory ROGE RAMIREZ Facility:[facility] Start: 02-19-2024 End: 02-19-2024 Patient encounter procedure Roge Ramirez ELECTRONICS ASSEMBLER.WAITER/WAITRESS [employer] CLASS Work Phone: OB/Gynecology Comment on above: Breast pain (Primary Dx); Fibrocystic breast changes, right Start: 02-18-2024 End: 02-18-2024 ambulatory Tari Jaime RN NURSE DAIRY FROZEN MANAGER Comment on above: breast pain Start: 02-18-2024 End: 02-18-2024 Patient encounter procedure Cornelius STEPHENSON Work Phone: [facility] Comment on above: Breast pain (Primary Dx) Start: 01-30-2024 End: 01-30-2024 Emergency department patient visit Corinne Jones DEGREASING WHEEL OPERATOR Facility:[facility] Start: 01-21-2024 End: 01-21-2024 Emergency department patient visit Corinne Joens DEGREASING WHEEL OPERATOR Facility:[facility] Start: 01-20-2024 End: 01-20-2024 ambulatory SELF Facility:[facility] Start: 01-20-2024 End: 01-20-2024 Patient encounter procedure Destiny Dash ELECTRONICS ASSEMBLER.WAITER/WAITRESS FIRST CLASS Work Phone: [facility] Comment on above: Dental infection (Pr imary Dx) Start: 01-10-2024 End: 01-10-2024 Emergency department patient visit Corinne Jones NP Facility:[facility] Start: 11-28-2023 ambulatory Seth Tian [facility] Start: 11-28-2023 End: 11-28-2023 ambulatory Adam Bush Facility:[facility] Start: 11-04-2023 End: 11-04-2023 ambulatory Adam Bush Facility:[facility] Start: 10-06-2023 End: 10-06-2023 Emergency department patient visit SWATI ALVARES MD Facility:[facility] Start: 10-06-2023 End: 10-06-2023 Emergency department patient visit SWATI ALVARES MD [facility] Start: 10-01-2023 End: 10-01-2023 Patient encounter procedure Martin Olmstead ELECTRONICS ASSEMBLER.WAITER/WAITRESS FIRST CLASS Work Phone: [facility] Comment on above: Dental infection (Pr imary Dx) Start: 08-19-2023 End: 08-19-2023 Patient encounter procedure Loraine Reed ELECTRONICS ASSEMBLER.WAITER/WAITRESS FIRST CLASS Work Phone: [facility] Comment on above: Abrasion of left cor kenna, initial encounter (Primary Dx) Start: 05-12-2023 End: 05-12-2023 [facility] Start: 04-10-2023 End: 04-10-2023 Subsequent hospital visit by physician Xr [facility] Work Phone: Radiology Comment on above: Acute cough [R05.1] Start: 04-10-2023 End: 04-10-2023 Patient encounter procedure Dipti Denton PA-C Work Phone: [facility] Comment on above: Viral illness (Prima ry Dx) Start: 01-14-2023 Telephone encounter Peggy brasher APRN.WAITER/WAITRESS FIRST CLASS Work Phone: [facility] Comment on above: Results Start: 01-09-2023 End: 01-09-2023 Patient encounter procedure Peggy Mcbride APRN.WAITER/WAITRESS FIRST CLASS Work Phone: [facility] Comment on above: Medication managemen t (Primary Dx); Anxiety and depression Refill Request Start: 12-30-2022 Refill Alondra Orozco MD Work Phone: [facility] Comment on above: Refill Request Start: 11-20-2022 Refill Peggy ufentes APRN.WAITER/WAITRESS FIRST CLASS Work Phone: [facility] Comment on above: Refill Request Start: 11-19-2022 Refill Peggy fuentes APRN.WAITER/WAITRESS FIRST CLASS Work Phone: [facility] Comment on above: Refill Request Start: 11-14-2022 End: 11-14-2022 [facility] Start: 11-14-2022 End: 11-14-2022 Patient encounter procedure Loraine Mariegs ELECTRONICS ASSEMBLER.WAITER/WAITRESS FIRST CLASS Work Phone: [facility] Comment on above: Other headache syndr ome (Primary Dx); Neck pain Start: 11-11-2022 End: 11-11-2022 Patient encounter procedure Keily DavenportEl ELECTRONICS ASSEMBLER.WAITER/WAITRESS FIRST CLASS Work Phone: [facility] Comment on above: Bacterial sinusitis (Primary Dx) Start: 11-07-2022 Refill Peggy fuentes ELECTRONICS ASSEMBLER.WAITER/WAITRESS FIRST CLASS Work Phone: [facility] Comment on above: Refill Request Start: 10-03-2022 ambulatory Peggy fuentes ELECTRONICS ASSEMBLER.WAITER/WAITRESS FIRST CLASS Work Phone: [facility] Comment on above: Zoloft Start: 09-30-2022 Telephone encounter [facility] Comment on above: Consult (Patient Out reach [facility]) Start: 09-30-2022 End: 09-30-2022 Patient encounter procedure Peggy Mcbride ELECTRONICS ASSEMBLER.WAITER/WAITRESS FIRST CLASS Work Phone: [facility] Comment on above: Anxiety and depressi on (Primary Dx); Medication management Start: 09-27-2022 ambulatory Corinne Podlogjermaine ELECTRONICS ASSEMBLER.WAITER/WAITRESS FIRST CLASS Work Phone: [facility] Comment on above: Anxiety Start: 08-09-2022 End: 08-09-2022 Emergency department patient visit [facility]Emergency Department Start: 06-02-2022 End: 06-02-2022 Emergency department patient visit [facility] Start: 02-15-2022 End: 02-15-2022 Emergency department patient visit MAURO SEAMAN Facility:[facility] Start: 02-04-2022 End: 02-04-2022 Emergency department patient visit Constantino Jones [facility] Start: 09-18-2021 End: 09-18-2021 Emergency department patient visit MAURO SEAMAN Facility:[facility] Start: 09-11-2021 ambulatory Carissa Talavera RT(R) Radiol ogy Comment on above: Radio Gen RMP Start: 09-11-2021 Patient encounter procedure Carissa Talavera RT(R) [facility] Start: 07-09-2021 End: 07-09-2021 Emergency department patient visit MAURO SEAMAN Facility:[facility] Start: 06-02-2021 End: 06-02-2021 Emergency department patient visit MAURO SEAMAN Facility:[facility] Start: 04-02-2021 End: 04-02-2021 Emergency department patient visit MAURO SEAMAN [facility] Start: 03-09-2021 End: 03-09-2021 Emergency department patient visit REBECCA NOBLE [facility] Procedures Date Procedure Procedure Detail Performing Clinician Start: 10-11-2024 Urnls dip stick/tabl et rgnt auto w/o microscopy Loraine Reed ELECTRONICS ASSEMBLER.WAITER/WAITRESS [employer] CLASS Work Phone: Start: 08-16-2024 INFLUENZA A&B MOLECU LAR (POC) Aranza Goins ELECTRONICS ASSEMBLER.WAITER/WAITRESS FIRST CLASS Work Phone: Start: 07-19-2024 CT of soft tissues o f neck with contrast Corinne Podlogar DEGREASING WHEEL OPERATOR-C Work Phone: Start: 07-09-2024 CT of soft tissues o f neck with contrast Corinne Podlogar DEGREASING WHEEL OPERATOR-C Work Phone: Start: 05-06-2024 Radiologic exam ches t 2 views Loraine Reed ELECTRONICS ASSEMBLER.WAITER/WAITRESS FIRST CLASS Work Phone: Start: 02-26-2024 Computerized ophthal dewayne imaging optic nerve Yael Phoenix OD Work Phone: Start: 05-12-2023 Plain chest X-ray Start: 04-10-2023 Radiologic exam ches t 2 views Dipti Denton PA-C Work Phone: Start: 08-09-2022 Plain chest X-ray Start: 02-04-2022 End: 02-04-2022 EKG impression Constantino altamirano None (qualifier value) IRINEO ALVARES MD Plan of Treatment Date Care Activity Detail Author Start: 02-25-2025 End: 02-25-2025 Patient encounter procedure 02/25/2025 9:30 AM EDT Office Visit [facility] Ophthalmology [address] [place] [address] Yael Phoenix, OD [address] [place] [address] 1 year follow up Ophthalmology Comment on above: 1 year follow up Start: 01-31-2025 Influenza vaccination Influenz a Vaccine (Season Ended) [facility] Start: 10-05-2024 End: 10-05-2024 Patient encounter procedure 10/05/2024 12:00 PM EDT Office Visit Family [facility] [address] [facility] [place] [address] Peggy Mcbride APRN.WAITER/WAITRESS FIRST CLASS [address] [place] [address] 5 week med follow up [facility] Comment on above: 5 week med follow up Start: 07-19-2024 [facility] Start: 07-09-2024 [facility] Start: 03-30-2024 End: 03-30-2024 Patient encounter procedure Mammogram Comment on above: Breast pain [N64.4] Comp- RT Breast pain Baseline Start: 02-19-2024 End: 02-19-2024 Patient encounter procedure 02/19/2024 9:30 AM EDT Office Visit OB/Gynecology [address] [place] [address] Roge Ramirez APRN.WAITER/WAITRESS FIRST CLASS [address] [place] [address] right breast lump OB/Gynecology Comment on above: right breast lump Start: 02-01-2024 Covid-19 Vaccine ( season) Covid-19 Vaccine ( season) [facility] Start: 02-01-2024 Covid-19 Vaccine ( season) Covid-19 Vaccine ( season) [facility] Start: 02-01-2024 Influenza vaccination [facility] Start: 06-02-2023 Behavioral Health Screening Behavioral Health Screening [facility] Start: 06-02-2023 Depression Assessment Depression Ass essment [facility] Start: 05-12-2023 [facility] Start: 05-12-2023 [facility] Start: 01-31-2023 Covid-19 Vaccine ( season) Covid-19 Vaccine ( season) [facility] Start: 01-31-2023 Influenza vaccination [facility] Start: 01-09-2023 End: 03-11-2023 PAIN PANEL, UR QUANT PAIN PANEL, UR QUANT Lab Routine Medication management Expected: 01/09/2023, Expires: 03/11/2023 [facility] Work Phone: Comment on above: Expected: 01/09/2023 , Expires: 03/11/2023 Start: 01-09-2023 End: 03-11-2023 TOX SCREEN ROUT UR TOX SCREEN ROUT UR Lab Routine Medication management Expected: 01/09/2023, Expires: 03/11/2023 [facility] Work Phone: Comment on above: Expected: 01/09/2023 , Expires: 03/11/2023 Start: 09-30-2022 End: 11-30-2022 Comprehensive metabolic 2000 panel - Serum or Plasma [facility] Work Phone: Comment on above: Expected: 09/30/2022 , Expires: 11/30/2022 Start: 06-02-2022 DEPRESSION ASSESSMENT DEPRESSION ASS ESSMENT [facility] Start: 02-04-2022 Abdominal pain Abdominal pain Date: 04-Feb-2022 [facility] Start: 02-04-2022 End: 02-05-2023 Potassium Chloride Powder Packet ; (K-KATHERIN)DOSE = 40 mEq Oral Once Start: 04-Feb-2022 End: 04-Feb-2023 Ordered: 04-Feb-2022 Constantino Jones Intent [facility] Start: 01-31-2022 Influenza vaccination INFLUENZ A (Season Ended) [facility] Start: 09-28-2021 HPV TESTING HPV TESTING [facility] Start: 09-28-2021 Screening for malign ant neoplasm of cervix HPV Testing [facility] Start: 09-28-2012 PAP TESTING PAP TESTING [facility] Start: 09-28-2012 Screening for malign ant neoplasm of cervix [facility] Start: 09-28-2010 Pneumococcal vaccination Pneumococcal Vaccine (1 of 2 - PCV) [facility] Start: 09-28-2010 Urine microalbumin profile [facility] Start: 09-28-2009 Anxiety Screening Anxiety Screening [facility] Start: 09-28-2009 Depression Screening Depression Scre ening [facility] Start: 09-28-2009 HEPATITIS C SCREENING HEPATITIS C SC REENING [facility] Start: 09-28-2009 HIV SCREENING HIV SCREENING [facility] Start: 2003 Adult depression screening assessment DEPRESSION SCREENING [facility] Start: 09-28-1997 PNEUMOCOCCAL (1 - PCV) PNEUMOCOCCAL (1 - PCV) [facility] Start: 09-28-1997 Pneumococcal vaccination [facility] Start: 09-28-1996 COVID-19 VACCINE (1) COVID-19 VACCIN E (1) [facility] Start: 03-30-1992 COVID-19 VACCINE (#1) COVID-19 VACCI NE (#1) [facility] Start: 1991 HEPATITIS B (1 of 3 - 3-dose series) HEPATITIS B (1 of 3 - 3-dose series) [facility] Bacteria identified in Urine by Culture BACTERIAL CULTURE, URINE Microbiology Routine Acute right-sided low back pain without sciatica 10/11/2024 12:27 PM EDT [facility] Work Phone: End: 10-01-2023 ECG COMPLETE ECG COMPLETE ECG Routine Medication management 1 Occurrences starting 09/30/2022 until 10/01/2023 [facility] Work Phone: Comment on above: 1 Occurrences starti ng 09/30/2022 until 10/01/2023 End: 03-20-2025 MG Breast - bilateral Diagnostic [facility] Radiology Routine Breast pain 1 Occurrences starting 02/19/2024 until 03/20/2025 [facility] Work Phone: Comment on above: 1 Occurrences starti ng 02/19/2024 until 03/20/2025 PAIN PANEL, UR QUANT PAIN PANEL, UR QUANT Lab Routine Medication management Ordered: 01/09/2023 [facility] Work Phone: Comment on above: Ordered: 01/09/2023 Patient Education [facility] Work Phone: Patient referral [facility] Work Phone: SPECIMEN VALIDITY, URINE SPECIMEN VALIDITY, URINE Lab Routine Medication management Ordered: 01/09/2023 [facility] Work Phone: Comment on above: Ordered: 01/09/2023 End: 03-20-2025 US Breast - right limited US BREAST LTD RIGHT Radiology Routine Breast pain 1 Occurrences starting 02/19/2024 until 03/20/2025 [facility] Comment on above: 1 Occurrences starti ng 02/19/2024 until 03/20/2025 [facility] Immunizations Immunization Date Immunization Notes Care Provider Christine mckenzie 03-26-1996 measles, mumps and rubella virus vaccine Cornelius STEPHENSON Work Phone: [facility] Payers Date Payer Category Payer Self-pay [id number] 2023 Unknown 2022 Medicaid [id number] 2016 Medicaid [id number] 1991 Unknown [id number] 2.16.8 [id number] 1991 Unknown [id number] 2.16.8 [id number] 1991 Unknown [id number] 2.16.8 [id number] Unknown BRIAN [id number] Unknown [id number] 2.16.8 [id number] Unknown [id number] 2.16.8 [id number] Unknown [id number] 2.16.8 [id number] Unknown [id number] 2.16.8 [id number] Unknown [id number] 2.16.8 [id number] Unknown [id number] 2.16.8 [id number] Unknown [id number] 2.16.8 [id number] Unknown [id number] 2.16.8 [id number] Unknown [id number] 2.16.8 [id number] Unknown [id number] 2.16.8 [id number] Unknown [id number] 2.16.8 [id number] Social History Date Type Detail Facility Start: 09-23-2015 End: 01-20-2024 Tobacco smoking status WVIS Smokes tobacco daily [facility] Start: 09-23-2015 End: 10-16-2022 Cigarettes smoked current (pack per day) - Reported 0.5 [facility] Start: 09-23-2015 End: 01-20-2024 Tobacco use and exposure Smokeless tobacco non-user [facility] Start: 09-11-2021 End: 02-14-2022 Alcohol intake Current drinker of alcohol (finding) [facility] Start: 09-23-2015 History SDOH Alcohol Comment socially [facility] Start: 1990 Sex Assigned At Not on file [facility] Start: 09-01-2021 End: 09-11-2021 Exposure to SARS-CoV-2 (event) Not sure [facility] Start: 06-02-2022 End: 05-12-2023 Tobacco smoking consumption unknown [facility] Start: 1990 Sex Assigned At Female [facility] History of tobacco use Cigarette Smoker [facility] Start: 10-24-2022 End: 10-11-2024 Alcohol intake Ex-drinker (finding) [facility] Start: 10-16-2022 History SDOH Alcohol Frequency 2 [facility] Start: 10-16-2022 History SDOH Social Connections Phone 4 [facility] Start: 10-16-2022 History SDOH Social Connections Shinto 1 [facility] Start: 10-16-2022 History SDOH Social Connections Meetings 98 [facility] Start: 10-16-2022 History SDOH Social Connections Living 5 [facility] Start: 10-16-2022 History SDOH Physica l Activity MPS 15 [facility] Start: 10-16-2022 History SDOH Financial 3 [facility] Start: 10-16-2022 End: 08-31-2024 Social connection and isolation panel [facility] Do you belong to any clubs or organizations such as restorationism groups, unions, fraternal or athletic groups, or school groups? No [facility] How often do you att end meetings of the clubs or organizations you belong to? Patient refused [facility] Are you now , , , , never or living with a partner? [facility] How often to you hav e a drink containing alcohol? Monthly or less [facility] How many standard drinks containing alcohol do you have on a typical day? 3 or 4 [facility] How often do you hav e 6 or more drinks on 1 occasion? Less than monthly [facility] How hard is it for y ou to pay for the very basics like food, housing, medical care, and heating Somewhat hard [facility] Do you feel stress - tense, restless, nervous, or anxious, or unable to sleep at night because your mind is troubled all the time - these days [OSQ] Very much [facility] (I/We) worried israel er (my/our) food would run out before (I/we) got money to buy more. Never true [facility] In the past 12 month s, was there a time when you were not able to pay the mortgage or rent on time? Yes [facility] Start: 10-06-2023 Tobacco smoking status Heavy t obacco smoker (finding) [facility] Start: 08-25-2024 Sex Female (finding) [facility] NEGATED: Highlighted row [facility] Functional Status Date Assessment Result Facility 04-15-2024 Functional Status ID band on, Allergy Band on, Call device within reach, Bed in low position, Wheels locked, Safety level maintained 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 [facility] Mental Status Date Assessment Result [facility] 04-15-2024 Mental Status Oriented x 4 [facility] 10-06-2023 Mental Status Oriented x 4 [facility] 05-12-2023 Cognitive function Voice/Name [facility] Work Phone: 11-14-2022 Cognitive function Level Of Cons ciousness Awake;Alert;Appropriate;Follow s Commands [facility] Work Phone: 08-09-2022 Cognitive function Level Of Cons ciousness Awake;Alert;Appropriate;Follow s Commands [facility] Work Phone: Clinical Notes 09-11-2021 to 10-11-2024 Melvin Pacheco APRN.WAITER/WAITRESS FIRST CLASS - 10/11/2024 12:07 PM EDTPatient InstructionsTelephone Encounter - Lupe hZu RN - 09/02/2024 12:15 PM EDTPeggy Mcbride APRN.JOY - 08/31/2024 9:09 AM EDT Note Date & Type Note Facility 10-11-2024 Note HNO ID: [id number] Author: MELVIN PACHECO APRN.WAITER/WAITRESS FIRST CLASS Service: ? Author Type: Nurse Practitioner Type: Progress Notes Filed: 10/11/2024 12:14 Note Text: [facility] Subjective Jarod Aldridge is a 34 year old year old who presents to express care today with complaint of Lower right back pain which began 1 day ago. Pain is constant, and lower back is tender to touch and worse with ROM/bending and turning/rotation. Denies radiation. Took ibuprofen which was minimally effective. 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 Denies specific injury or sensation of a Pull/pop or injury the last day she worked. States she had a Kidney infection a few years back 10? Years and she went to [facility] and was told she had a kidney infection and was given antibiotics, denies kidney stones in the past. Denies headaches, fever, sore throat, cough, shortness of breath, chest pains, Nausea, vomiting, changes in bowel or bladder or skin rashes. No current medication treatments. Requests minimal medications due to history of substance abuse in the past. Aside from symptoms as described above, patient has no other complaints at this time. HPI: see above Review of Systems Constitutional: Negative for chills, fatigue and fever. Respiratory: Negative for cough, shortness of breath and wheezing. Cardiovascular: Negative for chest pain, palpitations and leg swelling. Gastrointestinal: Negative for diarrhea, nausea and vomiting. Genitourinary: Negative for dysuria, frequency, hematuria, urgency and vaginal discharge. Musculoskeletal: Positive for back pain (Right lower back, does not radiate). ALLERGIES Allergen Reactions Cefzil [Cefprozil] Rash Clindamycin Rash Keflex [Cephalexin] Rash Penicillins Rash Zoloft [Sertraline] Intolerance Increased anxiety and patient felt numb Current Outpatient Medications on File Prior to Visit Medication Sig LORazepam (ATIVAN) 0.5 mg Take 0.5 mg by mouth three times a day. Currently on taper off medication. 0.5mg TID x7 days then 0.5mg BID x7 days then 0.5mg daily. vortioxetine (TRINTELLIX) 10 mg tablet Take 10 mg by mouth once daily. No current facility-administered medications on file prior to visit. 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 Physical Exam Vitals reviewed. Constitutional: General: She is not in acute distress. Appearance: Normal appearance. She is not ill-appearing or toxic-appearing. Cardiovascular: Rate and Rhythm: Normal rate and regular rhythm. Pulses: Normal pulses. Heart sounds: Normal heart sounds. Pulmonary: Effort: Pulmonary effort is normal. Breath sounds: Normal breath sounds. Abdominal: General: Bowel sounds are normal. Palpations: Abdomen is soft. Musculoskeletal: Arms: Skin: General: Skin is warm and dry. Capillary Refill: Capillary refill takes less than 2 seconds. Neurological: Mental Status: She is alert and oriented to person, place, and time. Assessment/Plan 1. Acute right-sided low back pain without sciatica (Primary) - UA DIP, URINE (POC)- WNL - BACTERIAL CULTURE, URINE - naproxen (NAPROSYN) 500 mg tablet; Take 1 tablet by mouth two times a day with meals. Take with food. Dispense: 28 tablet; Refill: 0 Will begin treatment for Musculoskeletal injury with request to see PCP in two weeks to discuss possible need for Physical Therapy for ongoing physical job. Patient advised to drink fluids, get rest and take all meds as prescribed. REST ICE BACK twice daily x 2 weeks. Patient given educational materials - see instructions. Discussed use, benefit, and side effects of prescribed medications. All questions answered. Patient advised to follow up with PCP in one week, or sooner if symptoms worsen or persist. If symptoms become severe- GO TO ED. Patient verbalized understanding and agreeable with treatment plan. Melvin Pacheco APRN WAITER/WAITRESS FIRST CLASS 10/11/2024 12:07 PM [facility] 10-11-2024 History of Presen t illness Narrative Images from the original note were not included. [facility] NOTE Subjective Jarod Aldridge is a 34 year old year old who presents to [facility] today with complaint of Lower right back pain which began 1 day ago. Pain is constant, and lower back is tender to touch and worse with ROM/bending and turning/rotation. Denies radiation. Took ibuprofen which was minimally effective. 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 Denies specific injury or sensation of a Pull/pop or injury the last day she worked. States she had a Kidney infection a few years back 10? Years and she went to [facility] and was told she had a kidney infection and was given antibiotics, denies kidney stones in the past. Denies headaches, fever, sore throat, cough, shortness of breath, chest pains, Nausea, vomiting, changes in bowel or bladder or skin rashes. No current medication treatments. Requests minimal medications due to history of substance abuse in the past. Aside from symptoms as described above, patient has no other complaints at this time. HPI: see above Review of Systems Constitutional: Negative for chills, fatigue and fever. Respiratory: Negative for cough, shortness of breath and wheezing. Cardiovascular: Negative for chest pain, palpitations and leg swelling. Gastrointestinal: Negative for diarrhea, nausea and vomiting. Genitourinary: Negative for dysuria, frequency, hematuria, urgency and vaginal discharge. Musculoskeletal: Positive for back pain (Right lower back, does not radiate). ALLERGIES Allergen Reactions Cefzil [Cefprozil] Rash Clindamycin Rash Keflex [Cephalexin] Rash Penicillins Rash Zoloft [Sertraline] Intolerance Increased anxiety and patient felt numb Current Outpatient Medications on File Prior to Visit Medication Sig LORazepam (ATIVAN) 0.5 mg Take 0.5 mg by mouth three times a day. Currently on taper off medication. 0.5mg TID x7 days then 0.5mg BID x7 days then 0.5mg daily. vortioxetine (TRINTELLIX) 10 mg tablet Take 10 mg by mouth once daily. No current facility-administered medications on file prior to visit. 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 Constitutional: General: She is not in acute distress. Appearance: Normal appearance. She is not ill-appearing or toxic-appearing. Cardiovascular: Rate and Rhythm: Normal rate and regular rhythm. Pulses: Normal pulses. Heart sounds: Normal heart sounds. Pulmonary: Effort: Pulmonary effort is normal. Breath sounds: Normal breath sounds. Abdominal: General: Bowel sounds are normal. Palpations: Abdomen is soft. Musculoskeletal: Arms: Skin: General: Skin is warm and dry. Capillary Refill: Capillary refill takes less than 2 seconds. Neurological: Mental Status: She is alert and oriented to person, place, and time. Assessment/Plan 1. Acute right-sided low back pain without sciatica (Primary) - UA DIP, URINE (POC)- WNL - BACTERIAL CULTURE, URINE - naproxen (NAPROSYN) 500 mg tablet; Take 1 tablet by mouth two times a day with meals. Take with food. Dispense: 28 tablet; Refill: 0 Will begin treatment for Musculoskeletal injury with request to see PCP in two weeks to discuss possible need for Physical Therapy for ongoing physical job. Patient advised to drink fluids, get rest and take all meds as prescribed. REST ICE BACK twice daily x 2 weeks. Patient given educational materials - see instructions. Discussed use, benefit, and side effects of prescribed medications. All questions answered. Patient advised to follow up with PCP in one week, or sooner if symptoms worsen or persist. If symptoms become severe- GO TO ED. Patient verbalized understanding and agreeable with treatment plan. Melvin Pacheco APRN, CNP 10/11/2024 12:07 PM documented in this encounter [facility] 10-11-2024 Instructions Melvin Pacheco APRN.JOY - 10/11/2024 12:01 PM EDT R.I.C.E. The general care of your injury includes the following: Resting, Icing, Compressing and Elevating the injured area. Remember this as RICE. REST: Limit the use of the injured body part. ICE: By applying ice to the affected area, swelling and pain can be reduced. Place some ice cubes in a re-sealable (Ziploc) bag and add some water. Put a thin washcloth between the bag and your skin. Apply the ice bag to the area for at least 20 minutes. Do this at least 4 times per day. Using the ice for longer times and more frequently is OK. NEVER APPLY ICE DIRECTLY TO THE SKIN. COMPRESS: Compression means to apply pressure around the injured area such as with a splint, cast or an beatriz bandage. Compression decreases swelling and improves comfort. Compression should be tight enough to relieve swelling but not so tight as to decrease circulation. Increasing pain, numbness, tingling, or change in skin color, are all signs of decreased circulation. ELEVATE: Elevate the injured part. For example, elevate your foot by placing it on a chair while sitting, or propping it up on pillows when lying down. documented in this encounter [facility] 09-02-2024 Telephone encounter Note Patient notified. Lupe Zhu RN [facility] 09-02-2024 Miscellaneous Notes Patient notified. Lupe Zhu RN TC patient, left message for patient to call back and speak with a triage nurse regarding provider instructions. Ella Burrell RN Vistaril is hydroxyzine which she has been on in the past and had S/E from. I have sent in a prescription for cymbalta which is the same class as venlafaxine and is covered by her insurance. Patient calls and states that insurance is not covering venlafaxine. Patient asking provider thinks Vistaril would help with patient's anxiety? Please review and advise, Ella Burrell RN documented in this encounter [facility] 09-02-2024 Telephone encounter Note TC patient, left message for patient to call back and speak with a triage nurse regarding provider instructions. Ella Burrell RN [facility] 09-02-2024 Telephone encounter Note Vistaril is hydroxyzine which she has been on in the past and had S/E from. I have sent in a prescription for cymbalta which is the same class as venlafaxine and is covered by her insurance. [facility] 09-02-2024 Telephone encounter Note Patient calls and states that insurance is not covering venlafaxine. Patient asking provider thinks Vistaril would help with patient's anxiety? Please review and advise, Ella Burrell RN [facility] 08-31-2024 Telephone encounter Note Images from the original note were not included. Electronic PA rec'd and completed for venlafaxine XR. This was approved. Prior authorization approved Payer: [facility] Note from payer: Your PA request for [id number] was approved for 90 days. The PA# assigned is [id number]. Approved: VENLAFAXINE HCL ER 37.5 MG This medication has been approved for 90 days to allow the dose titration. The quantity approved is above the amount allowed by your plan. This is called a Quantity Limit. For maintenance dosing, please refer to the [place] Department of Medicaid Quantity Limit List, which can be found at: https://spbm.medicaid.[place].gov Approval Details Authorization number: [id number] Authorized from August 31, 2024 to November 28, 2024 Electronic appeal: Not supported View History Pharmacy Benefits Open Encounter JAROD ALDRIDGE - MEDICAID ([facility]) Covered: Retail, Mail Order Unknown: Specialty, Long-Term Care BIN: [id number] : 1990 Group ID: PCN: [id number] Legal sex: F Group name: Address: [address] [place] [id number] Medication Being Authorized venlafaxine XR (EFFEXOR XR) 37.5 mg tr24 Take 1 tablet by mouth once daily. Increase to 75 mg in 2 weeks Dispense: 60 tablet Refills: 0 Start: 08/31/2024 Class: Normal Diagnoses: Anxiety and depression This order has been released to its destination. To be filled at: [facility]- [id number] [place] [address] [address] [facility] - [phone] [facility] [address] [facility] [address] [facility] 08-31-2024 Miscellaneous Notes Images from the original note were not included. Electronic PA rec'd and completed for venlafaxine XR. This was approved. Prior authorization approved Payer: [facility] Note from payer: Your PA request for [id number] was approved for 90 days. The PA# assigned is [id number]. Approved: VENLAFAXINE HCL ER 37.5 MG This medication has been approved for 90 days to allow the dose titration. The quantity approved is above the amount allowed by your plan. This is called a Quantity Limit. For maintenance dosing, please refer to the [place] Department of Medicaid Quantity Limit List, which can be found at: https://spbm.medicaid.[place].gov Approval Details Authorization number: [id number] Authorized from August 31, 2024 to November 28, 2024 Electronic appeal: Not supported View History Pharmacy Benefits Open Encounter JAROD ALDRIDGE - MEDICAID ([facility]) Covered: Retail, Mail Order Unknown: Specialty, Long-Term Care BIN: [id number] : 1990 Group ID: PCN: [id number] Legal sex: F Group name: Address: [address] [facility] [id number] Medication Being Authorized venlafaxine XR (EFFEXOR XR) 37.5 mg tr24 Take 1 tablet by mouth once daily. Increase to 75 mg in 2 weeks Dispense: 60 tablet Refills: 0 Start: 08/31/2024 Class: Normal Diagnoses: Anxiety and depression This order has been released to its destination. To be filled at: [facility]- [id number] [place] [address] [address] [facility]. - [phone] [facility] [id number] documented in this encounter [facility] 08-31-2024 Note HNO ID: [id number] Author: PEGGY MCBRIDE APRN.WAITER/WAITRESS FIRST CLASS Service: ? Author Type: Nurse Practitioner Type: Progress Notes Filed: 08/31/2024 09:30 Note Text: Chief Complaint Patient presents with: Follow Up HPI Jarod Aldridge is a 33 year old female who presents here today for Above Complaints.. Patient presents for medication follow up. Patient has been weaning off of lorazepam and started on buspar. Patient reports she is currently not taking buspar due to side effects of dizziness, palpitations, and excessive sweating. Past medical history, appointments, medications, allergies reviewed. Previous Medical History PAST MEDICAL HISTORY Diagnosis Date IBS (irritable bowel syndrome) Panic anxiety syndrome Pneumonia x2 in 2020 Vitamin D insufficiency Previous Surgical History No past surgical history on file. Family History FAMILY HISTORY Problem Relation Age of Onset Alcohol/Drug Father Pancreatitis Father COPD Father Lung Cancer Maternal Grandmother Colon Cancer Maternal Grandmother Asthma Maternal Grandfather COPD Paternal Grandfather Human Immunodeficiency Virus Half-brother Accidental Half-sister Breast Cancer Maternal Aunt 42 Patient Allergies ALLERGIES Allergen Reactions Cefzil [Cefprozil] Rash Clindamycin Rash Keflex [Cephalexin] Rash Penicillins Rash Zoloft [Sertraline] Intolerance Increased anxiety and patient felt numb Current Medications Current Outpatient Medications on File Prior to Visit Medication Sig LORazepam (ATIVAN) 1 mg tablet Take 1 mg by mouth two times a day as needed for anxiety. benzonatate (TESSALON PERLE) 100 mg capsule Take 2 capsules by mouth three times a day as needed. venlafaxine XR (EFFEXOR XR) 37.5 mg tr24 Take 37.5 mg by mouth once daily. Increase to 75 mg in 2 weeks (Patient not taking: Reported on 08/31/2024) No current facility-administered medications on file prior to visit. 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 General Appearance: Well appearing, alert, in no acute distress, well-hydrated, well nourished. Health Maintenance List Depression Screening Never done Anxiety Screening Never done DTaP,Tdap,Td Vaccine(1 - Tdap) Never done Pneumococcal Vaccine(1 of 2 - PCV) Never done Cervical Cancer Screening Never done Influenza Vaccine(1) Never done Covid-19 Vaccine() Never done Hepatitis C Screening Completed HIV Screening Completed Hepatitis B Vaccine Discontinued ALMA-7 10/23/2022 01/09/2023 08/31/2024 ALMA-7 All Questions Feeling nervous, anxious, or on edge More than half the days Nearly Everyday Nearly Everyday Not being able to stop or control worrying More than half the days Nearly Everyday More than half the days Worrying too much about different things More than half the days Nearly Everyday More than half the days Trouble relaxing More than half the days Nearly Everyday Several days Being so restless that it is hard to sit still More than half the days Nearly Everyday Several days Becoming easily annoyed or irritable Several days Nearly Everyday Several days Feeling afraid, as if something awful might happen Several days Nearly Everyday Nearly Everyday ALMA-7 Score 12 21 13 PHQ-9 10/16/2022 10/23/2022 01/09/2023 08/31/2024 PHQ-9 Scores Little interest or pleasure in doing things: More than half the days More than half the days More than half the days Nearly every day Not at all Feeling down, depressed, or hopeless: More than half the days Several days Several days Nearly every day Not at all Trouble falling or staying asleep, or sleeping too much Not at all Not at all More than half the days Not at all Feeling tired or having little energy More than half the days More than half the days Nearly every day Not at all Poor appetite or overeating More than half the days More than half the days Nearly every day Not at all Feeling bad about yourself - or that you are a failure or have let yourself or your family down More than half the days More than half the days More than half the days Several days Trouble concentrating on things, such as reading the newspaper or watching television More than half the days More than half the days Nearly every day Not at all Moving or speaking so slowly that other people could have noticed. Or the opposite - being so fidgety or restless that you have been moving around a lot more than usual More than h (more content not included)... [facility] 08-31-2024 History of Presen t illness Narrative Chief Complaint Patient presents with: Follow Up HPI Jarod Aldridge is a 33 year old female who presents here today for Above Complaints.. Patient presents for medication follow up. Patient has been weaning off of lorazepam and started on buspar. Patient reports she is currently not taking buspar due to side effects of dizziness, palpitations, and excessive sweating. Past medical history, appointments, medications, allergies reviewed. Previous Medical History PAST MEDICAL HISTORY Diagnosis Date IBS (irritable bowel syndrome) Panic anxiety syndrome Pneumonia x2 in 2020 Vitamin D insufficiency Previous Surgical History No past surgical history on file. Family History FAMILY HISTORY Problem Relation Age of Onset Alcohol/Drug Father Pancreatitis Father COPD Father Lung Cancer Maternal Grandmother Colon Cancer Maternal Grandmother Asthma Maternal Grandfather COPD Paternal Grandfather Human Immunodeficiency Virus Half-brother Accidental Half-sister Breast Cancer Maternal Aunt 42 Patient Allergies ALLERGIES Allergen Reactions Cefzil [Cefprozil] Rash Clindamycin Rash Keflex [Cephalexin] Rash Penicillins Rash Zoloft [Sertraline] Intolerance Increased anxiety and patient felt numb Current Medications Current Outpatient Medications on File Prior to Visit Medication Sig LORazepam (ATIVAN) 1 mg tablet Take 1 mg by mouth two times a day as needed for anxiety. benzonatate (TESSALON PERLE) 100 mg capsule Take 2 capsules by mouth three times a day as needed. venlafaxine XR (EFFEXOR XR) 37.5 mg tr24 Take 37.5 mg by mouth once daily. Increase to 75 mg in 2 weeks (Patient not taking: Reported on 08/31/2024) No current facility-administered medications on file prior to visit. 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 Health Maintenance List Depression Screening Never done Anxiety Screening Never done DTaP,Tdap,Td Vaccine(1 - Tdap) Never done Pneumococcal Vaccine(1 of 2 - PCV) Never done Cervical Cancer Screening Never done Influenza Vaccine(1) Never done Covid-19 Vaccine(1 - ) Never done Hepatitis C Screening Completed HIV Screening Completed Hepatitis B Vaccine Discontinued ALMA-7 10/23/2022 01/09/2023 08/31/2024 ALMA-7 All Questions Feeling nervous, anxious, or on edge More than half the days Nearly Everyday Nearly Everyday Not being able to stop or control worrying More than half the days Nearly Everyday More than half the days Worrying too much about different things More than half the days Nearly Everyday More than half the days Trouble relaxing More than half the days Nearly Everyday Several days Being so restless that it is hard to sit still More than half the days Nearly Everyday Several days Becoming easily annoyed or irritable Several days Nearly Everyday Several days Feeling afraid, as if something awful might happen Several days Nearly Everyday Nearly Everyday ALMA-7 Score 12 21 13 PHQ-9 10/16/2022 10/23/2022 01/09/2023 08/31/2024 PHQ-9 Scores Little interest or pleasure in doing things: More than half the days More than half the days More than half the days Nearly every day Not at all Feeling down, depressed, or hopeless: More than half the days Several days Several days Nearly every day Not at all Trouble falling or staying asleep, or sleeping too much Not at all Not at all More than half the days Not at all Feeling tired or having little energy More than half the days More than half the days Nearly every day Not at all Poor appetite or overeating More than half the days More than half the days Nearly every day Not at all Feeling bad about yourself - or that you are a failure or have let yourself or your family down More than half the days More than half the days More than half the days Several days Trouble concentrating on things, such as reading the newspaper or watching television More than half the days More than half the days Nearly every day Not at all Moving or speaking so slowly that other people could have noticed. Or the opposite - being so fidgety or restless that you have been moving around a lot more than usual More than half the days More than half the days More than half the days Not at all Thoughts that you would be better off , or of hurting yourself in some way Not at all Not at all Not at all Not at all PHQ-9 Score 14 13 21 1 Details Multiple values from one day are sorted in reverse-chronological order ASSESSMENT/PLAN: 1. Anxiety and depression - ICD9: 300.00, 311, ICD10: F41.9, F32.A - VENLAFAXINE ER 37.5 MG TABLET,EXTENDED RELEASE 24 HR - Continue ativan taper Peggy Mcbride APRN.JOY documented in this encounter [facility] 08-25-2024 History of Presen t illness Narrative I had my nurse, Fabiola, call patient to get more information based on chief complaint of wanting to discuss Ativan medication to let her know prior to appointment that I am unable to give advice on medication prescribed by another provider outside of family medicine. Based on [facility] report, Dr Orozco (PCP) has never prescribed her a benzodiazepine. This is a medication being managed by psychiatrist and was last refilled 60 tablets x 30 days on 08/03/24 (which means she should still have plenty left if taking BID prn as prescribed). I am happy to see patient for any concerns but wanted to let her know that chief complaint of Wanting to discuss Ativan medication will not be addressed because of the above. This was incorrectly scheduled. Pt reports that was the only reason for appointment was to get rx for ativan so she does not need appointment. Ita Church APRN.WAITER/WAITRESS FIRST CLASS documented in this encounter [facility] 08-25-2024 Note HNO ID: [id number] Author: ITA CHURCH APRN.CNP Service: ? Author Type: Nurse Practitioner Type: Progress Notes Filed: 08/25/2024 12:31 Note Text: I had my nurse, Fabiola, call patient to get more information based on chief complaint of wanting to discuss Ativan medication to let her know prior to appointment that I am unable to give advice on medication prescribed by another provider outside of family medicine. Based on [facility] report, Dr Orozco (PCP) has never prescribed her a benzodiazepine. This is a medication being managed by psychiatrist and was last refilled 60 tablets x 30 days on 08/03/24 (which means she should still have plenty left if taking BID prn as prescribed). I am happy to see patient for any concerns but wanted to let her know that chief complaint of Wanting to discuss Ativan medication will not be addressed because of the above. This was incorrectly scheduled. Pt reports that was the only reason for appointment was to get rx for ativan so she does not need appointment. Ita Church APRN.CNP [facility] 08-16-2024 Instructions Aranza Goins APRN.CNP - 08/16/2024 8:08 AM EDT Influenza A and B are negative Probable other viral illness Rest, increase water intake Tylenol as needed for fever or pain. Salt water gargles, chloraseptic spray or lozenges as needed for sore throat. Warm beverages, honey. Nasal saline spray as needed Cool mist humidifier at night A cold normally lasts 7-10 days. If your symptoms are lasting longer, develop fever, or worsening by that time instead of improving then return to clinic or follow up with PCP for re-evaluation. * Prednisone 40 mg (2 tablets) per day for 5 days, take in morning or early in day * Do not NSAIDs during this 5 day course (ibuprofen, naproxen, Motrin, Aleve, Advil) Tylenol only during prednisone use * Follow up with primary care provider if no improvement with treatment * Seek medical care immediately, call 911, go to ER if you have chest pain, difficulty breathing, shortness of breath, inability to swallow. documented in this encounter [facility] 08-16-2024 Note HNO ID: [id number] Author: ARANZA GOINS APRN.WAITER/WAITRESS FIRST CLASS Service: ? Author Type: Nurse Practitioner Type: Progress Notes Filed: 08/16/2024 08:14 Note Text: [facility] Subjective Jarod Aldridge is a 33 year old female. HPI Jarod Aldridge is a 33 year old female who presents today for CC of fever, chills, body aches, cough since Friday, she states it feels like her lungs are burning. She denies any known exposure to flu. She is also having diarrhea. She has used ibuprofen. BP 106/68 Pulse 114 Temp 36.9 ?C (98.5 ?F) Resp 16 Wt 47.6 kg (104 lb 15 oz) LMP 07/01/2024 (Within Days) SpO2 97% BMI 18.07 kg/m? 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 No washroom operator was used. Review of Systems Constitutional: Positive for chills and fever. Negative for fatigue. HENT: Negative for congestion, ear pain, rhinorrhea and sore throat. Respiratory: Negative for cough. Gastrointestinal: Positive for diarrhea. Musculoskeletal: Positive for arthralgias. Objective BP 106/68 Pulse 114 Temp 36.9 ?C (98.5 ?F) Resp 16 Wt 47.6 kg (104 lb 15 oz) LMP 07/01/2024 (Within Days) SpO2 97% BMI 18.07 kg/m? Physical Exam Vitals and nursing note reviewed. Constitutional: General: She is not in acute distress. HENT: Head: Normocephalic and atraumatic. Right Ear: Tympanic membrane, ear canal and external ear normal. Left Ear: Tympanic membrane, ear canal and external ear normal. Nose: Rhinorrhea present. No mucosal edema or congestion. Mouth/Throat: Mouth: Mucous membranes are moist. Pharynx: No posterior oropharyngeal erythema. Eyes: Conjunctiva/sclera: Conjunctivae normal. Pupils: Pupils are equal, round, and reactive to light. Pulmonary: Effort: Pulmonary effort is normal. Musculoskeletal: Cervical back: Normal range of motion and neck supple. Skin: General: Skin is warm and dry. Neurological: Mental Status: She is alert and oriented to person, place, and time. {ASSESSMENT/PLAN: 1. Flu-like symptoms - ICD9: 780.99, ICD10: R68.89 (primary diagnosis) Rapid flu - - INFLUENZA AANDB MOLECULAR (POC) 2. Viral illness - ICD9: 079.99, ICD10: B34.9 - Discussed viral etiology and rationale for treatment. - Symptomatic treatment with prn analgesia - Supportive care with fluids and rest - The patient may also use OTC cough and cold meds as needed. - Follow up in one week if symptoms persist or sooner if worsening of symptoms - Prednisone 40 mg (2-20mg tablets) po QD for 5 days - Kelly Padgett History and Record Review External record(s) reviewed: prior outpatient record. Systemic symptoms present included: Management Management of the patient was discussed with:other (see comment) Discussion with other healthcare resource(s) included: medications ordered Disposition The patient was discharged. Diagnosis and treatment plan were discussed and questions were answered to the patient's satisfaction. Pt acknowledged understanding of concepts and follow up plan. Specific signs and symptoms that would indicate the need for higher level of care were discussed in detail warranting prompt ER evaluation. Aranza Goins APRN.[facility] 08-16-2024 History of Presen t illness Narrative [facility] Subjective Jarod Aldridge is a 33 year old female. HPI Jarod Aldridge is a 33 year old female who presents today for CC of fever, chills, body aches, cough since Friday, she states it feels like her lungs are burning. She denies any known exposure to flu. She is also having diarrhea. She has used ibuprofen. 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 No washroom operator was used. Review of Systems Constitutional: Positive for chills and fever. Negative for fatigue. HENT: Negative for congestion, ear pain, rhinorrhea and sore throat. Respiratory: Negative for cough. Gastrointestinal: Positive for diarrhea. Musculoskeletal: Positive for arthralgias. Objective BP 106/68 Pulse 114 Temp 36.9 C (98.5 F) Resp 16 Wt 47.6 kg (104 lb 15 oz) LMP 07/01/2024 (Within Days) SpO2 97% BMI 18.07 kg/m Physical Exam Vitals and nursing note reviewed. Constitutional: General: She is not in acute distress. HENT: Head: Normocephalic and atraumatic. Right Ear: Tympanic membrane, ear canal and external ear normal. Left Ear: Tympanic membrane, ear canal and external ear normal. Nose: Rhinorrhea present. No mucosal edema or congestion. Mouth/Throat: Mouth: Mucous membranes are moist. Pharynx: No posterior oropharyngeal erythema. Eyes: Conjunctiva/sclera: Conjunctivae normal. Pupils: Pupils are equal, round, and reactive to light. Pulmonary: Effort: Pulmonary effort is normal. Musculoskeletal: Cervical back: Normal range of motion and neck supple. Skin: General: Skin is warm and dry. Neurological: Mental Status: She is alert and oriented to person, place, and time. {ASSESSMENT/PLAN: 1. Flu-like symptoms - ICD9: 780.99, ICD10: R68.89 (primary diagnosis) Rapid flu - - INFLUENZA A&B MOLECULAR (POC) 2. Viral illness - ICD9: 079.99, ICD10: B34.9 - Discussed viral etiology and rationale for treatment. - Symptomatic treatment with prn analgesia - Supportive care with fluids and rest - The patient may also use OTC cough and cold meds as needed. - Follow up in one week if symptoms persist or sooner if worsening of symptoms - Prednisone 40 mg (2-20mg tablets) po QD for 5 days - Kelly Padgett History and Record Review External record(s) reviewed: prior outpatient record. Systemic symptoms present included: Management Management of the patient was discussed with:other (see comment) Discussion with other healthcare resource(s) included: medications ordered Disposition The patient was discharged. Diagnosis and treatment plan were discussed and questions were answered to the patient's satisfaction. Pt acknowledged understanding of concepts and follow up plan. Specific signs and symptoms that would indicate the need for higher level of care were discussed in detail warranting prompt ER evaluation. Aranza Goins APRN.WAITER/WAITRESS FIRST CLASS documented in this encounter [facility] 07-29-2024 Note HNO ID: [id number] Author: GREGORIO VILLARREAL APRN.WAITER/WAITRESS FIRST CLASS Service: ? Author Type: Nurse Practitioner Type: Progress Notes Filed: 07/29/2024 15:35 Note Text: Subjective HPI Nontoxic-appearing 33-year-old female presents urgent care chief plaint nausea vomiting loose stools. Duration of symptoms today. Associated symptoms listed above. Presents for evaluation. No episodes of loose stools or vomiting recently. Earlier this morning she had a few episodes of loose stool. Went to work and was unable to finish her shift. OTC medications none. No current abdominal pain. No blood in vomit or stool. Denies chance of . Son sick earlier this week similar signs symptoms. Denies any fevers. Past medical history prescription medications allergies reviewed. .Patient presents with: Nausea AND Vomiting: Diarrhea x this am, PAST MEDICAL HISTORY Diagnosis Date IBS (irritable bowel syndrome) Panic anxiety syndrome Pneumonia x2 in 2020 Vitamin D insufficiency No past surgical history on file. ALLERGIES Amoxicillin, Cefzil [Cefprozil], Clindamycin, Keflex [Cephalexin], Penicillins, and Zoloft [Sertraline] MEDICATIONS LORazepam (ATIVAN) 1 mg tablet Take 1 mg by mouth two times a day as needed for anxiety. venlafaxine XR (EFFEXOR XR) 37.5 mg tr24 Take 37.5 mg by mouth once daily. Increase to 75 mg in 2 weeks predniSONE (DELTASONE) 10 mg tablet Take 4 tabs daily for 3 days, then 2 tabs daily for 3 days, then 1 tab daily for 3 days with food. (Patient not taking: Reported on 07/14/2024) FAMILY HISTORY Problem Relation Age of Onset Alcohol/Drug Father Pancreatitis Father COPD Father Lung Cancer Maternal Grandmother Colon Cancer Maternal Grandmother Asthma Maternal Grandfather COPD Paternal Grandfather Human Immunodeficiency Virus Half-brother Accidental Half-sister Breast Cancer Maternal Aunt 42 Social History Tobacco Use Smoking status: Every Day Current packs/day: 0.50 Average packs/day: 0.5 packs/day for 9.0 years (4.5 ttl pk-yrs) Types: Cigarettes Smokeless tobacco: Never Vaping Use Vaping status: Never Used Substance Use Topics Alcohol use: Not Currently Drug use: Not Currently Types: Marijuana, 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 Review of Systems Constitutional: Negative for chills, fever and malaise/fatigue. HENT: Negative for congestion, ear discharge, ear pain, sinus pain and sore throat. Eyes: Negative for blurred vision, pain, discharge and redness. Respiratory: Negative for cough, hemoptysis, sputum production, shortness of breath, wheezing and stridor. Cardiovascular: Negative for chest pain. Gastrointestinal: Positive for abdominal pain, diarrhea, nausea and vomiting. Musculoskeletal: Negative for myalgias. Skin: Negative for itching and rash. Neurological: Negative for dizziness and headaches. Objective Physical Exam Constitutional: General: She is not in acute distress. Appearance: She is not diaphoretic. HENT: Head: Normocephalic. Jaw: No trismus, tenderness, swelling or pain on movement. Mouth/Throat: Mouth: Mucous membranes are moist. Pharynx: Oropharynx is clear. Uvula midline. No pharyngeal swelling, oropharyngeal exudate, posterior oropharyngeal erythema or uvula swelling. Eyes: Conjunctiva/sclera: Conjunctivae normal. Pupils: Pupils are equal, round, and reactive to light. Cardiovascular: Rate and Rhythm: Normal rate and regular rhythm. Heart sounds: Normal heart sounds. Pulmonary: Effort: Pulmonary effort is normal. No tachypnea, accessory muscle usage or respiratory distress. Breath sounds: Normal breath sounds. No stridor. No wheezing, rhonchi or rales. Abdominal: General: There is no distension. Palpations: Abdomen is soft. Tenderness: There is no abdominal tenderness. There is no guarding or rebound. Musculoskeletal: Cervical back: Normal range of motion and neck supple. No edema, erythema, rigidity or tenderness. No pain with movement. Normal range of motion. Lymphadenopathy: Cervical: No cervical adenopathy. Skin: General: Skin is warm and dry. Neurological: Mental Status: She is alert and oriented to person, place, and time. ASSESSMENT/PLAN: 1. Viral illness - ICD9: 079.99, ICD10: B34.9 No evidence of acute abdomen. Son sick similar signs symptoms. Treat as viral etiology Patient was educated on supportive therapies. Patient will follow up with primary care provider as needed. Patient was instructed to immediately proceed to emergency room for any new, worsening, or symptoms lasting longer than anticipated. The patient's clinical presentation is otherwise unremarkable at this time. Based on exam and clinical finding, the patient is stable for discharge. Plan of care was discussed with patient. (more content not included)... [facility] 07-29-2024 History of Presen t illness Narrative Subjective HPI Nontoxic-appearing 33-year-old female presents urgent care chief plaint nausea vomiting loose stools. Duration of symptoms today. Associated symptoms listed above. Presents for evaluation. No episodes of loose stools or vomiting recently. Earlier this morning she had a few episodes of loose stool. Went to work and was unable to finish her shift. OTC medications none. No current abdominal pain. No blood in vomit or stool. Denies chance of . Son sick earlier this week similar signs symptoms. Denies any fevers. Past medical history prescription medications allergies reviewed. .Patient presents with: Nausea & Vomiting: Diarrhea x this am, PAST MEDICAL HISTORY Diagnosis Date IBS (irritable bowel syndrome) Panic anxiety syndrome Pneumonia x2 in 2020 Vitamin D insufficiency No past surgical history on file. ALLERGIES Amoxicillin, Cefzil [Cefprozil], Clindamycin, Keflex [Cephalexin], Penicillins, and Zoloft [Sertraline] MEDICATIONS LORazepam (ATIVAN) 1 mg tablet Take 1 mg by mouth two times a day as needed for anxiety. venlafaxine XR (EFFEXOR XR) 37.5 mg tr24 Take 37.5 mg by mouth once daily. Increase to 75 mg in 2 weeks predniSONE (DELTASONE) 10 mg tablet Take 4 tabs daily for 3 days, then 2 tabs daily for 3 days, then 1 tab daily for 3 days with food. (Patient not taking: Reported on 07/14/2024) FAMILY HISTORY Problem Relation Age of Onset Alcohol/Drug Father Pancreatitis Father COPD Father Lung Cancer Maternal Grandmother Colon Cancer Maternal Grandmother Asthma Maternal Grandfather COPD Paternal Grandfather Human Immunodeficiency Virus Half-brother Accidental Half-sister Breast Cancer Maternal Aunt 42 Social History Tobacco Use Smoking status: Every Day Current packs/day: 0.50 Average packs/day: 0.5 packs/day for 9.0 years (4.5 ttl pk-yrs) Types: Cigarettes Smokeless tobacco: Never Vaping Use Vaping status: Never Used Substance Use Topics Alcohol use: Not Currently Drug use: Not Currently Types: Marijuana, 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 HENT: Negative for congestion, ear discharge, ear pain, sinus pain and sore throat. Eyes: Negative for blurred vision, pain, discharge and redness. Respiratory: Negative for cough, hemoptysis, sputum production, shortness of breath, wheezing and stridor. Cardiovascular: Negative for chest pain. Gastrointestinal: Positive for abdominal pain, diarrhea, nausea and vomiting. Musculoskeletal: Negative for myalgias. Skin: Negative for itching and rash. Neurological: Negative for dizziness and headaches. Objective Physical Exam Constitutional: General: She is not in acute distress. Appearance: She is not diaphoretic. HENT: Head: Normocephalic. Jaw: No trismus, tenderness, swelling or pain on movement. Mouth/Throat: Mouth: Mucous membranes are moist. Pharynx: Oropharynx is clear. Uvula midline. No pharyngeal swelling, oropharyngeal exudate, posterior oropharyngeal erythema or uvula swelling. Eyes: Conjunctiva/sclera: Conjunctivae normal. Pupils: Pupils are equal, round, and reactive to light. Cardiovascular: Rate and Rhythm: Normal rate and regular rhythm. Heart sounds: Normal heart sounds. Pulmonary: Effort: Pulmonary effort is normal. No tachypnea, accessory muscle usage or respiratory distress. Breath sounds: Normal breath sounds. No stridor. No wheezing, rhonchi or rales. Abdominal: General: There is no distension. Palpations: Abdomen is soft. Tenderness: There is no abdominal tenderness. There is no guarding or rebound. Musculoskeletal: Cervical back: Normal range of motion and neck supple. No edema, erythema, rigidity or tenderness. No pain with movement. Normal range of motion. Lymphadenopathy: Cervical: No cervical adenopathy. Skin: General: Skin is warm and dry. Neurological: Mental Status: She is alert and oriented to person, place, and time. ASSESSMENT/PLAN: 1. Viral illness - ICD9: 079.99, ICD10: B34.9 No evidence of acute abdomen. Son sick similar signs symptoms. Treat as viral etiology Patient was educated on supportive therapies. Patient will follow up with primary care provider as needed. Patient was instructed to immediately proceed to emergency room for any new, worsening, or symptoms lasting longer than anticipated. The patient's clinical presentation is otherwise unremarkable at this time. Based on exam and clinical finding, the patient is stable for discharge. Plan of care was discussed with patient. Patient verbalizes understanding and agrees to plan of care. This note was generated using [employer] software. It may contain errors in wording, punctuation, or spelling. Gregorio Villarreal APRN.WAITER/WAITRESS FIRST CLASS documented in this encounter [facility] 07-19-2024 Note HNO ID: [id number] Author: CORINNE JONES APRN.WAITER/WAITRESS FIRST CLASS Service: ? Author Type: Nurse Practitioner Type: Progress Notes Filed: 07/19/2024 08:53 Note Text: 07/19/2024 Patient presents with: Allergic Reaction: Started Clindamycin Jun 28 for tooth abscess. Stopped on 07/17 SUBJECTIVE: This is a 33 year old that is here today for Above Complaints.. Started on Clindamycin on June 28 for toot abscess. Noticed rash to arms then spread to abdomen and legs. Stopped Clindamycin when she noticed it. Has not taken anything OTC for rash. Did get IV antibiotic (Unasyn) last week in ER- did not develop any symptoms after completing. Patient reports still having pain where she had drainage of abscess last week in ER. Denies fever, tongue swelling, drooling, SOB or dyspnea. PAST MEDICAL HISTORY Diagnosis Date IBS (irritable bowel syndrome) Panic anxiety syndrome Pneumonia x2 in 2020 Vitamin D insufficiency ALLERGIES Amoxicillin, Cefzil [Cefprozil], Keflex [Cephalexin], Penicillins, and Zoloft [Sertraline] MEDICATIONS Current Outpatient Medications Medication Sig LORazepam (ATIVAN) 1 mg tablet Take 1 mg by mouth two times a day as needed for anxiety. venlafaxine XR (EFFEXOR XR) 37.5 mg tr24 Take 37.5 mg by mouth once daily. Increase to 75 mg in 2 weeks predniSONE (DELTASONE) 10 mg tablet Take 4 tabs daily for 3 days, then 2 tabs daily for 3 days, then 1 tab daily for 3 days with food. (Patient not taking: Reported on 07/14/2024) No current facility-administered medications for this visit. Medications and allergies reviewed by this provider. 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 OBJECTIVE: BP 106/74 Pulse 73 Temp 36.9 ?C (98.4 ?F) Resp 16 Wt 47.2 kg (104 lb 0.9 oz) LMP 04/22/2024 (Within Days) SpO2 97% BMI 17.92 kg/m? . Vital signs reviewed by this provider. PHYSICAL EXAMINATION: General appearance: Well appearing, alert, in no acute distress, well-hydrated, well nourished. Skin: Skin color, texture, turgor normal, no suspicious rashes or lesions Head: No facial swelling observed Eyes: Ears: Nose/Sinuses: Oropharynx: left lower back molars broke below gum line. TTP gum line with swelling observed to last molar. No active drainage. Multiple broken teeth below gum line back left along with various dental caries to other teeth Neck: Supple, no adenopathy Heart: regular rate and rhythm, without murmur Lungs: Lungs clear to auscultation, No wheezing, rales or rhonchi SKIN: fine maculopapular rash to abdomen/back, and legs Depression Screening Never done Anxiety Screening Never done DTaP,Tdap,Td Vaccine(1 - Tdap) Never done Pneumococcal Vaccine(1 of 2 - PCV) Never done Cervical Cancer Screening Never done Influenza Vaccine(1) Never done Covid-19 Vaccine( - season) Never done Hepatitis C Screening Completed HIV Screening Completed Hepatitis B Vaccine Discontinued ASSESSMENT/PLAN: 1. Drug rash - ICD9: 693.0, ICD10: L27.0 (primary diagnosis) - continue to stay off of the Clindamycin - will add to medication allergy list - may take OTC benadryl as directed on packaging - no red flag symptoms or exam findings - red flag symptoms discussed 2. Dental abscess - ICD9: 522.5, ICD10: K04.7 - from reviewing her ER report from 07/09 it looks like they had wanted to transfer her for her abscess by she signed out AMA after and incision - with continued pain would recommend she go back to ER especially since I have limited antibiotics she can take for abscess. Patient agreeable to go to ER Corinne Podlogar, ELECTRONICS ASSEMBLER.WAITER/WAITRESS FIRST CLASS Prescription instructions reviewed with patient as applicable. Patient advised if symptoms do not improve or if symptoms worsen sooner, to contact their primary care physician. Potential red flag symptoms discussed with the patient. Reviewed appropriate action plan to take if red flag symptoms occur. Patient agreeable to treatment plan. I spent a total of 30 minutes on the date of the service which included preparing to see the patient, [id number] patient care, completing clinical documentation, obtaining and/or reviewing separately obtained history, performing a medically appropriate examination, and counseling and educating the patient/family/caregiver. [facility] 07-19-2024 History of Presen t illness Narrative 07/19/2024 Patient presents with: Allergic Reaction: Started Clindamycin Jun 28 for tooth abscess. Stopped on 07/17 SUBJECTIVE: This is a 33 year old that is here today for Above Complaints.. Started on Clindamycin on June 28 for toot abscess. Noticed rash to arms then spread to abdomen and legs. Stopped Clindamycin when she noticed it. Has not taken anything OTC for rash. Did get IV antibiotic (Unasyn) last week in ER- did not develop any symptoms after completing. Patient reports still having pain where she had drainage of abscess last week in ER. Denies fever, tongue swelling, drooling, SOB or dyspnea. PAST MEDICAL HISTORY Diagnosis Date IBS (irritable bowel syndrome) Panic anxiety syndrome Pneumonia x2 in 2020 Vitamin D insufficiency ALLERGIES Amoxicillin, Cefzil [Cefprozil], Keflex [Cephalexin], Penicillins, and Zoloft [Sertraline] MEDICATIONS Current Outpatient Medications Medication Sig LORazepam (ATIVAN) 1 mg tablet Take 1 mg by mouth two times a day as needed for anxiety. venlafaxine XR (EFFEXOR XR) 37.5 mg tr24 Take 37.5 mg by mouth once daily. Increase to 75 mg in 2 weeks predniSONE (DELTASONE) 10 mg tablet Take 4 tabs daily for 3 days, then 2 tabs daily for 3 days, then 1 tab daily for 3 days with food. (Patient not taking: Reported on 07/14/2024) No current facility-administered medications for this visit. Medications and allergies reviewed by this provider. 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 OBJECTIVE: BP 106/74 Pulse 73 Temp 36.9 C (98.4 F) Resp 16 Wt 47.2 kg (104 lb 0.9 oz) LMP 04/22/2024 (Within Days) SpO2 97% BMI 17.92 kg/m . Vital signs reviewed by this provider. PHYSICAL EXAMINATION: General appearance: Well appearing, alert, in no acute distress, well-hydrated, well nourished. Skin: Skin color, texture, turgor normal, no suspicious rashes or lesions Head: No facial swelling observed Eyes: Ears: Nose/Sinuses: Oropharynx: left lower back molars broke below gum line. TTP gum line with swelling observed to last molar. No active drainage. Multiple broken teeth below gum line back left along with various dental caries to other teeth Neck: Supple, no adenopathy Heart: regular rate and rhythm, without murmur Lungs: Lungs clear to auscultation, No wheezing, rales or rhonchi SKIN: fine maculopapular rash to abdomen/back, and legs Depression Screening Never done Anxiety Screening Never done DTaP,Tdap,Td Vaccine(1 - Tdap) Never done Pneumococcal Vaccine(1 of 2 - PCV) Never done Cervical Cancer Screening Never done Influenza Vaccine(1) Never done Covid-19 Vaccine( season) Never done Hepatitis C Screening Completed HIV Screening Completed Hepatitis B Vaccine Discontinued ASSESSMENT/PLAN: 1. Drug rash - ICD9: 693.0, ICD10: L27.0 (primary diagnosis) - continue to stay off of the Clindamycin - will add to medication allergy list - may take OTC benadryl as directed on packaging - no red flag symptoms or exam findings - red flag symptoms discussed 2. Dental abscess - ICD9: 522.5, ICD10: K04.7 - from reviewing her ER report from 07/09 it looks like they had wanted to transfer her for her abscess by she signed out AMA after and incision - with continued pain would recommend she go back to ER especially since I have limited antibiotics she can take for abscess. Patient agreeable to go to ER Corinne Jones APRN.WAITER/WAITRESS FIRST CLASS Prescription instructions reviewed with patient as applicable. Patient advised if symptoms do not improve or if symptoms worsen sooner, to contact their primary care physician. Potential red flag symptoms discussed with the patient. Reviewed appropriate action plan to take if red flag symptoms occur. Patient agreeable to treatment plan. I spent a total of 30 minutes on the date of the service which included preparing to see the patient, [id number] patient care, completing clinical documentation, obtaining and/or reviewing separately obtained history, performing a medically appropriate examination, and counseling and educating the patient/family/caregiver. documented in this encounter [facility] 07-14-2024 Note HNO ID: [id number] Author: CORNELIUS ODONNELL PA Service: ? Author Type: Physician Demand Inspector Type: Progress Notes Filed: 07/14/2024 17:32 Note Text: This note was created using [employer]. Subjective Jarod Aldridge is a 33 year old female. HPI 33-year-old female presents for dental pain. Patient states she has had dental pain and abscess for the past 10 days. She was seen at the ER about a week ago and had the abscess cut open per patient. Patient states that she replaced on clindamycin. She is on her last dose of antibiotic today. She states she still has a small white area which is concerning her for an abscess. She denies any fevers. No difficulty swallowing or breathing. States that she is trying to find a dentist that is free or will take a payment plan because she does not have dental insurance. No other complaint PAST MEDICAL HISTORY Diagnosis Date IBS (irritable bowel syndrome) Panic anxiety syndrome Pneumonia x2 in 2020 Vitamin D insufficiency No past surgical history on file. ALLERGIES Amoxicillin, Cefzil [Cefprozil], Keflex [Cephalexin], Penicillins, and Zoloft [Sertraline] MEDICATIONS LORazepam (ATIVAN) 1 mg tablet Take 1 mg by mouth two times a day as needed for anxiety. venlafaxine XR (EFFEXOR XR) 37.5 mg tr24 Take 37.5 mg by mouth once daily. Increase to 75 mg in 2 weeks clindamycin (CLEOCIN) 150 mg capsule Take 3 capsules by mouth three times a day for 3 days. predniSONE (DELTASONE) 10 mg tablet Take 4 tabs daily for 3 days, then 2 tabs daily for 3 days, then 1 tab daily for 3 days with food. (Patient not taking: Reported on 07/14/2024) FAMILY HISTORY Problem Relation Age of Onset Alcohol/Drug Father Pancreatitis Father COPD Father Lung Cancer Maternal Grandmother Colon Cancer Maternal Grandmother Asthma Maternal Grandfather COPD Paternal Grandfather Human Immunodeficiency Virus Half-brother Accidental Half-sister Breast Cancer Maternal Aunt 42 Social History Tobacco Use Smoking status: Every Day Current packs/day: 0.50 Average packs/day: 0.5 packs/day for 9.0 years (4.5 ttl pk-yrs) Types: Cigarettes Smokeless tobacco: Never Vaping Use Vaping status: Never Used Substance Use Topics Alcohol use: Not Currently 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 HENT: Positive for dental problem. Negative for congestion, ear pain and sore throat. Respiratory: Negative for cough and shortness of breath. Cardiovascular: Negative for chest pain. Gastrointestinal: Negative for diarrhea and vomiting. Objective BP 110/72 Pulse 83 Temp 36.8 ?C (98.3 ?F) (Tympanic) Resp 18 Wt 47.6 kg (104 lb 15 oz) LMP 04/22/2024 (Within Days) SpO2 98% BMI 18.07 kg/m? Physical Exam Vitals and nursing note reviewed. Constitutional: General: She is not in acute distress. Appearance: Normal appearance. She is not toxic-appearing. HENT: Nose: Nose normal. Mouth/Throat: Mouth: Mucous membranes are moist. Dentition: Abnormal dentition. Dental tenderness, dental caries and dental abscesses present. Comments: Patient has dental decay noted. She has tenderness over left lower molars with diffuse dental decay down to the gumline. Mild swelling noted along the gumline with a small linear white area which may be from previous abscess incision.. No drainage fluctuance or large abscess. No tongue or floor mouth swelling. Handling secretions. Airway intact. Eyes: Conjunctiva/sclera: Conjunctivae normal. Cardiovascular: Rate and Rhythm: Normal rate and regular rhythm. Pulmonary: Effort: Pulmonary effort is normal. Breath sounds: Normal breath sounds. Skin: General: Skin is warm and dry. Neurological: Mental Status: She is alert. Assessment and Plan ASSESSMENT/PLAN: 1. Dental infection - ICD9: 522.4, ICD10: K04.7 -Currently on clindamycin, on last dose. Still has very small amount of gum swelling on the left side and tenderness. -Will extend antibiotic x 3 days. Did discuss with patient there is risk of C. difficile with this medication, so it is not ideal for her to continue getting clindamycin for her dental infections. She needs to follow-up with a dentist. -Patient given a list of free dental clinics to follow-up with. Diagnosis and treatment plan were discussed and questions were answered to the patient's satisfaction. Pt acknowledged understanding of concepts and follow up plan. Specific signs and symptoms that would indicate the need for higher level of care were discussed in detail warranting prompt ER evaluation. SEEMA Staples [facility] 07-14-2024 History of Presen t illness Narrative This note was created using [employer]. Subjective Jarod Aldridge is a 33 year old female. HPI 33-year-old female presents for dental pain. Patient states she has had dental pain and abscess for the past 10 days. She was seen at the ER about a week ago and had the abscess cut open per patient. Patient states that she replaced on clindamycin. She is on her last dose of antibiotic today. She states she still has a small white area which is concerning her for an abscess. She denies any fevers. No difficulty swallowing or breathing. States that she is trying to find a dentist that is free or will take a payment plan because she does not have dental insurance. No other complaint PAST MEDICAL HISTORY Diagnosis Date IBS (irritable bowel syndrome) Panic anxiety syndrome Pneumonia x2 in 2020 Vitamin D insufficiency No past surgical history on file. ALLERGIES Amoxicillin, Cefzil [Cefprozil], Keflex [Cephalexin], Penicillins, and Zoloft [Sertraline] MEDICATIONS LORazepam (ATIVAN) 1 mg tablet Take 1 mg by mouth two times a day as needed for anxiety. venlafaxine XR (EFFEXOR XR) 37.5 mg tr24 Take 37.5 mg by mouth once daily. Increase to 75 mg in 2 weeks clindamycin (CLEOCIN) 150 mg capsule Take 3 capsules by mouth three times a day for 3 days. predniSONE (DELTASONE) 10 mg tablet Take 4 tabs daily for 3 days, then 2 tabs daily for 3 days, then 1 tab daily for 3 days with food. (Patient not taking: Reported on 07/14/2024) FAMILY HISTORY Problem Relation Age of Onset Alcohol/Drug Father Pancreatitis Father COPD Father Lung Cancer Maternal Grandmother Colon Cancer Maternal Grandmother Asthma Maternal Grandfather COPD Paternal Grandfather Human Immunodeficiency Virus Half-brother Accidental Half-sister Breast Cancer Maternal Aunt 42 Social History Tobacco Use Smoking status: Every Day Current packs/day: 0.50 Average packs/day: 0.5 packs/day for 9.0 years (4.5 ttl pk-yrs) Types: Cigarettes Smokeless tobacco: Never Vaping Use Vaping status: Never Used Substance Use Topics Alcohol use: Not Currently 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 HENT: Positive for dental problem. Negative for congestion, ear pain and sore throat. Respiratory: Negative for cough and shortness of breath. Cardiovascular: Negative for chest pain. Gastrointestinal: Negative for diarrhea and vomiting. Objective BP 110/72 Pulse 83 Temp 36.8 C (98.3 F) (Tympanic) Resp 18 Wt 47.6 kg (104 lb 15 oz) LMP 04/22/2024 (Within Days) SpO2 98% BMI 18.07 kg/m Physical Exam Vitals and nursing note reviewed. Constitutional: General: She is not in acute distress. Appearance: Normal appearance. She is not toxic-appearing. HENT: Nose: Nose normal. Mouth/Throat: Mouth: Mucous membranes are moist. Dentition: Abnormal dentition. Dental tenderness, dental caries and dental abscesses present. Comments: Patient has dental decay noted. She has tenderness over left lower molars with diffuse dental decay down to the gumline. Mild swelling noted along the gumline with a small linear white area which may be from previous abscess incision.. No drainage fluctuance or large abscess. No tongue or floor mouth swelling. Handling secretions. Airway intact. Eyes: Conjunctiva/sclera: Conjunctivae normal. Cardiovascular: Rate and Rhythm: Normal rate and regular rhythm. Pulmonary: Effort: Pulmonary effort is normal. Breath sounds: Normal breath sounds. Skin: General: Skin is warm and dry. Neurological: Mental Status: She is alert. Assessment and Plan ASSESSMENT/PLAN: 1. Dental infection - ICD9: 522.4, ICD10: K04.7 -Currently on clindamycin, on last dose. Still has very small amount of gum swelling on the left side and tenderness. -Will extend antibiotic x 3 days. Did discuss with patient there is risk of C. difficile with this medication, so it is not ideal for her to continue getting clindamycin for her dental infections. She needs to follow-up with a dentist. -Patient given a list of free dental clinics to follow-up with. Diagnosis and treatment plan were discussed and questions were answered to the patient's satisfaction. Pt acknowledged understanding of concepts and follow up plan. Specific signs and symptoms that would indicate the need for higher level of care were discussed in detail warranting prompt ER evaluation. SEEMA Staples documented in this encounter [facility] 05-06-2024 History of Presen t illness Narrative Radiology Service Progress Note PATIENT NAME: Jarod Aldridge DATE OF SERVICE: May 06, 2024 TIME: 10:27 AM PATIENT IDENTITY VERIFICATION COMPLETED USING TWO (2) IDENTIFIERS: Name and Date of confirmed by patient verbally. FALL SCREENING: Has the patient had 2 falls in the last year or 1 fall with injury or currently using an Ambulatory Assistive Device (Walker, Cane, Wheelchair, Crutches, etc.)? No PATIENT GENDER DATA: Female. status: : No status: NO. PATIENT RELEVANT IMPLANT DATA REVIEWED: Not Applicable PATIENT PRESENTS WITH AN IMPLANTABLE OR ATTACHED CHEMICAL MANAGER: No RADIOLOGY DEPARTMENT: General X-ray: Exam(s) Completed: Chest X-Ray PERIPHERAL IV DATA: Not applicable SIGNED BY: RT Gato(Kriss) May 06, 2024 10:27 AM documented in this encounter [facility] 05-06-2024 Note HNO ID: [id number] Author: LC MAX RT(R) Service: Radiology Author Type: Technologist Type: Progress Notes Filed: 05/06/2024 10:33 Note Text: Radiology Service Progress Note PATIENT NAME: Jarod Aldridge DATE OF SERVICE: May 06, 2024 TIME: 10:27 AM PATIENT IDENTITY VERIFICATION COMPLETED USING TWO (2) IDENTIFIERS: Name and Date of confirmed by patient verbally. FALL SCREENING: Has the patient had 2 falls in the last year or 1 fall with injury or currently using an Ambulatory Assistive Device (Walker, Cane, Wheelchair, Crutches, etc.)? No PATIENT GENDER DATA: Female. status: : No status: NO. PATIENT RELEVANT IMPLANT DATA REVIEWED: Not Applicable PATIENT PRESENTS WITH AN IMPLANTABLE OR ATTACHED CHEMICAL MANAGER: No RADIOLOGY DEPARTMENT: General X-ray: Exam(s) Completed: Chest X-Ray PERIPHERAL IV DATA: Not applicable SIGNED BY: RT Gato(Kriss) May 06, 2024 10:27 AM [facility] 05-06-2024 Note HNO ID: [id number] Author: LORAINE REED APRN.WAITER/WAITRESS FIRST CLASS Service: ? Author Type: Nurse Practitioner Type: Progress Notes Filed: 05/06/2024 10:48 Note Text: This note was created using NoteWriter. Subjective Jarod Aldridge is a 33 year old female. 33 year old female with PMH IBS Presents for illness. Acute onset 3 to 4 weeks ago +sinus pressure + cough +productive +chest congestion Lung pain Endorses feeling winded X 1 emesis yesterday evening with eating Denies CP Denies hemoptysis Denies dyspnea Denies abdominal pain Denies fever or chills Of note, seen on 04/18/24 for dental pain and placed on Clindamycin +tobacco usage, but has cut back The history is provided by the patient. No washroom operator was used. Cough This is a new problem. The current episode started more than 1 week ago. The problem occurs constantly. The problem has been gradually worsening. The cough is Productive of sputum. There has been no fever. Associated symptoms include ear congestion, headaches, rhinorrhea and shortness of breath. Pertinent negatives include no chest pain, no chills, no sweats, no weight loss, no ear pain, no sore throat, no myalgias, no wheezing and no eye redness. She has tried nothing for the symptoms. The treatment provided no relief. She is a smoker. Her past medical history does not include bronchitis, pneumonia, bronchiectasis, COPD, emphysema or asthma. PAST MEDICAL HISTORY Diagnosis Date IBS (irritable bowel syndrome) Panic anxiety syndrome Pneumonia x2 in 2020 Vitamin D insufficiency No past surgical history on file. ALLERGIES Amoxicillin, Cefzil [Cefprozil], Keflex [Cephalexin], Penicillins, and Zoloft [Sertraline] MEDICATIONS LORazepam (ATIVAN) 1 mg tablet Take 1 mg by mouth two times a day as needed for anxiety. venlafaxine XR (EFFEXOR XR) 37.5 mg tr24 Take 37.5 mg by mouth once daily. Increase to 75 mg in 2 weeks doxycycline (VIBRA-TABS) 100 mg tablet Take 1 tablet by mouth two times a day for 7 days. predniSONE (DELTASONE) 10 mg tablet Take 4 tabs daily for 3 days, then 2 tabs daily for 3 days, then 1 tab daily for 3 days with food. FAMILY HISTORY Problem Relation Age of Onset Alcohol/Drug Father Pancreatitis Father COPD Father Lung Cancer Maternal Grandmother Colon Cancer Maternal Grandmother Asthma Maternal Grandfather COPD Paternal Grandfather Human Immunodeficiency Virus Half-brother Accidental Half-sister Breast Cancer Maternal Aunt 42 Social History Tobacco Use Smoking status: Every Day Current packs/day: 0.50 Average packs/day: 0.5 packs/day for 9.0 years (4.5 ttl pk-yrs) Types: Cigarettes Smokeless tobacco: Never Vaping Use Vaping status: Never Used Substance Use Topics Alcohol use: Not Currently Drug use: Not Currently Types: Marijuana, 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 HENT: Positive for congestion, postnasal drip, rhinorrhea, sinus pressure and sinus pain. Negative for ear pain and sore throat. Eyes: Negative for pain, discharge, redness and itching. Respiratory: Positive for cough and shortness of breath. Negative for wheezing. Cardiovascular: Negative for chest pain. Gastrointestinal: Negative for abdominal pain, diarrhea, nausea and vomiting. Musculoskeletal: Negative for arthralgias, back pain and myalgias. Skin: Negative for color change, pallor, rash and wound. Allergic/Immunologic: Negative for environmental allergies, food allergies and immunocompromised state. Neurological: Positive for headaches. Negative for dizziness and facial asymmetry. Hematological: Negative for adenopathy. Does not bruise/bleed easily. Psychiatric/Behavioral: Negative for agitation and behavioral problems. Objective BP 116/76 Pulse 82 Temp 37.3 ?C (99.1 ?F) Resp 20 Wt 48.9 kg (107 lb 12.9 oz) LMP 04/22/2024 (Within Days) SpO2 100% BMI 18.56 kg/m? Physical Exam Vitals and nursing note reviewed. Constitutional: General: She is not in acute distress. Appearance: Normal appearance. She is normal weight. She is not ill-appearing, toxic-appearing or diaphoretic. HENT: Head: Normocephalic and atraumatic. Comments: +frontal sinus pressure +maxillary sinus pressure Right Ear: Ear canal and external ear normal. Left Ear: Ear canal and external ear normal. Nose: Congestion present. No rhinorrhea. Mouth/Throat: Mouth: Mucous membranes are moist. Pharynx: Posterior oropharyngeal erythema present. No oropharyngeal exudate. Eyes: General: Right eye: No discharge. Left eye: No discharge. Extraocular Movements: Extraocular movements intact. Conjunctiva/sclera: Conjunctivae normal. Pupils: Pupils are equal, round, and reactive to light. Cardiovascular: Rate and Rhythm: Normal rate and regular rhythm. Pulses: Normal pulses. Heart sounds: Normal heart sounds. No murmur h (more content not included)... [facility] 05-06-2024 History of Presen t illness Narrative This note was created using [employer]. Subjective Jarod Aldridge is a 33 year old female. 33 year old female with PMH IBS Presents for illness. Acute onset 3 to 4 weeks ago +sinus pressure + cough +productive +chest congestion Lung pain Endorses feeling winded X 1 emesis yesterday evening with eating Denies CP Denies hemoptysis Denies dyspnea Denies abdominal pain Denies fever or chills Of note, seen on 04/18/24 for dental pain and placed on Clindamycin +tobacco usage, but has cut back The history is provided by the patient. No washroom operator was used. Cough This is a new problem. The current episode started more than 1 week ago. The problem occurs constantly. The problem has been gradually worsening. The cough is Productive of sputum. There has been no fever. Associated symptoms include ear congestion, headaches, rhinorrhea and shortness of breath. Pertinent negatives include no chest pain, no chills, no sweats, no weight loss, no ear pain, no sore throat, no myalgias, no wheezing and no eye redness. She has tried nothing for the symptoms. The treatment provided no relief. She is a smoker. Her past medical history does not include bronchitis, pneumonia, bronchiectasis, COPD, emphysema or asthma. PAST MEDICAL HISTORY Diagnosis Date IBS (irritable bowel syndrome) Panic anxiety syndrome Pneumonia x2 in 2020 Vitamin D insufficiency No past surgical history on file. ALLERGIES Amoxicillin, Cefzil [Cefprozil], Keflex [Cephalexin], Penicillins, and Zoloft [Sertraline] MEDICATIONS LORazepam (ATIVAN) 1 mg tablet Take 1 mg by mouth two times a day as needed for anxiety. venlafaxine XR (EFFEXOR XR) 37.5 mg tr24 Take 37.5 mg by mouth once daily. Increase to 75 mg in 2 weeks doxycycline (VIBRA-TABS) 100 mg tablet Take 1 tablet by mouth two times a day for 7 days. predniSONE (DELTASONE) 10 mg tablet Take 4 tabs daily for 3 days, then 2 tabs daily for 3 days, then 1 tab daily for 3 days with food. FAMILY HISTORY Problem Relation Age of Onset Alcohol/Drug Father Pancreatitis Father COPD Father Lung Cancer Maternal Grandmother Colon Cancer Maternal Grandmother Asthma Maternal Grandfather COPD Paternal Grandfather Human Immunodeficiency Virus Half-brother Accidental Half-sister Breast Cancer Maternal Aunt 42 Social History Tobacco Use Smoking status: Every Day Current packs/day: 0.50 Average packs/day: 0.5 packs/day for 9.0 years (4.5 ttl pk-yrs) Types: Cigarettes Smokeless tobacco: Never Vaping Use Vaping status: Never Used Substance Use Topics Alcohol use: Not Currently Drug use: Not Currently Types: Marijuana, 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 HENT: Positive for congestion, postnasal drip, rhinorrhea, sinus pressure and sinus pain. Negative for ear pain and sore throat. Eyes: Negative for pain, discharge, redness and itching. Respiratory: Positive for cough and shortness of breath. Negative for wheezing. Cardiovascular: Negative for chest pain. Gastrointestinal: Negative for abdominal pain, diarrhea, nausea and vomiting. Musculoskeletal: Negative for arthralgias, back pain and myalgias. Skin: Negative for color change, pallor, rash and wound. Allergic/Immunologic: Negative for environmental allergies, food allergies and immunocompromised state. Neurological: Positive for headaches. Negative for dizziness and facial asymmetry. Hematological: Negative for adenopathy. Does not bruise/bleed easily. Psychiatric/Behavioral: Negative for agitation and behavioral problems. Objective BP 116/76 Pulse 82 Temp 37.3 C (99.1 F) Resp 20 Wt 48.9 kg (107 lb 12.9 oz) LMP 04/22/2024 (Within Days) SpO2 100% BMI 18.56 kg/m Physical Exam Vitals and nursing note reviewed. Constitutional: General: She is not in acute distress. Appearance: Normal appearance. She is normal weight. She is not ill-appearing, toxic-appearing or diaphoretic. HENT: Head: Normocephalic and atraumatic. Comments: +frontal sinus pressure +maxillary sinus pressure Right Ear: Ear canal and external ear normal. Left Ear: Ear canal and external ear normal. Nose: Congestion present. No rhinorrhea. Mouth/Throat: Mouth: Mucous membranes are moist. Pharynx: Posterior oropharyngeal erythema present. No oropharyngeal exudate. Eyes: General: Right eye: No discharge. Left eye: No discharge. Extraocular Movements: Extraocular movements intact. Conjunctiva/sclera: Conjunctivae normal. Pupils: Pupils are equal, round, and reactive to light. Cardiovascular: Rate and Rhythm: Normal rate and regular rhythm. Pulses: Normal pulses. Heart sounds: Normal heart sounds. No murmur heard. No friction rub. Pulmonary: Effort: Pulmonary effort is normal. No respiratory distress. Breath sounds: Normal breath sounds. No stridor. No wheezing, rhonchi or rales. Chest: Chest wall: No tenderness. Abdominal: General: Abdomen is flat. There is no distension. Palpations: Abdomen is soft. There is no mass. Tenderness: There is no abdominal tenderness. There is no right CVA tenderness, left CVA tenderness, guarding or rebound. Hernia: No hernia is present. Musculoskeletal: General: No swelling, tenderness, deformity or signs of injury. Normal range of motion. Cervical back: Normal range of motion and neck supple. No rigidity. Right lower leg: No edema. Left lower leg: No edema. Lymphadenopathy: Cervical: Cervical adenopathy present. Skin: General: Skin is warm and dry. Coloration: Skin is not jaundiced or pale. Findings: No bruising, erythema, lesion or rash. Neurological: General: No focal deficit present. Mental Status: She is alert and oriented to person, place, and time. Cranial Nerves: No cranial nerve deficit. Sensory: No sensory deficit. Motor: No weakness. Coordination: Coordination normal. Gait: Gait normal. Psychiatric: Mood and Affect: Mood normal. Behavior: Behavior normal. Thought Content: Thought content normal. Judgment: Judgment normal. Assessment and Plan ASSESSMENT/PLAN: 1. Acute cough - ICD9: 786.2, ICD10: R05.1 (primary diagnosis) X 2 to 3 weeks - XR CHEST 2V FRONTAL/LAT-negative for acute process Hemodynamically stable 2. Rhinosinusitis - ICD9: 473.9, ICD10: J32.9 - Will begin treatment with as per antibiotic as written, see orders - The patient should also be given OTC cough and cold meds as needed, warm salt water gargles, throat lozenges and/or OTC throat spray as needed, and nasal saline gtts and suction prn for the first 5-7 days of treatment. - Supportive care with plenty of fluids, rest, and analgesia prn. - Follow up in 3-5 days if symptoms persist or worsen. 3. Tobacco abuse - ICD9: 305.1, ICD10: Z72.0 - Cessation encouraged. - Physiologic and physical aspects of tobacco addiction as well as strategies for quitting were discussed. Loraine Reed APRN.WAITER/WAITRESS FIRST CLASS documented in this encounter [facility] 04-15-2024 Hospital Discharg e instructions Patient Education 04/15/2024 15:49:55 Dental Abscess Dental Abscess An abscess is a sac of pus. A dental abscess forms when a tooth or the tissue around it becomes infected with bacteria. The bacteria can enter through a cavity or a crack in a tooth. It can also infect the gum tissue or bone around a tooth. An untreated abscess can cause the loss of the tooth. It can even spread to other parts of the body and become life-threatening. Symptoms of a dental abscess Signs of a dental abscess include: Toothache, often severe Tooth pain with hot, cold, or pressure Pain in the gums, cheek, or jaw Bad breath or bitter taste in the mouth Trouble swallowing or opening the mouth Fever Swollen or enlarged glands in the neck Diagnosing a dental abscess An abscess is diagnosed by looking at your teeth and gums. You will be told if any tests are needed, such as dental X-rays. Treating a dental abscess Treatments for a dental abscess may include the following: Antibiotic medicines. These treat the underlying infection. Pain relievers. These help you feel more comfortable. Your healthcare provider may prescribe a medicine for you. Or you may use [id number] pain relievers, such as acetaminophen or ibuprofen. Warm saltwater rinses. These can soothe discomfort and help clear away pus. Root canal surgery. This may be done if needed to save the tooth. With a root canal, the infected part of the tooth is removed. A special substance is then used to fill the empty space in the tooth. Draining the abscess. This may be doneif needed. Incisions are made to allow the infected material to drain from the tooth. Removing the tooth. This is done in cases of severe infection that can t be treated another way. You may need to be admitted to a hospital if the infection is severe, has spread, or doesn t respond to treatment. When to call the dentist Call your dentist right away if you have any of the following: Fever of 100.4 F (38 C) or higher Increased pain, redness, drainage, or swelling in the treated area Swelling of the face or jawbone Pain that can't be controlled with medicines Preventing dental abscess To prevent another abscess in the future, keep your teeth clean and healthy. [place] twice a day and floss at least once daily. See your dentist for regular tooth cleanings. And stay away from sugary foods and drinks that can lead to tooth decay. 7688-8707 [employer]. [address] [place] [address]. All rights reserved. This information is not intended as a substitute for professional medical care. Always follow your healthcare professional's instructions. Follow Up Care 04/15/2024 15:38:15 With:dental clinic Address: When:2-[address] [facility] 04-15-2024 Note Discharge Instructions Thank you for allowing [facility] to assist you with your healthcare needs. The following is important discharge information regarding your hospital visit. Diagnosis from Today's Visit Dental abscess What to Do Next Instructions from Your Care Team No qualifying data available. Post Acute Orders No qualifying data available. You Need to Schedule the Following Appointments Follow Up with dental clinic When:Within 2-4 days Allergies Amoxil Hives Cefzil Hives Keflex Hives Zoloft penicillin Hives Medications Please ask your primary doctor or pharmacist before taking any other medication not listed, including over the counter drugs, herbal medications, vitamins and or supplements as they may interact with your home medications. What How Much When Why Instructions Last Dose Unchanged ibuprofen (ibuprofen 600 mg oral tablet) 1 tab(s) by mouth Three (3) times a day as needed for as needed for pain Chest wall pain Please take this list to your next doctor s visit. Bring all medications you take, including over the counter medications, herbals and other supplements with you to your doctor s visit. Patients and families are reminded to discard old lists and to update any records with all medication providers or retail pharmacies. Education Materials Dental Abscess An abscess is a sac of pus. A dental abscess forms when a tooth or the tissue around it becomes infected with bacteria. The bacteria can enter through a cavity or a crack in a tooth. It can also infect the gum tissue or bone around a tooth. An untreated abscess can cause the loss of the tooth. It can even spread to other parts of the body and become life-threatening. Symptoms of a dental abscess Signs of a dental abscess include: Toothache, often severe Tooth pain with hot, cold, or pressure Pain in the gums, cheek, or jaw Bad breath or bitter taste in the mouth Trouble swallowing or opening the mouth Fever Swollen or enlarged glands in the neck Diagnosing a dental abscess An abscess is diagnosed by looking at your teeth and gums. You will be told if any tests are needed, such as dental X-rays. Treating a dental abscess Treatments for a dental abscess may include the following: Antibiotic medicines. These treat the underlying infection. Pain relievers. These help you feel more comfortable. Your healthcare provider may prescribe a medicine for you. Or you may use [id number] pain relievers, such as acetaminophen or ibuprofen. Warm saltwater rinses. These can soothe discomfort and help clear away pus. Root canal surgery. This may be done if needed to save the tooth. With a root canal, the infected part of the tooth is removed. A special substance is then used to fill the empty space in the tooth. Draining the abscess. This may be doneif needed. Incisions are made to allow the infected material to drain from the tooth. Removing the tooth. This is done in cases of severe infection that can t be treated another way. You may need to be admitted to a hospital if the infection is severe, has spread, or doesn t respond to treatment. When to call the dentist Call your dentist right away if you have any of the following: Fever of 100.4 F (38 C) or higher Increased pain, redness, drainage, or swelling in the treated area Swelling of the face or jawbone Pain that can't be controlled with medicines Preventing dental abscess To prevent another abscess in the future, keep your teeth clean and healthy. [place] twice a day and floss at least once daily. See your dentist for regular tooth cleanings. And stay away from sugary foods and drinks that can lead to tooth decay. [id number] [employer] [address] [place] [address], [place] [address]. All rights reserved. This information is not intended as a substitute for professional medical care. Always follow your healthcare professional's instructions. Additional Information VACCINATE! IT SAVES LIVES! Members of the community who have not yet received the COVID-19 vaccine and would like to receive it can visit one of [facility] vaccine clinics. There are many vaccine clinic locations within the [facility]. For locations and available times, please visit [email or web address] It is important to note that some COVID mobile vaccine clinics are held outdoors and may be canceled in rainy or stormy conditions. To learn more about pediatric vaccinations (ages 5-11), we invite you to visit the [facility] webpage. [email or web address] To learn more about the COVID-19 vaccine, we invite you to visit the CDC website for a list of frequently asked questions. https://www.cdc.gov/coronavirus/ 2019-ncov/vaccines/faq.html [employer] Patient Portal Access Instructions: Stay connected with your healthcare team and access your personal medical information anytime with the [facility] Patient Portal. If you would like a full copy of your medical records please contact the [facility] Medical Records Department Friday through Friday between 8a.m. and 4:30p.m. Please follow the directions below to access the portal: 1.Access the email account you provided upon registration to the hospital.2.Look for an invitation email from [facility].3.Open the email and access the invitation link: Accept Invitation to [facility]4.Fill in the required rosenberg to create your account. Sign into [email or web address] with your username and password that you created in the above steps to stay up to date. You can then view a summary of results, a summary of your visits, and the ability to download your summaries to your computer or send the information securely to a physician. Remember that your healthcare information is confidential, so carefully consider who you will allow to register on the [facility] Patient Portal for access to your information. You can also access the [facility] Patient Portal on the Vigno. Simply click on Health Records under Health Data and then click on the eMeter logo. HOW TO SAFELY DISPOSE OF PRESCRIPTION MEDICATIONS Please use one of the following methods to safely dispose of your unused medications. 1.Use a drug disposal kit: the drug disposal pouch allows you to safely discard your old and unused drugs. Ask your nurse to give you one when you are discharged.2.Visit a local take-back location: Many local pharmacies and police departments have programs that collect old and unwanted prescription drugs. Call your local pharmacy or go to [email or web address] to find one close to you.3.Make use of household items: Use cat litter or old coffee grounds to dispose medications if other options are not available. Mix your drugs with these household products, seal them in an airtight container and throw it into the garbage. Call [facility]: [phone] to be sure your drugs can be disposed of in this way. Some medicines may require a different approach.4.Never flush your medications down the toilet. IF YOU HAVE BEEN PRESCRIBED AN OPIOIDS FOR PAIN If you have been prescribed an opioid (such as hydrocodone, oxycodone or morphine), it is critical to understand the possible side effects and risks of opioid pain medications. Even when taken as directed, opioids can have several side effects including: Tolerance, meaning you might need to take more of a medication for the same pain relief. Nausea, vomiting and/or constipation. Sleepiness, dizziness, dry mouth, confusion, depression or itching. Physical dependence, meaning you have withdrawal symptoms when a medication is stopped ? this can develop within a few days. KNOW YOUR RESPONSIBILITIES It is important to know exactly how much and how often to take the opioid pain medications you are prescribed. Never take opioids in higher amounts or more often than prescribed. Do not combine opioids with alcohol or other drugs that cause drowsiness, such as benzodiazepines, also known as benzos, including diazepam and alprazolam, muscle relaxants or sleep aids. Never sell or share prescription opioids. This is illegal. Store opioids in a secure place and out of reach of others (including children, family, friends and visitors). The last page(s) of this document has been signed and retained as a CHART COPY Signatures Patient Education Materials Dental Abscess Medication Leaflets My discharge plan and instructions have been reviewed and explained to me and I,JAROD ALDRIDGE understand my current condition and have read and understand these discharge instructions. I have received a written copy of the plan/instructions. If I have questions, I am aware that I should contact my doctor. 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 04-14-2024 Note HNO ID: [id number] Author: SANYA SAAVEDRA MD Service: ? Author Type: Physician Type: Progress Notes Filed: 04/14/2024 12:00 Note Text: Patient presents with: Sinus Problem: sinus pressure, drainage x few days, left side bottom tooth abscess x 1 day HPI: Feeling sick for a few days with URI. Toothache and swelling in the left lower jaw started yesterday. Positive symptoms: Cough, Nasal Congestion, Rhinorrhea, Feverish, jaw swelling, Negative symptoms: Shortness of breath, Wheezing, Chest pain, Nausea, Vomiting, Diarrhea, OTC: none MEDICATIONS: Current Outpatient Medications Medication Sig ibuprofen (MOTRIN) 200 mg tablet Take 600 mg by mouth every 6 hours as needed for pain. LORazepam (ATIVAN) 0.5 mg Take 0.5 mg by mouth once daily as needed. escitalopram oxalate (LEXAPRO) 10 mg tablet Take 1 tablet by mouth once daily. No current facility-administered medications for this visit. ALLERGIES: ALLERGIES Allergen Reactions Amoxicillin Rash Cefzil [Cefprozil] Rash Keflex [Cephalexin] Rash Penicillins Rash Zoloft [Sertraline] Intolerance Increased anxiety and patient felt numb VITALS: BP 94/66 Pulse 90 Temp 37.3 ?C (99.2 ?F) Resp 16 Wt 48.5 kg (106 lb 14.8 oz) LMP 01/28/2024 (Within Days) SpO2 99% BMI 18.41 kg/m? PHYSICAL EXAM: GEN: mildly ill appearing HEENT: PERRL, EOMI, conjunctiva clear Ears: canals clear. TMs without erythema, bulge, or effusion Sinuses: non-tender frontal sinus, non-tender maxillary sinuses Throat: moist mucous membranes, no erythema, no exudate Mouth: Left lower molars are eroded near the gumline and tender, no visible oral abscess. Palpable tender swelling of the maxilla below the left molars. Neck: supple, no thyromegaly, no lymphadenopathy HEART: regular rate and rhythm, no murmurs LUNGS: clear to auscultation, no wheezes or crackles, no increased WOB; raspy cough ASSESSMENT/PLAN: 1. Dental infection - ICD9: 522.4, ICD10: K04.7 (primary diagnosis) - CLINDAMYCIN HCL 150 MG CAPSULE Dentist follow-up recommended. She does not intend to follow-up at this time due to cost and anxiety. 2. URI, acute - ICD9: 465.9, ICD10: J06.9 - Discussed viral etiology and rationale for treatment. - Symptomatic treatment with prn analgesia (avoids meds) - Supportive care with fluids and rest - Son has pneumonia. Follow up with persistent or worsening symptoms. Sanya Saavedra MD [facility] 04-14-2024 History of Presen t illness Narrative Patient presents with: Sinus Problem: sinus pressure, drainage x few days, left side bottom tooth abscess x 1 day HPI: Feeling sick for a few days with URI. Toothache and swelling in the left lower jaw started yesterday. Positive symptoms: Cough, Nasal Congestion, Rhinorrhea, Feverish, jaw swelling, Negative symptoms: Shortness of breath, Wheezing, Chest pain, Nausea, Vomiting, Diarrhea, OTC: none MEDICATIONS: Current Outpatient Medications Medication Sig ibuprofen (MOTRIN) 200 mg tablet Take 600 mg by mouth every 6 hours as needed for pain. LORazepam (ATIVAN) 0.5 mg Take 0.5 mg by mouth once daily as needed. escitalopram oxalate (LEXAPRO) 10 mg tablet Take 1 tablet by mouth once daily. No current facility-administered medications for this visit. ALLERGIES: ALLERGIES Allergen Reactions Amoxicillin Rash Cefzil [Cefprozil] Rash Keflex [Cephalexin] Rash Penicillins Rash Zoloft [Sertraline] Intolerance Increased anxiety and patient felt numb VITALS: BP 94/66 Pulse 90 Temp 37.3 C (99.2 F) Resp 16 Wt 48.5 kg (106 lb 14.8 oz) LMP 01/28/2024 (Within Days) SpO2 99% BMI 18.41 kg/m PHYSICAL EXAM: GEN: mildly ill appearing HEENT: PERRL, EOMI, conjunctiva clear Ears: canals clear. TMs without erythema, bulge, or effusion Sinuses: non-tender frontal sinus, non-tender maxillary sinuses Throat: moist mucous membranes, no erythema, no exudate Mouth: Left lower molars are eroded near the gumline and tender, no visible oral abscess. Palpable tender swelling of the maxilla below the left molars. Neck: supple, no thyromegaly, no lymphadenopathy HEART: regular rate and rhythm, no murmurs LUNGS: clear to auscultation, no wheezes or crackles, no increased WOB; raspy cough ASSESSMENT/PLAN: 1. Dental infection - ICD9: 522.4, ICD10: K04.7 (primary diagnosis) - CLINDAMYCIN HCL 150 MG CAPSULE Dentist follow-up recommended. She does not intend to follow-up at this time due to cost and anxiety. 2. URI, acute - ICD9: 465.9, ICD10: J06.9 - Discussed viral etiology and rationale for treatment. - Symptomatic treatment with prn analgesia (avoids meds) - Supportive care with fluids and rest - Son has pneumonia. Follow up with persistent or worsening symptoms. Sanya Saavedra MD documented in this encounter [facility] 02-26-2024 Note Date of Procedure 02/26/2024. Planer Operator Information Continuous Miner Operator: as. Start time: 3:53 PM. Stop time: 3:53 PM. Quality Right Eye Good. Left Eye Good. NFL Interpretation Right Eye Normal. Left Eye Normal. Ganglion Cell Layer Thickness Right Eye Normal. Left Eye Normal. Interval Change Left Eye Initial. [facility] 02-26-2024 Note HNO ID: [id number] Author: YAEL PHOENIX OD Service: ? Author Type: SANITATION TRUCK CLEANER Type: Progress Notes Filed: 02/26/2024 16:09 Note Text: 1. Myopia, bilateral 2. Regular astigmatism of both eyes Finalized spec rx 3. Optic cupping of both eyes OCT nerve: normal both eyes Large cups IOP: 16/16 Monitor yearly Yael Phoenix, OD February 26, 2024 4:08 PM [facility] 02-26-2024 History of Presen t illness Narrative 1. Myopia, bilateral 2. Regular astigmatism of both eyes Finalized spec rx 3. Optic cupping of both eyes OCT nerve: normal both eyes Large cups IOP: 16/16 Monitor yearly Yael Phoenix, OD February 26, 2024 4:08 PM documented in this encounter [facility] 02-19-2024 Note HNO ID: [id number] Author: ROGE RAMIREZ APRN.WAITER/WAITRESS FIRST CLASS Service: ? Author Type: Nurse Practitioner Type: Progress Notes Filed: 02/19/2024 10:13 Note Text: Service Order Taker offered: Patient declines. Jarod Aldridge is a 33 year old female who presents for problem visit of breast pain for 2 days. HPI: Jarod noticed a sharp pain 2 nights ago to right breast. Partner examined and felt a palpable lump to right breast. No nipple discharge. No skin changes. Drinks a half cup of coffee in morning, 2 Pepsis per day, a Pepsi at bedtime. Wears a loose sports bra daily. Has never had breast imaging. OB History No obstetric history on file. 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 LORazepam (ATIVAN) 0.5 mg Take 0.5 mg by mouth once daily as needed. escitalopram oxalate (LEXAPRO) 10 mg tablet Take 1 tablet by mouth once daily. No current facility-administered medications for this visit. Allergies As of Date: 02/19/2024 Allergen Noted Reaction AMOXICILLIN 06/21/2020 Rash CEFZIL [CEFPROZIL] 09/23/2015 Rash KEFLEX [CEPHALEXIN] 09/23/2015 Rash PENICILLINS 09/23/2015 Rash ZOLOFT [SERTRALINE] 10/03/2022 Intolerance Fully Assessed 02/18/2024 REVIEW OF SYSTEMS Breast: No nipple d/c, overlying skin changes, redness or skin retraction. + breast pain and lump to right breast Expanded ROS: N/A Allergies and current medication updated:Yes SENSITIVE EXAM: The sensitive examination was discussed with the Patient or Patient's Authorized Secure Software Assessor. As applicable, any other physician, advance practice provider, medical student, or other health professional student that will be observing or involved in the sensitive examination for educational or training purposes was discussed with the Patient or Authorized Secure Software Assessor. The Patient or Authorized Secure Software Assessor has agreed to proceed with the sensitive examination. (Sensitive examination includes inspection and/or palpation of the breasts, pelvis, prostate and anorectal regions). EXAM: BP 104/78 Pulse 86 Resp 12 Wt 104 lb (47.2kg) SpO2 98% LMP 01/28/2024 GENERAL: pleasant, female in no apparent distress HEENT: Normocephalic, atraumatic, mucus membranes moist, and no lesions BREAST: soft, symmetric, normal nipple-areolar complex, no lymphadenopathy, and no nipple discharge + tenderness to right breast, palpitation consistent with fibrocystic breast to upper outer quadrant of right breast CHEST: Normal inspiratory effort NEURO: alert and oriented x3,exam grossly non-focal EXTREMITIES: normal ASSESSMENT AND PLAN: 1. Breast pain - ICD9: 611.71, ICD10: N64.4 (primary diagnosis) - YAMILET DIAGNOSTIC BILATERAL - US BREAST LTD RIGHT 2. Fibrocystic breast changes, right - ICD9: 610.1, ICD10: N60.11 - Recommend decreasing caffeine - Reviewed other aggravating factors: periods, alcohol, chocolate, smoking - Tylenol and warm compresses as needed. Wear supportive bra Roge Ramirez APRN.JOY Medical Decision Making: Problems: Low: Acute, uncomplicated illness or injury Data: Unique test(s) ordered: 2 Risk: Minimal: Minimal risk from testing/treatment Medical Decision Making Level: 3 - Low [facility] 02-19-2024 History of Presen t illness Narrative Service Order Taker offered: Patient declines. Jarod Aldridge is a 33 year old female who presents for problem visit of breast pain for 2 days. HPI: Jarod noticed a sharp pain 2 nights ago to right breast. Partner examined and felt a palpable lump to right breast. No nipple discharge. No skin changes. Drinks a half cup of coffee in morning, 2 Pepsis per day, a Pepsi at bedtime. Wears a loose sports bra daily. Has never had breast imaging. OB History No obstetric history on file. 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 LORazepam (ATIVAN) 0.5 mg Take 0.5 mg by mouth once daily as needed. escitalopram oxalate (LEXAPRO) 10 mg tablet Take 1 tablet by mouth once daily. No current facility-administered medications for this visit. Allergies As of Date: 02/19/2024 Allergen Noted Reaction AMOXICILLIN 06/21/2020 Rash CEFZIL [CEFPROZIL] 09/23/2015 Rash KEFLEX [CEPHALEXIN] 09/23/2015 Rash PENICILLINS 09/23/2015 Rash ZOLOFT [SERTRALINE] 10/03/2022 Intolerance Fully Assessed 02/18/2024 REVIEW OF SYSTEMS Breast: No nipple d/c, overlying skin changes, redness or skin retraction. + breast pain and lump to right breast Expanded ROS: N/A Allergies and current medication updated:Yes SENSITIVE EXAM: The sensitive examination was discussed with the Patient or Patient's Authorized Secure Software Assessor. As applicable, any other physician, advance practice provider, medical student, or other health professional student that will be observing or involved in the sensitive examination for educational or training purposes was discussed with the Patient or Authorized Secure Software Assessor. The Patient or Authorized Secure Software Assessor has agreed to proceed with the sensitive examination. (Sensitive examination includes inspection and/or palpation of the breasts, pelvis, prostate and anorectal regions). EXAM: BP 104/78 Pulse 86 Resp 12 Wt 104 lb (47.2kg) SpO2 98% LMP 01/28/2024 GENERAL: pleasant, female in no apparent distress HEENT: Normocephalic, atraumatic, mucus membranes moist, and no lesions BREAST: soft, symmetric, normal nipple-areolar complex, no lymphadenopathy, and no nipple discharge + tenderness to right breast, palpitation consistent with fibrocystic breast to upper outer quadrant of right breast CHEST: Normal inspiratory effort NEURO: alert and oriented x3,exam grossly non-focal EXTREMITIES: normal ASSESSMENT AND PLAN: 1. Breast pain - ICD9: 611.71, ICD10: N64.4 (primary diagnosis) - YAMILET DIAGNOSTIC BILATERAL - US BREAST LTD RIGHT 2. Fibrocystic breast changes, right - ICD9: 610.1, ICD10: N60.11 - Recommend decreasing caffeine - Reviewed other aggravating factors: periods, alcohol, chocolate, smoking - Tylenol and warm compresses as needed. Wear supportive bra Roge Ramirez APRN.CNP Medical Decision Making: Problems: Low: Acute, uncomplicated illness or injury Data: Unique test(s) ordered: 2 Risk: Minimal: Minimal risk from testing/treatment Medical Decision Making Level: 3 - Low documented in this encounter [facility] 02-18-2024 Note HNO ID: [id number] Author: CORNELIUS ODONNELL PA Service: ? Author Type: Physician Demand Inspector Type: Progress Notes Filed: 02/18/2024 10:51 Note Text: This note was created using Huddlerriter. Subjective Jarod Aldridge is a 33 year old female. HPI 33-year-old female presents for right breast pain. Patient states she has been having breast pain for the past few days. Patient states that her fiance was in nursing school and did a breast exam and thought she may have felt a lump. Patient came in for evaluation. Patient states she does have family history of breast cancer. None personally. Patient denies any nipple drainage, itching, discharge. She has never breast-fed. She denies any vaginal discharge or bleeding. No pelvic pain. No concern for . LMP was 1 month ago. PAST MEDICAL HISTORY Diagnosis Date IBS (irritable bowel syndrome) Panic anxiety syndrome Pneumonia x2 in 2020 Vitamin D insufficiency No past surgical history on file. ALLERGIES Amoxicillin, Cefzil [Cefprozil], Keflex [Cephalexin], Penicillins, and Zoloft [Sertraline] MEDICATIONS LORazepam (ATIVAN) 0.5 mg Take 0.5 mg by mouth once daily as needed. escitalopram oxalate (LEXAPRO) 5 mg tablet Take 1 tablet by mouth once daily. benzonatate (TESSALON PERLES) 100 mg capsule Take 2 capsules by mouth three times a day as needed. (Patient not taking: Reported on 06/24/2023) escitalopram oxalate (LEXAPRO) 10 mg tablet Take 1 tablet by mouth once daily. (Patient not taking: Reported on 06/24/2023) hydrOXYzine pamoate (VISTARIL) 25 mg capsule Take 1-2 capsules three times a day as needed for anxiety (Patient not taking: Reported on 10/01/2023) FAMILY HISTORY Problem Relation Age of Onset Alcohol/Drug Father Pancreatitis Father COPD Father Lung Cancer Maternal Grandmother Colon Cancer Maternal Grandmother Asthma Maternal Grandfather COPD Paternal Grandfather Human Immunodeficiency Virus Half-brother Accidental Half-sister Social History Tobacco Use Smoking status: Every Day Current packs/day: 0.50 Average packs/day: 0.5 packs/day for 9.0 years (4.5 ttl pk-yrs) Types: Cigarettes Smokeless tobacco: Never Vaping Use Vaping status: Never Used Substance Use Topics Alcohol use: Not Currently 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 HENT: Negative for congestion, ear pain and sore throat. Respiratory: Negative for cough and shortness of breath. Cardiovascular: Negative for chest pain. Gastrointestinal: Negative for diarrhea and vomiting. Objective BP 125/85 Pulse 80 Temp 37 ?C (98.6 ?F) Resp 18 Wt 48.1 kg (106 lb 0.7 oz) LMP 01/28/2024 (Within Days) SpO2 100% BMI 18.26 kg/m? Physical Exam Vitals and nursing note reviewed. Exam conducted with a assistance coordinator present. Constitutional: General: She is not in acute distress. Appearance: Normal appearance. She is not toxic-appearing. Cardiovascular: Rate and Rhythm: Normal rate and regular rhythm. Pulmonary: Effort: Pulmonary effort is normal. Breath sounds: Normal breath sounds. Chest: Chest wall: Tenderness present. No mass. Breasts: Right: Normal. No swelling, bleeding, inverted nipple, mass, nipple discharge, skin change or tenderness. Left: Normal. No swelling, bleeding, inverted nipple, mass, nipple discharge, skin change or tenderness. Comments: Tenderness over right lateral breast at the 10:00 region. No mass felt. No redness, warmth or signs of infection. No nipple discharge, rash, erythema. No adenopathy. Skin: General: Skin is warm and dry. Neurological: Mental Status: She is alert. Assessment and Plan ASSESSMENT/PLAN: 1. Breast pain - ICD9: 611.71, ICD10: N64.4 -No mass felt on my examination. -We were able to schedule the patient a follow-up with gynecology tomorrow. - CONSULT TO MARKETING CONTENT SPECIALIST Diagnosis and treatment plan were discussed and questions were answered to the patient's satisfaction. Pt acknowledged understanding of concepts and follow up plan. Specific signs and symptoms that would indicate the need for higher level of care were discussed in detail warranting prompt ER evaluation. SEEMA Staples [facility] 02-18-2024 History of Presen t illness Narrative Images from the original note were not included. This note was created using Myntra. Subjective Jarod Aldridge is a 33 year old female. HPI 33-year-old female presents for right breast pain. Patient states she has been having breast pain for the past few days. Patient states that her fianc was in nursing school and did a breast exam and thought she may have felt a lump. Patient came in for evaluation. Patient states she does have family history of breast cancer. None personally. Patient denies any nipple drainage, itching, discharge. She has never breast-fed. She denies any vaginal discharge or bleeding. No pelvic pain. No concern for . LMP was 1 month ago. PAST MEDICAL HISTORY Diagnosis Date IBS (irritable bowel syndrome) Panic anxiety syndrome Pneumonia x2 in 2020 Vitamin D insufficiency No past surgical history on file. ALLERGIES Amoxicillin, Cefzil [Cefprozil], Keflex [Cephalexin], Penicillins, and Zoloft [Sertraline] MEDICATIONS LORazepam (ATIVAN) 0.5 mg Take 0.5 mg by mouth once daily as needed. escitalopram oxalate (LEXAPRO) 5 mg tablet Take 1 tablet by mouth once daily. benzonatate (TESSALON PERLES) 100 mg capsule Take 2 capsules by mouth three times a day as needed. (Patient not taking: Reported on 06/24/2023) escitalopram oxalate (LEXAPRO) 10 mg tablet Take 1 tablet by mouth once daily. (Patient not taking: Reported on 06/24/2023) hydrOXYzine pamoate (VISTARIL) 25 mg capsule Take 1-2 capsules three times a day as needed for anxiety (Patient not taking: Reported on 10/01/2023) FAMILY HISTORY Problem Relation Age of Onset Alcohol/Drug Father Pancreatitis Father COPD Father Lung Cancer Maternal Grandmother Colon Cancer Maternal Grandmother Asthma Maternal Grandfather COPD Paternal Grandfather Human Immunodeficiency Virus Half-brother Accidental Half-sister Social History Tobacco Use Smoking status: Every Day Current packs/day: 0.50 Average packs/day: 0.5 packs/day for 9.0 years (4.5 ttl pk-yrs) Types: Cigarettes Smokeless tobacco: Never Vaping Use Vaping status: Never Used Substance Use Topics Alcohol use: Not Currently 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 HENT: Negative for congestion, ear pain and sore throat. Respiratory: Negative for cough and shortness of breath. Cardiovascular: Negative for chest pain. Gastrointestinal: Negative for diarrhea and vomiting. Objective BP 125/85 Pulse 80 Temp 37 C (98.6 F) Resp 18 Wt 48.1 kg (106 lb 0.7 oz) LMP 01/28/2024 (Within Days) SpO2 100% BMI 18.26 kg/m Physical Exam Vitals and nursing note reviewed. Exam conducted with a assistance coordinator present. Constitutional: General: She is not in acute distress. Appearance: Normal appearance. She is not toxic-appearing. Cardiovascular: Rate and Rhythm: Normal rate and regular rhythm. Pulmonary: Effort: Pulmonary effort is normal. Breath sounds: Normal breath sounds. Chest: Chest wall: Tenderness present. No mass. Breasts: Right: Normal. No swelling, bleeding, inverted nipple, mass, nipple discharge, skin change or tenderness. Left: Normal. No swelling, bleeding, inverted nipple, mass, nipple discharge, skin change or tenderness. Comments: Tenderness over right lateral breast at the 10:00 region. No mass felt. No redness, warmth or signs of infection. No nipple discharge, rash, erythema. No adenopathy. Skin: General: Skin is warm and dry. Neurological: Mental Status: She is alert. Assessment and Plan ASSESSMENT/PLAN: 1. Breast pain - ICD9: 611.71, ICD10: N64.4 -No mass felt on my examination. -We were able to schedule the patient a follow-up with gynecology tomorrow. - CONSULT TO MARKETING CONTENT SPECIALIST Diagnosis and treatment plan were discussed and questions were answered to the patient's satisfaction. Pt acknowledged understanding of concepts and follow up plan. Specific signs and symptoms that would indicate the need for higher level of care were discussed in detail warranting prompt ER evaluation. SEEMA Stapels documented in this encounter [facility] 02-18-2024 Telephone encounter Note Reason for call: breast pain Outcome: Conferenced to the Appointment Center for scheduling. Reason for Disposition Dry flaking-peeling skin of nipple Answer Assessment - Initial Assessment Questions 1. SYMPTOM: intermittent breast pain. Pain is rated 7/10 when present, lasts a couple of minutes at a time 2. LOCATION: right breast, right of the nipple towards armpit. 3. ONSET: last night at work 4. PRIOR HISTORY: states she has experienced pain in the past, randomly but never like this 6. OTHER SYMPTOMS: noticed the skin on the nipple is dry and flaky, this is a new change in appearance 7. -: denies Protocols used: Breast Pevissag-UPUWO-WW [facility] 02-18-2024 Miscellaneous Notes Reason for call: breast pain Outcome: Conferenced to the Appointment Center for scheduling. Reason for Disposition Dry flaking-peeling skin of nipple Answer Assessment - Initial Assessment Questions 1. SYMPTOM: intermittent breast pain. Pain is rated 7/10 when present, lasts a couple of minutes at a time 2. LOCATION: right breast, right of the nipple towards armpit. 3. ONSET: last night at work 4. PRIOR HISTORY: states she has experienced pain in the past, randomly but never like this 6. OTHER SYMPTOMS: noticed the skin on the nipple is dry and flaky, this is a new change in appearance 7. -: denies Protocols used: Breast Wtzoejoa-GSZYQ-ED documented in this encounter [facility] 01-20-2024 Instructions Destiny Dash APRN.WAITER/[employer] - 01/20/2024 11:48 AM EDT - Clindamycin 3 tablets 3 times per day for 5 days - Peridex swish and spit twice daily for 7 days - Ibuprofen/Motrin 3 tablets no more than every 6 hours. Take with food. - Follow up with your dentist PATIENT INSTRUCTIONS - DENTAL ABSCESS A tooth abscess is a pocket of pus that's caused by a bacterial infection. The abscess can occur at different regions of the tooth for different reasons. A periapical (qbk-k-WV-ih-kul) abscess occurs at the tip of the root, whereas a periodontal (kru-l-p-DON-tul) abscess occurs in the gums next to a tooth root. The information here refers specifically to periapical abscesses. A periapical tooth abscess usually occurs as a result of an untreated dental cavity, an injury or prior dental work. Dentists will treat a tooth abscess by draining it and getting rid of the infection. They may be able to save your tooth with a root canal treatment, but in some cases the tooth may need to be pulled. Leaving a tooth abscess untreated can lead to serious, even life-threatening, complications. Symptoms Signs and symptoms of a tooth abscess include: Severe, persistent, throbbing toothache that can radiate to the jawbone, neck or ear Sensitivity to hot and cold temperatures Sensitivity to the pressure of chewing or biting Fever Swelling in your face or cheek Tender, swollen lymph nodes under your jaw or in your neck Sudden oneill of foul-smelling and foul-tasting, salty fluid in your mouth and pain relief if the abscess ruptures When to see a doctor See your dentist promptly if you have any signs or symptoms of a tooth abscess. If you have a fever and swelling in your face and you can't reach your dentist, go to an emergency room. Also go to the emergency room if you have trouble breathing or swallowing. These symptoms may indicate that the infection has spread deeper into your jaw and surrounding tissue or even to other areas of your body. Causes A periapical tooth abscess occurs when bacteria invade the dental pulp -- the innermost part of the tooth that contains blood vessels, nerves and connective tissue. Bacteria enter through either a dental cavity or a chip or crack in the tooth and spread all the way down to the root. The bacterial infection can cause swelling and inflammation at the tip of the root. Risk factors These factors may increase your risk of a tooth abscess: Poor dental hygiene. Not taking proper care of your teeth and gums -- such as not brushing your teeth twice a day and not flossing -- can increase your risk of tooth decay, gum disease, tooth abscess, and other dental and mouth complications. A diet high in sugar. Frequently eating and drinking foods rich in sugar, such as sweets and sodas, can contribute to dental cavities and turn into a tooth abscess. Complications A tooth abscess won't go away without treatment. If the abscess ruptures, the pain may decrease significantly -- but you still need dental treatment. If the abscess doesn't drain, the infection may spread to your jaw and to other areas of your head and neck. You might even develop sepsis -- a life-threatening infection that spreads throughout your body. If you have a weakened immune system and you leave a tooth abscess untreated, your risk of a spreading infection increases even more. Prevention Avoiding tooth decay is essential to preventing a tooth abscess. Take good care of your teeth to avoid tooth decay: Use fluoridated drinking water. [place] your teeth at least twice a day with a fluoride toothpaste. Use dental floss or an interdental switch cleaner to clean between your teeth on a daily basis. Replace your toothbrush every three or four months, or whenever the bristles are frayed. Eat healthy food, limiting sugary items and between-meal snacks. Visit your dentist for regular checkups and professional cleanings. Consider using an antiseptic or a fluoride mouth rinse to add an extra layer of protection against tooth decay. 4586-1745 [facility] [place] [facility] [employer] [facility] ([facility]). All rights reserved. documented in this encounter [facility] 01-20-2024 Note HNO ID: [id number] Author: DESTINY DASH APRN.JOY Service: ? Author Type: Nurse Practitioner Type: Progress Notes Filed: 01/20/2024 12:00 Note Text: Patient presents with: Dental Problem: Tooth pain x 3 days She was seen for dental infection in September and she believes it is the same tooth She was eating and had not pain till 1-2 hours later. She had an appointment with a dentist however she is afraid of dentist and left the office prior to being seen The history is provided by the patient. Dental Problem Pertinent negatives include no chills or fever. Review of Systems Constitutional: Negative for chills and fever. HENT: Positive for dental problem. Physical Exam Vitals reviewed. Constitutional: Appearance: Normal appearance. HENT: Head: Normocephalic. Mouth/Throat: Mouth: Mucous membranes are moist. Dentition: Gingival swelling and dental caries present. Eyes: Extraocular Movements: Extraocular movements intact. Cardiovascular: Rate and Rhythm: Normal rate. Pulmonary: Effort: Pulmonary effort is normal. No respiratory distress. Neurological: Mental Status: She is alert. ASSESSMENT/PLAN: 1. Dental infection - ICD9: 522.4, ICD10: K04.7 - She has multiple broken teeth on bottom right - There is swelling and redness of gums - Treat with clindamycin due to allergies to PCN and Keflex. - Peridex rinse for 7 days - Ibuprofen for pain - Follow up with dentist - She verbalized understanding and agreement with this plan. Destiny Dash APRN.[facility] 01-20-2024 History of Presen t illness Narrative Patient presents with: Dental Problem: Tooth pain x 3 days She was seen for dental infection in September and she believes it is the same tooth She was eating and had not pain till 1-2 hours later. She had an appointment with a dentist however she is afraid of dentist and left the office prior to being seen The history is provided by the patient. Dental Problem Pertinent negatives include no chills or fever. Review of Systems Constitutional: Negative for chills and fever. HENT: Positive for dental problem. Physical Exam Vitals reviewed. Constitutional: Appearance: Normal appearance. HENT: Head: Normocephalic. Mouth/Throat: Mouth: Mucous membranes are moist. Dentition: Gingival swelling and dental caries present. Eyes: Extraocular Movements: Extraocular movements intact. Cardiovascular: Rate and Rhythm: Normal rate. Pulmonary: Effort: Pulmonary effort is normal. No respiratory distress. Neurological: Mental Status: She is alert. ASSESSMENT/PLAN: 1. Dental infection - ICD9: 522.4, ICD10: K04.7 - She has multiple broken teeth on bottom right - There is swelling and redness of gums - Treat with clindamycin due to allergies to PCN and Keflex. - Peridex rinse for 7 days - Ibuprofen for pain - Follow up with dentist - She verbalized understanding and agreement with this plan. Destiny Dash APRN.WAITER/[employer] documented in this encounter [facility] 10-06-2023 Hospital Discharg e instructions Patient Education 10/06/2023 10:36:30 Smoking Cessation How to Quit Smoking Smoking is a hard habit to break. About half of all people who have ever smoked have been able to quit. Most people who still smoke want to quit. Here are some of the best ways to stop smoking. Keep in mind the health benefits of quitting The health benefits of quitting start right away. They keep improving the longer you go without smoking. Knowing this can help inspire you to stay on track. These benefits occur at any age. If you are 17 or 70, quitting is a good choice. Some of the health benefits after your last cigarette include: 20 minutes: Your blood pressure and pulse return to normal. 8 hours: Your oxygen levels return to normal. 2 days: Your ability to smell and taste start to improve as damaged nerves regrow. 2 to 3 weeks: Your circulation and lung function improve. 1 to 9 months: Your coughing, congestion, and shortness of breath decrease. Your tiredness decreases. 1 year: Your risk of heart attack decreases by half. 5 years: Your risk of lung cancer decreases by half. Your risk of stroke becomes the same as a nonsmoker s. Go cold turkey Most former smokers quit cold turkey. This means stopping all at once. Trying to cut back slowly often doesn't work as well. This may be because it continues the habit of smoking. Also, you may inhale more smoke while smoking fewer cigarettes. This leads to the same amount of nicotine in your body. Get support Support programs can be a big help, especially for heavy smokers. These groups offer lectures, ways to change behavior, and peer support. Here are some ways to find a support program: Free national quitline 224-CIFK-XXX (811-335-4495) Hospital quit-smoking programs [employer] [employer] 330-673-0548 [employer] [employer] 341-756-7980 Support at home is important too. Family and friends can offer praise and reassurance. If the smoker in your life finds it hard to quit, encourage them to keep trying. Try bajj-fnv-oxxbshi medicine Nicotine replacement therapy may make it easier to quit. Some aids are available without a prescription. These include a nicotine patch, gum, and lozenges. But it is best to use these under the care of your healthcare provider. The skin patch gives a steady supply of nicotine. Nicotine gum and lozenges give short-time doses of low levels of nicotine. Both methods reduce the craving for cigarettes. If you have nausea, vomiting, dizziness, weakness, or a fast heartbeat, stop using these products. See your healthcare provider. Ask about prescription medicine After reviewing your smoking patterns and past attempts to quit, your doctor may offer a prescription medicine such as bupropion, varenicline, a nicotine inhaler, or nasal spray. Each has advantages and side effects. Your doctor can review these with you. Keep trying Most smokers make many attempts at quitting before they are successful. It s important not to give up. For more information For more on how to quit smoking, try these online resources: Go to Smokefree.gov. Read Clearing the Air from the National [employer] at smokefree.gov/sites/default/file s/pdf/pnuchrkb-bkk-fvg-accessibl e.pdf. 3296-1627 [employer]. [address] [place] [address]. All rights reserved. This information is not intended as a substitute for professional medical care. Always follow your healthcare professional's instructions. 10/06/2023 10:08:19 Abscess, Antibiotic Treatment Only Abscess (Antibiotic Treatment Only) An abscess (sometimes called a boil ) happens when bacteria get trapped under the skin and start to grow. Pus forms inside the abscess as the body responds to the bacteria. An abscess can happen with an insect bite, ingrown hair, blocked oil gland, pimple, cyst, or puncture wound. In the early stages, your wound may be red and tender. For this stage, you may get antibiotics. If the abscess does not get better with antibiotics, it will need to be drained with a small cut. Home care These tips will help you care for your abscess at home: Soak the wound in hot water or apply hot packs (small towel soaked in hot water) to the area for 20 minutes at a time. Do this 3 to 4 times a day. Do not cut, squeeze, or pop the boil yourself. Apply antibiotic cream or ointment to the skin 3 to 4 times a day, unless something else was prescribed. Some ointments include an antibiotic plus a pain reliever. If your doctor prescribed antibiotics, do not stop taking them until you have finished the medicine or the doctor tells you to stop. You may use an erqg-ffs-hcuypwu pain medicine to control pain, unless another pain medicine was prescribed. If you have chronic liver or kidney disease or ever had a stomach ulcer or gastrointestinal bleeding, talk with your doctor before using these any of these. Follow-up care Follow up with your healthcare provider, or as advised. Check your wound each day for the signs of worsening infection listed below. When to seek medical advice Get prompt medical attention if any of these occur: An increase in redness or swelling Red streaks in the skin leading away from the abscess An increase in local pain or swelling Fever of 100.4 F (38 C) or higher, or as directed by your healthcare provider Pus or fluid coming from the abscess Boil returns after getting better [phone] [employer]. [address] [place] [address]. All rights reserved. This information is not intended as a substitute for professional medical care. Always follow your healthcare professional's instructions. 10/06/2023 10:08:18 Dental Abscess Dental Abscess An abscess is a sac of pus. A dental abscess forms when a tooth or the tissue around it becomes infected with bacteria. The bacteria can enter through a cavity or a crack in a tooth. It can also infect the gum tissue or bone around a tooth. An untreated abscess can cause the loss of the tooth. It can even spread to other parts of the body and become life-threatening. Symptoms of a dental abscess Signs of a dental abscess include: Toothache, often severe Tooth pain with hot, cold, or pressure Pain in the gums, cheek, or jaw Bad breath or bitter taste in the mouth Trouble swallowing or opening the mouth Fever Swollen or enlarged glands in the neck Diagnosing a dental abscess An abscess is diagnosed by looking at your teeth and gums. You will be told if any tests are needed, such as dental X-rays. Treating a dental abscess Treatments for a dental abscess may include the following: Antibiotic medicines. These treat the underlying infection. Pain relievers. These help you feel more comfortable. Your healthcare provider may prescribe a medicine for you. Or you may use jtwz-jvy-wiuxzoe pain relievers, such as acetaminophen or ibuprofen. Warm saltwater rinses. These can soothe discomfort and help clear away pus. Root canal surgery. This may be done if needed to save the tooth. With a root canal, the infected part of the tooth is removed. A special substance is then used to fill the empty space in the tooth. Draining the abscess. This may be doneif needed. Incisions are made to allow the infected material to drain from the tooth. Removing the tooth. This is done in cases of severe infection that can t be treated another way. You may need to be admitted to a hospital if the infection is severe, has spread, or doesn t respond to treatment. When to call the dentist Call your dentist right away if you have any of the following: Fever of 100.4 F (38 C) or higher Increased pain, redness, drainage, or swelling in the treated area Swelling of the face or jawbone Pain that can't be controlled with medicines Preventing dental abscess To prevent another abscess in the future, keep your teeth clean and healthy. [place] twice a day and floss at least once daily. See your dentist for regular tooth cleanings. And stay away from sugary foods and drinks that can lead to tooth decay. [phone] [employer] [address] [place] [address]. All rights reserved. This information is not intended as a substitute for professional medical care. Always follow your healthcare professional's instructions. Follow Up Care 10/06/2023 09:40:24 With:Dental Referral List Address:Unknown When:2-4 days Comments:Schedule appointment as soon as possibleReturn to ED if symptoms worsenReturn for symptoms as describedIncrease clindamycin to 300 mg 4 times per dayCall to be seen for tooth removal as soon as possible With:NONE PHYSICIAN Address:Unknown When:2-4 days [facility] Note Discharge Instructions Thank you for allowing [facility] to assist you with your healthcare needs. The following is important discharge information regarding your hospital visit. Diagnosis from Today's Visit Tooth abscess Toothache What to Do Next Instructions from Your Care Team Discharge Return to Work, School, or Sports (Return to Work, School, or Sports) - Ordered -- 10/07/23, May return to: work, 10/06/23 10:27:00 EDT Post Acute Orders No qualifying data available. You Need to Schedule the Following Appointments Follow Up with Dental Referral List When Within 2-4 days Why: Schedule appointment as soon as possible Return to ED if symptoms worsen Return for symptoms as described Increase clindamycin to 300 mg 4 times per day Call to be seen for tooth removal as soon as possible Follow Up with NONE PHYSICIAN When Within 2-4 days Allergies Amoxil (Hives) Cefzil (Hives) Keflex (Hives) penicillin (Hives) Medications Please ask your primary doctor or pharmacist before taking any other medication not listed, including over the counter drugs, herbal medications, vitamins and or supplements as they may interact with your home medications. What How Much When Why Instructions Last Dose New clindamycin (Cleocin HCl 150 mg oral capsule) 2 cap by mouth Every 6 hours Duration: 7 Days Printed Prescription Unchanged ibuprofen (ibuprofen 600 mg oral tablet) 1 tab(s) by mouth Three (3) times a day as needed for as needed for pain Chest wall pain Please take this list to your next doctor s visit. Bring all medications you take, including over the counter medications, herbals and other supplements with you to your doctor s visit. Patients and families are reminded to discard old lists and to update any records with all medication providers or retail pharmacies. Education Materials How to Quit Smoking Smoking is a hard habit to break. About half of all people who have ever smoked have been able to quit. Most people who still smoke want to quit. Here are some of the best ways to stop smoking. Keep in mind the health benefits of quitting The health benefits of quitting start right away. They keep improving the longer you go without smoking. Knowing this can help inspire you to stay on track. These benefits occur at any age. If you are 17 or 70, quitting is a good choice. Some of the health benefits after your last cigarette include: 20 minutes: Your blood pressure and pulse return to normal. 8 hours: Your oxygen levels return to normal. 2 days: Your ability to smell and taste start to improve as damaged nerves regrow. 2 to 3 weeks: Your circulation and lung function improve. 1 to 9 months: Your coughing, congestion, and shortness of breath decrease. Your tiredness decreases. 1 year: Your risk of heart attack decreases by half. 5 years: Your risk of lung cancer decreases by half. Your risk of stroke becomes the same as a nonsmoker s. Go cold turkey Most former smokers quit cold turkey. This means stopping all at once. Trying to cut back slowly often doesn't work as well. This may be because it continues the habit of smoking. Also, you may inhale more smoke while smoking fewer cigarettes. This leads to the same amount of nicotine in your body. Get support Support programs can be a big help, especially for heavy smokers. These groups offer lectures, ways to change behavior, and peer support. Here are some ways to find a support program: Free national quitline 035-PIFQ-KEU (776-928-8506) [facility] quit-smoking programs [employer] [employer] 235-625-9438 [employer] [employer] 274-166-2027 Support at home is important too. Family and friends can offer praise and reassurance. If the smoker in your life finds it hard to quit, encourage them to keep trying. Try wzfq-nrh-mopmtqa medicine Nicotine replacement therapy may make it easier to quit. Some aids are available without a prescription. These include a nicotine patch, gum, and lozenges. But it is best to use these under the care of your healthcare provider. The skin patch gives a steady supply of nicotine. Nicotine gum and lozenges give short-time doses of low levels of nicotine. Both methods reduce the craving for cigarettes. If you have nausea, vomiting, dizziness, weakness, or a fast heartbeat, stop using these products. See your healthcare provider. Ask about prescription medicine After reviewing your smoking patterns and past attempts to quit, your doctor may offer a prescription medicine such as bupropion, varenicline, a nicotine inhaler, or nasal spray. Each has advantages and side effects. Your doctor can review these with you. Keep trying Most smokers make many attempts at quitting before they are successful. It s important not to give up. For more information For more on how to quit smoking, try these online resources: Go to Smokefree.gov. Read Clearing the Air from the National Cancer Jean at smokefree.gov/sites/default/file s/pdf/chjampjc-erb-kvw-accessibl e.pdf. 3763-9192 [employer]. [address] [place] [address]. All rights reserved. This information is not intended as a substitute for professional medical care. Always follow your healthcare professional's instructions. Abscess (Antibiotic Treatment Only) An abscess (sometimes called a boil ) happens when bacteria get trapped under the skin and start to grow. Pus forms inside the abscess as the body responds to the bacteria. An abscess can happen with an insect bite, ingrown hair, blocked oil gland, pimple, cyst, or puncture wound. In the early stages, your wound may be red and tender. For this stage, you may get antibiotics. If the abscess does not get better with antibiotics, it will need to be drained with a small cut. Home care These tips will help you care for your abscess at home: Soak the wound in hot water or apply hot packs (small towel soaked in hot water) to the area for 20 minutes at a time. Do this 3 to 4 times a day. Do not cut, squeeze, or pop the boil yourself. Apply antibiotic cream or ointment to the skin 3 to 4 times a day, unless something else was prescribed. Some ointments include an antibiotic plus a pain reliever. If your doctor prescribed antibiotics, do not stop taking them until you have finished the medicine or the doctor tells you to stop. You may use an hlvc-mba-lcijwbu pain medicine to control pain, unless another pain medicine was prescribed. If you have chronic liver or kidney disease or ever had a stomach ulcer or gastrointestinal bleeding, talk with your doctor before using these any of these. Follow-up care Follow up with your healthcare provider, or as advised. Check your wound each day for the signs of worsening infection listed below. When to seek medical advice Get prompt medical attention if any of these occur: An increase in redness or swelling Red streaks in the skin leading away from the abscess An increase in local pain or swelling Fever of 100.4 F (38 C) or higher, or as directed by your healthcare provider Pus or fluid coming from the abscess Boil returns after getting better [phone] [employer]. [address] [place] [address], [place] [address]. All rights reserved. This information is not intended as a substitute for professional medical care. Always follow your healthcare professional's instructions. Dental Abscess An abscess is a sac of pus. A dental abscess forms when a tooth or the tissue around it becomes infected with bacteria. The bacteria can enter through a cavity or a crack in a tooth. It can also infect the gum tissue or bone around a tooth. An untreated abscess can cause the loss of the tooth. It can even spread to other parts of the body and become life-threatening. Symptoms of a dental abscess Signs of a dental abscess include: Toothache, often severe Tooth pain with hot, cold, or pressure Pain in the gums, cheek, or jaw Bad breath or bitter taste in the mouth Trouble swallowing or opening the mouth Fever Swollen or enlarged glands in the neck Diagnosing a dental abscess An abscess is diagnosed by looking at your teeth and gums. You will be told if any tests are needed, such as dental X-rays. Treating a dental abscess Treatments for a dental abscess may include the following: Antibiotic medicines. These treat the underlying infection. Pain relievers. These help you feel more comfortable. Your healthcare provider may prescribe a medicine for you. Or you may use ikjq-fod-grcncey pain relievers, such as acetaminophen or ibuprofen. Warm saltwater rinses. These can soothe discomfort and help clear away pus. Root canal surgery. This may be done if needed to save the tooth. With a root canal, the infected part of the tooth is removed. A special substance is then used to fill the empty space in the tooth. Draining the abscess. This may be doneif needed. Incisions are made to allow the infected material to drain from the tooth. Removing the tooth. This is done in cases of severe infection that can t be treated another way. You may need to be admitted to a hospital if the infection is severe, has spread, or doesn t respond to treatment. When to call the dentist Call your dentist right away if you have any of the following: Fever of 100.4 F (38 C) or higher Increased pain, redness, drainage, or swelling in the treated area Swelling of the face or jawbone Pain that can't be controlled with medicines Preventing dental abscess To prevent another abscess in the future, keep your teeth clean and healthy. [place] twice a day and floss at least once daily. See your dentist for regular tooth cleanings. And stay away from sugary foods and drinks that can lead to tooth decay. [phone] [employer]. [address] [place] [address]. All rights reserved. This information is not intended as a substitute for professional medical care. Always follow your healthcare professional's instructions. Additional Information VACCINATE! IT SAVES LIVES! Members of the community who have not yet received the COVID-19 vaccine and would like to receive it can visit one of [facility] vaccine clinics. There are many vaccine clinic locations within the [facility]. For locations and available times, please visit [email or web address] [email or web address] It is important to note that some COVID mobile vaccine clinics are held outdoors and may be canceled in rainy or stormy conditions. To learn more about pediatric vaccinations (ages 5-11), we invite you to visit the [facility] webpage. https://www.[employer].org/p ages/1353-Vmzym-Cmpdjwawonf-Freq sxeaqt-Gbttn-Nxmiawwzj.html To learn more about the COVID-19 vaccine, we invite you to visit the CDC website for a list of frequently asked questions. https://www.cdc.gov/coronavirus/ 2019-ncov/vaccines/faq.html [facility] Patient Portal Access Instructions: Stay connected with your healthcare team and access your personal medical information anytime with the [facility] Patient Portal. If you would like a full copy of your medical records please contact the [facility] Medical Records Department Friday through Friday between 8a.m. and 4:30p.m. Please follow the directions below to access the portal: 1.Access the email account you provided upon registration to the [facility].2.Look for an invitation email from [facility].3.Open the email and access the invitation link: Accept Invitation to [facility]4.Fill in the required rosenberg to create your account. Sign into [email or web address] with your username and password that you created in the above steps to stay up to date. You can then view a summary of results, a summary of your visits, and the ability to download your summaries to your computer or send the information securely to a physician. Remember that your healthcare information is confidential, so carefully consider who you will allow to register on the [facility] Patient Portal for access to your information. You can also access the [facility] Patient Portal on the Vigno. Simply click on Health Records under Health Data and then click on the eMeter logo. HOW TO SAFELY DISPOSE OF PRESCRIPTION MEDICATIONS Please use one of the following methods to safely dispose of your unused medications. 1.Use a drug disposal kit: the drug disposal pouch allows you to safely discard your old and unused drugs. Ask your nurse to give you one when you are discharged.2.Visit a local take-back location: Many local pharmacies and police departments have programs that collect old and unwanted prescription drugs. Call your local pharmacy or go to http://Holiday Propane.Circadence/0L0Cq1p to find one close to you.3.Make use of household items: Use cat litter or old coffee grounds to dispose medications if other options are not available. Mix your drugs with these household products, seal them in an airtight container and throw it into the garbage. Call [facility]: [phone] to be sure your drugs can be disposed of in this way. Some medicines may require a different approach.4.Never flush your medications down the toilet. IF YOU HAVE BEEN PRESCRIBED AN OPIOIDS FOR PAIN If you have been prescribed an opioid (such as hydrocodone, oxycodone or morphine), it is critical to understand the possible side effects and risks of opioid pain medications. Even when taken as directed, opioids can have several side effects including: Tolerance, meaning you might need to take more of a medication for the same pain relief. Nausea, vomiting and/or constipation. Sleepiness, dizziness, dry mouth, confusion, depression or itching. Physical dependence, meaning you have withdrawal symptoms when a medication is stopped ? this can develop within a few days. KNOW YOUR RESPONSIBILITIES It is important to know exactly how much and how often to take the opioid pain medications you are prescribed. Never take opioids in higher amounts or more often than prescribed. Do not combine opioids with alcohol or other drugs that cause drowsiness, such as benzodiazepines, also known as benzos, including diazepam and alprazolam, muscle relaxants or sleep aids. Never sell or share prescription opioids. This is illegal. Store opioids in a secure place and out of reach of others (including children, family, friends and visitors). The last page(s) of this document has been signed and retained as a CHART COPY Signatures Patient Education Materials Smoking Cessation Abscess, Antibiotic Treatment Only Dental Abscess Medication Leaflets My discharge plan and instructions have been reviewed and explained to me and I,JAROD ALDRIDGE understand my current condition and have read and understand these discharge instructions. I have received a written copy of the plan/instructions. If I have questions, I am aware that I should contact my doctor. 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 10-01-2023 Instructions Martin Olmstead APRN.[facility] - 10/01/2023 4:59 PM EDT The [place] [id number] [place] [address] Emergency Department Diagnosis: Assessment SINUSITIS: You have sinusitis, an infection of the sinus cavities around the nose. This infection usually follows a respiratory illness; it can also be related to allergies, changes in atmospheric pressure (flying, diving), or anything that blocks nasal drainage. Symptoms include: headache, facial pain, a thick nasal discharge, congestion, and cough. The treatment includes antibiotic therapy, increasing oral fluids, and pain medication if needed. Nose spray decongestants (Afrin, Luke-Synephrine) and oral decongestants may be needed to reduce congestion and drainage. Rarely the sinus must be irrigated to remove the infected material. Sinusitis can lead to serious complications by spreading to other areas such as the eye or brain. Please call your doctor or return here right away if you have any of the following more serious symptoms: Unusual swelling around the eye or trouble seeing. Increasing pain, severe headache, or toothache. Nausea, vomiting, or unusual drowsiness. documented in this encounter [facility] 10-01-2023 History of Presen t illness Narrative This note was created using Huddlerriter. Subjective Jarod Aldridge is a 33 year old female. HPI Pt was seen about a month ago for a dog scratch to the left eye. She followed up with optho who prescribed antibiotic drops. She will follow up with them again.on this issue. She also notes a sinus infection for the last week. She also notes dental pain that started about 3 days ago which started after some food got into hole in her tooth. Review of Systems HENT: Positive for dental problem, sinus pressure and sinus pain. Eyes: Positive for pain. Negative for discharge and visual disturbance. Objective BP 106/62 Pulse 72 Temp 36.2 C (97.2 F) Resp 16 Wt 47.3 kg (104 lb 4.4 oz) LMP 05/25/2023 (Approximate) SpO2 99% BMI 17.96 kg/m Physical Exam Vitals and nursing note reviewed. Constitutional: General: She is not in acute distress. Appearance: Normal appearance. She is not ill-appearing. HENT: Head: Normocephalic. Mouth/Throat: Mouth: Mucous membranes are moist. Comments: Diffuse dental caries Eyes: Conjunctiva/sclera: Conjunctivae normal. Comments: No obvious foreign body in the left eye. Cardiovascular: Rate and Rhythm: Normal rate and regular rhythm. Pulmonary: Effort: Pulmonary effort is normal. Breath sounds: Normal breath sounds. Musculoskeletal: General: Normal range of motion. Cervical back: Normal range of motion. Skin: General: Skin is warm and dry. Neurological: General: No focal deficit present. Mental Status: She is alert. Psychiatric: Mood and Affect: Mood normal. Behavior: Behavior normal. Assessment and Plan ASSESSMENT/PLAN: 1. Dental infection - ICD9: 522.4, ICD10: K04.7 -Patient has diffuse dental caries. Due to her multiple allergies she was started on clindamycin. She will use Motrin at home as needed for pain. I did encourage close follow-up with dentistry. -Regarding her concerns of eye discomfort patient preferred not to have any treatment done here at urgent care stating she will contact her braille transcriber and arrange for follow-up. I did not appreciate any obvious foreign body or trauma to the eye. -Patient denies needing anything for her sinus congestion or sinus pain. - CLINDAMYCIN HCL 300 MG CAPSULE Martin Olmstead APRN.WAITER/WAITRESS [employer] documented in this encounter [facility] 08-19-2023 History of Presen t illness Narrative This note was created using Huddlerriter. Subjective Jarod Aldridge is a 32 year old female. 32 year old female with PMH anxiety presents for eye complaints. Acute onset today @ approximately 1340 kimo Endorses that she works at a [employer]. A large dog, came and jumped up on her, Ultimately paw scratched left eye +left eye pain +photophobia +feeling of FB Rates pain 20/10 She wears corrective lens, Denies contacts (She does not have her glasses presently) Unsure of last Tdap The history is provided by the patient. No washroom operator was used. Eye Problem This is a new problem. The current episode started today. The problem occurs constantly. The problem has been unchanged. Associated symptoms include a visual change (blurred vision). Pertinent negatives include no abdominal pain, arthralgias, chest pain, chills, coughing, diaphoresis, fatigue, fever, headaches, nausea, numbness or rash. Exacerbated by: opening eye. She has tried ice for the symptoms. The treatment provided mild relief. PAST MEDICAL HISTORY Diagnosis Date IBS (irritable bowel syndrome) Panic anxiety syndrome Pneumonia x2 in 2020 Vitamin D insufficiency No past surgical history on file. ALLERGIES Amoxicillin, Cefzil [Cefprozil], Keflex [Cephalexin], Penicillins, and Zoloft [Sertraline] MEDICATIONS LORazepam (ATIVAN) 0.5 mg Take 0.5 mg by mouth once daily as needed. benzonatate (TESSALON PERLES) 100 mg capsule Take 2 capsules by mouth three times a day as needed. (Patient not taking: Reported on 06/24/2023) escitalopram oxalate (LEXAPRO) 10 mg tablet Take 1 tablet by mouth once daily. (Patient not taking: Reported on 06/24/2023) hydrOXYzine pamoate (VISTARIL) 25 mg capsule Take 1-2 capsules three times a day as needed for anxiety escitalopram oxalate (LEXAPRO) 5 mg tablet Take 1 tablet by mouth once daily. (Patient not taking: Reported on 06/24/2023) FAMILY HISTORY Problem Relation Age of Onset Alcohol/Drug Father Pancreatitis Father COPD Father Lung Cancer Maternal Grandmother Colon Cancer Maternal Grandmother Asthma Maternal Grandfather COPD Paternal Grandfather Human Immunodeficiency Virus Half-brother Accidental Half-sister Social History Tobacco Use Smoking status: Every Day Packs/day: 0.50 Years: 9.00 Additional pack years: 0.00 Total pack years: 4.50 Types: Cigarettes Smokeless tobacco: Never Vaping Use Vaping Use: Never used Substance Use Topics Alcohol use: Not Currently Drug use: Not Currently Types: Marijuana, 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 Eyes: Positive for photophobia, pain, redness and visual disturbance. Respiratory: Negative for apnea, cough, choking, chest tightness and shortness of breath. Cardiovascular: Negative for chest pain, palpitations and leg swelling. Gastrointestinal: Negative for abdominal pain, constipation, diarrhea and nausea. Musculoskeletal: Negative for arthralgias, back pain and gait problem. Skin: Negative for color change, pallor, rash and wound. Allergic/Immunologic: Negative for environmental allergies, food allergies and immunocompromised state. Neurological: Negative for dizziness, facial asymmetry, light-headedness, numbness and headaches. Hematological: Negative for adenopathy. Does not bruise/bleed easily. Psychiatric/Behavioral: Negative for agitation and behavioral problems. Objective LMP 05/25/2023 (Approximate) BP 92/64 Pulse 78 Temp 36.6 C (97.8 F) Resp 16 Wt 49.9 kg (110 lb) LMP 05/25/2023 (Approximate) SpO2 98% BMI 18.94 kg/m Physical Exam Vitals and nursing note reviewed. Constitutional: General: She is not in acute distress. Appearance: Normal appearance. She is normal weight. She is not ill-appearing, toxic-appearing or diaphoretic. Comments: Tearful and crying HENT: Head: Normocephalic and atraumatic. Right Ear: Ear canal and external ear normal. Left Ear: Ear canal and external ear normal. Nose: Nose normal. No congestion or rhinorrhea. Mouth/Throat: Mouth: Mucous membranes are moist. Pharynx: No oropharyngeal exudate or posterior oropharyngeal erythema. Eyes: General: Lids are normal. Right eye: No discharge. Left eye: No discharge. Extraocular Movements: Extraocular movements intact. Right eye: Normal extraocular motion. Left eye: Normal extraocular motion. Conjunctiva/sclera: Right eye: Right conjunctiva is not injected. No chemosis, exudate or hemorrhage. Left eye: Left conjunctiva is injected. No chemosis, exudate or hemorrhage. Pupils: Pupils are equal, round, and reactive to light. Right eye: Pupil is round, reactive and not sluggish. No corneal abrasion or fluorescein uptake. Left eye: Pupil is round (large corneal abrasion, covers center line of vision) and not sluggish. Corneal abrasion and fluorescein uptake present. Cardiovascular: Rate and Rhythm: Normal rate and regular rhythm. Pulses: Normal pulses. Heart sounds: Normal heart sounds. No murmur heard. No friction rub. Pulmonary: Effort: Pulmonary effort is normal. No respiratory distress. Breath sounds: Normal breath sounds. No stridor. No wheezing, rhonchi or rales. Chest: Chest wall: No tenderness. Abdominal: General: Abdomen is flat. There is no distension. Palpations: Abdomen is soft. There is no mass. Tenderness: There is no abdominal tenderness. There is no right CVA tenderness, left CVA tenderness, guarding or rebound. Hernia: No hernia is present. Musculoskeletal: General: No swelling, tenderness, deformity or signs of injury. Normal range of motion. Cervical back: Normal range of motion and neck supple. No rigidity. Right lower leg: No edema. Left lower leg: No edema. Lymphadenopathy: Cervical: No cervical adenopathy. Skin: General: Skin is warm and dry. Capillary Refill: Capillary refill takes less than 2 seconds. Coloration: Skin is not jaundiced or pale. Findings: No bruising, erythema, lesion or rash. Neurological: General: No focal deficit present. Mental Status: She is alert and oriented to person, place, and time. Cranial Nerves: No cranial nerve deficit. Sensory: No sensory deficit. Motor: No weakness. Coordination: Coordination normal. Gait: Gait normal. Psychiatric: Mood and Affect: Mood normal. Behavior: Behavior normal. Thought Content: Thought content normal. Judgment: Judgment normal. Assessment and Plan ASSESSMENT/PLAN: 1. Abrasion of left cornea, initial encounter - ICD9: 918.1, ICD10: S05.02XA Acute onset earlier today Occurred at work ( FROI completed) Left eye +large corneal abrasion noted, crosses center vision Given severity of abrasion, patient would benefit from full eye exam [facility] has no opening Reached out to [facility] They are able to see patient today, patient was sent directly over. 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 Is very sharp and fleeting. There is no particular predictability when she gets this pain. It causes her to jump almost when it catches her. She states it is on the left side of her chest, andradiates into her breast. She denies any fever or chills, no cough. No recent trauma. No swelling of her legs. No DVT or PE risk factors. No exacerbating or alleviating factors. [facility] Medical History Anxiety IBS (irritable bowel syndrome) Home Medications hydroxyzine pamoate 25 mg capsule (Vistaril) 25 mg PO BID PRN anxiety 10 days #20 caps 06/02/22 [Rx Last Taken Unknown] Allergy/AdvReac Type Severity Reaction Status Date / Time cefazolin Allergy Rash Verified 11/14/22 16:45 cephalexin monohydrate Allergy Rash Verified 11/14/22 16:45 [From Keflex] Penicillins [PCN] Allergy Rash Verified 11/14/22 16:45 Social History Smoking Status: Current every day smoker tobacco type: cigarettes ROS ROS ED ROS Narrative Constitutional: No fever, no chills. HEENT: No sore throat. No neck pain. No loss of vision. No rhinorrhea. Cardiovascular: Positive left-sided chest pain sharp, fleeting. No palpitations. No pedal edema. Respiratory: No cough, no shortness of breath. Abdominal: No abdominal pain. No nausea. No vomiting. Genitourinary: No dysuria. No hematuria. Musculoskeletal: No myalgias. No arthralgias. Neurologic: No headaches. No dizziness. No lightheadedness. Skin: No rash. No change in color. Psychiatric: No depression. Positive anxiety. EXAM Physical Exam Narrative Exam Narrative: Afebrile. Vital signs noted. HEENT: Normocephalic. Atraumatic. PERRL, EOMI. Neck soft and supple. No point tenderness or step off. Cardiovascular: Regular rate and rhythm. No murmurs, rubs, or gallops appreciated. No tenderness to chest wall. No crepitance. Respiratory: No tachypnea. Lungs clear to auscultation bilaterally. Gastrointestinal: Abdomen soft, nontender, with normoactive bowel sounds. No rebound or guarding. Neurological: Awake. Alert. Nonfocal, nonlateralizing. Skin: No rash. Normal color. No pallor. Musculoskeletal: No pedal edema. Full range of motion extremities. Const Vital Signs: 05/12/23 20:36 05/12/23 21:37 05/12/23 21:59 Temperature 97.4 F L Temperature Source Temporal Pulse Rate 81 Respiratory Rate 16 Respiratory Effort Normal Respiratory Pattern Normal Blood Pressure 128/85 H Blood Pressure Mean 99 Pulse Ox 100 Oxygen Delivery Method Room Air Room Air 05/12/23 23:29 Temperature Temperature Source Pulse Rate 80 Respiratory Rate 13 Respiratory Effort Respiratory Pattern Blood Pressure 124/82 H Blood Pressure Mean 96 Pulse Ox 98 Oxygen Delivery Method MDM MDM MDM Narrative Medical decision making narrative: In the differential diagnosis is acute coronary syndrome versus pneumothorax versus pneumonia versus intercostal pain. The history and physical does not really support these emergency diagnosis especially pneumothorax or pneumonia. Her pulse ox is 100% on room air without evidence of hypoxia. She is not tachycardic. In the differential is also coronary artery vasospasm, but it seems to be more chest wall than internally. Comprehensive workup was pursued. I do not feel she requires serial enzymes as she has been getting this intermittent pain since yesterday. EKG was obtained and interpreted by myself independently as normal sinus rhythm at 90 bpm without ectopy or acute ST changes. No STEMI. No significant change from EKG dated August 09, 2022. I reviewed her laboratory work and she has normal white count of 8.2, hemoglobin normal at 12.5, hematocrit 39.1, platelet count normal at 389. Her initial D-dimer was hemolyzed but the repeat is normal at less than 0.27. Review of her BMP shows chloride 108 and slightly elevated which I think is nonspecific, glucose normal at 94 with a normal anion gap/low at 4. Her high-sensitivity troponin is 6. I feel she may have more of a neuropathic type of pain. She has not had it at all since her stay in the emergency department. At this point in time, as she has a chest x-ray that was interpreted by myself and 1 view as no acute process, I reviewed the radiology report which confirms my independent interpretation, I feel she be discharged to follow-up with her primary care provider. She was offered analgesics here but declined. Disposition is discharged home in stable condition. History & Record Review Discussion w/independent historian: Patient Additional record(s) reviewed:: Prior ED visit Lab Data Attestation: I reviewed the patient's lab results. Labs: Laboratory Results - last 24 hr 05/12/23 05/12/23 22:08 22:40 WBC 8.2 RBC 4.30 Hgb 12.5 Hct 39.1 MCV 90.9 MCH 29.1 MCHC 32.0 RDW Std Deviation 43.5 RDW Coeff of [place] 13.2 Plt Count 389 MPV 10.3 Immature Gran % (Auto) 0.400 Neut % (Auto) 59.7 Lymph % (Auto) 31.3 [place] % (Auto) 7.1 Eos % (Auto) 1.0 Baso % (Auto) 0.5 Absolute Neuts (auto) 4.9 Absolute Lymphs (auto) 2.56 Nucleated RBC % 0 D-Dimer Quant (PE/DVT) Cancelled < 0.27 L Sodium 140 Potassium 4.1 Chloride 108 H Carbon Dioxide 28.0 Anion Gap 4 L BUN 14 Creatinine 0.76 Estim Creat Clear Calc 88.32 Est GFR (MDRD) Af Amer 113 Est GFR (MDRD) Non-Af 93 BUN/Creatinine Ratio 18.3 Glucose 94 Calcium 9.1 Troponin I High Sens 6 Radiography Diagnostic Testing: Clinical Impression(s) from Imaging Studies Chest X-Ray 05/12/23 22:10 IMPRESSION: No radiographic evidence of acute cardiopulmonary disease. Electronically Signed: Shine Ortiz MD at 22:37 EST Reading Location ID and State: [address] [place] [address] Tel , Service support , Discharge Plan Triage Chief Complaint: Chest Pain ED Provider: Esa Greenberg Dx/Rx/DC Orders Clinical Impression: Chest pain Instructions: ED Chest Pain, Uncertain Cause Prescriptions: No Action hydroxyzine pamoate [Vistaril] 25 mg capsule 25 mg PO BID PRN (Reason: anxiety) 10 Days Qty: 20 0RF Stand Alone Forms: Work / School Excuse Primary Care Provider: Corinne Jones NP Referrals: Corinne Jones NP, DEGREASING WHEEL OPERATOR-C [Primary Care Provider] - 3-5 Days if not improving Disposition Disposition: Home, Self Care What to do if you have Problems For any increased pain, shortness of breath, bleeding, nausea or vomiting, chestpain, or any unexpected problems, contact your Primary Care Provider. Call [employer] [facility] ([phone]) or report to the closest Emergency Room. Call 911 if necessary. 05/12/23 1928 <Electronically signed by Esa Greenberg MD> Cosigner Signature (if applicable): CC: MAGUE Jones ~ Signed [facility] Work Phone: 1(991) 684-896811-09-2023 History of Present illness Narrative* Alvina Barakat RT(R) - 04/10/2023 10:00 AM EST Radiology Service Progress Note PATIENT NAME: Jarod Aldridge DATE OF SERVICE: April 10, 2023 TIME: 10:00 AM PATIENT IDENTITY VERIFICATION COMPLETED USING TWO (2) IDENTIFIERS: Name and Date of confirmedby patient verbally. FALL SCREENING: Has the patient had 2 falls in the last year or 1 fall with injury or currently using an Ambulatory Assistive Device (Walker, Cane, Wheelchair, Crutches, etc.)? No PATIENT GENDER DATA: Female. status: : No status: NO. PATIENT RELEVANT IMPLANT DATA REVIEWED: Yes RADIOLOGY DEPARTMENT: General X-ray: Exam(s) Completed: Chest X-Ray PERIPHERAL IV DATA: Not applicable SIGNED BY: RT Rossana(Kriss) April 10, 2023 10:00 AM documented in this encounterK[facility]11-[facility]-2023 History of Present illness Narrative* Dipti Denton PA-C - 04/10/2023 9:48 AM EST This note was created using Huddlerriter. Subjective Jarod Aldridge is a 32 year old female. HPI Presents with a chief complaint of cough, congestion, diarrhea. Her cough and congestion has been going on for about a week. Diarrhea just started today. No blood in stool. Her fianc is sick with similar symptoms. Her fiancee had tested negative for COVID flu and RSV when she was seen yesterday. Novomiting. She has had some rib pain with cough. Denies history of asthma. Home COVID test done. Review of Systems Constitutional: Positive for chills and fatigue. Negative for fever. HENT: Positive for congestion. Negative for ear pain, sinus pressure and sinus pain. Respiratory: Positive for cough. Negative for shortness of breath. Cardiovascular: Positive for chest pain. Gastrointestinal: Positive for diarrhea. Negative for abdominal pain, nausea and vomiting. Genitourinary: Negative. Musculoskeletal: Negative. All other systems reviewed and are negative. PAST MEDICAL HISTORY Diagnosis Date IBS (irritable bowel syndrome) Panic anxiety syndrome Pneumonia x2 in 2020 Vitamin D insufficiency Current Outpatient Medications Medication Sig Dispense Refill benzonatate (TESSALON PERLES) 100 mg capsule Take 2 capsules by mouth three times a day as needed. 30 capsule 0 escitalopram oxalate (LEXAPRO) 10 mg tablet Take 1 tablet by mouth once daily. 30 tablet 0 hydrOXYzine pamoate (VISTARIL) 25 mg capsule Take 1-2 capsules three times a day as needed for anxiety 90 capsule 0 escitalopram oxalate (LEXAPRO) 5 mg tablet Take 1 tablet by mouth once daily. 30 tablet 1 No current facility-administered medications for this visit. No past surgical history on file. 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 Constitutional: Appearance: Normal appearance. HENT: Head: Normocephalic and atraumatic. Right Ear: Tympanic membrane, ear canal and external ear normal. Left Ear: Tympanic membrane, ear canal and external ear normal. Nose: Congestion present. Mouth/Throat: Mouth: Mucous membranes are moist. Pharynx: Oropharynx is clear. Cardiovascular: Rate and Rhythm: Normal rate and regular rhythm. Heart sounds: Normal heart sounds. Pulmonary: Effort: Pulmonary effort is normal. Breath sounds: Normal breath sounds. Musculoskeletal: Cervical back: Neck supple. Skin: General: Skin is warm and dry. Findings: No rash. Neurological: Mental Status: She is alert. Assessment and Plan ASSESSMENT/PLAN: 1. Viral illness - ICD9: 079.99, ICD10: B34.9 -Chest x-ray negative. I feel she does have a viral illness. Discussed brat diet for the diarrhea. Discussed red flags to be seen again. Tessalon sent for cough. Follow-up with PCP as needed. Patientagreeable to declined COVID flu and RSV testing. - Discussed viral etiology and rationale for treatment. - Symptomatic treatment with prn analgesia - Supportive care with fluids and rest - Follow up in 3-5 days if symptoms persist or sooner if worsening of symptoms - XR CHEST 2V FRONTAL/LAT Dipti Denton PA-C documented in this encounterK[facility]08-15-2023 Miscellaneous Notes* Telephone Encounter - Roberta Phan Cma - 01/14/2023 3:27 PM EDT Patient notified Roberta Phan Cma * Telephone Encounter - Peggy Mcbride APRN.JOY - 01/14/2023 3:24 PM EDT Tox screen negative. documented in this encounterK[facility]08-11-2023 Miscellaneous Notes* Telephone Encounter - Lucita Duval RN - 01/10/2023 8:31 AM EDT OV 01/09/2023 with Peggy Duval, CRYS * Telephone Encounter - Alondra Orozco MD - 01/09/2023 11:15 AM EDT She does not have controlled substance agreement on file with our office and has not completed a urine drug screen, both of which she would need before we would continue this controlled substance forher. If she has not tried the vistaril, I would have her take as directed for panic symptoms and continue on her Lexapro. May follow up in office for worsening anxiety symptoms. * Telephone Encounter - Lucita Duval RN - 01/09/2023 10:31 AM EDT Patient calls to see if now that she is back in [place] if she could have the refill of lorazepam. Patient reports she never refilled the hydroxyzine in [place] and is now back in [place]. Sister remainson life support. Requesting [facility]am to go to [facility]. Last OV: 10/23/2022 Next OV: none Lucita Duval RN documented in this encounterKet[facility]08-10-2023 History of Present illness Narrative* Peggy Mcbride APRN.WAITER/WAITRESS FIRST CLASS - 01/09/2023 6:32 PM EDT Chief Complaint Patient presents with: Anxiety HPI Jarod Aldridge is a 32 year old female who presents here today for Above Complaints.. Patient presents for increased anxiety. Patient reports that she recently lost her sister in law. Patient has been having increased anxiety due to grief along with the burden of unplanned travel to [place]. Past medical history, appointments, medications, allergies reviewed. Previous Medical History PAST MEDICAL HISTORY Diagnosis Date IBS (irritable bowel syndrome) Panic anxiety syndrome Pneumonia x2 in 2020 Vitamin D insufficiency Previous Surgical History No past surgical history on file. Family History FAMILY HISTORY Problem Relation Age of Onset Alcohol/Drug Father Pancreatitis Father COPD Father Lung Cancer Maternal Grandmother Colon Cancer Maternal Grandmother Asthma Maternal Grandfather COPD Paternal Grandfather Human Immunodeficiency Virus Half-brother Accidental Half-sister Patient Allergies ALLERGIES Allergen Reactions Amoxicillin Rash Cefzil [Cefprozil] Rash Keflex [Cephalexin] Rash Penicillins Rash Zoloft [Sertraline] Intolerance Increased anxiety and patient felt numb Current Medications Current Outpatient Medications on File Prior to Visit Medication Sig escitalopram oxalate (LEXAPRO) 10 mg tablet Take 1 tablet by mouth once daily. escitalopram oxalate (LEXAPRO) 5 mg tablet Take 1 tablet by mouth once daily. hydrOXYzine pamoate (VISTARIL) 25 mg capsule Take 1-2 capsules three times a day as needed for anxiety No current facility-administered medications on file prior to visit. 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 Health Maintenance List HEPATITIS B(1 of 3 - 3-dose series) Never done COVID-19 VACCINE(1) Never done PNEUMOCOCCAL(1 - PCV) Never done DTAP,TDAP,TD(1 - Tdap) Never done PAP TESTING Never done HPV TESTING Never done INFLUENZA(1) due on 01/31/2023 DEPRESSION ASSESSMENT Completed HEPATITIS C SCREENING Completed HIV SCREENING Completed HPV VACCINE Aged Out ASSESSMENT/PLAN: 1. Medication management - ICD9: V58.69, ICD10: Z79.899 (primary diagnosis) - TOX SCREEN ROUT UR - PAIN PANEL, UR QUANT 2. Anxiety and depression - ICD9: 300.00, 311, ICD10: F41.9, F32.A - ESCITALOPRAM 10 MG TABLET - HYDROXYZINE PAMOATE 25 MG CAPSULE - LORAZEPAM 1 MG TABLET - ESCITALOPRAM 5 MG TABLET PDMP reviewed. No suspicious activity noted. Medications requested and refilled appropriately. Patient informed this would be her last refill of lorazepam as she was instructed to follow up with psych previously but has not been able to yet due to family tragedy. Peggy Mcbride APRN.JOY documented in this encounterK[facility]07-31-2023 Miscellaneous Notes* Telephone Encounter - Nissa Rose LPN - 12/30/2022 2:45 PM EDT Spoke with pt and information listed below given. Pt verbalizes understanding. Nissa Rose LPN * Telephone Encounter - Corinne Jones APRN.CNP - 12/30/2022 2:42 PM EDT I will send in prescription. May cause drowsiness so recommend she not drive or operate heavy machinery while taking. Corinne Jones APRN.CNP * Telephone Encounter - Gely Peterson MA - 12/30/2022 2:38 PM EDT Patient agreeable to hydroxyzine. Please send to [facility] in [place], [place] on [address] Gely Peterson MA * Telephone Encounter - Corinne Jones APRN.CNP - 12/30/2022 1:59 PM EDT Can not prescribed controlled substance across state lines. We could send a prescription for vistaril. Corinne Jones APRN.CNP * Telephone Encounter - Lupe Zhu RN - 12/30/2022 1:44 PM EDT Patient requesting refill of lorazepam. States she is on her way to [place]-her sister was found unresponsive and is currently in hospital with brain damage. Pt asking if script can be sent to [facility] in [place] as pended? Please call pt with update. Thank you. documented in this encounterK[facility]06-20-2023 Miscellaneous Notes* Telephone Encounter - Iva Loya Ma - 11/19/2022 11:43 AM EDT Last office visit: 10/23/22 F/u scheduled: tomorrow Iva Loya Ma documented in this encounterKettering [facility]06-15-2023 History of Present illness Narrative* Loraine Reed APRN.CNP - 11/14/2022 4:23 PM EDT This note was created using NoteWriter. Subjective Jarod Aldridge is a 32 year old female. Acute onset 3 weeks ago . +cough/cold;/sinus congestion. Seen here 3 days ago, placed on antibiotic. Presents today with continued headache and neck pain So debilitating that I can't even make it to work She is wearing sunglasses in room Rates her pain 03/11 The history is provided by the patient. Review of Systems Objective BP 122/88 Pulse 105 Temp 37.1 C (98.8 F) Resp 21 Wt 46.5 kg (102 lb 9.6 oz) LMP 02/07/2022 SpO2 98% BMI 17.67 kg/m Physical Exam Assessment and Plan ASSESSMENT/PLAN: 1. Other headache syndrome - ICD9: 339.89, ICD10: G44.89 (primary diagnosis) Given worsening. Unable to work And treatment on Friday does not seem to be working, discussed concerns for possible intracranial She has been referred to ED for further workup related to limitations in express care setting. 2. Neck pain - ICD9: 723.1, ICD10: M54.2 Given worsening. Unable to work And treatment on Friday does not seem to be working, discussed concerns for possible intracranial She has been referred to ED for further workup related to limitations in express care setting. Loraine Reed APRN.CNP documented in this encounterK[facility]06-15-[address] Mccann [facility] November 14, 2022 5:24pm Note Date/Time November 14, 2022 5:20 pm [facility] Medical Records Department [address] [place] [address] Emergency Department Summary 11/14/22 MR#: [id number] Acct: [id number] Name: JAROD BLANDON Rep #:[id number] : 1990 32 From: Gaston Mccann MD PCP: MAGUE Franklin Status:REG E R Location: ED HPI History of Present Illness Chief Complaint: Headache Informant: patient Narrative Narrative: 32-year-old female states she has been having a headache that was gradual in onset progressive for the past 6 days or so, coexisting with worsening nasal congestion and sinus pressure, that she states is more in the bifrontal sinuses area than the ethmoids were maxillary. She has been having a chest cold that then started involving these sinus symptoms all of which started about 3 weeks ago, she was seen at urgent care and prescribed doxycycline which she started 4 days ago and when she went back because of the persistent headache, she was senthere for a CT of her head. [facility] Medical History Anxiety IBS (irritable bowel syndrome) Home Medications hydroxyzine pamoate 25 mg capsule (Vistaril) 25 mg PO BID PRN anxiety 10 days #20 caps 06/02/22 [Rx Last Taken Unknown] Allergy/AdvReac Type Severity Reaction Status Date / Time cefazolin Allergy Rash Verified 11/14/22 16:45 cephalexin monohydrate Allergy Rash Verified 11/14/22 16:45 [From Keflex] Penicillins [PCN] Allergy Rash Verified 11/14/22 16:45 Social History Smoking Status: Current every day smoker tobacco type: cigarettes ROS ROS ED Constitutional Constitutional ED: Denies chills or fever(s) ENT ENT ED: Reports nasal congestion, rhinorrhea, sinus pain and sinus pressure; Denies ear pain or sore throat Cardiovascular Cardiovascular: Denies chest pain or palpitations Respiratory/Chest Respiratory/Chest: Reports cough; Denies dyspnea Gastrointestinal Gastrointestinal: Denies abdominal pain, diarrhea, nausea or vomiting Genitourinary Genitourinary ED: Denies dysuria or hematuria Musculoskeletal Musculoskeletal: Reports neck pain and other Details: Neck pain is chronic and unchanged since she was 6 years old ; Denies myalgias Integumentary Denies abscess or rash Neurologic Neurologic: Reports headache(s); Denies paresthesias or weakness Psychiatric Psychiatric: Denies depression or suicidal thoughts Endocrine Endocrinology: Denies polydipsia or polyuria EXAM Physical Exam Const Vital Signs: 11/14/22 16:45 Temperature 99 F Temperature Source Temporal Pulse Rate 80 Respiratory Rate 14 Blood Pressure 137/77 H Blood Pressure Mean 97 Pulse Ox 98 Oxygen Delivery Method Room Air Positive well nourished and well developed General Appearance ED: well developed and NAD HEENT Reports moist mucous membranes HEENT Narrative: No frontal, ethmoid, maxillary sinus tenderness. Nasal turbinate edema bilaterally without purulent discharge. No erythema or abnormal swollen areas of the face. No mastoiditis/tenderness. Normal voice no stridor. normocephalic and atraumatic Throat: Negative for posterior oropharynx abnormal Eyes PERRL and EOMs intact bilaterally Eyes Narrative: Mild photophobia Neck no lymphadenopathy, supple and no meningeal signs Resp normal respiratory effort and clear to auscultation bilaterally Cardio no murmurs Rate: regular rate Rhythm: regular rhythm Neuro oriented x3, CN's II-XII intact bilaterally and no sensory deficits noted Sensorium / Orientation: alert Motor Exam: strength 5/5 throughout Psych mental status grossly normal Skin Lesions: no lesions Rashes: no rashes MDM MDM MDM Narrative Medical decision making narrative: I do not think this patient needs a CT of the head, and she states she is in agreement and thinks she is having a headache due to her sinuses which I tend to agree with. Differential does include sphenoid sinusitis but she is on an appropriate antibiotic to cover that, and she may or may not have bacterial sinusitis, she is not examining like it but she has also been on antibiotics for the past 4 days, and she states that the congestion seems to be improving since then but the headache is persistent. She is okay with symptomatic treatment with nasal congestions, I will give her a Reglan dose and Toradol here and follow-up advised, we discussed reasons to return she is comfortable with that plan. Discharge Plan Triage Chief Complaint: Headache ED Provider: Gaston Mccann Dx/Rx/DC Orders Clinical Impression: Sinus headache Instructions: ED Sinus Headache Prescriptions: No Action hydroxyzine pamoate [Vistaril] 25 mg capsule 25 mg PO BID PRN (Reason: anxiety) 10 Days Qty: 20 0RF Primary Care Provider: Corinne Jones NP Referrals: Corinne Jones NP, DEGREASING WHEEL OPERATOR-C [Primary Care Provider] - 3-5 Days if not improving Activity Restrictions/Additional Instructions: Look for [id number] decongestant nasal spray that contains oxymetazoline, use 2 sprays of each nostril up to every 12 hours for 3 days at a time, make sure you give your self time without the spray in between, so you do not get used to it. After sprain into your nostrils, 10 minutes later hold your nose and blow gently into you feel your ears gently pop without blowing too hard, andhold this for 1 breath as long as you can, sometimes this will pop your sinuses open to give you temporary or permanent relief of your sinus headache. Disposition Disposition: Home, Self Care What to do if you have Problems For any increased pain, shortness of breath, bleeding, nausea or vomiting, chestpain, or any unexpected problems, contact your Primary Care Provider. Call [facility] ([phone]) or report to the closest Emergency Room. Call 911 if necessary. 11/14/22 1724 <Electronically signed by Gaston Mccann MD> Cosigner Signature (if applicable): CC: MAGUE Jones ~ Signed [facility] Work Phone: [phone]) 440-900806-12-2023 History of Present illness Narrative* Keily Morin APRN.WAITER/WAITRESS FIRST CLASS - 11/11/2022 11:37 AM EDT Subjective Cough Pertinent negatives include no chest pain, no chills, no ear pain, no sore throat, no shortness of breath and no wheezing. Jarod Aldridge is a 32 year old female who presents with cold and cough symptoms for the past 2.5 weeks. She has nasal congestion, sinus pressure, headache, and productive cough. She has been taking theraflu which has not helped. She denies fever, chills, shortness of breath,chest or back pain. Review of Systems Constitutional: Negative for chills and fever. HENT: Positive for congestion and sinus pain. Negative for ear pain and sore throat. Respiratory: Positive for cough and sputum production. Negative for shortness of breath and wheezing. Cardiovascular: Negative for chest pain. Musculoskeletal: Negative. BP 108/66 Pulse 75 Temp 36.7 C (98.1 F) Resp 18 Wt 49.2 kg (108 lb 6.4 oz) LMP 02/07/2022 SpO2 99% BMI 18.67 kg/m PAST MEDICAL HISTORY Diagnosis Date IBS (irritable bowel syndrome) Panic anxiety syndrome Pneumonia x2 in 2020 Vitamin D insufficiency No past surgical history on file. ALLERGIES Amoxicillin, Cefzil [Cefprozil], Keflex [Cephalexin], Penicillins, and Zoloft [Sertraline] MEDICATIONS doxycycline monohydrate 100 mg tablet Take 1 tablet by mouth twice daily for 7 days. LORazepam (ATIVAN) 1 mg tablet Take 1 tablet by mouth twice daily as needed for anxiety for up to 30 days. escitalopram oxalate (LEXAPRO) 5 mg tablet Take 1 tablet by mouth once daily. escitalopram oxalate (LEXAPRO) 10 mg tablet Take 1 tablet by mouth once daily. 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 Constitutional: General: She is not in acute distress. Appearance: Normal appearance. She is not ill-appearing. HENT: Nose: Nasal tenderness, mucosal edema, congestion and rhinorrhea present. Mouth/Throat: Mouth: Mucous membranes are moist. Pharynx: Oropharynx is clear. Uvula midline. No oropharyngeal exudate or posterior oropharyngeal erythema. Cardiovascular: Rate and Rhythm: Normal rate and regular rhythm. Heart sounds: Normal heart sounds. Pulmonary: Effort: Pulmonary effort is normal. No respiratory distress. Breath sounds: Normal breath sounds. No wheezing or rales. Musculoskeletal: Cervical back: Neck supple. Lymphadenopathy: Cervical: No cervical adenopathy. Skin: General: Skin is warm and dry. Findings: No erythema or rash. Neurological: Mental Status: She is alert. ASSESSMENT/PLAN: 1. Bacterial sinusitis - ICD9: 473.9, 041.9, ICD10: J32.9, B96.89 - Will begin treatment with as per antibiotic as written, see orders - Supportive care with plenty of fluids, rest, and analgesia prn. - DOXYCYCLINE MONOHYDRATE 100 MG TABLET - recommend use of flonase nasal spray. - Follow-up with your PCP in 3-5 days if symptoms have not improved or sooner if symptoms worsen - Discussed red flags and need for immediate medical evaluation if any occur. - Discussed supportive care treatment with fluids, rest and analgesia. - Discussed expected course of illness Keily Morin APRN.CNP documented [facility] this encounterK[facility] Instructions* Patient Instructions* Keily Morin APRN.CNP - 11/11/2022 11:31 AM EDT Images from the original note were not included. ASSESSMENT/PLAN: 1. Bacterial sinusitis - ICD9: 473.9, 041.9, ICD10: J32.9, B96.89 - Will begin treatment with as per antibiotic as written, see orders - Supportive care with plenty of fluids, rest, and analgesia prn. - DOXYCYCLINE MONOHYDRATE 100 MG TABLET - recommend use of flonase nasal spray. - Follow-up with your PCP in 3-5 days if symptoms have not improved or sooner if symptoms worsen - Discussed red flags and need for immediate medical evaluation if any occur. - Discussed supportive care treatment with fluids, rest and analgesia. - Discussed expected course of illness Keily Morin APRN.CNP Adult Sinusitis Patient Education What is Sinusitis? Sinusitis [fohe-jrj-khdo-tis] is inflammation of the sinuses or swelling of the lining of the sinus cavity or nose. During an infection the sinuses become blocked with fluid causing swelling of the lining of the sinuses. Symptoms: (viral and bacterial infections) Stuffy nose Runny nose Postnasal drip Fever Toothache Headache Tiredness Cough Sore throat Face and head pressure and or pain Common causes: 98% of sinus infections are viral caused by viruses. Risk Factors of Sinusitis Include: Allergies, air pollution, indoor humidity and outdoor temperature changes, andstructural changes inthe nose may contribute to sinus pain, pressure and congestion. When to get help? Temperature greater than 100.4 F Symptoms lasting more than 10 days or worsening symptoms greater than 7-10 days. If you do not improve or worsen after a course of antibiotics, you should be re-examined. Diagnosis and Treatment: Your healthcare provider will ask a number of questions about your symptoms and how long they have occurred. If symptoms of sinusitis persist greater than 10 days, it is possible you have a bacterial sinus infection and an antibiotic is prescribed. If it is viral, antibiotics will not help. You may be instructed to take uxdi-cof-gfttefa medications for symptoms. including fever reducers acetaminophen or ibuprofen, nasal saline spray, cough and cold preparations and decongestants as prescribed by the physician, nurse practitioner or physician neurology physician assistant. Self-Care and Prevention: Rest Fluids for hydration Good hand washing Humidifier Avoid smoking and exposure to second hand smoke Avoid sick contacts documented in this encounterK[facility]06-09-2023 Miscellaneous Notes* Telephone Encounter - Peggy Mcbride APRN.CNP - 11/08/2022 10:24 AM EDT PDMP reviewed. Refills filled and requested appropriately, no suspicious activity noted. * Telephone Encounter - Roberta Porter MA - 11/08/2022 9:01 AM EDT PRISCILLA: 10/23/22 with DEVON NOV: 11/20/22 with DEVON Last refill: 09/30/22 With 20 and 0 refills Roberta Porter MA documented in this encounterK[facility]05-01-2023 Miscellaneous Notes* Telephone Encounter - NOE Marinelli - 09/30/2022 1:31 PM EDT BEHAVIORAL HEALTH SOCIAL WORK CONSULT NOTE Service Date: September 30, 2022 Patient was identified by name and Patient: Jarod Gaitan [facility] [id number] (home) [phone] (cell) PCP: No primary care provider on file. No primary provider on file. Patient identified for [facility] from: PCP Reason for referral: Resources Behavioral Health Resources: Psychology - talk therapy [facility] encounter type: Telephone Encounter, [employer] Message Assessment: Referral made to engage patient experiencing anxiety and depression, and to provide therapy resources. [facility] reviewed patient's chart and insurance to identify resources. Patient stated they are experiencing stress, anxiety, and depression. Patient denies suicidal or homicidal ideation. Patient identified she would like to see therapy for ongoing services. [facility] will send resources to patient through [employer]. Patient was appreciative for the information. Medications: Current Outpatient Medications on File Prior to Visit Medication Sig sertraline (ZOLOFT) 50 mg tablet Take 1 tablet by mouth once daily. LORazepam (ATIVAN) 1 mg tablet Take 1 tablet by mouth twice daily as needed for anxiety for up to 30 days. ibuprofen (MOTRIN) 600 mg tablet Take 1 tablet by mouth every 12 hours as needed for pain. albuterol HFA (PROVENTIL HFA, VENTOLIN HFA) 90 mcg/actuation inhaler Inhale 2 Puffs as instructed every 4 hours as needed for wheezing/shortness of breath. No current facility-administered medications on file prior to visit. Curbside: No Screening Tools: No Substance Use / Abuse: No Outcome / Plan / Referrals: Attempts to Outreach: 1 attempt Referral made: Psychology - External Psychology-External referral type: Therapy Reason for external referral: Wait times at [facility] too long Final Disposition: Resources given Patient Discharged?: Yes Patient reported that caregiver was able to meet their needs today?: Yes Internal Referrals : No Reason for External Referrals : Wait is too long Intervention: Supportive Listening Provided referral information Resources Provided: [facility] Time Spent: 15 minutes NOE Marinelli-S documented in this encounterKettering [facility]05-01-2023 Instructions* Patient Instructions* Peggy Mcbride APRN.CNP - 09/30/2022 10:50 AM EDT Complete labwork Start zoloft Start ativan as needed Follow up with Corinne as scheduled. documented in this encounterK[facility]05-01-2023 History of Present illness Narrative* Peggy Mcbride APRN.CNP - 09/30/2022 10:30 AM EDT Chief Complaint Patient presents with: Anxiety HPI Jarod ALDRIDGE is a 32 year old female who presents here today for Above Complaints.. Patient presents for complaints of anxiety with panic attacks. Patient lost both of her grandmas Mike and feels she has not properly processed this. Patient reports she has decreased interest in going out with friends and has struggled to make it through a day at work at times. Patient reports that she has been to the ER twice in the past 6 months for panic attacks. Past medical history, appointments, medications, allergies reviewed. Previous Medical History PAST MEDICAL HISTORY Diagnosis Date IBS (irritable bowel syndrome) Panic anxiety syndrome Pneumonia x2 in 2020 Previous Surgical History No past surgical history on file. Family History No family history on file. Patient Allergies ALLERGIES Allergen Reactions Amoxicillin Rash Cefzil [Cefprozil] Rash Keflex [Cephalexin] Rash Penicillins Rash Current Medications Current Outpatient Medications on File Prior to Visit Medication Sig ibuprofen (MOTRIN) 600 mg tablet Take 1 tablet by mouth every 12 hours as needed for pain. albuterol HFA (PROVENTIL HFA, VENTOLIN HFA) 90 mcg/actuation inhaler Inhale 2 Puffs as instructed every 4 hours as needed for wheezing/shortness of breath. ibuprofen (MOTRIN) 600 mg tablet Take 1 tablet by mouth every 6 hours as needed. azithromycin (ZITHROMAX Z-BRANDY) 250 mg tablet TAKE TWO (2) PILLS BY MOUTH THE FIRST DAY AND THEN ONE(1) PILL BY MOUTH DAILY FOR FOUR (4) DAYS guaiFENesin (MUCINEX) 600 mg 12 hr tablet Take 2 tablets by mouth twice daily. benzonatate (TESSALON PERLE) 100 mg capsule Take 1 capsule by mouth three times daily as needed. HYDROcodone-acetaminophen (NORCO) 5-325 mg per tablet Take 1 tablet by mouth every 6 hours as needed. ondansetron (ZOFRAN) 4 mg tablet Take 1 tablet by mouth every 4 hours as needed for Nausea/Vomiting. No current facility-administered medications on file prior to visit. Social History Social History Tobacco Use Smoking status: Every Day Packs/day: 0.50 Years: 9.00 Pack years: 4.50 Types: Cigarettes Smokeless tobacco: Never Vaping Use Vaping Use: Never used Substance Use Topics Alcohol use: Yes Comment: socially Drug use: Not Currently Types: Marijuana Review of Symptoms REVIEW OF SYSTEMS SEE HPI EXAM: BP 120/80 Pulse 80 Resp 14 Wt 50.3 kg (111 lb) LMP 02/07/2022 BMI 19.66 kg/m General Appearance: Well appearing, alert, in no acute distress, well-hydrated, well nourished. Patient anxious, fidgeting, restless throughout visit. Health Maintenance List HEPATITIS B(1 of 3 - 3-dose series) Never done COVID-19 VACCINE(1) Never done PNEUMOCOCCAL(1 - PCV) Never done HEPATITIS C SCREENING Never done HIV SCREENING Never done DTAP,TDAP,TD(1 - Tdap) Never done PAP TESTING Never done HPV TESTING Never done DEPRESSION ASSESSMENT Never done INFLUENZA(Season Ended) due on 01/31/2023 ASSESSMENT/PLAN: 1. Anxiety and depression -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 arrhea, lung pain. X3 days. Reason Comments Eye Problem scratched by dog Reason Comments Dental Problem X2 weeks Reason Comments Dental Problem Tooth pain x 3 days Reason Comments breast pain Reason Comments Breast Problem R breast pain x1 day , noticed lump Reason Comments Breast Problem Specialty Diagnoses / Procedures Referred By Contvalerio t Referred To Contact Diagnoses Breast pain Procedures CONSULT TO MARKETING CONTENT SPECIALIST OFFICE/OUTPATIENT [facility] 60 MINUTES Cornelius Odonnell, SEEMA [address] [place] [address] Referral ID Status Reason Start Date Expiration Date V isits Requested Visits Authorized [id number] Closed PCP Requested Referral Auto-Generated Referral 02/18/2024 02/17/2025 1 1 Reason Comments Yearly Exam Specialty Diagnoses / Procedures Referred By Piedad t Referred To Contact Optometry / OPHTHALMOLOGY Diagnoses routine exam glasses Procedures NEW ADULT Self Yael Phoenix, OD [address] [place] [address] Referral ID Status Reason Start Date Expiration Date V isits Requested Visits Authorized [id number] Outside PCP 02/26/2024 05/26/2024 1 1 Reason Comments Sinus Problem sinus pressure, drai nage x few days, left side bottom tooth abscess x 1 day Reason Comments Cough Headache, chest tim estion, bilat rib pain, sinus congestion, achy throat, SOB x 1 monthVomiting x 1 day Reason Comments Dental Problem Tooth pain x 10 days Reason Comments Allergic Reaction Started Clindamycin Jun 28 for tooth abscess. Stopped on 07/17 Reason Comments Nausea & Vomiting Diarrhea x this am, Reason Comments Diarrhea cough, fever, burnin g in lung area and bodyaches x 2 days Reason Comments Appointment Cancelled Reason Comments Follow Up Reason Comments Insurance Authorization Reason Comments Med Change Request Reason Comments Patient Question Reason Comments Low Back Pain right sided x last n ight <item> Privacy Markings (unrecogniz ed section and content) Section Author: Charity Melendez PROHIBITION ON REDISCLOSURE OF CONFIDENTIAL INFORMATION This notice accompanies a disclosure of information concerning a client made to you with the consent of such client. Goals (unrecognized section and content) Goals may be documented in a n alternate sectionGoals may be documented in an alternate sectionGoals may be documented in an alternate sectionGoals may be documented in an alternate section No data available for this section No data available for this sectionGoals may be documented in an alternate section Care Teams (unrecognized sec tion and content) Team Status: Active Member Role Status Dates No Primary Care Physician Family Provider Active No Primary Care Physician Primary Care Provider Active Team Status: Inactive Member Role Status Dates No Primary Care Physician Primary Care Provider Active Dr. Mariaelena Gaytan MD Attending Provider, Emergency Provider Active Team Status: Inactive Member Role Status Dates No Primary Care Physician Primary Care Provider Active Dr. Aries Camacho , Emergency Provider Active Switch Maker Relationship Specialty Start Date End Date Alondra Orozco MD [address] [facility] [place] [address] PCP - General Family Medicine 10/23/22 Podlogar, Corinne, ELECTRONICS ASSEMBLER.WAITER/WAITRESS FIRST CLASS [address] [facility] [place] [address] Family Medicine 10/23/22 Switch Maker Relationship Specialty Start Date End Date Alondra Orozco MD [address] [facility] [place] [address] PCP - General Family Medicine 10/23/22 Podlogar, Corinne, ELECTRONICS ASSEMBLER.WAITER/WAITRESS FIRST CLASS [address] [facility] [place] [address] Family Medicine 10/23/22 Team Status: Active Member Role Status Dates No Primary Care Physician Family Provider Active Corinne Podlogar DEGREASING WHEEL OPERATOR, DEGREASING WHEEL OPERATOR-C Primary Care Provider Active Team Status: Inactive Member Role Status Dates No Primary Care Physician Primary Care Provider Active Dr. Aries Camacho DO Attending Provider, Emergency Provide r Active Team Status: Inactive Member Role Status Dates Dr. Gaston Mccann MD Emergency Provider Active Corinne Podlogar DEGREASING WHEEL OPERATOR, DEGREASING WHEEL OPERATOR-C Primary Care Provider Active Switch Maker Relationship Specialty Start Date End Date Alondra Orozco MD [address] [facility] [place] [address] PCP - General Family Medicine 10/23/22 Podlogar, Corinne, ELECTRONICS ASSEMBLER.WAITER/WAITRESS FIRST CLASS [address] [place] [place] [address] Family Medicine 10/23/22 Switch Maker Relationship Specialty Start Date End Date Alondra Orozco MD [address] [place] [place] [address] PCP - General Family Medicine 10/23/22 Podlogar, Corinne, ELECTRONICS ASSEMBLER.WAITER/WAITRESS FIRST CLASS [address] [place] [place] [address] Family Medicine 10/23/22 Switch Maker Relationship Specialty Start Date End Date Alondra Orozco MD [address] [place] [place] [address] PCP - General Family Medicine 10/23/22 Podlogar, Corinne, ELECTRONICS ASSEMBLER.WAITER/WAITRESS FIRST CLASS [address] [place] [place] [address] Family Medicine 10/23/22 Switch Maker Relationship Specialty Start Date End Date Alondra Orozco MD [address] [place] [place] [address] PCP - General Family Medicine 10/23/22 Podlogar, Corinne, ELECTRONICS ASSEMBLER.WAITER/WAITRESS FIRST CLASS [address] [place] [place] [address] Family Medicine 10/23/22 Switch Maker Relationship Specialty Start Date End Date Alondra Orozco MD [address] [place] [place] [address] PCP - General Family Medicine 10/23/22 Podlogar, Corinne, ELECTRONICS ASSEMBLER.WAITER/WAITRESS FIRST CLASS [address] [place] [place] [address] Family Medicine 10/23/22 Switch Maker Relationship Specialty Start Date End Date Alondra Orozco MD [address] [place] [place] [address] PCP - General Family Medicine 10/23/22 Podlogar, Corinne, MELVA.WAITER/WAITRESS FIRST CLASS [address] [place] [place] [address] Family Medicine 10/23/22 Team Status: Inactive Member Role Status Dates Corinne Archerlogjermaine DEGREASING WHEEL OPERATOR, DEGREASING WHEEL OPERATOR-C Primary Care Provider Active Esa Greenberg MD Referring Provider, Emergency Provid er Active Switch Maker Relationship Specialty Start Date End Date Alondra Orozco MD [address] [place] [address] PCP - General Family Medicine 10/23/22 Podlogar, Corinne, ELECTRONICS ASSEMBLER.WAITER/WAITRESS FIRST CLASS [address] [place] [address] Family Medicine 10/23/22 Switch Maker Relationship Specialty Start Date End Date Alondra Orozco MD [address] [place] [address] PCP - General Family Medicine 10/23/22 Podlogar, Corinne, ELECTRONICS ASSEMBLER.WAITER/WAITRESS FIRST CLASS [address] [place] [place] [address] Family Medicine 10/23/22 Switch Maker Relationship Specialty Start Date End Date Alondra Orozco MD [address] [facility] [place] [address] PCP - General Family Medicine 10/23/22 Podlogar, Corinne, ELECTRONICS ASSEMBLER.WAITER/WAITRESS FIRST CLASS [address] [place] [place] [address] Family Medicine 10/23/22 Switch Maker Relationship Specialty Start Date End Date Alondra Orozco MD [address] [place] [place] [address] PCP - General Family Medicine 10/23/22 Podlogar, MELVA Sun.WAITER/WAITRESS FIRST CLASS [address] [place] [place] [address] Family Medicine 10/23/22 Switch Maker Relationship Specialty Start Date End Date Alondra Oorzco MD [address] [place] [place] [address] PCP - General Family Medicine 10/23/22 Podlogar, Corinne ELECTRONICS ASSEMBLER.WAITER/WAITRESS FIRST CLASS [address] [place] [place] [address] Family Medicine 10/23/22 Switch Maker Relationship Specialty Start Date End Date Alondra Orozco MD [address] [place] [place] [address] PCP - General Family Medicine 10/23/22 Podlogar, Corinne ELECTRONICS ASSEMBLER.WAITER/WAITRESS FIRST CLASS [address] [place] [place] [address] Family Medicine 10/23/22 Switch Maker Relationship Specialty Start Date End Date Alondra Orozco MD [address] [facility] [place] [address] PCP - General Family Medicine 10/23/22 Podlogar, Corinne ELECTRONICS ASSEMBLER.WAITER/WAITRESS FIRST CLASS [address] [place] [place] [address] Family Medicine 10/23/22 Switch Maker Relationship Specialty Start Date End Date Alondra Orozco MD [address] [facility] [address] PCP - General Family Medicine 10/23/22 Podlogar, EMANI SunN.WAITER/WAITRESS FIRST CLASS [address] [facility] [place] [address] Family Medicine 10/23/22 Switch Maker Relationship Specialty Start Date End Date Alondra Orozco MD [address] [facility] [place] [address] PCP - General Family Medicine 10/23/22 Podlogar, EMANI SunN.WAITER/WAITRESS FIRST CLASS [address] [place] [place] [address] Family Medicine 10/23/22 Podlogar, Corinne ELECTRONICS ASSEMBLER.WAITER/WAITRESS FIRST CLASS [address] [facility] [place] [address] Payroll Bookkeeper Family Medicine 05/08/24 Switch Maker Relationship Specialty Start Date End Date Alondra Orozco MD [address] [facility] [place] [address] PCP - General Family Medicine 10/23/22 Podlogar, Corinne, ELECTRONICS ASSEMBLER.WAITER/WAITRESS FIRST CLASS [address] [facility] [place] [address] Family Medicine 10/23/22 Podlogar, Corinne ELECTRONICS ASSEMBLER.WAITER/WAITRESS FIRST CLASS [address] [facility] [place] [address] Payroll Bookkeeper Family Medicine 05/08/24 Switch Maker Relationship Specialty Start Date End Date Alondra Orozco MD [address] [place] [place] [address] PCP - General Family Medicine 10/23/22 PodlogarCorinne APRN.WAITER/WAITRESS FIRST CLASS [address] [place] [place] [address] Family Medicine 10/23/22 PodlogarCorinne APRN.WAITER/WAITRESS FIRST CLASS [address] [place] [address] [facility]24 Peggy Mcbride APRN.WAITER/WAITRESS FIRST CLASS [address] [place] [address] [facility] 08/13/24 Switch Maker Relationship Specialty Start Date End Date Alondra Orozco MD [address] [place] [address] PCP - General Family Medicine 10/23/22 PodlogarCorinne APRN.WAITER/WAITRESS FIRST CLASS [address] [place] [address] Family Medicine 10/23/22 PodlogarCorinne APRN.WAITER/WAITRESS FIRST CLASS [address] [place], [place] [address] [facility] 05/08/24 Peggy Mcbride APRN.WAITER/WAITRESS FIRST CLASS [address] [place], [place] [address] [facility] 08/23/24 Team Status: Active Member Role Status Dates Corinne Podlogar DEGREASING WHEEL OPERATOR, DEGREASING WHEEL OPERATOR-C Primary Care Provider Active Team Status: Inactive Member Role Status Dates Corinne Podlogar DEGREASING WHEEL OPERATOR, DEGREASING WHEEL OPERATOR-C Primary Care Provider Active Start: July 09, 2024 End: July 09, 2024 Dr. Malcolm Thompson DO Attending Provider Active Start: July 09, 2024 End: July 09, 2024 Dr. Malcolm Thompson DO Emergency Provider Active Start: July 09, 2024 End: July 09, 2024 Team Status: Inactive Member Role Status Dates Corinne Jones DEGREASING WHEEL OPERATOR, DEGREASING WHEEL OPERATOR-C Primary Care Provider Active Start: July 19, 2024 End: July 19, 2024 Dr. Malcolm Thompson DO Attending Provider Active Start: July 19, 2024 End: July 19, 2024 Dr. Malcolm Thompson DO Emergency Provider Active Start: July 19, 2024 End: July 19, 2024 Team Status: Inactive Member Role Status Dates Corinne Jones DEGREASING WHEEL OPERATOR, DEGREASING WHEEL OPERATOR-C Primary Care Provider Active Start: August 25, 2024 End: August 25, 2024 Dr. Derek Gold DO Emergency Provider Active Start: August 25, 2024 End: August 25, 2024 Switch Maker Relationship Specialty Start Date End Date Alondra Orozco MD [address] [facility] [place] [address] PCP - General Family Medicine 10/23/22 Podlogar, Corinne, ELECTRONICS ASSEMBLER.WAITER/WAITRESS FIRST CLASS [address] [place] [address] Family Medicine 10/23/22 Podlogar, Corinne, ELECTRONICS ASSEMBLER.WAITER/WAITRESS FIRST CLASS [address] [facility] [place] [address] [facility] Family Medicine 05/08/24 Peggy Mcbride ELECTRONICS ASSEMBLER.WAITER/WAITRESS FIRST CLASS [address] [facility], [place] [address] [facility] Family Medicine 08/23/24 Switch Maker Relationship Specialty Start Date End Date Alondra Orozco MD [address] [facility], [place] [id number] PCP - General Family Medicine 10/23/22 PodlogarCorinne APRN.WAITER/WAITRESS FIRST CLASS [address] [facility] [place] [address] Family Medicine 10/23/22 PodlogarCorinne APRN.WAITER/WAITRESS FIRST CLASS [address] [facility] [place] [address] [facility] 05/08/24 Peggy Mcbride APRN.WAITER/WAITRESS FIRST CLASS [address] [facility], [place] [id number] [facility] 08/23/24 Switch Maker Relationship Specialty Start Date End Date Alondra Orozco MD [address] [facility] [place] [address] PCP - General Family Medicine 10/23/22 PodlogarCorinne APRN.WAITER/WAITRESS FIRST CLASS [address] [facility] [place] [address] Family Medicine 10/23/22 PodlogarCorinne APRN.WAITER/WAITRESS FIRST CLASS [address] [place] [place] [address] [facility] 05/08/24 Peggy Mcbride APRN.WAITER/WAITRESS FIRST CLASS [address] [place] [address] [facility] 08/23/24 FOR RECORDS PERTAINING TO PATIENTS WHO ARE OR HAVE BEEN ENROLLED IN A CHEMICAL DEPENDENCY/SUBSTANCEABUSE PROGRAM, SOME INFORMATION MAY BE OMITTED. This clinical summary was aggregated from multiple sources. Caution should be exercised in using it in the provision of clinical care. This summary normalizes information from multiple sources, and as a consequence, information in this document may materially change the coding, format and clinical context of patient data. In addition, data may be omitted in some cases. CLINICAL DECISIONS SHOULD BE BASED ON THE PRIMARY CLINICAL RECORDS. [facility]. provides no warranty or guarantee of the accuracy or completeness of information in this document.
[2024-11-10 23:07] LABS: Internal QC Validated? YES +Cl - CLEAR BKGD; Pregnancy, Serum, hCG Quali. NEGATIVE Negative; Record Kit Lot#, Serum Preg. 947241
[2024-11-10 23:08] LABS: D-Dimer Quantitative (DVT/PE) 0.27 FEU/ug/m (0.27-0.49)
[2024-11-11] VITALS: BP 123/80; PULSE 85; RESP 15; O2SAT 100
== END 2024-11-11 00:13 | disposition home or self-care (01) ==
PROVIDERS: Emergency Provider Emergency Medicine; PCP Nurse Practitioner Primary Care; Referring Provider Emergency Medicine; Visit Provider Emergency Medicine
DX: R07.9 Chest pain, unspecified (principal); R11.0 Nausea; F41.9 Anxiety disorder, unspecified; F17.210 Nicotine dependence, cigarettes, uncomplicated; R05.9 Cough, unspecified
CPT/HCPCS: 71045; 80048; 84484; 84703; 85025; 85379; 93005; 99283; A4216